=== PATIENT | male | born 1945 | race Caucasian/White ===

== ENCOUNTER 2020-05-20 10:15 | Outpatient (REF) | payer MEDICARE, SELFPAY | END 2020-05-20 10:16 | disposition home or self-care (01) | LOC: HO.LAB 10:15 | PROVIDERS: Visit Provider Internal Medicine | DX: Z20.828 Contact with and (suspected) exposure to other viral communicable diseases (principal) | CPT/HCPCS: C9803; U0003 ==

== ENCOUNTER 2021-09-15 07:40 | Emergency (ER) | payer MEDICARE, OTHER, SELFPAY ==
--- NOTE | ~2021-09-15 | US_ITS ---
EXAMINATION: US VENOUS ULTRASOUND WITH DOPPLER LOWER EXTREMITY, LEFT CLINICAL INFORMATION: Left lower extremity pain and edema. COMPARISON: None TECHNIQUE: Ultrasound of the deep veins is performed from the hip to the calf with compression sonography and color and pulse Doppler assessment. Spectral analysis with color-flow imaging is performed. FINDINGS: There is normal venous compression and respiratory variation and augmented flow. The visualized common femoral vein, superficial femoral vein, profunda femoral vein, popliteal vein, and the trifurcation region shows no evidence of deep venous thrombosis. There is no significant popliteal fossa cyst. If the patient's symptoms persist, followup ultrasound in 5 days 7 days might be of value to exclude proximal propagation from a non-visualized calf vein. US/US venous duplex LE LT IMPRESSION: No DVT demonstrated in the left lower extremity.
--- NOTE | ~2021-09-15 | US_ITS ---
EXAMINATION: ULTRASOUND ARTERIAL DUPLEX LOWER EXTREMITY LEFT CLINICAL INFORMATION: Left lower extremity pain. COMPARISON: None TECHNIQUE: Multiple 2-D grayscale and duplex Doppler ultrasound images of the arteries of the left lower extremity were obtained. FINDINGS: Scattered mild to moderate echogenic atherosclerotic plaque is seen. Peak systolic arterial velocities are as follows in centimeters per second: Common femoral: Proximal, no detectable blood or waveforms. Distal, 29 Profunda femoral: 18 Superficial femoral: No detectable arterial waveforms. Popliteal: 15 Posterior tibial: Proximal, 6. Mid to distal, no detectable arterial waveforms. Peroneal: No detectable arterial waveforms US/US arterial duplex LE LT IMPRESSION: No detectable arterial waveforms and several arterial segments in the left lower extremity as detailed above consistent with high-grade stenosis at these arterial segments. Diminished arterial waveforms are seen in the remainder of the arterial segments consistent with significant stenosis as well. This could be confirmed with CT angiography.
[2021-09-15 07:55] VITALS: BP 140/89; PULSE 100; RESP 20; TEMP 36.6; O2SAT 98; BMI 20.9
--- NOTE | 2021-09-15 07:55 | ED.GENADULT ---
HPI - General Adult General Chief complaint: Extremity Injury, Lower Stated complaint: pain in l leg calf Time Seen by Provider: 09/15/21 07:54 Source: patient Mode of arrival: ambulatory Limitations: no limitations History of Present Illness HPI narrative: This is a 76-year-old male complains of pain in his left leg from his lower thigh to his posterior knee and upper calf for a few weeks. The patient denies any injury. He denies any feeling that he had pulled a muscle. He denies any swelling to the leg or foot. Denies any chest pain or shortness of breath. He is not on any anticoagulants. Pain is worse with walking. Is moderately severe. He denies any recent surgery. He has not had any prolonged immobilization of the leg such as from travel. Related Data Allergies Allergy/AdvReac Type Severity Reaction Status Date / Time No Known Allergies Allergy Unverified 02/13/20 15:04 [No Known Allergies*] Review of Systems Review of Systems: Yes all other systems are reviewed and are negative Constitutional: Constitutional: Reports as per HPI and Denies fever(s) Eyes: Eyes: Reports as per HPI and Reports no additional eye complaints ENT: Reports system reviewed and no additional complaints, except as documented, Reports as per HPI, Denies nasal congestion, Denies nasal discharge and Denies sore throat Cardiovascular: Cardiovascular: Reports as per HPI, Denies chest pain and Denies dyspnea Respiratory: Respiratory: Reports as per HPI, Denies cough and Denies dyspnea Gastrointestinal: Gastrointestinal: Reports as per HPI, Denies abdominal pain, Denies diarrhea and Denies vomiting Musculoskeletal: Musculoskeletal: Reports no additional musculoskeletal complaints and Denies numbness Integumentary/Breasts: Skin/Breast: Reports as per HPI and Denies rash Neurologic: Reports as per HPI, Denies focal weakness and Denies numbness Psychiatric: Psychiatric: Reports no additional psychiatric complaints and Reports as per HPI Endocrine: Endocrine: Reports no additional endocrine complaints and Reports as per HPI Hematologic/Lymphatic: Hematologic/Lymphatic: Reports no additional hematologic/lymphatic complaints, Reports as per HPI and Reports other (No peripheral edema) [facility] Social History Social History Alcohol intake: never Patient Tobacco Use Status: Never used Tobacco Physical Exam ED Vital Signs: Vital Signs - 24 hr 09/15/21 07:55 09/15/21 10:22 Temperature 97.9 F 98.0 F Pulse Rate 100 69 Respiratory Rate 20 14 Blood Pressure 140/89 H 161/77 H Pulse Oximetry 98 99 BMI result Body Mass Index 20.9 Const General: no acute distress Orientation/consciousness: patient oriented x3 HENMT Head: Yes normal to inspection General nose exam: Normal external nose present Mouth: moist mucous membranes Throat: Yes posterior oropharynx normal, Yes tonsils normal and Yes uvula midline Eyes Eyelids: Yes eyelids normal Conjunctivae: conjunctivae normal Pupils: Equal, round and reactive pupils present Neck Neck: Yes supple Resp Effort & Inspection: normal respiratory effort Auscultation: clear to auscultation bilaterally Cardio Rate: regular rate Rhythm: regular rhythm Heart sounds: S1 normal heart sound present, S2 normal heart sound present, no gallops, no murmurs and no rubs GI Inspection: No distended Palpation (GI): Soft to palpation and nontender Auscultation: normal bowel sounds Skin General skin exam: other (Warm and dry) Neuro General: patient oriented x3 and CN's II-XI intact bilaterally Cranial nerves: Yes Equal, round and reactive pupils present Extrem Other: Several small scabs to the left anterior leg consistent with excoriation. No localized erythema. Fullness to the left inferior posterior thigh on exam consistent with muscle spasm versus vascular cord, although it feels more muscular given its contours. No popliteal cord or fullness. Left posterior calf soft, nontender. No pedal edema, normal dorsalis pedis pulse. General: Yes no pedal edema Psych Affect: normal affect Attitude: cooperative Medical Decision Making [facility] Narrative Medical decision making narrative: Patient with pain in his left leg, which he reports comes on after walks a few blocks. No leg swelling. Left foot was warm but had only a very faint palpable dorsalis pedis pulse. Decreased capillary refill to the toes but they were not cyanotic or cold. Venous duplex was negative for DVT. Duplex arterial did show significant arterial blockage. I spoke with the patient's primary care physician's office to let them know that he needs vascular follow-up. I also called Dr. Kenyon of vascular surgery, who was in the OR and was unable to call back for a few hours, and I had discharged the patient, but he was apprised of the patient's need for close follow-up and likely intervention to open up his left leg arterial system. The patient was also advised to return for any leg pain occurring at rest, any change in color or cold feeling to the left leg. Patient is being started on an aspirin daily, pending vascular surgery evaluation Imaging Data Left leg arterial duplex: Radiologist's impression: FINDINGS: Scattered mild to moderate echogenic atherosclerotic plaque is seen. Peak systolic arterial velocities are as follows in centimeters per second: Common femoral: Proximal, no detectable blood or waveforms. Distal, 29 Profunda femoral: 18 Superficial femoral: No detectable arterial waveforms. Popliteal: 15 Posterior tibial: Proximal, 6. Mid to distal, no detectable arterial waveforms. Peroneal: No detectable arterial waveforms US/US arterial duplex LE LT IMPRESSION: No detectable arterial waveforms and several arterial segments in the left lower extremity as detailed above consistent with high-grade stenosis at these arterial segments. Diminished arterial waveforms are seen in the remainder of the arterial segments consistent with significant stenosis as well. This could be confirmed with CT angiography. ? ? ? Left leg venous duplex: Radiologist's impression: IMPRESSION: No DVT demonstrated in the left lower extremity. Discharge Plan Discharge Clinical Impression: Claudication in peripheral vascular disease Patient Disposition: Home, Self-Care Instructions: Peripheral Artery Disease (ED) Additional Instructions: Take a baby aspirin daily. Follow up with Dr. Kenyon as soon as possible-you may need surgery to improve the blood flow to your left leg return for any worsening symptoms such as persistent pain to her left leg, your left leg or foot becoming cold or blue Referrals: Fran Kenyon MD [Physician] - 1 day (Severe peripheral artery disease left leg with claudication) Interventions: ED Discharge Assessment Last Done: 09/15/21 11:02 Discharge Date/Time: 09/15/21 11:02
--- NOTE | 2021-09-15 08:43 | PC.NURSE ---
portable ultrasound done at bedside.
--- NOTE | 2021-09-15 09:58 | PC.NURSE ---
bunny connect to md rich and call placed to office. he is in surgery and will contact md harrington when available.
[2021-09-15 10:22] VITALS: BP 161/77; PULSE 69; RESP 14; TEMP 36.7; O2SAT 99
[2021-09-15] MEDS: Aspirin Enteric Coated 81 MG TABLET.DR PO (10:56)
== END 2021-09-15 11:02 | disposition home or self-care (01) ==
PROVIDERS: Emergency Provider Emergency Medicine; PCP Internal Medicine
DX: I73.9 Peripheral vascular disease, unspecified (principal); M79.605 Pain in left leg
CPT/HCPCS: 93926; 93971; 99284

== ENCOUNTER → 2021-09-21 08:59 | Outpatient (BNVA) | payer MEDICARE, OTHER, SELFPAY | PROVIDERS: PCP Internal Medicine; Visit Provider Surgery Vascular Surgery | DX: I73.9 Peripheral vascular disease, unspecified (principal) | CPT/HCPCS: 99202 ==

== ENCOUNTER 2021-09-27 10:44 | Day surgery (SDC) | payer MEDICARE, OTHER, SELFPAY ==
[2021-09-27] VITALS (11 sets, daily range): BP systolic 119–150; BP diastolic 72–85; PULSE 60–90; RESP 15–17; TEMP 36.2–36.5; O2SAT 96–98; BMI 17.7
[2021-09-27 11:15] LABS: MANUAL DIFF FLAG NO
[2021-09-27 11:18] LABS: Basophils Absolute Auto 0.1 X10*3/uL (0.0-0.2); Basophils Percent Auto 0.6 % (0-2); Eosinophils Absolute Auto 0.3 X10*3/uL (0.0-0.4); Eosinophils Percent Auto 2.9 % (0-4); Hematocrit 46.9 % (42.0-52.0); Hemoglobin 15.4 g/dl (14.0-18.0); Imm Gran Abs Auto 0.05 X10*3/uL (0.00-0.03); Imm Gran Pct Auto 0.5 % (0.0-0.4); Lymphocytes Absolute Auto 2.3 X10*3/uL (1.2-4.9); Lymphocytes Percent Auto 23.8 % (20-40); Mean Corpuscular HGB Conc 32.8 g/dl (31.0-36.0); Mean Corpuscular Hemoglobin 29.8 pg (27.0-33.0); Mean Corpuscular Volume 90.7 fL (80.0-98.0); Mean Platelet Volume 9.1 fL (9.4-12.4); Monocytes Absolute Auto 1.1 X10*3/uL (0.1-1.2); Monocytes Percent Auto 11.5 % (2-11); Neutrophils Absolute Auto 5.9 x10*3/uL (2.0-8.3); Neutrophils Percent Auto 60.7 % (45-73); Platelet Count 432 X10*3/uL (160-400); Red Blood Count 5.17 X10*6/uL (4.60-5.80); Red Cell Distribution Width 13.8 % (11.0-16.0); White Blood Count 9.8 X10*3/uL (4.8-10.8)
[2021-09-27 11:30] LABS: Blood Urea Nitrogen 13 mg/dL (9-16); Creatinine Clr Calc Pharmacy 52.5; Estimated Glomerular Filt Rate > 60
[2021-09-27] MEDS: iohexoL 300 MG/ML 100 ML INFUS..BTL IV (14:07)
--- NOTE | 2021-09-27 14:11 | W.PM.OPN ---
Operative Note Operative Note Date of Service: 09/27/21 Narrative: Angiogram report from [facility] Preoperative diagnosis: Atherosclerosis of left lower extremity with activity limiting claudication Postoperative diagnosis: Same Procedure: 1. Ultrasound-guided right common femoral access 2. Aortogram with left lower extremity runoff Surgeon:Fran Kenyon M.D., FACS, RPVI Threading Machine Operator:None Anesthesia: Local with moderate conscious sedation. Total intraservice moderate sedation time was 32 minutes. I monitored the patient's level of consciousness and physiologic status continuously throughout the procedure. Specimens:none Drains:none Estimated blood loss: Less than 10 ml Implant: none Indications: 76-year-old gentleman with severe activity limiting claudication presents for endovascular intervention. Of note he had presented to the emergency room and there was concern of inflow and SFA disease On ultrasound performed in the emergency room. The patient has signed the informed consent after reviewing risks, complications, benefits, and alternatives previously discussed with the patient. The patient was given the opportunity to ask any additional questions or voice any concerns. All questions were answered to the patient's satisfaction. Procedure in detail: Patient was brought to the angiography suite prior to which a time-out was called for patient identification and site verification. Bilateral groins were prepped and draped in the standard surgical fashion. Under ultrasound guidance Right common femoral was punctured with micro puncture needle and wire. Subsequently a precision 5 Welsh sheath was then placed. Bentson wire was advanced to the level of the aorta. 5 Welsh Flush catheter was brought up and parked at the level of the renal arteries. Aortogram was then undertaken. Catheter was brought down to the level of the iliac bifurcation. Iliacs were subsequently imaged. due to the iliac disease noted the catheter was left at the aortic bifurcation. Left lower extremity study will was then undertaken from this point. No intervention was indicated. Catheter wire sheath was removed. 10 minutes of direct pressure was held. Interpretation of films: 1. Ultrasound demonstrates appropriate femoral puncture. Image of which was saved. 2. Aortogram demonstrates appropriate caliber aorta. Minimal disease. Appropriate take-off of the renals. 3. Iliac images demonstrate Significant tortuosity, mild disease on the right side. left side mild disease at the common iliac. prominent hypogastric on the left side, And external iliac demonstrated total occlusion 4. left Leg Common femoral artery: occluded Profundus Femoris: No significant disease, after reconstitution from origin from hypogastric Superficial femoral artery: total occlusion with reconstitution at the above knee popliteal Popliteal artery (p1,p2,p3): present Anterior tibial artery: present Peroneal artery: present Posterior tibial artery: occluded Dorsalis pedis/plantar arch: unable to visualize Conclusion: 1. successful diagnostic angiogram. multilevel disease with occlusion of external iliac and SFA. Will require femoral to femoral bypass 2. Anticoagulation status: no change This note is constructed using voice recognition software. While every effort has been made to ensure accuracy, supervisory historian errors may have been included. Thank you for allowing me to participate in the care of your patient. Yours sincerely, Fran Kenyon MD, FACS, R.P.V.I.
== END 2021-09-27 18:21 | disposition home or self-care (01) ==
PROVIDERS: PCP Internal Medicine; Visit Provider Surgery Vascular Surgery
DX: I70.212 Atherosclerosis of native arteries of extremities with intermittent claudication, left leg (principal); M79.662 Pain in left lower leg; R25.2 Cramp and spasm; R26.2 Difficulty in walking, not elsewhere classified; Z79.82 Long term (current) use of aspirin; Z76.1 Encounter for health supervision and care of foundling; F17.210 Nicotine dependence, cigarettes, uncomplicated; Z85.46 Personal history of malignant neoplasm of prostate
CPT/HCPCS: 36245; 36415; 75630; 76937; 82565; 84520; 85025; 99152; 99153; C1769; C1887; J2250; J3010; Q9967

== ENCOUNTER → 2021-09-30 14:44 | Outpatient (BNVA) | payer MEDICARE, OTHER, SELFPAY | PROVIDERS: PCP Internal Medicine; Visit Provider Surgery Vascular Surgery | DX: I73.9 Peripheral vascular disease, unspecified (principal) | CPT/HCPCS: 99212 ==

== ENCOUNTER → 2021-10-05 12:54 | Outpatient (BNVA) | payer MEDICARE, OTHER, SELFPAY | PROVIDERS: PCP Internal Medicine; Visit Provider Internal Medicine | DX: Z13.89 Encounter for screening for other disorder (principal) | CPT/HCPCS: 93005; 99202 ==

== ENCOUNTER → 2021-10-05 16:46 | Outpatient (REF) | payer MEDICARE, OTHER, SELFPAY ==
--- NOTE | 2021-10-05 17:00 | CA_ITS ---
Transthoracic Echocardiogram Patient (Last, First, Middle): Jake Vargas M Gender: Male Date of : 1945 Age: 76 Procedure Date: 10/05/2021 Procedure Type: Transthoracic Echocardiogram Location: OP Height: 170.18 cm Weight: 61.24 kg BSA: 1.71 m2 Heart Rate: bpm BP: 120 / 72 mmHg Financial Management Consultant: KODY Referring MD: Alonso Rucker MD Circular Saw Edge Fuser: Rashad Stoddard MD Symptoms: I25.10 - Atherosclerotic heart disease of [place] coronary... Study Quality: Technically Difficult ECG Rhythm: Undetermined Conclusions: - 1. Mildly reduced LV systolic function with LVEF of 45-50% 2. Normal cardiac valvular Doppler 3. Normal RV systolic pressure 4. No gross pericardial effusion Findings Left Ventricle Normal left ventricular cavity size. There is normal left ventricular wall thickness. The left ventricular systolic function is mildly decreased. The visually estimated ejection fraction is between 45-50%. Regional wall motion abnormalities can not be excluded due to suboptimal endocardial definition. Diastolic function is indeterminate on the basis of available data. Right Ventricle Normal right ventricular cavity size. Atria The left atrium is normal in size. Interatrial shunt cannot be excluded. The right atrium is normal in size. Aortic Valve The aortic valve was not well visualized. There is no aortic valve stenosis. There is no aortic valve regurgitation. Mitral Valve Likely normal mitral valve structure and function. There is trace mitral valve regurgitation. There is no mitral valve stenosis. Pulmonic Valve The pulmonic valve was not well visualized. Tricuspid Valve Likely normal tricuspid valve structure and function. There is trace tricuspid valve regurgitation. The right ventricular systolic pressure is normal. The right ventricular systolic pressure is 12 mmHg. Normal right atrial pressure. There is no evidence of pulmonary hypertension. Great Vessels The aorta was not well visualized. The pulmonary artery was not well visualized. Venous The inferior vena cava is normal in size and collapses greater than 50% with inspiration. Pericardium/Pleural There is no evidence of pericardial effusion. Prior Study Comparison No prior study available for comparison. Measurements 2D Linear Measurements IVSd: 1.02 0.6-0.9/0.6-1.0 cm LVIDd: 3.54 3.9-5.3/4.2-5.9 cm LVIDd Index: 2.07 2.4-3.2/2.2-3.1 cm/m2 LVIDs: 2.80 2.0-3.6 cm LVPWd: 1.05 0.7-1.1 cm LA Diam: 3.00 2.7-3.8/3.0-4.0 cm LAIDs Index: 1.75 1.5-2.3 cm/m2 LV Mass: 157.83 67-162/88-224 g LV Mass Index: 92.30 43-95/49-115 g/m2 LVOT Diam: 2.20 3.0+(-)1.3 cm 2D Systolic Function EF 4C: 45.50 >55% EF 2C: 47.70 >55% EF BiP: 46.70 >55% Mitral Valve MV Pk E: 0.90 MV Decel Time: 232.00 E'Lateral: 14.10 E'Medial: 8.16 E/E' Med: 11.00 E/E' Lat: 6.40 PHT: 68.00 MVA PHT: 3.24 Decel [place]: 3.88 Aortic Valve AoV Pk [place]: 1.19 AoV Mn Winston: 0.79 AoV VTI: 0.18 AoV Pk Grad: 6.00 Aov Mn Grad: 3.00 KEITH Cont.VTI: 2.82 LVOT LVOT Pk [place]: 0.76 LVOT Mn [place]: 0.51 LVOT VTI: 0.13 LVOT Pk Grad: 2.00 LVOT Mn Grad: 1.00 LVOT Diam: 2.20 LVOT Area: 3.80 Diastolic Function MV Pk E: 0.90 E'Medial: 8.16 E/E' Med: 11.00 E' Laterial: 14.10 E/E' Lat: 6.40 Right Ventricle TAPSE (mm): 1.55 TVS' Winston: 11.20 Tricuspid Valve TR Pk Winston: 1.52 TR Pk Grad: 9.00 RA Press: 3.00 RVSP: 12.00 Great Vessels Aorta Sinus of Valsalva: 3.52 2.0-3.[address] [place]: 2.60 1.7-3.4 cm Ao Asc: 3.00 2.1-3.4 cm Updated in Other Vendor System with Status of Final Rashad Stoddard MD electronically signed on 10/06/2021 1:05:32 PM with status of Final
== END ==
LOC: HO.CARD 16:46
PROVIDERS: PCP Internal Medicine; Visit Provider Internal Medicine Cardiovascular Disease
DX: Z01.818 Encounter for other preprocedural examination (principal); I25.10 Atherosclerotic heart disease of native coronary artery without angina pectoris
CPT/HCPCS: 93005; 93306; 99202

== ENCOUNTER → 2021-10-07 09:22 | Outpatient (REF) | payer MEDICARE, OTHER, SELFPAY ==
--- NOTE | ~2021-10-07 | NM_ITS ---
Myocardial perfusion study Indication: Preoperative cardiovascular risk stratification Technique: The patient was brought in for a Lexiscan perfusion study on 10/08/2021. Patient performed low-level exercise and was injected 0.4 mg of Lexiscan intravenously. Within a minute of injection, 25 mCi of sestamibi was given intravenously. Images were obtained using the SPECT gamma camera interlaced with the gating device. Images were obtained in supine position. Resting perfusion study was performed on 10/07/2021. Patient was administered 25 mCi of sestamibi intravenously at rest. Images were then obtained in supine position. Images obtained with and without CT attenuation. Total DLP 75 mGy-cm. Images were processed with the software and compared side to side in short axis, horizontal long axis and vertical long axis views. Findings: The stress perfusion study showed non attenuated images show mildly reduced uptake in the basal septum of the LV myocardium. Remainder of the LV myocardium is normally perfused. Attenuation corrected images show normal uptake of radiotracer in all segments of LV myocardium. The gated study shows normal LV systolic function with visually estimated LVEF of greater than 60 %. LV cavity is normal in size. The gated study shows normal systolic wall thickening and contraction of segments. Resting study shows no significant change in perfusion pattern compared to stress perfusion study. Gating at rest reveals normal systolic wall motion with ejection fraction at 65%. The findings are consistent with normal myocardial perfusion. NM/NM cardiolite stress test Impression: 1. Myocardial perfusion imaging study shows normal myocardial perfusion 2. Gated LVEF is 65% 3. Transient ischemic dilatation not present EKG is nondiagnostic for ischemia
--- NOTE | 2021-10-07 09:27 | CA_ITS ---
Acquisition Time: 2021-10-08 09:14:22 Total Exercise Time: 00:02:00 Test Indications: preop Medications: see chart Protocol: LEXISCAN Max HR: 110 BPM 76% of Pred: 144 BPM Max BP: 144/090 mmHG Max Work Load: 1.6 METS Pharmacological stress test with Lexiscan injection, while walking slow on treadmill, with mild sob, no chest discomfort, with accelerated junctional rhythm at baseline with brief episode of normal sinus rhythm prior to start of test, with normotensive response to injection, with nondiagnostic EKG for ischemia. Nuclear images pending. Test reviewed with Dr Stoddard. Referred By: Alonso Rucker Overread By: FRANKI QUIJANO
== END ==
LOC: HO.CARD 09:22
PROVIDERS: PCP Internal Medicine; Visit Provider Internal Medicine Cardiovascular Disease
DX: Z01.810 Encounter for preprocedural cardiovascular examination (principal)
CPT/HCPCS: 78452; 93017; A9500; J0280; J2785

== ENCOUNTER 2021-10-18 05:59 | Inpatient (IN) | payer MEDICARE, OTHER, SELFPAY ==
[2021-10-14 10:59] VITALS: BMI 20.5
--- NOTE | 2021-10-15 11:37 | P.CONAN_ITS ---
Documented by User: Aleha Haley NP 10/15/21 11:40 HPI - Anesthesia Eval Consult details Narrative: 76yo M for Femoral Femoral Bypass Graft Cardiac cleared Intellectual disability - Brother is ASIM PMFSH Active Problems Active Problems: All Active Problems (Updated 10/14/21 @ 10:36 by Rosina Luna RN) PAD (peripheral artery disease) (Acute) Preoperative cardiovascular examination (Acute) Past Medical History Medical History (Updated 10/14/21 @ 10:36 by Rosina Luna RN) History of radiation therapy Illiterate Mentally challenged Prostate cancer PVD (peripheral vascular disease) Family History Family History (Updated 10/05/21 @ 13:17 by AGUSTO Garrett) Father No problems noted. Mother No problems noted. Surgical History Surgical History (Updated 10/14/21 @ 10:41 by Rosina Luna RN) Hx of surgical procedure No pertinent past surgical history Social History Social History Household Members Other:: Lives with his sister Are you a primary palliative care nurse practitioner to a significant other at home: No Do you presently have visiting nurse or other home services: No Alcohol intake: never Patient Tobacco Use Status: Current everyday Tobacco user Tobacco use type: Cigarette Cigarettes Per Day: 5 Smoked in Last 30 Days: Yes Patient Given Instructions on How to Stop Smoking: Yes (Mailed) Date Education Initiated: 10/14/21 Use of substances other than those prescribed or required for medical reasons: No Have you been hit, kicked, punched, or otherwise hurt by someone within the past year? If so, by whom?: No Are you DNR?: No Advance Directives: No Advance Directives Information Provided: Yes (Given w/ pre-op instructions; Brother Iron DAILEY) Advance Directives on File: No Recently lost weight without trying: No Eating poorly because of decreased appetite: No Nutrition Risks: No Nutritional Risk Meds Allergies Allergy/AdvReac Type Severity Reaction Status Date / Time No Known Allergies Allergy Verified 10/14/21 10:36 [No Known Allergies*] Home Medications Medication Instructions Recorded Confirmed Last Taken Type aspirin 81 mg tablet,delayed 81 mg PO DAILY 09/21/21 10/18/21 Unknown History release (Adult Aspirin Regimen) ibuprofen 200 mg tablet (Advil) 200 mg PO Q6H PRN 09/21/21 10/18/21 Unknown History multivitamin 1 tab PO DAILY 09/21/21 10/18/21 Unknown History Exam Exam Date and Time: October 15, 2021 1137 Height,Weight and Vital Signs: Height 5 ft 7 in Weight 59.421 kg Pertinent Lab Results Pertinent Lab Results: Laboratory Tests 09/27/21 09/27/21 11:12 11:12 WBC 9.8 Hgb 15.4 Hct 46.9 Plt Count 432 H BUN 13 Creatinine 0.92 Narrative Narrative: EKG 09/2021 probable accelerated junctional rhythm at 94/Min; cannot exclude old septal infarct versus from body habitus.? Leftward axis. Less likely that this is sinus with long [place].? A low atrial rhythm also possible. ECHO 09/2021 Conclusions: - 1. Mildly reduced LV systolic function with LVEF of 45-50% ? ? 2.? Normal cardiac valvular Doppler? 3.? Normal RV systolic pressure? 4. No gross pericardial effusion ? ? NM cardiolite stress test 09/2021 Impression: ? 1.? Myocardial perfusion imaging study shows normal myocardial perfusion 2.? Gated LVEF is 65% 3. Transient ischemic dilatation not present ? EKG is nondiagnostic for ischemia Assessment and Plan Assessment Anesthesia Assessment: Chart Reviewed Documented by User: Gama Nguyen MD 10/18/21 14:11 HPI - Anesthesia Eval Consult details Narrative: 76yo M for Femoral Femoral Bypass Graft Cardiac cleared ex Smoker Intellectual disability - Brother is ASIM [facility] Past Medical History Medical History (Updated 10/14/21 @ 10:36 by Rosina Luna RN) History of radiation therapy Illiterate Mentally challenged Prostate cancer PVD (peripheral vascular disease) Functional capacity: wheelchair bound Family History Family History (Updated 10/05/21 @ 13:17 by GAUSTO Garrett) Father No problems noted. Mother No problems noted. Family history of problems with anesthesia: No Surgical History Surgical History (Updated 10/14/21 @ 10:41 by Rosina Luna RN) Hx of surgical procedure No pertinent past surgical history History of Problems with Anesthesia: No Social History Social History Household Members Other:: Lives with his sister Are you a primary palliative care nurse practitioner to a significant other at home: No Do you presently have visiting nurse or other home services: No Alcohol intake: never Patient Tobacco Use Status: Current everyday Tobacco user Tobacco use type: Cigarette Cigarettes Per Day: 5 Smoked in Last 30 Days: Yes Patient Given Instructions on How to Stop Smoking: Yes (Mailed) Date Education Initiated: 10/14/21 Use of substances other than those prescribed or required for medical reasons: No Have you been hit, kicked, punched, or otherwise hurt by someone within the past year? If so, by whom?: No Are you DNR?: No Advance Directives: No Advance Directives Information Provided: Yes (Given w/ pre-op instructions; Brother Iron DAILEY) Advance Directives on File: No Recently lost weight without trying: No Eating poorly because of decreased appetite: No Nutrition Risks: No Nutritional Risk Meds Allergies Allergy/AdvReac Type Severity Reaction Status Date / Time No Known Allergies Allergy Verified 10/14/21 10:36 [No Known Allergies*] Home Medications Medication Instructions Recorded Confirmed Last Taken Type aspirin 81 mg tablet,delayed 81 mg PO DAILY 09/21/21 10/18/21 Unknown History release (Adult Aspirin Regimen) ibuprofen 200 mg tablet (Advil) 200 mg PO Q6H PRN 09/21/21 10/18/21 Unknown History multivitamin 1 tab PO DAILY 09/21/21 10/18/21 Unknown History Exam Airway Mallampati Class: II TM Dist: >3cm Neck ROM: Full Denture: Upper and Lower Loose/Missing/Broken Teeth: Yes Heart: S1, S2 Lungs: b/l breath sounds Assessment and Plan Assessment Anesthesia Assessment: Anesthesia Plan Discussed Final Anesthetic Review Family History of Problems with Anesthesia: No History of Problems with Anesthesia: No ASA Class: III Final Preanesthetic Review: Meds/Allgs Chart Reviewed, Consent Obtained/Reviewed and Anes Risks/Benef Reviewed Patient Risk: High Procedure Risk: Intermediate Anesthetic Plan Anesthetic Plan: GA Disposition: Inp. Admit - ICU
[2021-10-18] VITALS (21 sets, daily range): BP systolic 97–168; BP diastolic 60–94; PULSE 45–90; RESP 11–18; TEMP 36.1–36.3; O2SAT 96–100
--- NOTE | ~2021-10-18 | XR_ITS ---
EXAMINATION: XR CHEST CLINICAL INFORMATION: Arrhythmia. Elevated WBC. COMPARISON: None TECHNIQUE: Frontal view of the chest was obtained. FINDINGS: Lungs are hyperexpanded and clear. No acute pulmonary abnormality. No evidence of consolidation, edema or pleural effusion. Cardiac silhouette is normal in size. The hilar contours are normal. There is atherosclerotic calcification of the aorta. No acute skeletal findings. XR/XR chest 1V IMPRESSION: No evidence of pneumonia, cardiomegaly or congestive heart failure. No acute cardiopulmonary findings.
[2021-10-18 06:47] LABS: COVID-19 Test Negative (Negative)
[2021-10-18] MEDS: Lactated Ringers 1,000 ML 100 ML IVCONT ×2 (06:49→16:57)
[2021-10-18 06:56] LABS: Hematocrit 43.7 % (42.0-52.0); Hemoglobin 14.5 g/dl (14.0-18.0); Mean Corpuscular HGB Conc 33.2 g/dl (31.0-36.0); Mean Corpuscular Hemoglobin 29.8 pg (27.0-33.0); Mean Corpuscular Volume 89.9 fL (80.0-98.0); Platelet Count 320 X10*3/uL (160-400); Red Blood Count 4.86 X10*6/uL (4.60-5.80); Red Cell Distribution Width 14.1 % (11.0-16.0); White Blood Count 7.5 X10*3/uL (4.8-10.8)
[2021-10-18 07:12] LABS: INTERNATIONAL NORM RATIO 1.1 (0.9-1.1)
[2021-10-18 07:14] LABS: Anion Gap 11 (12-20); Blood Urea Nitrogen 13 mg/dL (9-16); Calcium 9.3 mg/dL (8.4-10.2); Carbon Dioxide 31 mmol/L (22-29); Chloride 102 mmol/L (96-108); Creatinine Clr Calc Pharmacy 58.6; Estimated Glomerular Filt Rate > 60; Glucose Random 89 mg/dL (60-115); Potassium 4.1 mmol/L (3.3-5.1); Sodium 140 mmol/L (135-145)
[2021-10-18 07:15] LABS: Partial Thromboplastin Time 38.4 SEC (24.1-38.0)
--- NOTE | 2021-10-18 07:21 | ECG_ITS ---
Test Reason : slow heart rate Blood Pressure : / mmHG Vent. Rate : 050 BPM Atrial Rate : 050 BPM P-R Int : 148 ms QRS Dur : 082 ms QT Int : 452 ms P-R-T Axes : 070 -48 061 degrees QTc Int : 412 ms Sinus bradycardia Left axis deviation Abnormal ECG No previous ECGs available Referred By: Gama Nguyen Electronically Signed By:Sumit Dugan
--- NOTE | 2021-10-18 07:21 | MHC.SHP ---
Pre-Procedural Eval Section A Date of Service: 10/18/21 The patient is an INPATIENT: No Changes since office visit: Yes Patient answered all questions The History & Physical has been completed within 30 days and I have reviewed it.: Yes Section B Chief Complaint: Postop Allergies: Allergies Allergy/AdvReac Type Severity Reaction Status Date / Time No Known Allergies Allergy Verified 10/14/21 10:36 [No Known Allergies*] Plan I have reviewed the history and physical and performed a pertinent physical examination on my patient. No changes have occurred unless specified.
--- NOTE | 2021-10-18 07:22 | PC.NURSE ---
WHILE PATIENT SITTING IN BED HEART RATE DECREASED TO 48. ASYMPTOMATIC. EKG ORDERED PER MD OVERTON.
--- NOTE | 2021-10-18 07:28 | PC.NURSE ---
SPOKE TO BROTHER PATRICE AND HE STATES HE IS ABLE TO SIGN CONSENTS HIMSELF [phone]. MD CASAREZ AWARE OF TAKING HIS ASA YESTERDAY AND ABSENT PULSE TO LEFT TIBIA
--- NOTE | 2021-10-18 07:41 | PHA.MEDREC ---
Pharmacy Consult ? Medication Reconciliation Pharmacy has completed the medication reconciliation.
[2021-10-18] MEDS: ceFAZolin Sodium/Dextrose,Iso 2 GM/50 ML PIGGYBACK IV ×2 (07:52→16:57)
--- NOTE | 2021-10-18 11:10 | P.OP_ITS ---
Operative Note Operative Note Date of Service: 10/18/21 Narrative: Operative note by [facility] Preoperative diagnosis: Atherosclerosis with Severe activity limiting claudication Postoperative diagnosis: Same Procedure:1. Femoral to femoral bypass (right to left) 2. Left femoral endarterectomy 3. Thrombectomy of left SFA and profundus Surgeon:Fran Kenyon M.D. Routing Equipment Tender: Dr. Bryant and Dr. Meza Anesthesia: General Specimens: 1 Drains: None Estimated blood loss: 450 mL Indications: 76-year-old gentleman with a known occlusion of left iliac and SFA a now presents for femoral to femoral bypass. Risks benefits complications were discussed with the patient and his brother. The patient has signed the informed consent after reviewing risks, complications, benefits, and alternati ves previously discussed with the patient. The patient was given the opportunity to ask any additional questions or voice any concerns. All questions were answered to the patient's satisfaction. Procedure in detail: Patient was brought to the operating room prior to which a time-out was called for patient identification site verification. Bilateral groins were prepped and draped in standard surgical fashion. Incision was carried out in a a longitudinal manner over the right common femoral 1st. We were able to identify the common femoral quite easily. This was isolated with silastic loops. In a similar fashion we identified the left common femoral. We did encounter some venous bleeding when performing the open dissection. Once we exposed the left common femoral and we controlled the bleeding with a 2 0 silk tie and stitch. We then isolated the left common femoral profundus and SFA with silastic loops. Once this was accomplished a tunnel was created using an aortic clamp from the left to right groin. In a subcutaneous manner. Once this was accomplished we passed umbilical tape across. At this time 5000 units of systemic heparin was administered. After 5 minutes of circulation time we clamped the right common femoral artery. Arteriotomy was created. We then anastomosed a 6 x 50 Propaten graft. This was trimmed to appropriate size. We then circumferentially anastomosed this with a CV6 [place] suture. Once this was accomplished we flushed through the graft. We passed the graft through the subcu tunnel that had been previously created. Once we brought back to the left side. In a similar fashion we created an arteriotomy on the left side. There was significant thrombus and plaque noted. Endarterectomy was then undertaken. We had to pass a 3. Allie into the SFA and profundus to remove echo extra clot and ensure patency. The profundus was the main dominant vessel. SFA did appear to be occludes just beyond the proximal location. Once this was accomplished we flushed the area clear. We then circumferentially anastomosed with a CV6 suture. We flushed prior to closure. Once closed several interrupted is 6 0 Prolene sutures had to be placed for hemostasis. Once this was accomplished SNOW was then placed for hemostatic agent. Then Tisseel sealant was then placed. Once this was all accomplished in adequate hemostasis was achieved bilateral deep layers were reapproximated using 2-0 Polysorb superficial layers with 3-0 poly Sorb and finally skin with perla. Sterile dressing was applied. At the end the case sponge instrument counts were correct. Patient tolerated the procedure well. Returned to recovery with stable vitals. This note is constructed using voice recognition software. While every effort has been made to ensure accuracy, csr retail errors may have been included. Thank you for allowing me to participate in the care of your patient. Yours sincerely, Fran Kenyon MD, FACS, R.P.V.I.
[2021-10-18] MEDS: 0.9 % Sodium Chloride 1,000 ML 80 ML IVCONT (12:11)
--- NOTE | 2021-10-18 15:58 | PM.CCHP ---
History of Present Illness Date of Service: 10/18/21 Chief Complaint: status post fem-fem bypass 76-year-old gentleman with underlying history of prostate cancer, active smoker, peripheral artery disease status post elective fem-fem bypass today being monitored in the intensive care unit during the postop period. Review of Systems Constitutional: Constitutional: Denies daytime sleepiness, Denies excessive sweating, Denies fatigue, Denies fever(s), Denies lethargy, Denies malaise, Denies night sweats, Denies snoring and Denies weight loss Eyes: Eyes: Denies blurry vision and Denies itchy eyes ENT: Denies nasal congestion, Denies post nasal drip, Denies sinus pain, Denies sinus pressure and Denies other ( Thrush) Cardiovascular: Cardiovascular: Denies chest pain, Denies pedal edema, Denies dyspnea, Denies orthopnea and Denies paroxysmal nocturnal dyspnea Respiratory: Respiratory: Denies cough, Denies hemoptysis, Denies excessive phlegm production, Denies dyspnea, Denies snoring and Denies wheezing Gastrointestinal: Gastrointestinal: Denies abdominal pain and Denies heartburn Musculoskeletal: Musculoskeletal: Denies myalgias, Denies arthralgias and Denies joint swelling Integumentary/Breasts: Skin/Breast: Denies rash Neurologic: Denies memory loss and Denies seizure-like activity Psychiatric: Psychiatric: Denies abnormal sleep pattern, Denies anxiety and Denies memory loss Endocrine: Endocrine: Denies excessive sweating, Denies fatigue and Denies heat intolerance Hematologic/Lymphatic: Hematologic/Lymphatic: Denies easy bruising Allergic/Immunologic: Allergic/Immunologic: Denies itchy eyes, Denies seasonal rhinorrhea and Denies wheezing PMFSH Past Medical History Medical History (Updated 10/14/21 @ 10:36 by Rosina Luna RN) History of radiation therapy Illiterate Mentally challenged Prostate cancer PVD (peripheral vascular disease) Functional capacity: wheelchair bound Family History Family History (Updated 10/05/21 @ 13:17 by AGUSTO Garrett) Father No problems noted. Mother No problems noted. Surgical History Surgical History (Updated 10/18/21 @ 16:00 by Faizan Funes MD) Hx of surgical procedure No pertinent past surgical history Social History Social History Household Members Other:: Lives with his sister Are you a primary healthcare project manager to a significant other at home: No Do you presently have visiting nurse or other home services: No Alcohol intake: never Patient Tobacco Use Status: Current everyday Tobacco user Tobacco use type: Cigarette Cigarettes Per Day: 5 Smoked in Last 30 Days: Yes Patient Given Instructions on How to Stop Smoking: Yes (Mailed) Date Education Initiated: 10/14/21 Use of substances other than those prescribed or required for medical reasons: No Have you been hit, kicked, punched, or otherwise hurt by someone within the past year? If so, by whom?: No Are you DNR?: No Advance Directives: No Advance Directives Information Provided: Yes (Given w/ pre-op instructions; Brother Iron DAILEY) Advance Directives on File: No Recently lost weight without trying: No Eating poorly because of decreased appetite: No Nutrition Risks: No Nutritional Risk Meds Allergies Allergy/AdvReac Type Severity Reaction Status Date / Time No Known Allergies Allergy Verified 10/14/21 10:36 [No Known Allergies*] Active Medications: Current Medications Acetaminophen (Acetaminophen 325 Mg Tablet) 650 mg PO Q6H PRN PRN Reason: Pain, Mild (Pain Scale 1-3) Aspirin (Aspirin Enteric Coated 81 Mg Tablet.Dr) 81 mg PO DAILY COUNT INCLUDES THE [facility] Fentanyl (Fentanyl Citrate/Pf 100 Mcg/2 Ml Vial) 25 mcg IVPUSH Q5M PRN; Protocol PRN Reason: Pain, Moderate (Pain Scale 4-6 Hydromorphone HCl (Hydromorphone Hcl 0.5 Mg/0.5 Ml Syringe) 0.25 mg IVPUSH Q5M PRN; Protocol PRN Reason: Pain, Severe (Pain Scale 7-10) Lactated Ringer's (Lr) 1,000 mls @ 100 mls/hr IVCONT .Q10H KENYA Last Admin: 10/18/21 06:49 Dose: 100 mls/hr Documented by: Sodium Chloride (Ns) 1,000 mls @ 80 mls/hr IVCONT .[id number] COUNT INCLUDES THE [facility] Last Admin: 10/18/21 12:11 Dose: 80 mls/hr Documented by: Morphine Sulfate (Morphine Sulfate 2 Mg/Ml Cartridge) 2 mg IVPUSH Q4H PRN; Protocol PRN Reason: Pain, Severe (Pain Scale 7-10) Multivitamins/Vitamin C (Multivitamin Tablet) 1 tab PO DAILY COUNT INCLUDES THE [facility] Ondansetron HCl (Ondansetron Hcl 4 Mg/2 Ml Vial) 4 mg IVPUSH ONCE PRN PRN Reason: Nausea and Vomiting Oxycodone HCl (Oxycodone Hcl Immed Release 5 Mg Tablet) 5 mg PO Q4H PRN PRN Reason: Pain, Moderate (Pain Scale 4-6 Sodium Chloride (0.9 % Sodium Chloride Flush 3 Ml Syringe) 3 ml IVFLUSH QSHIFT COUNT INCLUDES THE [facility] Home Medications Medication Instructions Recorded Confirmed Last Taken Type aspirin 81 mg tablet,delayed 81 mg PO DAILY 09/21/21 10/18/21 Unknown History release (Adult Aspirin Regimen) ibuprofen 200 mg tablet (Advil) 200 mg PO Q6H PRN 09/21/21 10/18/21 Unknown History multivitamin 1 tab PO DAILY 09/21/21 10/18/21 Unknown History Physical Exam Vital Signs: Vital Signs: Last Vital Signs Temp 97.0 F 10/18/21 12:22 Pulse 55 10/18/21 14:54 Resp 16 10/18/21 14:54 BP 166/78 H 10/18/21 14:54 Pulse Ox 100 10/18/21 14:54 BMI result Body Mass Index 20.5 Const: General: no acute distress and alert Nutritional Appearance: not obese Orientation/consciousness: Other orientation findings ( oriented) HEENT: Head: Yes atraumatic Throat: No postnasal drainage Eyes: General: appearance normal, both eyes and all related structures Sclerae: sclerae normal EOM: EOMs intact bilaterally Neck: Neck: Yes supple Lymphatic: no lymphadenopathy noted Resp: Effort & Inspection: normal respiratory effort and no use of accessory muscles Auscultation: clear to auscultation bilaterally Cardio: Rate: regular rate Rhythm: regular rhythm Heart sounds: no gallops, no murmurs and no rubs GI: Palpation (GI): Soft to palpation and Other GI palpation findings present ( nontender) Skin: General skin exam: other ( warm) Rashes: no rashes Extrem: General: No clubbing, No cyanosis, No edema and Yes other ( bilateral femoral access sites without hematoma) Results Labs CBC and Chem 7: 10/18/21 06:45 10/18/21 06:45 Labs: Laboratory Results - last 24 hr 10/18/21 10/18/21 10/18/21 06:12 06:45 06:45 MCV 89.9 MCH 29.8 MCHC 33.2 RDW 14.1 Plt Count 320 D MPV 9.0 L Absolute Nucleated RBC 0.000 Nucleated RBC % (auto) 0.0 PT 12.0 INR 1.1 APTT 38.4 H Anion Gap Estim Creat Clear Calc Estimated GFR Random Glucose Calcium COVID-19 ([facility]AN) Negative COVID-19 Clin Com See Note Blood Type Antibody Screen 10/18/21 10/18/21 06:45 07:15 MCV MCH MCHC RDW Plt Count MPV Absolute Nucleated RBC Nucleated RBC % (auto) PT INR APTT Anion Gap 11 L Estim Creat Clear Calc 58.6 Estimated GFR > 60 Random Glucose 89 Calcium 9.3 COVID-19 ([facility]AN) COVID-19 Clin Com Blood Type O Positive Antibody Screen NEGATIVE Assessment and Plan (1) PAD (peripheral artery disease): Status: Acute (2) Status post femorofemoral bypass surgery: Status: Acute Plan Assessment: 76-year-old gentleman with underlying peripheral arterial disease postop day 1 after elective fem-fem bypass being monitored in the intensive care Plan: Neuro: No acute issues. Cardiac: underlying peripheral arterial disease status post fem-fem bypass today. Vascular surgery service care appreciated. Maintain systolic blood pressure under 160. Pulmonary: No acute issues. Renal: No acute issues. Endo: No acute issues. GI: No acute issues. ID: No acute issues Heme/Onc: No acute issues. Psych: No acute issues. Miscellaneous: No acute issues. Prophylaxis: Per vascular surgery Diet: per vascular surgery
[2021-10-18] MEDS: Labetalol HCL 100 MG/20 ML VIAL 20 MG IVPUSH (16:58)
--- NOTE | 2021-10-18 18:35 | PC.ADMIT ---
Report taken from porcelain enamel repairer. Pt arrived to unit, pulses were assessed w/ advisory intern. Pedal pulses marked, doppler at bedside. Md assessed pt at bedside. Md informed of pt's BP and difference in pupil size. Per md continue to monitor, no new orders at this time. visitors at bedside. Pt refused food for tonight stating he didnt want to eat. Dressing assessed, perla intact. Dentures and eye glasses along with other pt belongings at bedside. Safety and fall precautions initiated and maintained. IV's assessed and flushed. L radial A line assessed and intact.
[2021-10-19] VITALS (15 sets, daily range): BP systolic 97–140; BP diastolic 63–98; PULSE 52–101; RESP 10–20; TEMP 36.1–36.8; O2SAT 94–99; BMI 21.7
[2021-10-19] MEDS: Lactated Ringers 1,000 ML 100 ML IVCONT (02:47)
[2021-10-19 06:03] LABS: Basophils Percent Auto 0.2 % (0-2); Eosinophils Percent Auto 0.1 % (0-4); Hematocrit 34.6 % (42.0-52.0); Hemoglobin 11.6 g/dl (14.0-18.0); Imm Gran Abs Auto 0.08 X10*3/uL (0.00-0.03); Imm Gran Pct Auto 0.4 % (0.0-0.4); Lymphocytes Absolute Auto 1.5 X10*3/uL (1.2-4.9); Lymphocytes Percent Auto 8.1 % (20-40); MANUAL DIFF FLAG SCAN; Mean Corpuscular HGB Conc 33.5 g/dl (31.0-36.0); Mean Corpuscular Hemoglobin 29.7 pg (27.0-33.0); Mean Corpuscular Volume 88.5 fL (80.0-98.0); Mean Platelet Volume 10.1 fL (9.4-12.4); Monocytes Absolute Auto 1.7 X10*3/uL (0.1-1.2); Monocytes Percent Auto 8.9 % (2-11); Neutrophils Absolute Auto 15.3 x10*3/uL (2.0-8.3); Neutrophils Percent Auto 82.3 % (45-73); Platelet Count 326 X10*3/uL (160-400); Red Blood Count 3.91 X10*6/uL (4.60-5.80); SCAN SMEAR FLAG 1; White Blood Count 18.5 X10*3/uL (4.8-10.8)
--- NOTE | 2021-10-19 06:09 | PC.NURSE ---
ASSUMED CARE OF PT AT 1900. PT A&O X3. DENIES PAIN. BILAT INGUINAL DRESSINGS D&I, PT DENIES NUMBNESS OR TINGLING IN THE LEGS OR FEET. FEET ARE COOL BILAT. PT ABLE TO WIGGLE TOES AND MOVE LEGS WITH EQUAL AND MILD WEAKNESS. BILAT DORSALIS PULSES AUDIBLE WITH A DOPPLER BUT VERY FAINT, LEFT DORSALIS PEDAL PULSE GREATER THAN RIGHT. COBY INTACT RIGHT RADIAL ARTERY, ZERO TRIMMED AND CALIBRATED TO ATMOSPHERIC PRESSURE. BP STABLE. MANUAL BP IS HIGHER THAN COBY TO ABOUT 30 MM HG. IV FLUIDS INFUSING ORDERED. PT TAKING PO FLUIDS WELL.
[2021-10-19 06:26] LABS: Anion Gap 15 (12-20); Blood Urea Nitrogen 13 mg/dL (9-16); Calcium 8.9 mg/dL (8.4-10.2); Carbon Dioxide 23 mmol/L (22-29); Chloride 104 mmol/L (96-108); Estimated Glomerular Filt Rate > 60; Glucose Random 102 mg/dL (60-115); Potassium 4.2 mmol/L (3.3-5.1); Sodium 138 mmol/L (135-145)
[2021-10-19 06:32] LABS: SLIDE REVIEW VERIFIED
--- NOTE | 2021-10-19 07:21 | HO.POSTANES ---
Post Anesthesia Evaluation Post Anesthesia Evaluation Vital Signs: Vital Signs Temp Pulse Resp BP Pulse Ox 10/19/21 07:00 62 16 116/65 96 10/19/21 06:00 63 13 109/71 98 10/19/21 04:59 58 14 107/64 97 10/19/21 03:58 97.3 F 60 16 113/72 98 10/19/21 03:00 59 14 105/64 97 10/19/21 01:57 56 10 L 97/65 98 10/19/21 01:00 56 12 130/72 97 10/19/21 00:00 52 13 134/71 99 10/18/21 23:00 55 13 108/75 99 10/18/21 22:00 55 11 L 97/69 99 10/18/21 21:00 51 13 111/78 100 10/18/21 20:00 51 11 L 149/64 H 100 Anesthesia: General Endotracheal-GETA Mental Status: Awake Pain Control: Satisfactory Nausea/Vomiting: None Hydration: Adequate Anesthesia-Related Issues: No Anes. Related Issues
--- NOTE | 2021-10-19 08:47 | HO.VASCPN ---
Subjective Subjective Date of Service: 10/19/21 Patient reports: no new complaints and feels better Interval history: Pleasant 76-year-old gentleman postop day 1 status post femoral to femoral bypass. He reports he is doing relatively well. Tolerating pain. He has also tolerated some p.o. drinking grady leonarda with no issues. He reports that his left leg is doing significantly better. He now presents for follow-up. Physical Exam Vital Signs: Vital Signs: Last Vital Signs Temp 97.3 F 10/19/21 03:58 Pulse 59 10/19/21 08:00 Resp 14 10/19/21 08:00 BP 135/70 10/19/21 08:00 Pulse Ox 96 10/19/21 08:00 BMI result Body Mass Index 21.7 Const: General: cooperative, healthy appearing and comfortable Orientation/consciousness: oriented to person, oriented to place and oriented to time HEENT: Head: Yes normal to inspection Neck: Neck: Yes normal visual inspection Carotids: no bruits Chest: Chest palpation & inspection: normal inspection of the chest Resp: Effort & Inspection: normal respiratory effort and able to speak in complete sentences Auscultation: clear to auscultation bilaterally, no crackles, no rales, no rhonchi and no wheezes Cardio: Rate: regular rate Rhythm: regular rhythm Heart sounds: S1 normal heart sound present and S2 normal heart sound present Bruits: no carotid bruits Peripheral pulses: Peripheral pulses 2+ throughout GI: Inspection: Yes normal to inspection Skin: Wounds: no wounds Hair: normal Neuro: General: oriented to person, oriented to place and oriented to time Cranial nerves: Yes CN's II-XII intact bilaterally and Yes Normal hearing present Cognition (Neuro): normal cognition Motor exam (neuro): 5/5 motor strength present throughout Extrem: Other: venous exam: No significant superficial varicosities or spider telangiectasias, minimal edema General: No clubbing, No cyanosis and No edema Psych: Appearance: grossly normal Mental Status: mental status grossly normal Speech and movement: Normal speech and movement present Progress Note: A&P Assessment and plan (1) PAD (peripheral artery disease): Status: Acute Assessment and Plan: Patient is postop day 1 status post fem due to fem bypass. Slight drop in H&H. Of concern is his elevated wbc's. We will remove A-line and Guy. Regular diet. Out of bed to chair. Groins look stable as well. Should he do well would anticipate work with physical therapy starting tomorrow. Thank you to the intensive is for their assistance in this patient's care. Time Spent With Patient Time: Total time spent is greater than 50% in coordination of care (as documented) at patient's floor/unit and/or counseling patient: Procedures Date of Service Date of Service: 10/19/21 Quality Stroke Does the patient have a stroke diagnosis?: No VTE Prior VTE?: No VTE Risk Level:: Surgical - moderate VTE Device Contraindication: N/A - Device Ordered VTE Drug Contraindication: N/A - Med Ordered
[2021-10-19] MEDS: Aspirin Enteric Coated 81 MG TABLET.DR PO (09:01)
[2021-10-19] MEDS: Multivitamin TABLET 1 TAB PO (09:01)
--- NOTE | 2021-10-19 11:16 | PC.NURSE ---
Per md verbal order, A line was d/c'ed, mckeon d/c'ed and fluids d/c'ed. Pt to be xfer'ed once a bed is available. Pressure was applied and pressure dressing was placed after A line removal. Pt bathed w/ CHG wipes this am. pt c/o feeling dizzy while changing positions and exp diaphoresis and lightheadedness. pt sat back in bed. vitals were obtained, WNL for pt's parameters. Pt SR/SB on tele HR going as low as 44 w/ hx of bradycardia. family members at bedside. safety and fall precautions maintained. pt repositioned Q2 per protocol. Doppler used to assess b/l LE's. pt accidently self d/c'ed RUE IV. dressing was placed.
--- NOTE | 2021-10-20 | ECG_ITS ---
Test Reason : arrythma Blood Pressure : / mmHG Vent. Rate : 078 BPM Atrial Rate : 078 BPM P-R Int : 140 ms QRS Dur : 072 ms QT Int : 358 ms P-R-T Axes : 034 -57 069 degrees QTc Int : 408 ms Sinus rhythm with Premature atrial complexes Left axis deviation Abnormal ECG When compared with ECG of 18-OCT-2021 07:28, Premature atrial complexes are now Present Vent. rate has increased BY 28 BPM Referred By: Fran Kenyon Electronically Signed By:Sumit Dugan
[2021-10-20] MEDS: 0.9 % Sodium Chloride Flush 3 ML SYRINGE IVFLUSH ×3 (00:57→15:40)
[2021-10-20] MEDS: ondansetron HCL 4 MG/2 ML VIAL IVPUSH (01:03)
[2021-10-20 03:39] VITALS: BP 137/77; PULSE 81; RESP 16; O2SAT 96
--- NOTE | 2021-10-20 05:51 | PC.NURSE ---
CARE ASSUMED 23:15...AWAKE..ALERT..NIXON...REPOSITIONS SELF IN BED..PATIENT HAD PREVIOUSLY VOMITED..STATED REMAINED QUEASY ..MEDICATED WITH PRN ZOFRAN WITH EFFECT...INGUINAL DRESSINGS DRY/INTACT...FEET REMAIN COOL WITH FAINT DOPPLER DORSALIS PEDAL PULSES...NIXON...DENIES DISCOMFORT TO FEET OR LEGS...NSR..RARE PAC'S
[2021-10-20 07:39] VITALS: BP 143/79; PULSE 77; RESP 19; TEMP 36.7; O2SAT 95
[2021-10-20] MEDS: Aspirin Enteric Coated 81 MG TABLET.DR PO (07:57)
[2021-10-20] MEDS: Multivitamin TABLET 1 TAB PO (07:58)
--- NOTE | 2021-10-20 08:51 | MHC.CM.PN ---
Patient has a diagnosis of Mentally Challenged; CM spoke with Brother/HCP/Jaden @ [phone] and addressed IMM with him (original will be mailed certified letter to Jaden and a copy has been placed on the chart). 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 Home/resume MOWs is the goal and CM has initiated and will follow for dc planning. Patient has received Moderna/Covid vax X4 and PCP is DR. Samuels.
--- NOTE | 2021-10-20 09:53 | HO.VASCPN ---
Subjective Subjective Date of Service: 10/20/21 Patient reports: no new complaints and feels better Interval history: 76-year-old gentleman postop day 2 status post fem-fem bypass. Reports no events overnight. Pain reasonably well controlled. He reports that the left leg does feel better in warmer. He was transferred to a floor bed yesterday. Physical Exam Vital Signs: Vital Signs: Last Vital Signs Temp 98.1 F 10/20/21 07:39 Pulse 77 10/20/21 07:39 Resp 19 10/20/21 07:39 BP 143/79 H 10/20/21 07:39 Pulse Ox 95 10/20/21 07:39 BMI result Body Mass Index 21.7 Const: General: cooperative, healthy appearing and no acute distress Orientation/consciousness: oriented to person, oriented to place and oriented to time HEENT: Head: Yes normal to inspection Neck: Carotids: no bruits Chest: Chest palpation & inspection: normal inspection of the chest Resp: Effort & Inspection: normal respiratory effort and able to speak in complete sentences Auscultation: clear to auscultation bilaterally Cardio: Rate: regular rate Heart sounds: S1 normal heart sound present and S2 normal heart sound present Peripheral pulses: other (Signal noted on graft) GI: Inspection: Yes normal to inspection Skin: Other: Bilateral groin incisions healing well dressings were removed General skin exam: no rashes or lesions noted Wounds: no wounds Neuro: General: oriented to person, oriented to place, oriented to time and CN's II-XI intact bilaterally Extrem: General: Yes normal to inspection, Yes full ROM and Yes no clubbing, cyanosis or edema Psych: Appearance: grossly normal and well kempt Speech and movement: Normal speech and movement present Affect: normal affect Progress Note: A&P Assessment and plan (1) PAD (peripheral artery disease): Status: Acute Assessment and Plan: In short patient is doing well status post fem-fem bypass. He has poor p.o. intake. We will continue to monitor his H&H and will start physical therapy. Of concern is his white count. We will also re-evaluate that as well. There is no evidence of infection or erythema in bilateral groins. We will see how he progresses over the next day or 2 as he becomes more ambulatory. Time Spent With Patient Time: Total time spent is greater than 50% in coordination of care (as documented) at patient's floor/unit and/or counseling patient: Procedures Date of Service Date of Service: 10/20/21 Quality Stroke Does the patient have a stroke diagnosis?: No VTE Prior VTE?: No VTE Risk Level:: Surgical - moderate VTE Device Contraindication: N/A - Device Ordered VTE Drug Contraindication: N/A - Med Ordered
[2021-10-20 11:57] LABS: Basophils Percent Auto 0.2 % (0-2); Hematocrit 38.4 % (42.0-52.0); Hemoglobin 12.9 g/dl (14.0-18.0); Imm Gran Pct Auto 0.5 % (0.0-0.4); Lymphocytes Absolute Auto 1.6 X10*3/uL (1.2-4.9); MANUAL DIFF FLAG SCAN; Mean Corpuscular HGB Conc 33.6 g/dl (31.0-36.0); Mean Corpuscular Hemoglobin 29.9 pg (27.0-33.0); Mean Corpuscular Volume 88.9 fL (80.0-98.0); Mean Platelet Volume 9.7 fL (9.4-12.4); Monocytes Absolute Auto 2.3 X10*3/uL (0.1-1.2); Monocytes Percent Auto 11.7 % (2-11); Neutrophils Absolute Auto 15.8 x10*3/uL (2.0-8.3); Neutrophils Percent Auto 79.6 % (45-73); Platelet Count 314 X10*3/uL (160-400); Red Blood Count 4.32 X10*6/uL (4.60-5.80); Red Cell Distribution Width 14.5 % (11.0-16.0); SCAN SMEAR FLAG 1; White Blood Count 19.8 X10*3/uL (4.8-10.8)
[2021-10-20 12:00] VITALS: BP 153/81; PULSE 73; RESP 19; TEMP 36.8; O2SAT 95
--- NOTE | 2021-10-20 12:08 | PC.NURSE ---
100 Dr Kenyon inwith pt. notified of diff getting pedal pulses with doppler. MD was able to locate one. Feet remain cool.
[2021-10-20 12:42] LABS: SLIDE REVIEW VERIFIED
[2021-10-20 14:01] LABS: Alanine Aminotransferase 10 U/L (0-40); Albumin Level 3.5 g/dL (3.5-5.0); Alkaline Phosphatase 93 U/L (39-117); Anion Gap 11 (12-20); Aspartate Amino Transferase 21 U/L (5-37); Bilirubin Total 1.6 mg/dL (0.0-1.0); Blood Urea Nitrogen 29 mg/dL (9-16); Calcium 9.2 mg/dL (8.4-10.2); Carbon Dioxide 31 mmol/L (22-29); Chloride 102 mmol/L (96-108); Estimated Glomerular Filt Rate > 60; Glucose Random 111 mg/dL (60-115); Potassium 4.4 mmol/L (3.3-5.1); Sodium 140 mmol/L (135-145); Total Protein 5.9 g/dL (6.5-8.0)
--- NOTE | 2021-10-20 14:24 | PM.CNCAR ---
History of Present Illness History of Present Illness Date of Service: 10/20/21 Requesting physician: Fran Kenyon Chief complaint: Bradycardia Narrative: 76-year-old gentleman who is status post aortobifem surgery. We have been asked to assess him for bradycardia. It appears this morning around 06:00 he had 2 episodes of bradycardia while he was sleeping. On telemetry he had 2-1 block and also some clear Wenckebach. He does not remember any of this as he was sleeping. Around 12:56 he again had another episode but apparently was sleeping again. Does not recall having dizziness, lightheadedness or having syncope previously. No chest pains otherwise. He had some nausea last night but did not have any symptoms this morning. While I was interviewing him he had another episode and was having a lot of hiccups at that time. Again he had no symptoms other than hiccups at that time. [facility] Past Medical History Medical History (Updated 10/20/21 @ 14:30 by Sumit Dugan MD) History of radiation therapy Illiterate Mentally challenged Prostate cancer PVD (peripheral vascular disease) Functional capacity: wheelchair bound Family History Family History (Updated 10/05/21 @ 13:17 by AGUSTO Garrett) Father No problems noted. Mother No problems noted. Surgical History Surgical History (Updated 10/18/21 @ 16:00 by Faizan Funes MD) Hx of surgical procedure No pertinent past surgical history Social History Social History Household Members Other:: Lives with his sister Are you a primary respiratory care assistant to a significant other at home: No Do you presently have visiting nurse or other home services: No Alcohol intake: never Patient Tobacco Use Status: Current everyday Tobacco user Tobacco use type: Cigarette Cigarettes Per Day: 5 Smoked in Last 30 Days: Yes Patient Given Instructions on How to Stop Smoking: Yes (Mailed) Date Education Initiated: 10/14/21 Use of substances other than those prescribed or required for medical reasons: No Currently Displaying Signs/Symptoms of Drug Intoxication Withdrawal: No Have you been hit, kicked, punched, or otherwise hurt by someone within the past year? If so, by whom?: No Are you DNR?: No Advance Directives: No Advance Directives Information Provided: Yes (Given w/ pre-op instructions; Brother Iron DAILEY) Advance Directives on File: No Recently lost weight without trying: No Eating poorly because of decreased appetite: No Nutrition Risks: No Nutritional Risk service: No Current occupational status: disabled Meds Allergies Allergy/AdvReac Type Severity Reaction Status Date / Time No Known Allergies Allergy Verified 10/14/21 10:36 [No Known Allergies*] Active Medications: Current Medications Acetaminophen (Acetaminophen 325 Mg Tablet) 650 mg PO Q6H PRN PRN Reason: Pain, Mild (Pain Scale 1-3) Aspirin (Aspirin Enteric Coated 81 Mg Tablet.) 81 mg PO DAILY [facility] Last Admin: 10/20/21 07:57 Dose: 81 mg Documented by: Cefazolin Sodium/Dextrose (Ancef) 2 gm in 50 mls @ 100 mls/hr IV Q12H [facility] Morphine Sulfate (Morphine Sulfate 2 Mg/Ml Cartridge) 2 mg IVPUSH Q4H PRN; Protocol PRN Reason: Pain, Severe (Pain Scale 7-10) Multivitamins/Vitamin C (Multivitamin Tablet) 1 tab PO DAILY [facility] Last Admin: 10/20/21 07:58 Dose: 1 tab Documented by: Ondansetron HCl (Ondansetron Hcl 4 Mg/2 Ml Vial) 4 mg IVPUSH Q6H PRN PRN Reason: Nausea Last Admin: 10/20/21 01:03 Dose: 4 mg Documented by: Oxycodone HCl (Oxycodone Hcl Immed Release 5 Mg Tablet) 5 mg PO Q4H PRN PRN Reason: Pain, Moderate (Pain Scale 4-6 Sodium Chloride (0.9 % Sodium Chloride Flush 3 Ml Syringe) 3 ml IVFLUSH QSHIFT [facility] Last Admin: 10/20/21 07:58 Dose: 3 ml Documented by: Home Medications Medication Instructions Recorded Confirmed Last Taken Type aspirin 81 mg tablet,delayed 81 mg PO DAILY 09/21/21 10/18/21 Unknown History release (Adult Aspirin Regimen) ibuprofen 200 mg tablet (Advil) 200 mg PO Q6H PRN 09/21/21 10/18/21 Unknown History multivitamin 1 tab PO DAILY 09/21/21 10/18/21 Unknown History Physical Exam Vital Signs: Vital Signs: Last Vital Signs Temp 98.2 F 10/20/21 12:00 Pulse 73 10/20/21 12:00 Resp 19 10/20/21 12:00 BP 153/81 H 10/20/21 12:00 Pulse Ox 95 10/20/21 12:00 BMI result Body Mass Index 21.7 GENERAL APPEARANCE: in no acute distress, pleasant. NECK: no carotid bruit, no jugular venous distention. SKIN: no suspicious lesions, warm and dry. HEART: no murmurs, regular rate and rhythm. LUNGS: clear to auscultation bilaterally. ABDOMEN: soft, nontender. EXTREMITIES: no edema. PERIPHERAL PULSES: Bilateral groin stapled wounds. No discharge and healthy appearing. NEUROLOGIC: No gross deficits, AAO X 3 Objective Labs and Meds Result diagrams: 10/20/21 11:47 10/20/21 13:27 Lab results: Laboratory Results - last 24 hr 10/20/21 10/20/21 11:47 13:27 WBC 19.8 H RBC 4.32 L Hgb 12.9 L Hct 38.4 L MCV 88.9 MCH 29.9 MCHC 33.6 RDW 14.5 Plt Count 314 MPV 9.7 Immature Gran % (Auto) 0.5 H Neut % (Auto) 79.6 H Lymph % (Auto) 8.0 L [place] % (Auto) 11.7 H Eos % (Auto) 0.0 Baso % (Auto) 0.2 Lymph # (Auto) 1.6 [place] # (Auto) 2.3 H Eos # (Auto) 0.0 Baso # (Auto) 0.0 Abs Immat Gran (auto) 0.10 H Absolute Neuts (auto) 15.8 H Absolute Nucleated RBC 0.000 Nucleated RBC % (auto) 0.0 Smear Tech's Comments VERIFIED Sodium 140 Potassium 4.4 Chloride 102 Carbon Dioxide 31 H Anion Gap 11 L BUN 29 H D Creatinine 1.00 Estim Creat Clear Calc 56.0 Estimated GFR > 60 Random Glucose 111 Calcium 9.2 Total Bilirubin 1.6 H AST 21 ALT 10 Alkaline Phosphatase 93 Total Protein 5.9 L Albumin 3.5 Imaging Radiologist's impression: Impressions Chest X-Ray 10/20/21 13:24 IMPRESSION: No evidence of pneumonia, cardiomegaly or congestive heart failure. No acute cardiopulmonary findings. Assessment and Plan (1) Status post femorofemoral bypass surgery: Status: Acute (2) Bradycardia: Status: Acute Plan 76-year-old gentleman who is status post aortobifem surgery. Telemetry has shown 2-1 heart block as well as Wenckebach. He has been getting frequent asymptomatic episodes but difficult to say all these related to high vagal tone due to postop status and pain. One episodes was clearly with pickups which is clearly a vagal mediated reflects. He is completely asymptomatic. I think we closely monitor him for now. Avoid any medications which can slow AV conduction. I have explained to him that there is a possibility that he may need a pacemaker but currently it is unclear to me. We will follow along closely. If he has recurrent episodes or he becomes symptomatic with these episodes then be he may need to be monitored in ICU and we may have to discuss about permanent pacemaker. We will follow along with you. Thank you for allowing me to participate in the care of your patient. Please feel free to contact me if you have any questions. Procedures Date of Service Date of Service: 10/20/21
[2021-10-20 15:17] VITALS: BP 140/66; PULSE 76; RESP 18; TEMP 36.4; O2SAT 97
--- NOTE | 2021-10-20 15:19 | PC.NURSE ---
1300 had mobitz [address] Kenyon notified. Security Door Installer consult placed. in Cont monitor pt. OOB to chair and paulo well. groin incisions perla intact. TAMMIE. voiding in urinal. Feet remain cool. able to move toes, denies pain.
[2021-10-20] MEDS: ceFAZolin Sodium/Dextrose,Iso 2 GM/50 ML PIGGYBACK IV (15:40)
--- NOTE | 2021-10-20 16:15 | P.CONHOSP_ITS ---
History of Present Illness Data of Consult Service Date: 10/20/21 Requesting physician: Fran Kenyon Primary Care Provider: Clay Samuels MD HPI Reason for consult: Post op leukocytosis 76-year-old gentleman with past medical history significant for prostate cancer, peripheral artery disease status post elective fem-fem bypass on 10/18 postoperatively admitted to ICU for close cardiopulmonary monitoring on subsequently downgraded to intermediate care unit, postprocedure patient had sta ble vitals on has been maintained on IV cefazolin 2 g q.12 hours noted to have elevated WBC count of around 20,000 today hence medical consult obtained patient was feeling fine he denies fever chills he denies URI symptoms, no sinus pressure, no sore throat denies cough, denies shortness of breath has mild nausea but denies abdominal pain no diarrhea denies urinary symptoms of urgency frequency or burning, denies joint pains no redness his vitals remained stable with no fevers, oxygenation is stable in 97% on room air, chest x-ray obtained today shows no acute infiltrate, patient denies pain at incision site in both groins. Review of Systems Review of Systems: General no headache, no dizziness, no fever chills. CVS no chest pain, no palpitation. Respiratory no cough, no sob. Gastrointestinal mild nausea, no vomiting, no abdominal pain no urgency, no frequency Musculoskeletal no pain Skin no rash/no redness Yes all other systems are reviewed and are negative [facility] Medical History History of radiation therapy Illiterate Mentally challenged Prostate cancer PVD (peripheral vascular disease) Functional capacity: wheelchair bound Family History Father No problems noted. Mother No problems noted. Surgical History Hx of surgical procedure No pertinent past surgical history Social History Household Members Other:: Lives with his sister Are you a primary respiratory care instructor to a significant other at home: No Do you presently have visiting nurse or other home services: No Alcohol intake: never Patient Tobacco Use Status: Current everyday Tobacco user Tobacco use type: Cigarette Cigarettes Per Day: 5 Smoked in Last 30 Days: Yes Patient Given Instructions on How to Stop Smoking: Yes (Mailed) Date Education Initiated: 10/14/21 Use of substances other than those prescribed or required for medical reasons: No Currently Displaying Signs/Symptoms of Drug Intoxication Withdrawal: No Have you been hit, kicked, punched, or otherwise hurt by someone within the past year? If so, by whom?: No Are you DNR?: No Advance Directives: No Advance Directives Information Provided: Yes (Given w/ pre-op instructions; Brother Iron DAILEY) Advance Directives on File: No Recently lost weight without trying: No Eating poorly because of decreased appetite: No Nutrition Risks: No Nutritional Risk service: No Current occupational status: disabled Meds Allergies Allergy/AdvReac Type Severity Reaction Status Date / Time No Known Allergies Allergy Verified 10/14/21 10:36 [No Known Allergies*] Active Medications: Current Medications Acetaminophen (Acetaminophen 325 Mg Tablet) 650 mg PO Q6H PRN PRN Reason: Pain, Mild (Pain Scale 1-3) Aspirin (Aspirin Enteric Coated 81 Mg Tablet.) 81 mg PO DAILY [facility] Last Admin: 10/20/21 07:57 Dose: 81 mg Documented by: Cefazolin Sodium/Dextrose (Ancef) 2 gm in 50 mls @ 100 mls/hr IV Q12H [facility] Last Admin: 10/20/21 15:40 Dose: 100 mls/hr Documented by: Morphine Sulfate (Morphine Sulfate 2 Mg/Ml Cartridge) 2 mg IVPUSH Q4H PRN; Protocol PRN Reason: Pain, Severe (Pain Scale 7-10) Multivitamins/Vitamin C (Multivitamin Tablet) 1 tab PO DAILY [facility] Last Admin: 10/20/21 07:58 Dose: 1 tab Documented by: Ondansetron HCl (Ondansetron Hcl 4 Mg/2 Ml Vial) 4 mg IVPUSH Q6H PRN PRN Reason: Nausea Last Admin: 10/20/21 01:03 Dose: 4 mg Documented by: Oxycodone HCl (Oxycodone Hcl Immed Release 5 Mg Tablet) 5 mg PO Q4H PRN PRN Reason: Pain, Moderate (Pain Scale 4-6 Sodium Chloride (0.9 % Sodium Chloride Flush 3 Ml Syringe) 3 ml IVFLUSH QSHIFT [facility] Last Admin: 10/20/21 15:40 Dose: 3 ml Documented by: Home Medications Medication Instructions Recorded Confirmed Last Taken Type aspirin 81 mg tablet,delayed 81 mg PO DAILY 09/21/21 10/18/21 Unknown History release (Adult Aspirin Regimen) ibuprofen 200 mg tablet (Advil) 200 mg PO Q6H PRN 09/21/21 10/18/21 Unknown History multivitamin 1 tab PO DAILY 09/21/21 10/18/21 Unknown History Physical Exam Vital Signs and Narrative: Vital Signs: Last Vital Signs Temp 97.6 F 10/20/21 15:17 Pulse 76 10/20/21 15:17 Resp 18 10/20/21 15:17 BP 140/66 H 10/20/21 15:17 Pulse Ox 97 10/20/21 15:17 BMI result Body Mass Index 21.7 Const: Other: General awake alert x3,in no acute distress. HEENT pupils equal round reactive to light and accommodation Neck supple ,no JVD. CVS regular rate rhythm, Respiratory lungs clear to auscultation, no respiratory distress, no wheeze, no rhonchi. Gastrointestinal abdomen soft, nontender, bowel sounds audible Extremities no edema. Both groin incisions healing well Neuro nonfocal Skin no rash Results Labs CBC and Chem 7: 10/20/21 11:47 10/20/21 13:27 Labs: Laboratory Results - last 24 hr 10/20/21 10/20/21 11:47 13:27 MCV 88.9 MCH 29.9 MCHC 33.6 RDW 14.5 Plt Count 314 MPV 9.7 Immature Gran % (Auto) 0.5 H Neut % (Auto) 79.6 H Lymph % (Auto) 8.0 L [place] % (Auto) 11.7 H Eos % (Auto) 0.0 Baso % (Auto) 0.2 Lymph # (Auto) 1.6 [place] # (Auto) 2.3 H Eos # (Auto) 0.0 Baso # (Auto) 0.0 Abs Immat Gran (auto) 0.10 H Absolute Neuts (auto) 15.8 H Absolute Nucleated RBC 0.000 Nucleated RBC % (auto) 0.0 Smear Tech's Comments VERIFIED Anion Gap 11 L Estim Creat Clear Calc 56.0 Estimated GFR > 60 Random Glucose 111 Calcium 9.2 Total Bilirubin 1.6 H AST 21 ALT 10 Alkaline Phosphatase 93 Total Protein 5.9 L Albumin 3.5 Imaging Radiologist's Impressions: Impressions Chest X-Ray 10/20/21 13:24 IMPRESSION: No evidence of pneumonia, cardiomegaly or congestive heart failure. No acute cardiopulmonary findings. Assessment and Plan (1) Status post femorofemoral bypass surgery: Status: Acute (2) PAD (peripheral artery disease): Status: Acute (3) Leukocytosis: Status: Acute Plan 76-year-old gentleman with past medical history significant for peripheral arterial disease status post fem-fem bypass procedure postoperatively noted to have leukocytosis hands medical team consulted Leukocytosis Likely reactive, patient asymptomatic with no fevers, no chills ,review of system is negative, examination is benign Chest x-ray is unremarkable, will obtain urinalysis to rule out occult infection, hold off on abdominal imaging since patient asymptomatic, LFTs unremarkable, total bili 1.6 Incision healing well Follow CBC and clinical course. Fem fem bypass further workup as per vascular surgeon Good pain control continue oxycodone morphine and Tylenol for pain DVT prophylaxis as per vascular surgery Code status full code
[2021-10-20 19:10] VITALS: BP 144/90; PULSE 80; RESP 18; TEMP 36.6; O2SAT 97
[2021-10-20 23:27] VITALS: BP 138/89; PULSE 64; RESP 19; TEMP 37.1; O2SAT 98
[2021-10-21] MEDS: 0.9 % Sodium Chloride Flush 3 ML SYRINGE IVFLUSH ×2 (00:57→07:57)
[2021-10-21] MEDS: ceFAZolin Sodium/Dextrose,Iso 2 GM/50 ML PIGGYBACK IV (01:13)
[2021-10-21 03:33] VITALS: BP 165/69; PULSE 67; RESP 18; TEMP 36.6; O2SAT 95
[2021-10-21 07:15] LABS: Basophils Percent Auto 0.2 % (0-2); Eosinophils Percent Auto 0.1 % (0-4); Hematocrit 36.7 % (42.0-52.0); Hemoglobin 12.2 g/dl (14.0-18.0); Imm Gran Abs Auto 0.06 X10*3/uL (0.00-0.03); Imm Gran Pct Auto 0.4 % (0.0-0.4); Lymphocytes Absolute Auto 1.6 X10*3/uL (1.2-4.9); Lymphocytes Percent Auto 10.2 % (20-40); MANUAL DIFF FLAG SCAN; Mean Corpuscular HGB Conc 33.2 g/dl (31.0-36.0); Mean Corpuscular Hemoglobin 29.8 pg (27.0-33.0); Mean Corpuscular Volume 89.7 fL (80.0-98.0); Mean Platelet Volume 9.8 fL (9.4-12.4); Monocytes Absolute Auto 1.8 X10*3/uL (0.1-1.2); Monocytes Percent Auto 11.6 % (2-11); Neutrophils Absolute Auto 12.1 x10*3/uL (2.0-8.3); Neutrophils Percent Auto 77.5 % (45-73); Platelet Count 312 X10*3/uL (160-400); Red Blood Count 4.09 X10*6/uL (4.60-5.80); Red Cell Distribution Width 14.5 % (11.0-16.0); SCAN SMEAR FLAG 1; White Blood Count 15.5 X10*3/uL (4.8-10.8)
[2021-10-21] MEDS: Aspirin Enteric Coated 81 MG TABLET.DR PO (07:57)
[2021-10-21] MEDS: Multivitamin TABLET 1 TAB PO (07:57)
[2021-10-21 08:00] VITALS: BP 165/83; PULSE 70; RESP 18; TEMP 36.8; O2SAT 96
[2021-10-21 08:11] LABS: SLIDE REVIEW VERIFIED
[2021-10-21 10:15] LABS: Appearance Urine CLEAR; Color Urine YELLOW; Glucose Urine UA NEG (NEG); Leukocyte Esterase Urine NEG (NEG); Nitrite Urine NEG (NEG); PH 5.5 (5.0-8.0); Specific Gravity - Urine >= 1.030 (1.005-1.025); UACC Culture Trigger NO; Urine Blood 3+ (NEG); Urine Ketones 40 MG/DL (NEG); Urine Protein TRACE MG/DL (NEG-TRACE)
[2021-10-21 10:25] LABS: Mucus Urine TRACE /LPF; WBC Urine 0-2 /HPF (0-4)
[2021-10-21 11:31] VITALS: BP 139/74; PULSE 73; RESP 19; TEMP 36.8; O2SAT 97
--- NOTE | 2021-10-21 13:03 | P.PNIM_ITS ---
Subjective Subjective Date of Service: 10/21/21 Interval History: Patient seen examined being followed for leukocytosis post fem-fem bypass, patient awake alert offers no acute complaints of headache dizziness, no chest pain, no cough no URI symptoms no nausea vomiting abdominal pain, no urinary symptoms. Review of Systems Review of Systems: Yes all other systems are reviewed and are negative Physical Exam Vital Signs: Vital Signs: Last Vital Signs Temp 98.2 F 10/21/21 11:31 Pulse 73 10/21/21 11:31 Resp 19 10/21/21 11:31 BP 139/74 10/21/21 11:31 Pulse Ox 97 10/21/21 11:31 BMI result Body Mass Index 21.7 Const: Other: General awake alert x3,in no acute distress.? HEENT pupils equal round reactive to light and accommodation Neck supple ,no JVD. CVS? regular rate rhythm, Respiratory lungs clear to auscultation, no respiratory distress, no wheeze, no rhonchi. Gastrointestinal abdomen soft, nontender, bowel sounds audible Extremities no edema. Neuro nonfocal Skin no rash Objective Data Active Medications Acetaminophen (Acetaminophen 325 Mg Tablet) 650 mg PO Q6H PRN PRN Reason: Pain, Mild (Pain Scale 1-3) Aspirin (Aspirin Enteric Coated 81 Mg Tablet.Dr) 81 mg PO DAILY [facility] Last Admin: 10/21/21 07:57 Dose: 81 mg Documented by: JANUSZ Cefazolin Sodium/Dextrose (Ancef) 2 gm in 50 mls @ 100 mls/hr IV Q12H [facility] Last Infusion: 10/21/21 01:58 Dose: 100 mls/hr Documented by: VALARIE Morphine Sulfate (Morphine Sulfate 2 Mg/Ml Cartridge) 2 mg IVPUSH Q4H PRN; Protocol PRN Reason: Pain, Severe (Pain Scale 7-10) Multivitamins/Vitamin C (Multivitamin Tablet) 1 tab PO DAILY [facility] Last Admin: 10/21/21 07:57 Dose: 1 tab Documented by: JANUSZ Ondansetron HCl (Ondansetron Hcl 4 Mg/2 Ml Vial) 4 mg IVPUSH Q6H PRN PRN Reason: Nausea Last Admin: 10/20/21 01:03 Dose: 4 mg Documented by: LASHAWN Oxycodone HCl (Oxycodone Hcl Immed Release 5 Mg Tablet) 5 mg PO Q4H PRN PRN Reason: Pain, Moderate (Pain Scale 4-6 Sodium Chloride (0.9 % Sodium Chloride Flush 3 Ml Syringe) 3 ml IVFLUSH QSHIFT [facility] Last Admin: 10/21/21 07:57 Dose: 3 ml Documented by: JANUSZ Labs CBC & Chem 7: 10/21/21 06:57 10/20/21 13:27 Labs: Laboratory Results - last 24 hr 10/20/21 10/21/21 10/21/21 13:27 06:57 10:03 MCV 89.7 MCH 29.8 MCHC 33.2 RDW 14.5 Plt Count 312 MPV 9.8 Immature Gran % (Auto) 0.4 Neut % (Auto) 77.5 H Lymph % (Auto) 10.2 L [place] % (Auto) 11.6 H Eos % (Auto) 0.1 Baso % (Auto) 0.2 Lymph # (Auto) 1.6 [place] # (Auto) 1.8 H Eos # (Auto) 0.0 Baso # (Auto) 0.0 Abs Immat Gran (auto) 0.06 H Absolute Neuts (auto) 12.1 H Absolute Nucleated RBC 0.000 Nucleated RBC % (auto) 0.0 Smear Tech's Comments VERIFIED Anion Gap 11 L Estim Creat Clear Calc 56.0 Estimated GFR > 60 Random Glucose 111 Calcium 9.2 Total Bilirubin 1.6 H AST 21 ALT 10 Alkaline Phosphatase 93 Total Protein 5.9 L Albumin 3.5 Urine Color YELLOW Urine Appearance CLEAR Urine pH 5.5 Ur Specific [place] >= 1.030 H Urine Protein TRACE Urine Glucose (UA) NEG Urine Ketones 40 Urine Blood 3+ H Urine Nitrite NEG Ur Leukocyte Esterase NEG Urine RBC 10-14 H Urine WBC 0-2 Ur Squamous Epith Cells NONE Urine Bacteria NONE Hyaline Casts 1-4 Urine Mucus TRACE Assessment and Plan (1) Leukocytosis: Status: Acute (2) Status post femorofemoral bypass surgery: Status: Acute (3) PAD (peripheral artery disease): Status: Acute Plan 76-year-old gentleman with past medical history significant for peripheral arterial disease status post fem-fem bypass procedure postoperatively noted to have leukocytosis hands medical team consulted Leukocytosis Patient remains asymptomatic, no fevers, no chills ,review of system is negative, examination is benign WBC trending down Chest x-ray is unremarkable, UA negative, no GI symptoms, LFTs unremarkable, total bili 1.6 Incision healing well Likely reactive leukocytosis, no further intervention recommended repeat CBC as outpatient in next 3-5 days Fem fem bypass further workup as per vascular surgeon Good pain control continue oxycodone, and Tylenol for pain, dispo plan as per vascular surgery DVT prophylaxis as per vascular surgery Code status full code Disposition plan as per vascular surgery Quality Stroke Does the patient have a stroke diagnosis?: No VTE Prior VTE?: No VTE Risk Level:: Surgical - moderate VTE Device Contraindication: N/A - Device Ordered VTE Drug Contraindication: N/A - Med Ordered
[2021-10-21 14:56] VITALS: BP 174/92; PULSE 69; RESP 20; TEMP 36.6; O2SAT 94
--- NOTE | 2021-10-21 15:12 | P.DS_ITS ---
DS: Providers Provider Date of Service: 10/21/21 Date of admission: 10/18/21 05:59 Primary care physician: Clay Samuels MD Consults: 10/20/21 13:07 Consult to Cardiology Routine Consulting Provider: Alonso Rucker Reason for consultation: arrythmia Has provider been notified: No Consult to Hospitalist Routine Consulting Provider: Hospitalist Reason For Exam: med management DS: Diagnosis Discharge Diagnosis (1) Leukocytosis: Status: Acute (2) Status post femorofemoral bypass surgery: Status: Acute (3) PAD (peripheral artery disease): Status: Acute DS: Summary Hospital Course Hospital Course: Patient underwent femoral to femoral bypass. Postop day 1 appear to be doing relatively well. He was then transferred out of the ICU. 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 He was relatively asymptomatic from this. He was observed for an additional day. It was also noted that he had an leukocytosis as well. He was subsequently worked up with a chest x-ray urine and physical exam which proved all prove to be negative in particular the groins. He appeared to be doing well postop day 2. He was up ambulating without any difficulty and was anxious to go home. He was subsequently discharged. Upon discharge he will have a follow-up with me in approximately 2 weeks for removal of perla and sutures. In addition he will require a follow-up with Cardiology for a cardiac event monitor as well. Thank you for allowing us to assist in his care. Time Spent with Patient Time attestation: Total time spent providing and/or coordinating discharge services: Discharge coordination time: Greater than 30 minutes Quality: Safe Use of Opioids Does Pt have an Active Cancer Diagnosis on the Problem List?: No Quality: Stroke Does the patient have a stroke diagnosis?: No Physical Exam Vital Signs: Vital Signs: Last Vital Signs Temp 97.8 F 10/21/21 14:56 Pulse 69 10/21/21 14:56 Resp 20 10/21/21 14:56 BP 174/92 H 10/21/21 14:56 Pulse Ox 94 10/21/21 14:56 BMI result Body Mass Index 21.7 DS: Data Data Completed and Pending Completed studies during hospitalization [Text1]: Pending at discharge 10/18/21 10:35 Surgical [PTH] Routine Labs on day of discharge: Laboratory Results - last 24 hr 10/21/21 10/21/21 06:57 10:03 WBC 15.5 H RBC 4.09 L Hgb 12.2 L Hct 36.7 L MCV 89.7 MCH 29.8 MCHC 33.2 RDW 14.5 Plt Count 312 MPV 9.8 Immature Gran % (Auto) 0.4 Neut % (Auto) 77.5 H Lymph % (Auto) 10.2 L [place] % (Auto) 11.6 H Eos % (Auto) 0.1 Baso % (Auto) 0.2 Lymph # (Auto) 1.6 [place] # (Auto) 1.8 H Eos # (Auto) 0.0 Baso # (Auto) 0.0 Abs Immat Gran (auto) 0.06 H Absolute Neuts (auto) 12.1 H Absolute Nucleated RBC 0.000 Nucleated RBC % (auto) 0.0 Smear Tech's Comments VERIFIED Urine Color YELLOW Urine Appearance CLEAR Urine pH 5.5 Ur Specific [place] >= 1.030 H Urine Protein TRACE Urine Glucose (UA) NEG Urine Ketones 40 Urine Blood 3+ H Urine Nitrite NEG Ur Leukocyte Esterase NEG Urine RBC 10-14 H Urine WBC 0-2 Ur Squamous Epith Cells NONE Urine Bacteria NONE Hyaline Casts 1-4 Urine Mucus TRACE Discharge Plan Discharge Patient Disposition: Home, Self-Care Discharge Diagnosis: Status post femoral to femoral bypass Referrals: Sumit Dugan MD [Physician] - 3-5 Days Clay Samuels MD [Primary Care Provider] - 1 Week Discharge Medications: New cephalexin 500 mg capsule 500 mg PO BID Qty: 14 0RF Continued aspirin [Adult Aspirin Regimen] 81 mg tablet,delayed release (DR/EC) 81 mg PO DAILY 0RF ibuprofen [Advil] 200 mg tablet 200 mg PO Q6H PRN (Reason: Pain) 0RF Label Comments: Advised to hold pre-op multivitamin Tablet 1 tab PO DAILY 0RF Discharge Orders: Discharge Order (Routine); Ordered 10/21/21 Ordered By: Fran Kenyon Diet: advance to usual diet Activity on Discharge: As tolerated Stand Alone Forms: Patient Portal Discharge page Activity Restrictions/Additional Instructions: Perla was used and you may shower as early as tomorrow. Take it easy today and you may ambulate around the house. Within 24 hours you can resume normal activity You may climb a flight of stairs as tolerated Do not lift anything heavier than a gallon of milk for [address] Kenyon in follow-up in approximately 2 weeks time. You should already have an appointment if not please call my office at [phone] Please start antibiotics for 7 days. Please use Tylenol for pain If you notice excessive bleeding from the groin please immediately call my office or return to the emergency room. Care Plan Goals: Returned to normal ambulation Health Concerns: Postop bypass Plan of Treatment: Surveillance follow-up Assessment: Status post bypass
--- NOTE | 2021-10-21 15:13 | MHC.CM.PN ---
Patient has been medically cleared for dc to home today, self care.
--- NOTE | 2021-10-21 16:05 | P.PNCA_ITS ---
Subjective Subjective Date of Service: 10/21/21 <JAMES Cuellar - Last Filed: 10/21/21 16:14> 10/21/21 <Sumit Dugan MD - Last Filed: 10/21/21 16:37> Principal diagnosis: bradycardia <JAMES Cuellar - Last Filed: 10/21/21 16:14> Interval history: Seen at 1120. Today he is observed sitting in the chair in no acute distress. He tells me he feels good with no concerning symptoms. He denies surgical discomfort. No dizziness, presyncope, syncope, falls. He denies having any symptoms at home as well. He has no chest pains, palpitations or shortness of breath. Family members at his side. Patient is hoping to go home today. <JAMES Cuellar - Last Filed: 10/21/21 16:14> Review of Systems Review of Systems As above <JAMES Cuellar - Last Filed: 10/21/21 16:14> Yes all other systems are reviewed and are negative <JAMES Cuellar - Last Filed: 10/21/21 16:14> Physical Exam Vital Signs: Last Vital Signs Temp 97.8 F 10/21/21 14:56 Pulse 69 10/21/21 14:56 Resp 20 10/21/21 14:56 BP 174/92 H 10/21/21 14:56 Pulse Ox 94 10/21/21 14:56 BMI result Body Mass Index 21.7 <JAMES Cuellar - Last Filed: 10/21/21 16:14> Const General: cooperative, no acute distress, alert and awake <JAMES Cuellar - Last Filed: 10/21/21 16:14> Orientation/consciousness: patient oriented x3 <JAMES Cuellar Last Filed: 10/21/21 16:14> Neck Neck: Yes normal visual inspection and Yes no JVD <JAMES Cuellar Last Filed: 10/21/21 16:14> Resp Effort & Inspection: normal respiratory effort, able to speak in complete sentences and not labored <JAMES Cuellar - Last Filed: 10/21/21 16:14> Auscultation: clear to auscultation bilaterally, no rales, no rhonchi and no wheezes <Milena Martínez NP - Last Filed: 10/21/21 16:14> Cardio Rate: regular rate <Milena Martínez NP - Last Filed: 10/21/21 16:14> Rhythm: regular rhythm <[facility] Tanya [facility] - Last Filed: 10/21/21 16:14> Heart sounds: S1 normal heart sound present and S2 normal heart sound present <Milena Tanya [facility] - Last Filed: 10/21/21 16:14> GI Inspection: Yes normal to inspection <Milena PIA Martínez - Last Filed: 10/21/21 16:14> Neuro General: patient oriented x3 <Milena Tanya [facility] - Last Filed: 10/21/21 16:14> Extrem General: Yes normal to inspection and No edema <Milena Tanya [facility] - Last Filed: 10/21/21 16:14> Objective Labs and Meds Result diagrams: : 10/21/21 06:57 10/20/21 13:27 <Milena Martínez [facility] - Last Filed: 10/21/21 16:14> Lab results: Laboratory Results - last 24 hr 10/21/21 10/21/21 06:57 10:03 WBC 15.5 H RBC 4.09 L Hgb 12.2 L Hct 36.7 L MCV 89.7 MCH 29.8 MCHC 33.2 RDW 14.5 Plt Count 312 MPV 9.8 Immature Gran % (Auto) 0.4 Neut % (Auto) 77.5 H Lymph % (Auto) 10.2 L [place] % (Auto) 11.6 H Eos % (Auto) 0.1 Baso % (Auto) 0.2 Lymph # (Auto) 1.6 [place] # (Auto) 1.8 H Eos # (Auto) 0.0 Baso # (Auto) 0.0 Abs Immat Gran (auto) 0.06 H Absolute Neuts (auto) 12.1 H Absolute Nucleated RBC 0.000 Nucleated RBC % (auto) 0.0 Smear Tech's Comments VERIFIED Urine Color YELLOW Urine Appearance CLEAR Urine pH 5.5 Ur Specific [place] >= 1.030 H Urine Protein TRACE Urine Glucose (UA) NEG Urine Ketones 40 Urine Blood 3+ H Urine Nitrite NEG Ur Leukocyte Esterase NEG Urine RBC 10-14 H Urine WBC 0-2 Ur Squamous Epith Cells NONE Urine Bacteria NONE Hyaline Casts 1-4 Urine Mucus TRACE <Milena Ban LILIANE MartínezC - Last Filed: 10/21/21 16:14> Progress Note: A&P Assessment and plan (1) Bradycardia: Status: Acute <Milena Cevallos JAMES Martínez - Last Filed: 10/21/21 16:14> Assessment and Plan: Postop fem-fem bypass. On monitoring manager yesterday patient noted to have brief episodes of bradycardia consistent with Wenckebach and second-degree type 2 heart block occurring during sleep, with nausea and during hiccups. No symptoms reported. No symptoms at home including dizziness, presyncope, s yncope, falls. Echocardiogram on 10/05/2021 showed EF 45-50%, can not exclude regional wall motion abnormalities. Nuclear stress test done on 10/08/2021 showed normal myocardial perfusion imaging. He denies much discomfort from his surgical procedure. panel monitor today showing sinus rhythm with heart rate range 60 -80s. He is not on rate slowing medications. His Royce episodes are felt to be vagally mediated. Asymptomatic events and no clear indication for pacemaker at present time. He likely has high vagal tone related to postop status and discomfort. Continue to keep all meds that slow AV conduction. Reviewed with Dr. Dugan and patient can be discharged from a cardiology p erspective. We will arrange for an outpatient 30 day cardiac event monitor and cardiology follow-up. <JAMES Cuellar - Last Filed: 10/21/21 16:14> (2) Status post femorofemoral bypass surgery: Status: Acute <MilenaJAMES Leigh - Last Filed: 10/21/21 16:14> Assessment and Plan: With Dr. Kenyon who was following <JAMES Cuellar - Last Filed: 10/21/21 16:14> Plan Patient seen examined at bedside. Continues to be asymptomatic. He sleeps a lot during the day. Telemetry has shown Wenckebach with occasional 2-1 block. Please episodes happened at nighttime which could point to high vagal tone is sleep and also during his hiccups which is a vagal mediated reflects. His baseline EKG does not have any significant conduction block. He has been completely asymptomatic. I think he does not eat pacemaker right now. We will arrange a cardiac event monitor for him to see if he gets recurrent episodes. If he has any symptomatic episodes then we will consider discussion for pacemaker. Currently I feel he does not require permanent pacemaker. Okay to go home and follow up with us. Thank you for allowing me to participate in the care of your patient. Please feel free to contact me if you have any questions. <Sumit Dugan MD - Last Filed: 10/21/21 16:37> Time Spent With Patient Time: Total time spent is greater than 50% in coordination of care (as documented) at patient's floor/unit and/or counseling patient: 20 <JAMES Cuellar - Last Filed: 10/21/21 16:14> Progress Note: Quality Stroke Does the patient have a stroke diagnosis?: No <JAMES Cuellar - Last Filed: 10/21/21 16:14> Procedures Date of Service Date of Service: 10/21/21 <JAMES Cuellar - Last Filed: 10/21/21 16:14>
== END 2021-10-21 15:48 | disposition short-term general hospital (02) | DRG 254 ==
LOC: HO.SSSA 06:04 → HO.ICU 15:41 → HO.IMC 10-19 12:06
PROVIDERS: Hospitalist; Admitting Provider Surgery Vascular Surgery; PCP Internal Medicine; Visit Provider Surgery Vascular Surgery
PROC: 041K0JJ Bypass Right Femoral Artery to Left Femoral Artery with Synthetic Substitute, Open Approach (ICD-10-PCS; principal; 2021-10-18 07:30)
DX: I70.212 Atherosclerosis of native arteries of extremities with intermittent claudication, left leg (principal); D72.829 Elevated white blood cell count, unspecified; R00.1 Bradycardia, unspecified; Z20.822 Contact with and (suspected) exposure to COVID-19; Z92.3 Personal history of irradiation; Z85.46 Personal history of malignant neoplasm of prostate; F17.210 Nicotine dependence, cigarettes, uncomplicated; Z71.6 Tobacco abuse counseling; Z79.82 Long term (current) use of aspirin; Z79.899 Other long term (current) drug therapy
CPT/HCPCS: 36415; 36600; 71045; 71250; 71275; 74018; 74174; 74176; 78580; 80048; 80053; 80076; 80202; 81001; 82040; 82378; 82803; 82947; 83605; 83735; 83880; 84100; 84145; 84478; 84484; 85007; 85025; 85027; 85379; 85610; 85730; 86850; 86900; 86901; 87040; 87077; 87186; 87205; 87502; 87635; 87640; 87641; 88304; 88307; 92610; 93005; 93308; 94002; 94003; 94640; 94799; 97110; 97162; 99024; 99232; 99284; A9540; C1757; C1768; J0282; J0690; J0696; J1100; J1170; J1650; J1956; J2185; J2250; J2270; J2370; J2405; J2543; J2795; J3010; J3370; J3475; Q9967

== ENCOUNTER 2021-10-23 17:35 | Inpatient (IN) | payer MEDICARE, OTHER, SELFPAY ==
--- NOTE | ~2021-10-23 | XR_ITS ---
EXAMINATION: XR CHEST CLINICAL INFORMATION: Line placement. COMPARISON: Chest x-ray 10/31/2021 TECHNIQUE: Frontal view of the chest was obtained. FINDINGS: The lungs are well-expanded with right midlung linear opacity question atelectasis versus fluid in the right minor fissure. The heart size and the great vessels are normal caliber. There is a left central venous catheter its tip in the mid SVC. Endotracheal tube tip is 5.6 cm above the melissa. Enteric tube tip is in the fundus in good position. No gross bony abnormality seen. XR/XR chest 1V IMPRESSION: Bandlike atelectasis or fluid in the right minor fissure. New endotracheal tube and left central venous catheter are in good position. No change in enteric tube from previous exam.
--- NOTE | ~2021-10-23 | XR_ITS ---
EXAMINATION: XR CHEST XR ABDOMEN CLINICAL INFORMATION: Hypoxia. Cough. Abdominal pain. COMPARISON: 10/28/2021. CT performed 10/26/2021. TECHNIQUE: AP upright view of the chest. Portable AP supine view of the abdomen. FINDINGS: Cardiac leads overlie the chest. The lungs are well expanded. Patchy opacities are again noted bilaterally, similar to prior. Small left pleural effusion. No pneumothorax. The cardiomediastinal silhouette is unchanged, with a tortuous and calcified aorta. No free air in the abdomen seen. There is diffuse gas-filled dilated bowel throughout the abdomen. This is increased from the prior CT, with small bowel measuring up to 5 cm in diameter, compared to 3.5 cm on prior. The appearance is concerning for an obstruction. [place] are seen over the inguinal regions. XR/XR KUB IMPRESSION: 1. Diffuse gas-filled small bowel, increased from prior and concerning for obstruction. 2. Persistent opacities are seen at the lungs bilaterally, could be infectious or inflammatory.
--- NOTE | ~2021-10-23 | XR_ITS ---
EXAMINATION: XR CHEST XR ABDOMEN CLINICAL INFORMATION: Hypoxia. Cough. Abdominal pain. COMPARISON: 10/28/2021. CT performed 10/26/2021. TECHNIQUE: AP upright view of the chest. Portable AP supine view of the abdomen. FINDINGS: Cardiac leads overlie the chest. The lungs are well expanded. Patchy opacities are again noted bilaterally, similar to prior. Small left pleural effusion. No pneumothorax. The cardiomediastinal silhouette is unchanged, with a tortuous and calcified aorta. No free air in the abdomen seen. There is diffuse gas-filled dilated bowel throughout the abdomen. This is increased from the prior CT, with small bowel measuring up to 5 cm in diameter, compared to 3.5 cm on prior. The appearance is concerning for an obstruction. [place] are seen over the inguinal regions. XR/XR chest 1V IMPRESSION: 1. Diffuse gas-filled small bowel, increased from prior and concerning for obstruction. 2. Persistent opacities are seen at the lungs bilaterally, could be infectious or inflammatory.
--- NOTE | ~2021-10-23 | XR_ITS ---
EXAMINATION: XR CHEST CLINICAL INFORMATION: Placement confirmation COMPARISON: 10/28/2021 TECHNIQUE: Frontal view of the chest was obtained. FINDINGS: Enteric tube appears looped in the proximal stomach with side-port in the region of the gastric fundus. Lung volumes are symmetric. There is persistent opacity in the mid right lung and suggestion of adjacent fissural fluid. Additional right lower lobe opacity noted medially. Mild streaky opacity towards the left base suggests atelectasis. No evidence of pneumothorax. Cardiac size is within normal limits. Calcification is present at the aortic arch. No acute osseous findings are seen. Redemonstrated dilated bowel loops in the upper abdomen. XR/XR chest 1V IMPRESSION: Enteric tube tip in the region of the gastric fundus. Persistent right mid and lower lung opacities with suggestion of adjacent fissural pleural fluid.
--- NOTE | ~2021-10-23 | XR_ITS ---
EXAMINATION: XR CHEST CLINICAL INFORMATION: Tube placement COMPARISON: CT from earlier today TECHNIQUE: Frontal view of the chest was obtained. FINDINGS: Enteric tube lies along the course of the right lower lobe bronchus, with tip overlying the right base. Lung volumes are symmetric. Patchy regions of bibasilar opacity are redemonstrated. No appreciable pneumothorax or significant pleural effusion. Cardiac size is within normal limits. Calcification is present at the aortic arch. No acute osseous findings are seen. XR/XR chest 1V IMPRESSION: 1. Enteric tube coursing into the right lower lobe airway; removal and repositioning required. 2. Redemonstrated patchy bibasilar airspace opacities. This critical result was discussed with Dr. Smith Fonseca on 10/24/2021 5:04 AM, and it was ascertained that the content and urgency of the report was understood at the time of direct communication.
--- NOTE | ~2021-10-23 | XR_ITS ---
: EXAMINATION: XR CHEST CLINICAL INFORMATION: Hypoxia COMPARISON: Chest x-ray 11/01/2021 TECHNIQUE: Frontal view of the chest was obtained. FINDINGS: The lungs are well-expanded with right midlung linear opacity question atelectasis versus fluid in the right minor fissure. Patchy opacity in the lower left lung and right lower lung The heart size and the great vessels are normal caliber. There is a left central venous catheter its tip in the mid SVC. Endotracheal tube tip is 5. cm above the melissa. Enteric tube tip is in the stomach region in good position. No gross bony abnormality seen. XR/XR chest 1V IMPRESSION: Bandlike atelectasis or fluid in the right minor fissure. Bilateral lower lung patchy opacities unchanged
--- NOTE | ~2021-10-23 | CT_ITS ---
EXAM: NONCONTRAST CT OF THE CHEST; NONCONTRAST CT OF THE ABDOMEN AND PELVIS INDICATION: Shortness of breath, nausea COMPARISON: None TECHNIQUE: No IV contrast was utilized. Multidetector helical imaging was performed through the chest, abdomen, and pelvis. Coronal and sagittal reformatted images were created at the technologist workstation. DOSE LOWERING TECHNIQUES: This CT examination was performed using dose optimization techniques as appropriate, variously including the following: - Automated exposure control - Adjustment of mA and/or kV according to patient size (this includes techniques or standardized protocols for targeted exams were dose is matched to indication/reason for exam; i.e. extremities or head) - Use of iterative reconstruction technique DLP: 551 mGy-cm FINDINGS: Chest: Mild to moderate emphysema. Scattered patchy regions of groundglass opacity and consolidation are noted, including a couple somewhat nodular foci in the lower lobes. Additional dependent opacity is present in the basilar lower lobes. No pneumothorax or significant pleural effusion. Visualized thyroid gland is grossly unremarkable. No mediastinal lymphadenopathy is seen. Cardiac size is within normal limits; no pericardial effusion. There is atherosclerotic calcification along the aorta. The esophagus is distended with fluid and gas. No axillary lymphadenopathy is present. Abdomen/Pelvis: The liver is homogeneous in attenuation without intrahepatic biliary ductal dilatation. The gallbladder is unremarkable. The unenhanced spleen, pancreas, and adrenal glands are within normal limits. The unenhanced kidneys show no hydronephrosis. No renal or ureteral calculi are present. Small left renal cyst noted; no follow-up recommended. The urinary bladder is unremarkable. Metallic prostatic seeds are noted. The stomach is prominently distended with fluid and gas. There is prominent fluid and gaseous dilation of much of the small bowel, while distalmost small bowel is collapsed. Overall configuration is consistent with small bowel obstruction. Transition point is suspected to lie in the anterior left lower quadrant such as seen on axial image 64/85, relatively close to the left aspect of the femoral-femoral bypass graft. Large bowel is collapsed. Appendix appears nondilated. No free fluid or free air is identified. There is atherosclerotic calcification along the aorta and iliac arteries. Femoral-femoral bypass graft is present, with patency not evaluated on this noncontrast exam. Surrounding stranding is noted as well as skin perla in the inguinal regions along with a small amount of fluid and few foci of gas. No retroperitoneal or pelvic lymphadenopathy is seen. Degenerative changes are noted in the spine. CT/CT abdomen pelvis wo con IMPRESSION: 1. Small bowel obstruction with transition point suspected to lie in the anterior left lower quadrant, relatively close to the left aspect of the femoral-femoral bypass graft. 2. Scattered regions of pulmonary groundglass opacity and consolidation in the mid to lower lungs. Given the dilation of the stomach and esophagus, at least some of this could reflect sequelae of aspiration. 3. Since a few of the focal consolidations have a relatively nodular appearance, follow-up chest CT in 3 months is advised to assess for resolution.
--- NOTE | ~2021-10-23 | NM_ITS ---
EXAMINATION: PULMONARY PERFUSION STUDY CLINICAL INFORMATION: Elevated d-dimer, postsurgical patient. COMPARISON: Chest radiograph done earlier today at 5:55 PM. TECHNIQUE: The patient received 4 mCi Tc-99m MAA intravenously and a 6-view perfusion study was performed. FINDINGS: There is heterogeneous distribution of activity bilaterally with decreased perfusion of multiple sites, more apparent in the left lower lobe that appear to correlate with the multifocal opacities noted on the most recent chest radiograph. There are no large mismatch segmental perfusion defects. NM/NM pul perfusion IMPRESSION: Intermediate probability of pulmonary emboli in the setting of multifocal airspace opacities noted on a recent radiograph. If clinical concern for pulmonary emboli remains elevated, this patient would benefit from correlation with a CTA of the chest.
--- NOTE | ~2021-10-23 | XR_ITS ---
EXAMINATION: XR CHEST CLINICAL INFORMATION: Placement confirmation COMPARISON: 10/31/2021 TECHNIQUE: Frontal view of the chest was obtained. FINDINGS: Enteric tube tip lies in the region of the gastric fundus, with a portion of the tube looping upon itself below the inferior margin of the image in the stomach. Continuing in the stomach appears increased compared to prior. Lung volumes are symmetric. Redemonstrated mid to basilar right lung opacity. There is slightly increasing haziness at the left lung base. There is suggestion of small pleural effusions. No appreciable pneumothorax. Cardiac size is within normal limits. Calcification is present at the aortic arch. No acute osseous findings are seen. XR/XR chest 1V IMPRESSION: Enteric tube tip in the region of the gastric fundus; tube appears to have been advanced since the prior exam. Redemonstrated mid to basilar right lung opacity and slightly increasing haziness at the left base.
--- NOTE | ~2021-10-23 | CT_ITS ---
EXAMINATION: CTA OF THE CHEST, ABDOMEN, AND PELVIS WITH AND WITHOUT CONTRAST CLINICAL INFORMATION: Status post bypass. Evaluate for pulmonary embolism. COMPARISON: CT of chest, abdomen and pelvis 10/24/2021 TECHNIQUE: Initial noncontrast localizing quality assurance analyst images were obtained. Timing boluses at the level of the aortic arch and iliac arteries were calculated. Subsequently, arterial phase multidetector volumetric imaging was performed through the chest, abdomen, and pelvis following the administration of 100 mL Omnipaque 350 intravenous contrast. No contrast reaction reported Sagittal and coronal reformatted images were obtained on the technologist workstation. After extensive post-processing on a dedicated 3-D workstation, 3-D reformatted images were uploaded to PACS and reviewed as well. This CT examination was performed using dose optimization techniques as appropriate, variously including the following: *Automated exposure control *Adjustment of mA and/or kV according to patient size (this includes techniques or standardized protocols for targeted exams where dose is matched to indication/reason for exam; i.e. extremities or head) *Use of iterative reconstruction technique Total exam dose-length product 203 mGy-cm FINDINGS: VASCULAR: 1. Ascending thoracic aorta: Ectasia of the ascending thoracic aorta without evidence of dissection or other acute aortic syndrome. 2. Thoracic aortic arch: There is a three-vessel aortic arch. Minimal calcification at the origins of the vessels without significant stenosis. Visualized segments of the arch vessels are unremarkable. 3. Descending thoracic aorta: Slightly ectatic proximal descending thoracic aorta, otherwise the aorta is not aneurysmal. There is no evidence of dissection or other acute aortic syndrome. 4. Abdominal aorta: The abdominal aorta is normal in caliber. There is calcified and noncalcified atheroma within the aorta, particularly below the level the renal arteries. No evidence of dissection or other acute aortic syndrome. 5. Mesenteric arteries. Chronic, superior mesenteric artery and inferior mesenteric arteries are patent. 6. Renal arteries: Single renal artery to each kidney. While there is plaque at the origins of each renal artery, there is no significant stenosis. 7. 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 On the left there is irregular noncalcified plaque of the common iliac resulting in [id number] narrowing and there is aneurysmal dilation just proximal to its bifurcation up to 1.5 cm. 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 Note is again made of a femorofemoral bypass graft 8. Bypass/femoral vessels: Right to left femorofemoral bypass graft is in place (image [id number], series 508), the graft is deep to the rectus muscle, and the previously described possible air and fluid around the left lateral aspect of the graft corresponds with small bowel encircling/ draped around the posterior aspect of the graft.. Uncertain if artifactual, though there is low-attenuation along the deep margin of the graft (image 559, series 508) which could represent a tiny amount of thrombus within the lumen. Postoperative changes in the region of the graft anastomoses which are patent. There is irregular noncalcified plaque within the left common femoral which is opacified. The superficial femoral artery is occluded and the deep femoral artery is patent. The right graft anastomosis is widely patent. There is no significant stenosis of the common femoral. The right superficial femoral is occluded and the right profunda femoris is patent. 9. Pulmonary arteries: Pulmonary arteries are nondilated. No filling defects to suggest pulmonary emboli are seen. No definite evidence of right heart strain. 10. Unremarkable appearance of the venous structures for an arterial phase of contrast. NONVASCULAR: Lung: There is complete volume loss and opacity of the left lower lobe with less extensive volume loss and opacity within the right lower lobe. These regions of volume loss are associated with airways obstruction, possibly secondary to mucous plugging. There are patchy foci of airspace opacity within the posterior aspect of the right upper lobe which may be postinflammatory. There are secretions within the right mainstem bronchus. There are extensive emphysematous changes of the lungs. There are other scattered foci of mucous plugging. Pleura: There is a small left pleural effusion and question trace right pleural fluid. Mediastinum: Normal heart size. No pericardial effusion. No hilar or mediastinal lymphadenopathy. Chest Wall/Axilla: No axillary or internal mammary lymphadenopathy. Liver, Gallbladder and Biliary Tree: The liver is normal in size, shape, and attenuation. No focal hepatic lesion or biliary ductal dilatation is present. The gallbladder is unremarkable with no evidence of radiopaque gallstones, gallbladder wall thickening, or obvious pericholecystic inflammatory changes. Pancreas: Normal; no mass or surrounding fluid. Spleen: Normal size. No focal lesion. Adrenal Glands: Normal; no mass. Kidneys and Ureters: The kidneys are normal in size, shape, and attenuation. There is a 1.4 cm simple renal cyst at the midpole of the left kidney, not requiring additional radiographic follow-up. No hydronephrosis, hydroureter, or calculi. Gastrointestinal Tract: An enteric tube is in place terminating within the proximal gastric body. The stomach is mostly decompressed. There are multiple dilated loops of small bowel with distal decompression compatible with a small bowel obstruction. The site of transition appears to be in the left lower quadrant immediately adjacent to the femorofemoral bypass graft where appears to be small bowel is draped around the graft. Abdominal Wall: Postsurgical changes of the abdominal wall. No significant hernia. There are post surgical changes in the groins bilaterally. Trace ascites Lymphovascular Structures: No lymphadenopathy. Bladder: No focal mass or wall thickening seen. No bladder calculi. Pelvic Viscera: Unremarkable. Osseous Structures: No acute or suspicious osseous abnormality. There are bilateral L5 pars defects. CT/CT angio chest aorta IMPRESSION: No pulmonary embolism or evidence of right heart strain. Surgical changes relating to femoral-femoral bypass graft are again noted with bypass graft subjacent to the rectus muscles. The previously questioned air and fluid around the left lateral aspect of the graft appears to correspond with small bowel encircling/draped along the posterior aspect of the graft. There is continued evidence of a small bowel obstruction with transition point corresponding to this segment of bowel. Complete left lower lobe atelectasis, less extensive right lower lobe atelectasis, airways mucus plugging and patchy airspace opacities which are likely postinflammatory and are associated with areas of mucous plugging. Small left pleural effusion.
--- NOTE | ~2021-10-23 | XR_ITS ---
EXAMINATION: XR CHEST CLINICAL INFORMATION: Shortness of breath COMPARISON: 10/20/2021 TECHNIQUE: Frontal view of the chest was obtained. FINDINGS: New patchy airspace opacities seen in the right upper lobe and left lower lobe suggest infection/inflammation. No pleural effusion or pneumothorax. Normal heart size. Normal pulmonary vascularity. XR/XR chest 1V IMPRESSION: New patchy airspace opacities in the right upper lobe and left lower lobe concerning for infection/inflammation.
--- NOTE | ~2021-10-23 | XR_ITS ---
EXAMINATION: XR CHEST CLINICAL INFORMATION: Tube placement COMPARISON: Chest x-ray from earlier today TECHNIQUE: Frontal view of the chest was obtained. FINDINGS: Enteric tube courses into the proximal stomach, with side-port in the region of the distal esophagus. Lung volumes are symmetric. Redemonstrated patchy bibasilar opacities, right greater than left. No appreciable pneumothorax or pleural effusion. Cardiac size is within normal limits. Calcification is present at the aortic arch. No acute osseous findings are seen. XR/XR chest 1V IMPRESSION: 1. Enteric tube courses into the proximal stomach with side-port in the region of the distal esophagus; advancement recommended. 2. Redemonstrated patchy bibasilar opacities.
--- NOTE | ~2021-10-23 | XR_ITS ---
EXAMINATION: XR CHEST CLINICAL INFORMATION: NG tube COMPARISON: Chest x-ray from earlier today TECHNIQUE: Frontal view of the chest was obtained. FINDINGS: Enteric tube extends into the proximal right lower lobe bronchus. Redemonstrated multifocal patchy lower lung opacities, right greater than left. No appreciable pneumothorax or pleural effusion. The cardiomediastinal contour is unremarkable. Calcification is present at the aortic arch. No acute osseous findings are seen. XR/XR chest 1V IMPRESSION: Enteric tube coursing into the right lower lobe bronchus; repeat examination has already performed at the time of this dictation. Redemonstrated patchy bibasilar opacities.
--- NOTE | ~2021-10-23 | XR_ITS ---
EXAMINATION: XR ABDOMEN KUB CLINICAL INDICATION: Vomiting COMPARISON: 10/28/2021 TECHNIQUE: AP view of the abdomen. FINDINGS: There is redemonstration of numerous dilated small bowel loops throughout the abdomen, though caliber in some regions is slightly decreased compared to prior, while other areas demonstrate less gaseous distention. For example, just inferior to the region of the gastric antrum there is dilated small bowel which currently measures 4.5 cm in diameter, versus 5.3 cm previously. No gross evidence for free air, though evaluation for this is limited on supine positioning. Redemonstrated gaseous distention of the stomach. Degenerative changes are noted in the spine. XR/XR KUB IMPRESSION: Redemonstrated numerous dilated small bowel loops throughout the abdomen, with some loops demonstrating slightly less gaseous distention compared to 10/28/2021.
--- NOTE | ~2021-10-23 | XR_ITS ---
EXAMINATION: XR CHEST CLINICAL INFORMATION: Shortness of breath COMPARISON: 10/26/2021 CT TECHNIQUE: Frontal view of the chest was obtained. FINDINGS: Lung volumes are symmetric. There are regions of airspace opacity in the mid right lung and bilateral lung bases, similar to possibly slightly worsened from 10/26/2021. Small left pleural effusion cannot be excluded. No appreciable pneumothorax. The cardiomediastinal contour is unremarkable. No acute osseous findings are seen. Redemonstrated dilated small bowel loops in the upper abdomen, similar to recent CT. XR/XR chest 1V IMPRESSION: Regions of airspace opacity in the mid right lung and bilateral lower lobes, similar to possibly slightly worsened from 10/26/2021.
--- NOTE | 2021-10-23 07:28 | ECG_ITS ---
Test Reason : DYSPNEA REPEAT Blood Pressure : / mmHG Vent. Rate : 082 BPM Atrial Rate : 082 BPM P-R Int : 130 ms QRS Dur : 080 ms QT Int : 366 ms P-R-T Axes : 000 -61 266 degrees QTc Int : 427 ms Normal sinus rhythm Left axis deviation ST & T wave abnormality, consider inferolateral ischemia Abnormal ECG When compared with ECG of 23-OCT-2021 19:23, QT has shortened Referred By: Kiersten Gonzalez Electronically Signed By:DENISE PAYNE MD
[2021-10-23 17:43] VITALS: BP 124/74; BP 137/78; PULSE 104; PULSE 94; RESP 20; TEMP 36.9; O2SAT 85; O2SAT 95; BMI 15.7
[2021-10-23 17:50] VITALS: O2SAT 94
--- NOTE | 2021-10-23 17:53 | ECG_ITS ---
Test Reason : DYSPNEA Blood Pressure : / mmHG Vent. Rate : 100 BPM Atrial Rate : 100 BPM P-R Int : 126 ms QRS Dur : 074 ms QT Int : 362 ms P-R-T Axes : 035 -62 226 degrees QTc Int : 466 ms Sinus rhythm with Premature supraventricular complexes and with occasional Premature ventricular complexes Left axis deviation ST depression, consider subendocardial injury Nonspecific T wave abnormality Prolonged QT Abnormal ECG When compared with ECG of 20-OCT-2021 14:01, Significant changes have occurred Referred By: Kiersten Gonzalez Electronically Signed By:Sumit Dugan
--- NOTE | 2021-10-23 18:03 | ED_ITS ---
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 Patient denies choking episode, cough, chest pain, fever, chills, abdominal pain, nausea/vomiting, pedal edema. Patient is poor historian MD elicited complaint: shortness of breath Onset (ago): minute(s) Related Data Home Medications Medication Instructions Recorded Confirmed aspirin 81 mg tablet,delayed 81 mg PO DAILY 09/21/21 10/23/21 release (Adult Aspirin Regimen) ibuprofen 200 mg tablet (Advil) 200 mg PO Q6H PRN 09/21/21 10/23/21 multivitamin 1 tab PO DAILY 09/21/21 10/23/21 Previous Rx's Medication Instructions Recorded cephalexin 500 mg capsule 500 mg PO BID #14 cap 10/21/21 Allergies Allergy/AdvReac Type Severity Reaction Status Date / Time No Known Allergies Allergy Verified 10/14/21 10:36 [No Known Allergies*] Review of Systems Review of Systems: Constitutional: No Fever, No Chills, No Fatigue, No Malaise ENT/Mouth:No Ear Pain, No Nasal Congestion, No sore throat, No Rhinorrhea, No Swallowing Difficulty Eyes: No Eye Pain, No Swelling, No Redness, No Vision Changes Cardiovascular: No Chest Pain, + SOB, No Dyspnea on Exertion, No Orthopnea, No Edema, No Palpitations Respiratory: No Cough, No Sputum, + Dyspnea Gastrointestinal: No Nausea, No Vomiting, No Diarrhea, No Constipation, No Abdominal pain Genitourinary: No irregular bleeding, No Dysuria, No Flank Pain, No Urinary Flow Changes, No Hesitancy Musculoskeletal: No joint pain, No Myalgias, No Joint Swelling Skin: No Skin Lesions, No rash Neuro: No Weakness, No Dizziness, No Headache Yes all other systems are reviewed and are negative PMFSH Past Medical History Attestation statement: The following information was validated with the patient. Medical History History of radiation therapy Illiterate Mentally challenged Prostate cancer PVD (peripheral vascular disease) Surgical History Hx of surgical procedure No pertinent past surgical history Family History Family History Father No problems noted. Mother No problems noted. Social History Social History Household Members Other:: Lives with his sister Are you a primary career services director to a significant other at home: No Do you presently have visiting nurse or other home services: No Alcohol intake: never Patient Tobacco Use Status: Current everyday Tobacco user Tobacco use type: Cigarette Cigarettes Per Day: 5 Advance Directives: Yes Advance Directives Information Provided: No Advance Directives on File: Yes Advance Directives Date on File: 10/18/21 service: No Current occupational status: disabled Physical Exam Vital Signs: Vital Signs: Last Vital Signs Temp 98.5 F 10/23/21 20:23 Pulse 74 10/23/21 20:23 Resp 19 10/23/21 20:23 BP 135/77 10/23/21 20:23 Pulse Ox 95 10/23/21 20:23 BMI result Body Mass Index 15.7 Const: Orientation/consciousness: patient oriented x3 Limitations: no limitations HEENT: Head: Yes normal to inspection and Yes atraumatic Ears: hearing grossly normal bilaterally General nose exam: Normal external nose present Face and sinus: Yes normal facial exam Eyes: General: appearance normal, both eyes and all related structures EOM: EOMs intact bilaterally Neck: Neck: Yes normal visual inspection and Yes no meningeal signs Resp: Effort & Inspection: normal respiratory effort Auscultation: crackles diffuse and diminished lung sounds diffuse Cardio: Rate: regular rate Heart sounds: S1 normal heart sound present and S2 normal heart sound present GI: Inspection: Yes normal to inspection Palpation (GI): Soft to palpation, nontender, no guarding and not rigid : Other: Bilateral inguinal incision sites clean & with appropriate wound healing with perla intact. Healing ecchymosis. No cellulitis/erythema. No tenderness. Ecchymosis noted to scrotum without scrotal tenderness Skin: Rashes: no rashes Wounds: no wounds Neuro: General: patient oriented x3, tone normal, moves all extremities, no meningeal signs and no focal motor deficits Motor exam (neuro): 5/5 motor strength present throughout Extrem: General: Yes normal to inspection Course Course Course Narrative: XR chest 1V IMPRESSION: New patchy airspace opacities in the right upper lobe and left lower lobe concerning for infection/inflammation. >> patient covered empirically with Zosyn and Vancomycin for aspiration pneumonia. Avoiding sepsis 30mg/kg IVF to avoid fluid overload -leukocytosis of 14.1 which appears improved from priors. -D-dimer 2498 >will obtain V/Q scan to rule out PE -1845--elevated BUN and creatinine likely from dehydration. Lactic acid elevated to 2.4. Troponin 56.6 (likely from renal dysfunction) > will obtain 3 hour repeat. BNP 115 -T bili also elevated to 4.6, D bili 2.1 > half unconjugated bilirubin, no evidence of liver failure. COVID-19 and influenza negative -NM coming in tonight to perform V/Q scan. Case discussed with hospitalist. -spoke to Cardiology, Dr. Dugan, patient does have nonspecific changes in lateral leads, which could be from hypoxia. >> patient to be admitted for further management -2114--NM/NM pul perfusion IMPRESSION: Intermediate probability of pulmonary emboli in the setting of multifocal airspace opacities noted on a recent radiograph. ? If clinical concern for pulmonary emboli remains elevated, this patient would benefit from correlation with a CTA of the chest. > Will initiate Heparin per Hospitalist request, as patient is high risk >> Dr. Kenyon consulted who confirmed heparin is safe with known recent surgery. ? 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 On exam satting 85% on RA increased to 92% on 4-5L NC, diminished lung sounds throughout I will with diffuse crackles. No pedal edema. Incision sites look appropriately healing without active infection. Concern for aspiration pneumonia vs PE vs viral syndrome Lower concern for ACS Plan: Labs, CXR, COVID-19/influenza testing, empiric IV antibiotics, anticipated admission Differential Diagnosis Differential diagnosis: Likely congestive heart failure, pneumonia, pulmonary embolism and pleural effusion Medical Records Attestation: I reviewed the patient's medical records. Lab Data Attestation: I reviewed the patient's lab results. Result diagrams: 10/23/21 18:16 10/23/21 18:15 Labs: Lab Results 10/23/21 10/23/21 10/23/21 Range/Units 18:15 18:15 18:15 WBC (4.8-10.8) X10*3/uL RBC (4.60-5.80) X10*6/uL Hgb (14.0-18.0) g/dl Hct (42.0-52.0) % MCV (80.0-98.0) fL MCH (27.0-33.0) pg MCHC (31.0-36.0) g/dl RDW (11.0-16.0) % Plt Count (160-400) X10*3/uL MPV (9.4-12.4) fL Immature Gran % (Auto) Neut % (Auto) Lymph % (Auto) [place] % (Auto) Eos % (Auto) Baso % (Auto) Lymph # (Auto) [place] # (Auto) Eos # (Auto) Baso # (Auto) Abs Immat Gran (auto) Absolute Neuts (auto) Absolute Nucleated RBC (0.0-0.012) X10*3/uL Nucleated RBC % (auto) (0.0-0.2) /100WBC Neutrophils % (Manual) (45-73) % Band Neutrophils % (3-5) % Lymphocytes % (Manual) (20-40) % Monocytes % (Manual) (2-11) % Metamyelocytes % % Myelocytes % % Abs Neuts (Manual) (2.0-8.3) X10*3/uL Lymphocytes # (Manual) (1.2-4.9) X10*3/uL Monocytes # (Manual) (0.1-1.2) X10*3/uL Metamyelocytes # X10*3/uL Myelocytes # X10*/uL Platelet Estimate (NORMAL) Plt Morphology Comment RBC Morphology PT (9.9-13.0) SEC INR (0.9-1.1) D-Dimer High Sensitivty NG/ML Sodium 141 (135-145) mmol/L Potassium 3.9 (3.3-5.1) mmol/L Chloride 95 L (96-108) mmol/L Carbon Dioxide 30 H (22-29) mmol/L Anion Gap 20 (12-20) BUN 64 H D (9-16) mg/dL Creatinine 1.52 H (0.5-1.4) mg/dL Estim Creat Clear Calc 32.6 Estimated GFR 45 Random Glucose 151 H D (60-115) mg/dL Lactic Acid (0.5-2.0) mmol/L Lactic Acid F/U @ 2Hr (0.5-2.0) mmol/L Calcium 9.5 (8.4-10.2) mg/dL Magnesium 2.2 (1.6-2.6) mg/dL Total Bilirubin 4.6 H (0.0-1.0) mg/dL Direct Bilirubin 2.1 H (0.0-0.5) mg/dL AST 25 (5-37) U/L ALT 21 (0-40) U/L Alkaline Phosphatase 111 (39-117) U/L Troponin I High Sens (<3.5-35.0) ng/L B-Natriuretic Peptide (<100) pg/mL Total Protein 6.5 (6.5-8.0) g/dL Albumin 3.8 (3.5-5.0) g/dL Urine Color Urine Appearance Urine pH (5.0-8.0) Ur Specific [place] (1.005-1.025) Urine Protein (NEG-TRACE) MG/DL Urine Glucose (UA) (NEG) MG/DL Urine Ketones (NEG) MG/DL Urine Blood (NEG) Urine Nitrite (NEG) Ur Leukocyte Esterase (NEG) Urine RBC (0) /HPF Urine WBC (0-4) /HPF Ur Squamous Epith Cells /LPF Urine Bacteria /LPF Hyaline Casts /LPF Urine Mucus /LPF COVID-19 (YORDAN) Negative (Negative) COVID-19 Clin Com See Note Influenza Type A (TONIO) Negative (Negative) Influenza Type B (TONIO) Negative (Negative) Influenza A & B Note See Note 10/23/21 10/23/21 10/23/21 Range/Units 18:16 18:16 18:16 WBC 14.1 H (4.8-10.8) X10*3/uL RBC 4.28 L (4.60-5.80) X10*6/uL Hgb 12.8 L (14.0-18.0) g/dl Hct 38.1 L (42.0-52.0) % MCV 89.0 (80.0-98.0) fL MCH 29.9 (27.0-33.0) pg MCHC 33.6 (31.0-36.0) g/dl RDW 14.7 (11.0-16.0) % Plt Count 387 (160-400) X10*3/uL MPV 10.1 (9.4-12.4) fL Immature Gran % (Auto) Cancelled Neut % (Auto) Cancelled Lymph % (Auto) Cancelled [place] % (Auto) Cancelled Eos % (Auto) Cancelled Baso % (Auto) Cancelled Lymph # (Auto) Cancelled [place] # (Auto) Cancelled Eos # (Auto) Cancelled Baso # (Auto) Cancelled Abs Immat Gran (auto) Cancelled Absolute Neuts (auto) Cancelled Absolute Nucleated RBC 0.000 (0.0-0.012) X10*3/uL Nucleated RBC % (auto) 0.0 (0.0-0.2) /100WBC Neutrophils % (Manual) 13 L (45-73) % Band Neutrophils % 60 H (3-5) % Lymphocytes % (Manual) 3 L (20-40) % Monocytes % (Manual) 10 (2-11) % Metamyelocytes % 10 % Myelocytes % 4 % Abs Neuts (Manual) 10.3 H (2.0-8.3) X10*3/uL Lymphocytes # (Manual) 0.4 L (1.2-4.9) X10*3/uL Monocytes # (Manual) 1.4 H (0.1-1.2) X10*3/uL Metamyelocytes # 1.4 X10*3/uL Myelocytes # 0.6 X10*/uL Platelet Estimate NORMAL (NORMAL) Plt Morphology Comment NORMAL RBC Morphology NORMAL PT 14.2 H (9.9-13.0) SEC INR 1.2 H (0.9-1.1) D-Dimer High Sensitivty 2498 NG/ML Sodium (135-145) mmol/L Potassium (3.3-5.1) mmol/L Chloride (96-108) mmol/L Carbon Dioxide (22-29) mmol/L Anion Gap (12-20) BUN (9-16) mg/dL Creatinine (0.5-1.4) mg/dL Estim Creat Clear Calc Estimated GFR Random Glucose (60-115) mg/dL Lactic Acid 2.4 H* (0.5-2.0) mmol/L Lactic Acid F/U @ 2Hr (0.5-2.0) mmol/L Calcium (8.4-10.2) mg/dL Magnesium (1.6-2.6) mg/dL Total Bilirubin (0.0-1.0) mg/dL Direct Bilirubin (0.0-0.5) mg/dL AST (5-37) U/L ALT (0-40) U/L Alkaline Phosphatase (39-117) U/L Troponin I High Sens (<3.5-35.0) ng/L B-Natriuretic Peptide (<100) pg/mL Total Protein (6.5-8.0) g/dL Albumin (3.5-5.0) g/dL Urine Color Urine Appearance Urine pH (5.0-8.0) Ur Specific [place] (1.005-1.025) Urine Protein (NEG-TRACE) MG/DL Urine Glucose (UA) (NEG) MG/DL Urine Ketones (NEG) MG/DL Urine Blood (NEG) Urine Nitrite (NEG) Ur Leukocyte Esterase (NEG) Urine RBC (0) /HPF Urine WBC (0-4) /HPF Ur Squamous Epith Cells /LPF Urine Bacteria /LPF Hyaline Casts /LPF Urine Mucus /LPF COVID-19 (YORDAN) (Negative) COVID-19 Clin Com Influenza Type A (TONIO) (Negative) Influenza Type B (TONIO) (Negative) Influenza A & B Note 10/23/21 10/23/21 10/23/21 Range/Units 18:16 19:56 21:02 WBC (4.8-10.8) X10*3/uL RBC (4.60-5.80) X10*6/uL Hgb (14.0-18.0) g/dl Hct (42.0-52.0) % MCV (80.0-98.0) fL MCH (27.0-33.0) pg MCHC (31.0-36.0) g/dl RDW (11.0-16.0) % Plt Count (160-400) X10*3/uL MPV (9.4-12.4) fL Immature Gran % (Auto) Neut % (Auto) Lymph % (Auto) [place] % (Auto) Eos % (Auto) Baso % (Auto) Lymph # (Auto) [place] # (Auto) Eos # (Auto) Baso # (Auto) Abs Immat Gran (auto) Absolute Neuts (auto) Absolute Nucleated RBC (0.0-0.012) X10*3/uL Nucleated RBC % (auto) (0.0-0.2) /100WBC Neutrophils % (Manual) (45-73) % Band Neutrophils % (3-5) % Lymphocytes % (Manual) (20-40) % Monocytes % (Manual) (2-11) % Metamyelocytes % % Myelocytes % % Abs Neuts (Manual) (2.0-8.3) X10*3/uL Lymphocytes # (Manual) (1.2-4.9) X10*3/uL Monocytes # (Manual) (0.1-1.2) X10*3/uL Metamyelocytes # X10*3/uL Myelocytes # X10*/uL Platelet Estimate (NORMAL) Plt Morphology Comment RBC Morphology PT (9.9-13.0) SEC INR (0.9-1.1) D-Dimer High Sensitivty NG/ML Sodium (135-145) mmol/L Potassium (3.3-5.1) mmol/L Chloride (96-108) mmol/L Carbon Dioxide (22-29) mmol/L Anion Gap (12-20) BUN (9-16) mg/dL Creatinine (0.5-1.4) mg/dL Estim Creat Clear Calc Estimated GFR Random Glucose (60-115) mg/dL Lactic Acid (0.5-2.0) mmol/L Lactic Acid F/U @ 2Hr 1.6 (0.5-2.0) mmol/L Calcium (8.4-10.2) mg/dL Magnesium (1.6-2.6) mg/dL Total Bilirubin (0.0-1.0) mg/dL Direct Bilirubin (0.0-0.5) mg/dL AST (5-37) U/L ALT (0-40) U/L Alkaline Phosphatase (39-117) U/L Troponin I High Sens 56.6 H (<3.5-35.0) ng/L B-Natriuretic Peptide 115 H (<100) pg/mL Total Protein (6.5-8.0) g/dL Albumin (3.5-5.0) g/dL Urine Color ORANGE A Urine Appearance CLEAR Urine pH 5.0 (5.0-8.0) Ur Specific [place] >= 1.030 H (1.005-1.025) Urine Protein 1+ H (NEG-TRACE) MG/DL Urine Glucose (UA) NEG (NEG) MG/DL Urine Ketones 5 (NEG) MG/DL Urine Blood 2+ H (NEG) Urine Nitrite NEG (NEG) Ur Leukocyte Esterase NEG (NEG) Urine RBC 1-4 (0) /HPF Urine WBC 0-2 (0-4) /HPF Ur Squamous Epith Cells TRACE /LPF Urine Bacteria TRACE /LPF Hyaline Casts 0-2 /LPF Urine Mucus TRACE /LPF COVID-19 (YORDAN) (Negative) COVID-19 Clin Com Influenza Type A (TONIO) (Negative) Influenza Type B (TONIO) (Negative) Influenza A & B Note 10/23/21 Range/Units 21:21 WBC (4.8-10.8) X10*3/uL RBC (4.60-5.80) X10*6/uL Hgb (14.0-18.0) g/dl Hct (42.0-52.0) % MCV (80.0-98.0) fL MCH (27.0-33.0) pg MCHC (31.0-36.0) g/dl RDW (11.0-16.0) % Plt Count (160-400) X10*3/uL MPV (9.4-12.4) fL Immature Gran % (Auto) Neut % (Auto) Lymph % (Auto) [place] % (Auto) Eos % (Auto) Baso % (Auto) Lymph # (Auto) [place] # (Auto) Eos # (Auto) Baso # (Auto) Abs Immat Gran (auto) Absolute Neuts (auto) Absolute Nucleated RBC (0.0-0.012) X10*3/uL Nucleated RBC % (auto) (0.0-0.2) /100WBC Neutrophils % (Manual) (45-73) % Band Neutrophils % (3-5) % Lymphocytes % (Manual) (20-40) % Monocytes % (Manual) (2-11) % Metamyelocytes % % Myelocytes % % Abs Neuts (Manual) (2.0-8.3) X10*3/uL Lymphocytes # (Manual) (1.2-4.9) X10*3/uL Monocytes # (Manual) (0.1-1.2) X10*3/uL Metamyelocytes # X10*3/uL Myelocytes # X10*/uL Platelet Estimate (NORMAL) Plt Morphology Comment RBC Morphology PT (9.9-13.0) SEC INR (0.9-1.1) D-Dimer High Sensitivty NG/ML Sodium (135-145) mmol/L Potassium (3.3-5.1) mmol/L Chloride (96-108) mmol/L Carbon Dioxide (22-29) mmol/L Anion Gap (12-20) BUN (9-16) mg/dL Creatinine (0.5-1.4) mg/dL Estim Creat Clear Calc Estimated GFR Random Glucose (60-115) mg/dL Lactic Acid (0.5-2.0) mmol/L Lactic Acid F/U @ 2Hr (0.5-2.0) mmol/L Calcium (8.4-10.2) mg/dL Magnesium (1.6-2.6) mg/dL Total Bilirubin (0.0-1.0) mg/dL Direct Bilirubin (0.0-0.5) mg/dL AST (5-37) U/L ALT (0-40) U/L Alkaline Phosphatase (39-117) U/L Troponin I High Sens 57.9 H (<3.5-35.0) ng/L B-Natriuretic Peptide (<100) pg/mL Total Protein (6.5-8.0) g/dL Albumin (3.5-5.0) g/dL Urine Color Urine Appearance Urine pH (5.0-8.0) Ur Specific [place] (1.005-1.025) Urine Protein (NEG-TRACE) MG/DL Urine Glucose (UA) (NEG) MG/DL Urine Ketones (NEG) MG/DL Urine Blood (NEG) Urine Nitrite (NEG) Ur Leukocyte Esterase (NEG) Urine RBC (0) /HPF Urine WBC (0-4) /HPF Ur Squamous Epith Cells /LPF Urine Bacteria /LPF Hyaline Casts /LPF Urine Mucus /LPF COVID-19 (YORDAN) (Negative) COVID-19 Clin Com Influenza Type A (TONIO) (Negative) Influenza Type B (TONIO) (Negative) Influenza A & B Note ECG Data Attestation: I personally reviewed and interpreted this ECG as follows: ECG interpretation date: 10/23/21 ECG interpretation time: 17:59 Prior ECG tracings: available for review Interpretation: EKG sinus rhythm with PVCs. Poor R-wave. Rate of 100. QTC 466. Significant changes when compared to prior EKG from September of 2021 Critical Care Time Critical Care Time Critical Care Time: Yes Total Critical Care Time: 50 Attestation: I have personally provided critical care time exclusive of time spent on separately billable procedures. Time includes review of lab data, radiology results, discussion with consultants, and monitoring for potential decompensation. Intervention performed as documented. Discharge Plan Discharge Clinical Impression: Aspiration pneumonia Patient Disposition: Admitted As Inpatient
[2021-10-23 18:25] LABS: Hematocrit 38.1 % (42.0-52.0); Hemoglobin 12.8 g/dl (14.0-18.0); Mean Corpuscular HGB Conc 33.6 g/dl (31.0-36.0); Mean Corpuscular Hemoglobin 29.9 pg (27.0-33.0); Mean Platelet Volume 10.1 fL (9.4-12.4); Platelet Count 387 X10*3/uL (160-400); Red Blood Count 4.28 X10*6/uL (4.60-5.80); Red Cell Distribution Width 14.7 % (11.0-16.0); White Blood Count 14.1 X10*3/uL (4.8-10.8)
[2021-10-23] MEDS: Albuterol/Iprat 2.5/0.5MG 3 ML AMPUL.NEB INHALE (18:26)
[2021-10-23 18:29] VITALS: PULSE 85; RESP 18; O2SAT 93
--- NOTE | 2021-10-23 18:30 | PHA.MEDREC ---
Pharmacy Consult ? Medication Reconciliation Pharmacy has completed the medication reconciliation.
[2021-10-23 18:38] LABS: INTERNATIONAL NORM RATIO 1.2 (0.9-1.1); Lactic Acid 2.4 mmol/L (0.5-2.0); Prothrombin Time 14.2 SEC (9.9-13.0)
[2021-10-23 18:39] LABS: D Dimer High Sensitivity 2498 NG/ML
[2021-10-23 18:39] LABS: Alanine Aminotransferase 21 U/L (0-40); Albumin Level 3.8 g/dL (3.5-5.0); Alkaline Phosphatase 111 U/L (39-117); Anion Gap 20 (12-20); Aspartate Amino Transferase 25 U/L (5-37); Bilirubin Direct 2.1 mg/dL (0.0-0.5); Bilirubin Total 4.6 mg/dL (0.0-1.0); Blood Urea Nitrogen 64 mg/dL (9-16); Calcium 9.5 mg/dL (8.4-10.2); Carbon Dioxide 30 mmol/L (22-29); Chloride 95 mmol/L (96-108); Creatinine Clr Calc Pharmacy 32.6; Estimated Glomerular Filt Rate 45; Glucose Random 151 mg/dL (60-115); Magnesium 2.2 mg/dL (1.6-2.6); Potassium 3.9 mmol/L (3.3-5.1); Sodium 141 mmol/L (135-145); Total Protein 6.5 g/dL (6.5-8.0)
[2021-10-23 18:41] LABS: COVID-19 Test Negative (Negative); IDNOW Serial# 16C4AD1C; Influenza A Negative (Negative); Influenza B2 Negative (Negative)
[2021-10-23 18:42] LABS: B Type Natriuretic Peptide 115 pg/mL (<100); Troponin-I High Sensitivity 56.6 ng/L (<3.5-35.0)
[2021-10-23] MEDS: Piperacillin Sodium/Tazobactam 3.375 GM in 0.9 % Sodium Chloride 50 ML IV ×2 (18:52→23:59)
--- NOTE | 2021-10-23 19:18 | ECG_ITS ---
Test Reason : REPEAT Blood Pressure : / mmHG Vent. Rate : 082 BPM Atrial Rate : 082 BPM P-R Int : 150 ms QRS Dur : 072 ms QT Int : 408 ms P-R-T Axes : 000 -67 250 degrees QTc Int : 476 ms Normal sinus rhythm Left axis deviation Marked ST abnormality, possible inferior subendocardial injury Abnormal ECG When compared with ECG of 23-OCT-2021 17:59, Premature ventricular complexes are no longer Present Premature supraventricular complexes are no longer Present T wave inversion less evident in Inferior leads Referred By: Kiersten Gonzalez Electronically Signed By:Sumit Dugan
[2021-10-23 19:28] LABS: Band Neutrophils Percent 60 % (3-5); Lymphocytes Absolute Manual 0.4 X10*3/uL (1.2-4.9); Lymphocytes Percent Manual 3 % (20-40); Metamyelocytes Absolute 1.4 X10*3/uL; Metamyelocytes Percent 10 %; Monocytes Absolute Manual 1.4 X10*3/uL (0.1-1.2); Monocytes Percent Manual 10 % (2-11); Myelocytes Absolute 0.6 X10*/uL; Myelocytes Percent 4 %; Neutrophils Absolute Manual 10.3 X10*3/uL (2.0-8.3); Neutrophils Percent Manual 13 % (45-73)
[2021-10-23] MEDS: vancomycin HCL 750 MG in 0.9 % Sodium Chloride 250 ML 265 MG IV (19:28)
[2021-10-23 19:31] LABS: Platelet Estimate NORMAL (NORMAL); RBC Morphology NORMAL
[2021-10-23 19:32] LABS: Platelet Morphology Comment NORMAL
--- NOTE | 2021-10-23 19:57 | PC.NURSE ---
Took report from Brennan to assume care of Pt, Pt resting, NAD, call light in reach, this RN continues to monitor.
[2021-10-23 20:04] LABS: Appearance Urine CLEAR; Color Urine ORANGE; Glucose Urine UA NEG (NEG); Leukocyte Esterase Urine NEG (NEG); Nitrite Urine NEG (NEG); Specific Gravity - Urine >= 1.030 (1.005-1.025); UACC Culture Trigger NO; Urine Blood 2+ (NEG); Urine Ketones 5 MG/DL (NEG); Urine Protein 1+ MG/DL (NEG-TRACE)
[2021-10-23 20:21] LABS: Reflex Lactate? Lactic Acid Added
[2021-10-23 20:23] VITALS: BP 135/77; PULSE 74; RESP 19; TEMP 36.9; O2SAT 95
[2021-10-23 20:38] LABS: Bacteria Urine TRACE /LPF; Mucus Urine TRACE /LPF; Squamous Epithelial Cell Urine TRACE /LPF; WBC Urine 0-2 /HPF (0-4)
[2021-10-23 20:39] LABS: Hyaline Casts Urine 0-2 /LPF
[2021-10-23 21:13] LABS: ~Lactic Acid-LAB USE ONLY 1.6 mmol/L (0.5-2.0)
[2021-10-23 21:47] LABS: Troponin-I High Sensitivity 57.9 ng/L (<3.5-35.0)
[2021-10-23 21:48] LABS: Partial Thromboplastin Time 27.2 SEC (24.1-38.0)
--- NOTE | 2021-10-23 21:59 | P.HPHOSP_ITS ---
History of Present Illness Date of Service: 10/23/21 Chief Complaint: SOB 76-year-old male with a past medical history of prostate cancer, peripheral vascular disease status post active fem-fem bypass on ; recently noted second-degree AV block-no pacemaker recommended; presented to the hospital today with a chief complaint of shortness of breath/Nausea/vomiting. Patient reports that since he was discharged from the hospital he has not been eating well; noted to have shortness of breath which is worse today after he had the great; subsequently the family called the EMS and brought him to the [facility] for further evaluation. Patient denies any chest pain or palpitations. Reports dry cough since discharge from the hospital. Denies any fevers. Patient denies any chest pain. Reports he has been having multiple episodes of nausea and vomiting; denies any blood in the vomitus. Reports he has poor oral intake. Patient reports that he has not had a bowel movement in a week. Mentioned that he was passing gas at home but not now. Reports mild abdominal discomfort Review of all other systems is negative except mentioned above ER course: Per ER team patient noted to be hypoxic to 85%; placed on supplemental oxygen; not in respiratory distress; chest x-ray showed findings concerning for aspiration pneumonia; empirically started on vancomycin Zosyn. On labs noted to have elevated creatinine to 1.5; EKG showed nonspecific ST-T changes-troponin elevated to 56.6; discussed with Cardiology; D-dimer was elevated-V/Q scan showed intermediate probability for PE; patient was started on heparin drip. Dr. Kenyon from vascular surgery was also notified- agreed for heparin drip. [facility] Medical History History of radiation therapy Illiterate Mentally challenged Prostate cancer PVD (peripheral vascular disease) Family History Father No problems noted. Mother No problems noted. Surgical History Hx of surgical procedure No pertinent past surgical history Social History Household Members Other:: Lives with his sister Are you a primary director of career services to a significant other at home: No Do you presently have visiting nurse or other home services: No Alcohol intake: never Patient Tobacco Use Status: Current everyday Tobacco user Tobacco use type: Cigarette Cigarettes Per Day: 5 Advance Directives: Yes Advance Directives Information Provided: No Advance Directives on File: Yes Advance Directives Date on File: 10/18/21 service: No Current occupational status: disabled Meds Allergies Allergy/AdvReac Type Severity Reaction Status Date / Time No Known Allergies Allergy Verified 10/14/21 10:36 [No Known Allergies*] Active Medications: Current Medications Heparin Sodium (Porcine) (Heparin Sodium,Porcine 5,000 Unit/Ml Vial) 2,200 unit 40 unit/kg (2200 unit) IVPUSH PROTOCOL BOLUS PRN; Protocol PRN Reason: 40 unit/kg - Heparin Protocol Heparin Sodium (Porcine) (Heparin Sodium,Porcine 5,000 Unit/Ml Vial) 4,500 unit 80 unit/kg (4500 unit) IVPUSH PROTOCOL BOLUS PRN; Protocol PRN Reason: 80 unit/kg - Heparin Protocol Heparin Sodium/Sodium Chloride () 25,000 unit in 250 mls @ 0 mls/hr IVCONT .Q0M KENYA; Protocol Pharmacy Consult (Consult Rx Perform Med Rec) 1 each MISCELLANE ONCE PRN PRN Reason: Consult order Home Medications Medication Instructions Recorded Confirmed Last Taken Type aspirin 81 mg tablet,delayed 81 mg PO DAILY 09/21/21 10/23/21 10/22/21 History release (Adult Aspirin Regimen) ibuprofen 200 mg tablet (Advil) 200 mg PO Q6H PRN 09/21/21 10/23/21 Unknown History multivitamin 1 tab PO DAILY 09/21/21 10/23/21 10/22/21 History Physical Exam Vital Signs and Narrative: Vital Signs: Last Vital Signs Temp 98.5 F 10/23/21 20:23 Pulse 74 10/23/21 20:23 Resp 19 10/23/21 20:23 BP 135/77 10/23/21 20:23 Pulse Ox 95 10/23/21 20:23 BMI result Body Mass Index 15.7 Gen: Appears be in no acute distress. On supplemental oxygen. Speaks in full sentences. HEENT: NCAT, Moist mucosa. Pulmonary: Coarse breath sounds CVS: Normal S1-S2 Abdomen: BS+, Soft, Nontender Extremities: Warm well perfused; no calf tenderness noted Neuro: Alert and awake. grossly nonfocal Results Labs CBC and Chem 7: 10/24/21 04:09 10/23/21 18:15 Labs: Laboratory Results - last 24 hr 10/23/21 10/23/21 10/23/21 18:15 18:15 18:15 MCV MCH MCHC RDW Plt Count MPV Immature Gran % (Auto) Neut % (Auto) Lymph % (Auto) [place] % (Auto) Eos % (Auto) Baso % (Auto) Lymph # (Auto) [place] # (Auto) Eos # (Auto) Baso # (Auto) Abs Immat Gran (auto) Absolute Neuts (auto) Absolute Nucleated RBC Nucleated RBC % (auto) Neutrophils % (Manual) Band Neutrophils % Lymphocytes % (Manual) Monocytes % (Manual) Metamyelocytes % Myelocytes % Abs Neuts (Manual) Lymphocytes # (Manual) Monocytes # (Manual) Metamyelocytes # Myelocytes # Platelet Estimate Plt Morphology Comment RBC Morphology PT INR APTT D-Dimer High Sensitivty Anion Gap 20 Estim Creat Clear Calc 32.6 Estimated GFR 45 Random Glucose 151 H D Lactic Acid Lactic Acid F/U @ 2Hr Calcium 9.5 Magnesium 2.2 Total Bilirubin 4.6 H Direct Bilirubin 2.1 H AST 25 ALT 21 Alkaline Phosphatase 111 Troponin I High Sens B-Natriuretic Peptide Total Protein 6.5 Albumin 3.8 Urine Color Urine Appearance Urine pH Ur Specific [place] Urine Protein Urine Glucose (UA) Urine Ketones Urine Blood Urine Nitrite Ur Leukocyte Esterase Urine RBC Urine WBC Ur Squamous Epith Cells Urine Bacteria Hyaline Casts Urine Mucus COVID-19 (YORDAN) Negative COVID-19 Clin Com See Note Influenza Type A (TONIO) Negative Influenza Type B (TONIO) Negative Influenza A & B Note See Note 10/23/21 10/23/21 10/23/21 18:16 18:16 18:16 MCV 89.0 MCH 29.9 MCHC 33.6 RDW 14.7 Plt Count 387 MPV 10.1 Immature Gran % (Auto) Cancelled Neut % (Auto) Cancelled Lymph % (Auto) Cancelled [place] % (Auto) Cancelled Eos % (Auto) Cancelled Baso % (Auto) Cancelled Lymph # (Auto) Cancelled [place] # (Auto) Cancelled Eos # (Auto) Cancelled Baso # (Auto) Cancelled Abs Immat Gran (auto) Cancelled Absolute Neuts (auto) Cancelled Absolute Nucleated RBC 0.000 Nucleated RBC % (auto) 0.0 Neutrophils % (Manual) 13 L Band Neutrophils % 60 H Lymphocytes % (Manual) 3 L Monocytes % (Manual) 10 Metamyelocytes % 10 Myelocytes % 4 Abs Neuts (Manual) 10.3 H Lymphocytes # (Manual) 0.4 L Monocytes # (Manual) 1.4 H Metamyelocytes # 1.4 Myelocytes # 0.6 Platelet Estimate NORMAL Plt Morphology Comment NORMAL RBC Morphology NORMAL PT 14.2 H INR 1.2 H APTT 27.2 D D-Dimer High Sensitivty 2498 Anion Gap Estim Creat Clear Calc Estimated GFR Random Glucose Lactic Acid 2.4 H* Lactic Acid F/U @ 2Hr Calcium Magnesium Total Bilirubin Direct Bilirubin AST ALT Alkaline Phosphatase Troponin I High Sens B-Natriuretic Peptide Total Protein Albumin Urine Color Urine Appearance Urine pH Ur Specific [place] Urine Protein Urine Glucose (UA) Urine Ketones Urine Blood Urine Nitrite Ur Leukocyte Esterase Urine RBC Urine WBC Ur Squamous Epith Cells Urine Bacteria Hyaline Casts Urine Mucus COVID-19 (YORDAN) COVID-19 Clin Com Influenza Type A (TONIO) Influenza Type B (TONIO) Influenza A & B Note 10/23/21 10/23/21 10/23/21 18:16 19:56 21:02 MCV MCH MCHC RDW Plt Count MPV Immature Gran % (Auto) Neut % (Auto) Lymph % (Auto) [place] % (Auto) Eos % (Auto) Baso % (Auto) Lymph # (Auto) [place] # (Auto) Eos # (Auto) Baso # (Auto) Abs Immat Gran (auto) Absolute Neuts (auto) Absolute Nucleated RBC Nucleated RBC % (auto) Neutrophils % (Manual) Band Neutrophils % Lymphocytes % (Manual) Monocytes % (Manual) Metamyelocytes % Myelocytes % Abs Neuts (Manual) Lymphocytes # (Manual) Monocytes # (Manual) Metamyelocytes # Myelocytes # Platelet Estimate Plt Morphology Comment RBC Morphology PT INR APTT D-Dimer High Sensitivty Anion Gap Estim Creat Clear Calc Estimated GFR Random Glucose Lactic Acid Lactic Acid F/U @ 2Hr 1.6 Calcium Magnesium Total Bilirubin Direct Bilirubin AST ALT Alkaline Phosphatase Troponin I High Sens 56.6 H B-Natriuretic Peptide 115 H Total Protein Albumin Urine Color ORANGE A Urine Appearance CLEAR Urine pH 5.0 Ur Specific [place] >= 1.030 H Urine Protein 1+ H Urine Glucose (UA) NEG Urine Ketones 5 Urine Blood 2+ H Urine Nitrite NEG Ur Leukocyte Esterase NEG Urine RBC 1-4 Urine WBC 0-2 Ur Squamous Epith Cells TRACE Urine Bacteria TRACE Hyaline Casts 0-2 Urine Mucus TRACE COVID-19 (YORDAN) COVID-19 Clin Com Influenza Type A (TONIO) Influenza Type B (TONIO) Influenza A & B Note 10/23/21 21:21 MCV MCH MCHC RDW Plt Count MPV Immature Gran % (Auto) Neut % (Auto) Lymph % (Auto) [place] % (Auto) Eos % (Auto) Baso % (Auto) Lymph # (Auto) [place] # (Auto) Eos # (Auto) Baso # (Auto) Abs Immat Gran (auto) Absolute Neuts (auto) Absolute Nucleated RBC Nucleated RBC % (auto) Neutrophils % (Manual) Band Neutrophils % Lymphocytes % (Manual) Monocytes % (Manual) Metamyelocytes % Myelocytes % Abs Neuts (Manual) Lymphocytes # (Manual) Monocytes # (Manual) Metamyelocytes # Myelocytes # Platelet Estimate Plt Morphology Comment RBC Morphology PT INR APTT D-Dimer High Sensitivty Anion Gap Estim Creat Clear Calc Estimated GFR Random Glucose Lactic Acid Lactic Acid F/U @ 2Hr Calcium Magnesium Total Bilirubin Direct Bilirubin AST ALT Alkaline Phosphatase Troponin I High Sens 57.9 H B-Natriuretic Peptide Total Protein Albumin Urine Color Urine Appearance Urine pH Ur Specific [place] Urine Protein Urine Glucose (UA) Urine Ketones Urine Blood Urine Nitrite Ur Leukocyte Esterase Urine RBC Urine WBC Ur Squamous Epith Cells Urine Bacteria Hyaline Casts Urine Mucus COVID-19 (YORDAN) COVID-19 Clin Com Influenza Type A (TONIO) Influenza Type B (TONIO) Influenza A & B Note Imaging Radiologist's Impressions: Impressions Chest X-Ray 10/23/21 18:01 IMPRESSION: New patchy airspace opacities in the right upper lobe and left lower lobe concerning for infection/inflammation. Pulmonary Perfusion Imaging 10/23/21 20:20 IMPRESSION: Intermediate probability of pulmonary emboli in the setting of multifocal airspace opacities noted on a recent radiograph. If clinical concern for pulmonary emboli remains elevated, this patient would benefit from correlation with a CTA of the chest. Assessment and Plan Plan 76-year-old male with a past medical history of prostate cancer, peripheral vascular disease status post active fem-fem bypass on ; recently noted second-degree AV block-no pacemaker recommended; presented to the hospital today with a chief complaint of shortness of breath. Noted to have following Acute hypoxic respiratory failure: The setting of pneumonia/pulmonary embolism. Patient on supplemental oxygen->[email or web address]. Not in respiratory distress. Supportive care. Aspiration Pneumonia: Continue vancomycin and Zosyn IV empirically Aspiration precautions Speech and swallow vahid De La Cruz p.r.n. Pulmonary embolism: V/Q scan showed intermediate probability. Patient started on heparin drip Echocardiogram Oncology consult Elevated troponins: Troponins plateaued. Patient denies any chest pain. EKG showed nonspecific ST T wave changes. Cardiology was notified -opined, likely secondary to demand. Will monitor on telemetry SVT: Patient heart rate went to 175. given metoprolol IV x1; heart rate improved to low 100s. SHERI: Likely prerenal In the setting of poor oral intake. Gentle IV fluids. Avoid nephrotoxins Small-bowel obstruction with transition point: NPO NG suction--> patient put out like 1000 cc plus of green bile soon after NG tube was placed. General surgery dr Meza was notified. PPI History of peripheral vascular disease: Status post fem-fem bypass on 10/18/2021. Vascular surgery was notified about the patient's admission. Continue home aspirin. DVT prophylaxis: Patient on heparin drip Code status: Full code Spoke to the patient's family at bedside and updated with the current above plan of care. Quality Stroke Does the patient have a stroke diagnosis?: No VTE Prior VTE?: No VTE Risk Level:: Medical - moderate - high VTE Device Contraindication: Treatment Not Indicated VTE Drug Contraindication: N/A - Med Ordered
[2021-10-23] MEDS: Heparin Sodium,Porcine 5,000 UNIT/ML VIAL 4500 UNIT IVPUSH (22:08)
[2021-10-23] MEDS: Heparin Sodium,Porcine/1/2NS 25,000 UNIT/250 ML IV.SOLN 7.87 UNIT IVCONT (22:08)
--- NOTE | 2021-10-23 22:27 | PHA.PROG ---
Admission Date/Time: October 23, 2021 21:56 Indication: Respiratory Weight in k.8 kg Adjusted body weight in Kg: Elmer body weight in Kg: Obesity Dosing Indication % IBW: Serum Creatinine - Last 168 Hours 10/23/21 18:15 Creatinine 1.52 H Estimated CrCl and GFR - Last 168 Hours 10/23/21 18:15 Estim Creat Clear Calc 32.6 Estimated GFR 45 Vancomycin Loading Dose: 1250mg Current Vancomycin Dosing Regimen: 750mg Q24H Vancomycin Monitoring using AUC goal of 400 - 600 range with trough as surrogate marker: 443mg/L Date and Time for next Vancomycin Level to be drawn: 10/25/21 @1700 Pharmacist Comments on Vancomycin Plan: Will continue to monitor kidney function Vancomycin dosing will take advantage of [employer] as a clinical decision support tool that uses Bayesian modeling to calculate individual patient's pharmacokinetic parameters and forecast the patient's drug concentration time course with the target goal AUC 24 range of 400 - 600 mg/L/hr.
[2021-10-23 22:28] VITALS: BP 126/80; PULSE 74; RESP 22; TEMP 36.6; O2SAT 94
[2021-10-23] MEDS: vancomycin HCL 500 MG in 0.9 % Sodium Chloride 100 ML 110 MG IV (22:48)
[2021-10-23] MEDS: 0.9 % Sodium Chloride 1,000 ML 75 ML IVCONT (22:50)
[2021-10-23] MEDS: 0.9 % Sodium Chloride Flush 3 ML SYRINGE IVFLUSH (23:39)
[2021-10-24] VITALS (12 sets, daily range): BP systolic 105–176; BP diastolic 63–96; PULSE 77–103; RESP 15–24; TEMP 36.6–37; O2SAT 94–100
--- NOTE | 2021-10-24 | ECG_ITS ---
Test Reason : DYSPNEA Blood Pressure : / mmHG Vent. Rate : 080 BPM Atrial Rate : 080 BPM P-R Int : 142 ms QRS Dur : 080 ms QT Int : 402 ms P-R-T Axes : 054 -54 037 degrees QTc Int : 463 ms Normal sinus rhythm Left axis deviation T wave abnormality, consider anterolateral ischemia Prolonged QT Abnormal ECG When compared with ECG of 23-OCT-2021 19:33, ST no longer depressed in Inferior leads ST no longer depressed in Lateral leads Nonspecific T wave abnormality has replaced inverted T waves in Inferior leads Referred By: Leola Arcos Electronically Signed By:Sumit Dugan
[2021-10-24] MEDS: ondansetron HCL 4 MG/2 ML VIAL IVPUSH (02:30)
[2021-10-24] MEDS: Morphine Sulfate 4 MG/ML CARTRIDGE 1 MG IVPUSH (02:30)
--- NOTE | 2021-10-24 02:33 | PC.NURSE ---
Pt vomitted bright green vomitus, observed by this RN and and transcription specialist Samina, Pt sp02 on 4L NC was 86%, O2 increased to 5L with little improvement. Dr Marie at bedside, RT called to bedside and Dr Carroll called, Duo Neb, Morphine, Zofran and ABGs ordered. Pt placed on 14L O2 via Oxy mask, now SPO2 95%. This RN continues to monitor.
[2021-10-24] MEDS: Pantoprazole Sodium 40 MG/10 ML VIAL IVPUSH (04:10)
[2021-10-24 04:33] LABS: Hematocrit 37.1 % (42.0-52.0); Hemoglobin 12.4 g/dl (14.0-18.0); Mean Corpuscular HGB Conc 33.4 g/dl (31.0-36.0); Mean Corpuscular Hemoglobin 29.9 pg (27.0-33.0); Mean Corpuscular Volume 89.4 fL (80.0-98.0); Mean Platelet Volume 10.8 fL (9.4-12.4); Platelet Count 365 X10*3/uL (160-400); Red Blood Count 4.15 X10*6/uL (4.60-5.80); WBC ABN SCTR FOR CBC 1
[2021-10-24 04:43] LABS: INTERNATIONAL NORM RATIO 1.2 (0.9-1.1); Prothrombin Time 14.1 SEC (9.9-13.0)
[2021-10-24 04:46] LABS: PTT Heparin Drip 27.9 SEC (53-77.9); White Blood Count 9.9 X10*3/uL (4.8-10.8)
[2021-10-24] MEDS: Heparin Sodium,Porcine 5,000 UNIT/ML VIAL 4500 UNIT IVPUSH (04:53)
[2021-10-24 04:55] LABS: Band Neutrophils Percent 41 % (3-5); Lymphocytes Absolute Manual 1.2 X10*3/uL (1.2-4.9); Lymphocytes Percent Manual 12 % (20-40); Metamyelocytes Absolute 0.2 X10*3/uL; Metamyelocytes Percent 2 %; Monocytes Absolute Manual 0.9 X10*3/uL (0.1-1.2); Monocytes Percent Manual 9 % (2-11); Neutrophils Absolute Manual 7.6 X10*3/uL (2.0-8.3); Neutrophils Percent Manual 36 % (45-73); Platelet Estimate NORMAL (NORMAL); Platelet Morphology Comment NORMAL; RBC Morphology NORMAL; Toxic Vacuolation PRESENT
--- NOTE | 2021-10-24 05:04 | PC.NURSE ---
Addendum entered by Odette Elliott RN 10/24/21 05:33: 0533 New NGT placed and confirmed with XR. RT at bedside and patient placed back on Oxymask at 12L, O2 98%. 925cc of green fluid removed from NGT. Will monitor closely. Original Note: Patient's O2 saturation dropped to 80s while on Oxy mask, RT called to bedside. Patient placed on NRBR at 15L, now O2 98%. NGT also readjusted, will obtain repeat XR for placement. Will monitor closely.
--- NOTE | 2021-10-24 05:53 | PC.NURSE ---
NG tube replaced, placement confirmed.
[2021-10-24] MEDS: Metoprolol Tartrate 5 MG/5 ML VIAL IVPUSH (06:04)
--- NOTE | 2021-10-24 06:04 | PC.NURSE ---
pt in rapid svt- medicated with Lopressor and morphine. pt is a&o, able to follow command. Able to answer questions appropriately. Report to AAKASH Wolf.
[2021-10-24] MEDS: Piperacillin Sodium/Tazobactam 3.375 GM in 0.9 % Sodium Chloride 50 ML IV ×3 (07:27→19:13)
[2021-10-24 08:48] LABS: Anion Gap 23 (12-20); Blood Urea Nitrogen 74 mg/dL (9-16); Calcium 8.8 mg/dL (8.4-10.2); Carbon Dioxide 26 mmol/L (22-29); Chloride 99 mmol/L (96-108); Creatinine Clr Calc Pharmacy 28.5; Estimated Glomerular Filt Rate 38; Glucose Random 108 mg/dL (60-115); Potassium 4.2 mmol/L (3.3-5.1); Sodium 144 mmol/L (135-145)
--- NOTE | 2021-10-24 09:47 | HE.PHANOTE ---
destiny lucero continue current dose, next trough 10/25 @1700
--- NOTE | 2021-10-24 09:52 | PM.CNGS ---
History of Present Illness Consult details Consult date: 10/24/21 Narrative: 76-year-old male with multiple medical problems including peripheral arterial disease, brought to the ER last night by the family because of shortness of breath. He actually had undergone fem-fem bypass last October 18, 2021 and was just discharged from the hospital last October 21. He apparently had some vomiting at home yesterday. He denies any abdominal pain. He denies diarrhea. Imaging study suggests he has aspiration pneumonia. He came in with low O2 sats. His CAT scan of the abdomen also shows dilated small bowel loops with tapering distally suggestive of partial small-bowel obstruction. This seems to be on the left lower quadrant. He currently denies abdominal pain. He had an NG tube placed earlier this morning. He does not appear to be a good historian. He has some cognitive issues since according to his cousin. His cousin with him at bedside who answered some of the questions. Patient however lives alone at home on the 2nd floor above his sister's home. Review of Systems Constitutional: Constitutional: Reports fatigue and Reports lethargy Cardiovascular: Cardiovascular: Denies chest pain at rest, Denies chest pain with activity, Reports dyspnea and Reports dyspnea on exertion Respiratory: Respiratory: Reports cough, Reports dyspnea and Reports dyspnea on exertion Gastrointestinal: Gastrointestinal: Denies abdominal pain Genitourinary: Genitourinary: Denies oliguria Integumentary/Breasts: Skin/Breast: Reports system reviewed and no additional complaints, except as docu Neurologic: Reports system reviewed and no additional complaints, except as documented Endocrine: Endocrine: Reports fatigue PMFSH Past Medical History Medical History History of radiation therapy Illiterate Mentally challenged Partial small bowel obstruction Prostate cancer PVD (peripheral vascular disease) Family History Family History Father No problems noted. Mother No problems noted. Surgical History Surgical History Hx of surgical procedure No pertinent past surgical history Social History Social History Household Members: Family Household Members Other:: Lives with his sister Housing: Unknown / Unable to assess Are you a primary care transitions manager to a significant other at home: No Do you presently have visiting nurse or other home services: No Alcohol intake: never Patient Tobacco Use Status: Current someday Tobacco user Tobacco use type: Cigarette Cigarettes Per Day: 1 Advance Directives Date on File: 10/18/21 service: No Current occupational status: disabled Meds Allergies Allergy/AdvReac Type Severity Reaction Status Date / Time No Known Allergies Allergy Verified 10/14/21 10:36 [No Known Allergies*] Active Medications: Current Medications Acetaminophen (Acetaminophen 325 Mg Tablet) 650 mg PO Q6H PRN PRN Reason: Pain, Mild (Pain Scale 1-3) Albuterol/Ipratropium (Albuterol/Iprat 2.5/0.5mg 3 Ml Ampul.Neb) 3 ml INHALE RQ4H WHILE AWAKE PRN PRN Reason: Shortness of Breath/Wheezing Heparin Sodium (Porcine) (Heparin Sodium,Porcine 5,000 Unit/Ml Vial) 2,200 unit 40 unit/kg (2200 unit) IVPUSH PROTOCOL BOLUS PRN; Protocol PRN Reason: 40 unit/kg - Heparin Protocol Heparin Sodium (Porcine) (Heparin Sodium,Porcine 5,000 Unit/Ml Vial) 4,500 unit 80 unit/kg (4500 unit) IVPUSH PROTOCOL BOLUS PRN; Protocol PRN Reason: 80 unit/kg - Heparin Protocol Last Admin: 10/24/21 04:53 Dose: 4,500 unit Documented by: Heparin Sodium/Sodium Chloride () 25,000 unit in 250 mls @ 0 mls/hr IVCONT .Q0M [facility]; Protocol Last Titration: 10/24/21 04:58 Dose: 18 units/kg/hr, 10.12 mls/hr Documented by: Piperacillin Sod/Tazobactam (Sod 3.375 gm/ Sodium Chloride) 50 mls @ 100 mls/hr IV Q6H [facility] Last Infusion: 10/24/21 09:29 Dose: Infused Documented by: Sodium Chloride (Ns) 1,000 mls @ 75 mls/hr IVCONT .[id number] [facility] Last Admin: 10/23/21 22:50 Dose: 75 mls/hr Documented by: Vancomycin HCl 750 mg/ Sodium (Chloride) 265 mls @ 265 mls/hr IV Q24H [facility]YA Melatonin (Melatonin 3 Mg Tablet) 6 mg PO BEDTIME PRN PRN Reason: Insomnia Morphine Sulfate (Morphine Sulfate 4 Mg/Ml Cartridge) 1 mg IVPUSH Q4H PRN; Protocol PRN Reason: Pain, SOB Last Admin: 10/24/21 02:30 Dose: 1 mg Documented by: Pantoprazole Sodium (Pantoprazole Sodium 40 Mg/10 Ml Vial) 40 mg IVPUSH DAILY@0630 [facility] Last Admin: 10/24/21 04:10 Dose: 40 mg Documented by: Pharmacy Consult (Consult Rx Perform Med Rec) 1 each MISCELLANE ONCE PRN PRN Reason: Consult order Pharmacy Consult (Consult Rx Vancomycin Dosing) 1 each MISCELLANE DAILY PRN PRN Reason: Consult order Senna (Sennosides 8.6 Mg Tablet) 17.2 mg PO BEDTIME PRN PRN Reason: Constipation Sodium Chloride (0.9 % Sodium Chloride Flush 3 Ml Syringe) 3 ml IVFLUSH QSHIFT [facility] Last Admin: 10/24/21 07:08 Dose: Not Given Documented by: Home Medications Medication Instructions Recorded Confirmed Last Taken Type aspirin 81 mg tablet,delayed 81 mg PO DAILY 09/21/21 10/23/21 10/22/21 History release (Adult Aspirin Regimen) ibuprofen 200 mg tablet (Advil) 200 mg PO Q6H PRN 09/21/21 10/23/21 Unknown History multivitamin 1 tab PO DAILY 09/21/21 10/23/21 10/22/21 History Physical Exam Vital Signs: Vital Signs: Last Vital Signs Temp 97.8 F 10/23/21 22:28 Pulse 78 10/24/21 06:41 Resp 20 10/24/21 06:41 BP 121/72 10/24/21 06:41 Pulse Ox 99 10/24/21 06:41 BMI result Body Mass Index 15.7 Const: Other: appears short of breath a little bit General: comfortable Resp: Other: appears though short of breath, coarse breath sounds Cardio: Rate: regular rate GI: Other: soft, nondistended, nontender, no guarding rebound, inguinal incisions from his fem-fem bypass clean Palpation (GI): not firm and no guarding Extrem: Other: both extremities warm to touch Results Labs Result diagrams: 10/26/21 04:12 10/26/21 04:12 Labs: Abnormal lab results 10/23/21 10/23/21 10/23/21 Range/Units 18:15 18:16 18:16 WBC 14.1 H (4.8-10.8) X10*3/uL RBC 4.28 L (4.60-5.80) X10*6/uL Hgb 12.8 L (14.0-18.0) g/dl Hct 38.1 L (42.0-52.0) % Neutrophils % (Manual) 13 L (45-73) % Band Neutrophils % 60 H (3-5) % Lymphocytes % (Manual) 3 L (20-40) % Abs Neuts (Manual) 10.3 H (2.0-8.3) X10*3/uL Lymphocytes # (Manual) 0.4 L (1.2-4.9) X10*3/uL Monocytes # (Manual) 1.4 H (0.1-1.2) X10*3/uL PT 14.2 H (9.9-13.0) SEC INR 1.2 H (0.9-1.1) aPTT Heparin Protocol (53-77.9) SEC Chloride 95 L (96-108) mmol/L Carbon Dioxide 30 H (22-29) mmol/L Anion Gap (12-20) BUN 64 H D (9-16) mg/dL Creatinine 1.52 H (0.5-1.4) mg/dL Random Glucose 151 H D (60-115) mg/dL Lactic Acid (0.5-2.0) mmol/L Total Bilirubin 4.6 H (0.0-1.0) mg/dL Direct Bilirubin 2.1 H (0.0-0.5) mg/dL Troponin I High Sens (<3.5-35.0) ng/L B-Natriuretic Peptide (<100) pg/mL Urine Color Ur Specific [place] (1.005-1.025) Urine Protein (NEG-TRACE) MG/DL Urine Blood (NEG) 10/23/21 10/23/21 10/23/21 Range/Units 18:16 18:16 19:56 WBC (4.8-10.8) X10*3/uL RBC (4.60-5.80) X10*6/uL Hgb (14.0-18.0) g/dl Hct (42.0-52.0) % Neutrophils % (Manual) (45-73) % Band Neutrophils % (3-5) % Lymphocytes % (Manual) (20-40) % Abs Neuts (Manual) (2.0-8.3) X10*3/uL Lymphocytes # (Manual) (1.2-4.9) X10*3/uL Monocytes # (Manual) (0.1-1.2) X10*3/uL PT (9.9-13.0) SEC INR (0.9-1.1) aPTT Heparin Protocol (53-77.9) SEC Chloride (96-108) mmol/L Carbon Dioxide (22-29) mmol/L Anion Gap (12-20) BUN (9-16) mg/dL Creatinine (0.5-1.4) mg/dL Random Glucose (60-115) mg/dL Lactic Acid 2.4 H* (0.5-2.0) mmol/L Total Bilirubin (0.0-1.0) mg/dL Direct Bilirubin (0.0-0.5) mg/dL Troponin I High Sens 56.6 H (<3.5-35.0) ng/L B-Natriuretic Peptide 115 H (<100) pg/mL Urine Color ORANGE A Ur Specific [place] >= 1.030 H (1.005-1.025) Urine Protein 1+ H (NEG-TRACE) MG/DL Urine Blood 2+ H (NEG) 10/23/21 10/24/21 10/24/21 Range/Units 21:21 04:09 04:09 WBC (4.8-10.8) X10*3/uL RBC 4.15 L (4.60-5.80) X10*6/uL Hgb 12.4 L (14.0-18.0) g/dl Hct 37.1 L (42.0-52.0) % Neutrophils % (Manual) 36 L (45-73) % Band Neutrophils % 41 H (3-5) % Lymphocytes % (Manual) 12 L (20-40) % Abs Neuts (Manual) (2.0-8.3) X10*3/uL Lymphocytes # (Manual) (1.2-4.9) X10*3/uL Monocytes # (Manual) (0.1-1.2) X10*3/uL PT 14.1 H (9.9-13.0) SEC INR 1.2 H (0.9-1.1) aPTT Heparin Protocol 27.9 L (53-77.9) SEC Chloride (96-108) mmol/L Carbon Dioxide (22-29) mmol/L Anion Gap (12-20) BUN (9-16) mg/dL Creatinine (0.5-1.4) mg/dL Random Glucose (60-115) mg/dL Lactic Acid (0.5-2.0) mmol/L Total Bilirubin (0.0-1.0) mg/dL Direct Bilirubin (0.0-0.5) mg/dL Troponin I High Sens 57.9 H (<3.5-35.0) ng/L B-Natriuretic Peptide (<100) pg/mL Urine Color Ur Specific [place] (1.005-1.025) Urine Protein (NEG-TRACE) MG/DL Urine Blood (NEG) 10/24/21 Range/Units 07:22 WBC (4.8-10.8) X10*3/uL RBC (4.60-5.80) X10*6/uL Hgb (14.0-18.0) g/dl Hct (42.0-52.0) % Neutrophils % (Manual) (45-73) % Band Neutrophils % (3-5) % Lymphocytes % (Manual) (20-40) % Abs Neuts (Manual) (2.0-8.3) X10*3/uL Lymphocytes # (Manual) (1.2-4.9) X10*3/uL Monocytes # (Manual) (0.1-1.2) X10*3/uL PT (9.9-13.0) SEC INR (0.9-1.1) aPTT Heparin Protocol (53-77.9) SEC Chloride (96-108) mmol/L Carbon Dioxide (22-29) mmol/L Anion Gap 23 H (12-20) BUN 74 H (9-16) mg/dL Creatinine 1.74 H (0.5-1.4) mg/dL Random Glucose (60-115) mg/dL Lactic Acid (0.5-2.0) mmol/L Total Bilirubin (0.0-1.0) mg/dL Direct Bilirubin (0.0-0.5) mg/dL Troponin I High Sens (<3.5-35.0) ng/L B-Natriuretic Peptide (<100) pg/mL Urine Color Ur Specific [place] (1.005-1.025) Urine Protein (NEG-TRACE) MG/DL Urine Blood (NEG) Short CBC 10/23/21 10/24/21 Range/Units 18:16 04:09 WBC 14.1 H 9.9 (4.8-10.8) X10*3/uL Hgb 12.8 L 12.4 L (14.0-18.0) g/dl Hct 38.1 L 37.1 L (42.0-52.0) % Plt Count 387 365 (160-400) X10*3/uL BMP 10/23/21 10/24/21 18:15 07:22 Sodium 141 144 Potassium 3.9 4.2 Chloride 95 L 99 Carbon Dioxide 30 H 26 BUN 64 H D 74 H Creatinine 1.52 H 1.74 H Calcium 9.5 8.8 D Liver Function 10/23/21 Range/Units 18:15 Total Bilirubin 4.6 H (0.0-1.0) mg/dL Direct Bilirubin 2.1 H (0.0-0.5) mg/dL AST 25 (5-37) U/L ALT 21 (0-40) U/L Alkaline Phosphatase 111 (39-117) U/L Albumin 3.8 (3.5-5.0) g/dL Urine 10/23/21 Range/Units 19:56 Urine Color ORANGE A Urine Appearance CLEAR Urine pH 5.0 (5.0-8.0) Ur Specific [place] >= 1.030 H (1.005-1.025) Urine Protein 1+ H (NEG-TRACE) MG/DL Urine Glucose (UA) NEG (NEG) MG/DL All other labs normal. Imaging Additional studies: Laboratory Results WBC 9.9 X10*3/uL (4.8-10.8) 10/24/21 04:09 RBC 4.15 X10*6/uL (4.60-5.80) L 10/24/21 04:09 Hgb 12.4 g/dl (14.0-18.0) L 10/24/21 04:09 Hct 37.1 % (42.0-52.0) L 10/24/21 04:09 MCV 89.4 fL (80.0-98.0) 10/24/21 04:09 MCH 29.9 pg (27.0-33.0) 10/24/21 04:09 MCHC 33.4 g/dl (31.0-36.0) 10/24/21 04:09 RDW 15.0 % (11.0-16.0) 10/24/21 04:09 Plt Count 365 X10*3/uL (160-400) 10/24/21 04:09 MPV 10.8 fL (9.4-12.4) 10/24/21 04:09 Immature Gran % (Auto) Cancelled 10/24/21 04:09 Neut % (Auto) Cancelled 10/24/21 04:09 Lymph % (Auto) Cancelled 10/24/21 04:09 [place] % (Auto) Cancelled 10/24/21 04:09 Eos % (Auto) Cancelled 10/24/21 04:09 Baso % (Auto) Cancelled 10/24/21 04:09 Lymph # (Auto) Cancelled 10/24/21 04:09 [place] # (Auto) Cancelled 10/24/21 04:09 Eos # (Auto) Cancelled 10/24/21 04:09 Baso # (Auto) Cancelled 10/24/21 04:09 Abs Immat Gran (auto) Cancelled 10/24/21 04:09 Absolute Neuts (auto) Cancelled 10/24/21 04:09 Absolute Nucleated RBC 0.000 X10*3/uL (0.0-0.012) 10/24/21 04:09 Nucleated RBC % (auto) 0.0 /100WBC (0.0-0.2) 10/24/21 04:09 Neutrophils % (Manual) 36 % (45-73) L 10/24/21 04:09 Band Neutrophils % 41 % (3-5) H 10/24/21 04:09 Lymphocytes % (Manual) 12 % (20-40) L 10/24/21 04:09 Monocytes % (Manual) 9 % (2-11) 10/24/21 04:09 Metamyelocytes % 2 % 10/24/21 04:09 Myelocytes % 4 % 10/23/21 18:16 Abs Neuts (Manual) 7.6 X10*3/uL (2.0-8.3) 10/24/21 04:09 Lymphocytes # (Manual) 1.2 X10*3/uL (1.2-4.9) 10/24/21 04:09 Monocytes # (Manual) 0.9 X10*3/uL (0.1-1.2) 10/24/21 04:09 Metamyelocytes # 0.2 X10*3/uL 10/24/21 04:09 Myelocytes # 0.6 X10*/uL 10/23/21 18:16 Toxic Vacuolation PRESENT 10/24/21 04:09 Platelet Estimate NORMAL (NORMAL) 10/24/21 04:09 Plt Morphology Comment NORMAL 10/24/21 04:09 RBC Morphology NORMAL 10/24/21 04:09 PT 14.1 SEC (9.9-13.0) H 10/24/21 04:09 PT Cancelled 10/24/21 04:09 INR 1.2 (0.9-1.1) H 10/24/21 04:09 INR Cancelled 10/24/21 04:09 APTT 27.2 SEC (24.1-38.0) D 10/23/21 18:16 aPTT Heparin Protocol 27.9 SEC (53-77.9) L 10/24/21 04:09 D-Dimer High Sensitivty 2498 NG/ML 10/23/21 18:16 Sodium 144 mmol/L (135-145) 10/24/21 07:22 Potassium 4.2 mmol/L (3.3-5.1) 10/24/21 07:22 Chloride 99 mmol/L (96-108) 10/24/21 07:22 Carbon Dioxide 26 mmol/L (22-29) 10/24/21 07:22 Anion Gap 23 (12-20) H 10/24/21 07:22 BUN 74 mg/dL (9-16) H 10/24/21 07:22 Creatinine 1.74 mg/dL (0.5-1.4) H 10/24/21 07:22 Estim Creat Clear Calc 28.5 10/24/21 07:22 Estimated GFR 38 10/24/21 07:22 Random Glucose 108 mg/dL (60-115) 10/24/21 07:22 Lactic Acid 2.4 mmol/L (0.5-2.0) H* 10/23/21 18:16 Lactic Acid F/U @ 2Hr 1.6 mmol/L (0.5-2.0) 10/23/21 21:02 Calcium 8.8 mg/dL (8.4-10.2) D 10/24/21 07:22 Magnesium 2.2 mg/dL (1.6-2.6) 10/23/21 18:15 Total Bilirubin 4.6 mg/dL (0.0-1.0) H 10/23/21 18:15 Direct Bilirubin 2.1 mg/dL (0.0-0.5) H 10/23/21 18:15 AST 25 U/L (5-37) 10/23/21 18:15 ALT 21 U/L (0-40) 10/23/21 18:15 Alkaline Phosphatase 111 U/L (39-117) 10/23/21 18:15 Troponin I High Sens 57.9 ng/L (<3.5-35.0) H 10/23/21 21:21 B-Natriuretic Peptide 115 pg/mL (<100) H 10/23/21 18:16 Total Protein 6.5 g/dL (6.5-8.0) 10/23/21 18:15 Albumin 3.8 g/dL (3.5-5.0) 10/23/21 18:15 Urine Color ORANGE A 10/23/21 19:56 Urine Appearance CLEAR 10/23/21 19:56 Urine pH 5.0 (5.0-8.0) 10/23/21 19:56 Ur Specific [place] >= 1.030 (1.005-1.025) H 10/23/21 19:56 Urine Protein 1+ MG/DL (NEG-TRACE) H 10/23/21 19:56 Urine Glucose (UA) NEG MG/DL (NEG) 10/23/21 19:56 Urine Ketones 5 MG/DL (NEG) 10/23/21 19:56 Urine Blood 2+ (NEG) H 10/23/21 19:56 Urine Nitrite NEG (NEG) 10/23/21 19:56 Ur Leukocyte Esterase NEG (NEG) 10/23/21 19:56 Urine RBC 1-4 /HPF (0) 10/23/21 19:56 Urine WBC 0-2 /HPF (0-4) 10/23/21 19:56 Ur Squamous Epith Cells TRACE /LPF 10/23/21 19:56 Urine Bacteria TRACE /LPF 10/23/21 19:56 Hyaline Casts 0-2 /LPF 10/23/21 19:56 Urine Mucus TRACE /LPF 10/23/21 19:56 COVID-19 (YRODAN) Negative (Negative) 10/23/21 18:15 COVID-19 Clin Com See Note 10/23/21 18:15 Influenza Type A (TONIO) Negative (Negative) 10/23/21 18:15 Influenza Type B (TONIO) Negative (Negative) 10/23/21 18:15 Influenza A & B Note See Note 10/23/21 18:15 Impressions Pulmonary Perfusion Imaging 10/23/21 20:20 IMPRESSION: Intermediate probability of pulmonary emboli in the setting of multifocal airspace opacities noted on a recent radiograph. If clinical concern for pulmonary emboli remains elevated, this patient would benefit from correlation with a CTA of the chest. Abdomen/Pelvis CT 10/24/21 03:18 IMPRESSION: 1. Small bowel obstruction with transition point suspected to lie in the anterior left lower quadrant, relatively close to the left aspect of the femoral-femoral bypass graft. 2. Scattered regions of pulmonary groundglass opacity and consolidation in the mid to lower lungs. Given the dilation of the stomach and esophagus, at least some of this could reflect sequelae of aspiration. 3. Since a few of the focal consolidations have a relatively nodular appearance, follow-up chest CT in 3 months is advised to assess for resolution. Chest CT 10/24/21 03:18 IMPRESSION: 1. Small bowel obstruction with transition point suspected to lie in the anterior left lower quadrant, relatively close to the left aspect of the femoral-femoral bypass graft. 2. Scattered regions of pulmonary groundglass opacity and consolidation in the mid to lower lungs. Given the dilation of the stomach and esophagus, at least some of this could reflect sequelae of aspiration. 3. Since a few of the focal consolidations have a relatively nodular appearance, follow-up chest CT in 3 months is advised to assess for resolution. Chest X-Ray 10/24/21 05:30 IMPRESSION: 1. Enteric tube courses into the proximal stomach with side-port in the region of the distal esophagus; advancement recommended. 2. Redemonstrated patchy bibasilar opacities. Assessment and Plan (1) Partial small bowel obstruction: Status: Acute His CAT scan of the abdomen shows dilated small bowel loops with tapering distally suggestive of partial small-bowel obstruction. His fem-fem bypass graft appears to go intraperitoneally and is adjacent to a dilated small bowel loop in one area but there is no evidence of any bowel injury. Another differential would be ileus. I had recommended putting in the NG tube and this did put out a lot of enteric contents. His current exam otherwise is benign. He is not distended and does not have any tenderness We will follow along closely while he is in the hospital. He should be aggressively hydrated as well, as his creatinine is elevated. He needs to be followed by Dr. Kenyon as well because of his recent fem-fem bypass. He has been started on empiric antibiotics for likely aspiration pneumonia. His abdominal exam is otherwise benign. Procedures Date of Service Date of Service: 10/24/21
--- NOTE | 2021-10-24 10:08 | PM.CNCAR ---
History of Present Illness History of Present Illness Date of Service: 10/24/21 Requesting physician: Smith Fonseca Chief complaint: Hypoxia, elevated troponin Narrative: 76-year-old gentleman who was seen few days ago after aortobifem surgery when he developed bradycardia in his sleep and when he was having hiccups. This was thought to be due to high vagal tone in his sleep as well as related to hiccups. Plan was to do cardiac event monitor on him as outpatient. He is now presenting because he was not eating at home and developed shortness of breath and was brought back to the hospital. He was noted to be hypoxic. His imaging has shown concern for aspiration and he has been started on antibiotics for aspiration pneumonia. He had EKG performed which showed some nonspecific lateral ST changes with some depressions in some EKGs. He has not had any chest discomfort. His troponins did not have any meaningful change. He had V/Q scan because he has kidney injury on this admission as a V/Q scan was intermediate risk for pulmonary embolism. He has been started on heparin drip. His denying any issues right now. He is on supplemental oxygen right now. [facility] Past Medical History Medical History (Updated 10/24/21 @ 12:32 by Sumit Dugan MD) History of radiation therapy Illiterate Mentally challenged Partial small bowel obstruction Prostate cancer PVD (peripheral vascular disease) Family History Family History Father No problems noted. Mother No problems noted. Surgical History Surgical History Hx of surgical procedure No pertinent past surgical history Social History Social History Household Members Other:: Lives with his sister Are you a primary client care specialist to a significant other at home: No Do you presently have visiting nurse or other home services: No Alcohol intake: never Patient Tobacco Use Status: Current everyday Tobacco user Tobacco use type: Cigarette Cigarettes Per Day: 5 Advance Directives: Yes Advance Directives Information Provided: No Advance Directives on File: Yes Advance Directives Date on File: 10/18/21 service: No Current occupational status: disabled Meds Allergies Allergy/AdvReac Type Severity Reaction Status Date / Time No Known Allergies Allergy Verified 10/14/21 10:36 [No Known Allergies*] Active Medications: Current Medications Acetaminophen (Acetaminophen 325 Mg Tablet) 650 mg PO Q6H PRN PRN Reason: Pain, Mild (Pain Scale 1-3) Albuterol/Ipratropium (Albuterol/Iprat 2.5/0.5mg 3 Ml Ampul.Neb) 3 ml INHALE RQ4H WHILE AWAKE PRN PRN Reason: Shortness of Breath/Wheezing Heparin Sodium (Porcine) (Heparin Sodium,Porcine 5,000 Unit/Ml Vial) 2,200 unit 40 unit/kg (2200 unit) IVPUSH PROTOCOL BOLUS PRN; Protocol PRN Reason: 40 unit/kg - Heparin Protocol Heparin Sodium (Porcine) (Heparin Sodium,Porcine 5,000 Unit/Ml Vial) 4,500 unit 80 unit/kg (4500 unit) IVPUSH PROTOCOL BOLUS PRN; Protocol PRN Reason: 80 unit/kg - Heparin Protocol Last Admin: 10/24/21 04:53 Dose: 4,500 unit Documented by: Heparin Sodium/Sodium Chloride () 25,000 unit in 250 mls @ 0 mls/hr IVCONT .Q0M [facility]; Protocol Last Titration: 10/24/21 04:58 Dose: 18 units/kg/hr, 10.12 mls/hr Documented by: Piperacillin Sod/Tazobactam (Sod 3.375 gm/ Sodium Chloride) 50 mls @ 100 mls/hr IV Q6H [facility] Last Infusion: 10/24/21 09:29 Dose: Infused Documented by: Sodium Chloride (Ns) 1,000 mls @ 75 mls/hr IVCONT .[id number] [facility] Last Admin: 10/23/21 22:50 Dose: 75 mls/hr Documented by: Vancomycin HCl 750 mg/ Sodium (Chloride) 265 mls @ 265 mls/hr IV Q24H [facility] Melatonin (Melatonin 3 Mg Tablet) 6 mg PO BEDTIME PRN PRN Reason: Insomnia Morphine Sulfate (Morphine Sulfate 4 Mg/Ml Cartridge) 1 mg IVPUSH Q4H PRN; Protocol PRN Reason: Pain, SOB Last Admin: 10/24/21 02:30 Dose: 1 mg Documented by: Pantoprazole Sodium (Pantoprazole Sodium 40 Mg/10 Ml Vial) 40 mg IVPUSH DAILY@0630 [facility] Last Admin: 10/24/21 04:10 Dose: 40 mg Documented by: Pharmacy Consult (Consult Rx Perform Med Rec) 1 each MISCELLANE ONCE PRN PRN Reason: Consult order Pharmacy Consult (Consult Rx Vancomycin Dosing) 1 each MISCELLANE DAILY PRN PRN Reason: Consult order Senna (Sennosides 8.6 Mg Tablet) 17.2 mg PO BEDTIME PRN PRN Reason: Constipation Sodium Chloride (0.9 % Sodium Chloride Flush 3 Ml Syringe) 3 ml IVFLUSH QSHIFT KENYA Last Admin: 10/24/21 07:08 Dose: Not Given Documented by: Home Medications Medication Instructions Recorded Confirmed Last Taken Type aspirin 81 mg tablet,delayed 81 mg PO DAILY 09/21/21 10/23/21 10/22/21 History release (Adult Aspirin Regimen) ibuprofen 200 mg tablet (Advil) 200 mg PO Q6H PRN 09/21/21 10/23/21 Unknown History multivitamin 1 tab PO DAILY 09/21/21 10/23/21 10/22/21 History Physical Exam Vital Signs: Vital Signs: Last Vital Signs Temp 97.8 F 10/23/21 22:28 Pulse 78 10/24/21 06:41 Resp 20 10/24/21 06:41 BP 121/72 10/24/21 06:41 Pulse Ox 99 10/24/21 06:41 BMI result Body Mass Index 15.7 GENERAL APPEARANCE: in no acute distress, on nasal cannula. NECK: no carotid bruit, no jugular venous distention. SKIN: no suspicious lesions, warm and dry. HEART: no murmurs, regular rate and rhythm. LUNGS: clear to auscultation bilaterally. ABDOMEN: soft, nontender. EXTREMITIES: no edema. PERIPHERAL PULSES: equal. NEUROLOGIC: No gross deficits, AAO X 3 Objective Labs and Meds Result diagrams: 10/24/21 04:09 10/24/21 07:22 Lab results: Laboratory Results - last 24 hr 10/23/21 10/23/21 10/23/21 18:15 18:15 18:15 WBC RBC Hgb Hct MCV MCH MCHC RDW Plt Count MPV Immature Gran % (Auto) Neut % (Auto) Lymph % (Auto) [place] % (Auto) Eos % (Auto) Baso % (Auto) Lymph # (Auto) [place] # (Auto) Eos # (Auto) Baso # (Auto) Abs Immat Gran (auto) Absolute Neuts (auto) Absolute Nucleated RBC Nucleated RBC % (auto) Neutrophils % (Manual) Band Neutrophils % Lymphocytes % (Manual) Monocytes % (Manual) Metamyelocytes % Myelocytes % Abs Neuts (Manual) Lymphocytes # (Manual) Monocytes # (Manual) Metamyelocytes # Myelocytes # Toxic Vacuolation Platelet Estimate Plt Morphology Comment RBC Morphology PT INR APTT aPTT Heparin Protocol D-Dimer High Sensitivty Sodium 141 Potassium 3.9 Chloride 95 L Carbon Dioxide 30 H Anion Gap 20 BUN 64 H D Creatinine 1.52 H Estim Creat Clear Calc 32.6 Estimated GFR 45 Random Glucose 151 H D Lactic Acid Lactic Acid F/U @ 2Hr Calcium 9.5 Magnesium 2.2 Total Bilirubin 4.6 H Direct Bilirubin 2.1 H AST 25 ALT 21 Alkaline Phosphatase 111 Troponin I High Sens B-Natriuretic Peptide Total Protein 6.5 Albumin 3.8 Urine Color Urine Appearance Urine pH Ur Specific [place] Urine Protein Urine Glucose (UA) Urine Ketones Urine Blood Urine Nitrite Ur Leukocyte Esterase Urine RBC Urine WBC Ur Squamous Epith Cells Urine Bacteria Hyaline Casts Urine Mucus COVID-19 (YORDAN) Negative COVID-19 Clin Com See Note Influenza Type A (TONIO) Negative Influenza Type B (TONIO) Negative Influenza A & B Note See Note 10/23/21 10/23/21 10/23/21 18:16 18:16 18:16 WBC 14.1 H RBC 4.28 L Hgb 12.8 L Hct 38.1 L MCV 89.0 MCH 29.9 MCHC 33.6 RDW 14.7 Plt Count 387 MPV 10.1 Immature Gran % (Auto) Cancelled Neut % (Auto) Cancelled Lymph % (Auto) Cancelled [place] % (Auto) Cancelled Eos % (Auto) Cancelled Baso % (Auto) Cancelled Lymph # (Auto) Cancelled [place] # (Auto) Cancelled Eos # (Auto) Cancelled Baso # (Auto) Cancelled Abs Immat Gran (auto) Cancelled Absolute Neuts (auto) Cancelled Absolute Nucleated RBC 0.000 Nucleated RBC % (auto) 0.0 Neutrophils % (Manual) 13 L Band Neutrophils % 60 H Lymphocytes % (Manual) 3 L Monocytes % (Manual) 10 Metamyelocytes % 10 Myelocytes % 4 Abs Neuts (Manual) 10.3 H Lymphocytes # (Manual) 0.4 L Monocytes # (Manual) 1.4 H Metamyelocytes # 1.4 Myelocytes # 0.6 Toxic Vacuolation Platelet Estimate NORMAL Plt Morphology Comment NORMAL RBC Morphology NORMAL PT 14.2 H INR 1.2 H APTT 27.2 D aPTT Heparin Protocol D-Dimer High Sensitivty 2498 Sodium Potassium Chloride Carbon Dioxide Anion Gap BUN Creatinine Estim Creat Clear Calc Estimated GFR Random Glucose Lactic Acid 2.4 H* Lactic Acid F/U @ 2Hr Calcium Magnesium Total Bilirubin Direct Bilirubin AST ALT Alkaline Phosphatase Troponin I High Sens B-Natriuretic Peptide Total Protein Albumin Urine Color Urine Appearance Urine pH Ur Specific [place] Urine Protein Urine Glucose (UA) Urine Ketones Urine Blood Urine Nitrite Ur Leukocyte Esterase Urine RBC Urine WBC Ur Squamous Epith Cells Urine Bacteria Hyaline Casts Urine Mucus COVID-19 (YORDAN) COVID-19 Clin Com Influenza Type A (TONIO) Influenza Type B (TONIO) Influenza A & B Note 10/23/21 10/23/21 10/23/21 18:16 19:56 21:02 WBC RBC Hgb Hct MCV MCH MCHC RDW Plt Count MPV Immature Gran % (Auto) Neut % (Auto) Lymph % (Auto) [place] % (Auto) Eos % (Auto) Baso % (Auto) Lymph # (Auto) [place] # (Auto) Eos # (Auto) Baso # (Auto) Abs Immat Gran (auto) Absolute Neuts (auto) Absolute Nucleated RBC Nucleated RBC % (auto) Neutrophils % (Manual) Band Neutrophils % Lymphocytes % (Manual) Monocytes % (Manual) Metamyelocytes % Myelocytes % Abs Neuts (Manual) Lymphocytes # (Manual) Monocytes # (Manual) Metamyelocytes # Myelocytes # Toxic Vacuolation Platelet Estimate Plt Morphology Comment RBC Morphology PT INR APTT aPTT Heparin Protocol D-Dimer High Sensitivty Sodium Potassium Chloride Carbon Dioxide Anion Gap BUN Creatinine Estim Creat Clear Calc Estimated GFR Random Glucose Lactic Acid Lactic Acid F/U @ 2Hr 1.6 Calcium Magnesium Total Bilirubin Direct Bilirubin AST ALT Alkaline Phosphatase Troponin I High Sens 56.6 H B-Natriuretic Peptide 115 H Total Protein Albumin Urine Color ORANGE A Urine Appearance CLEAR Urine pH 5.0 Ur Specific [place] >= 1.030 H Urine Protein 1+ H Urine Glucose (UA) NEG Urine Ketones 5 Urine Blood 2+ H Urine Nitrite NEG Ur Leukocyte Esterase NEG Urine RBC 1-4 Urine WBC 0-2 Ur Squamous Epith Cells TRACE Urine Bacteria TRACE Hyaline Casts 0-2 Urine Mucus TRACE COVID-19 (YORDAN) COVID-19 Clin Com Influenza Type A (TONIO) Influenza Type B (TONIO) Influenza A & B Note 10/23/21 10/24/21 10/24/21 21:21 04:09 04:09 WBC RBC Hgb Hct MCV MCH MCHC RDW Plt Count MPV Immature Gran % (Auto) Neut % (Auto) Lymph % (Auto) [place] % (Auto) Eos % (Auto) Baso % (Auto) Lymph # (Auto) [place] # (Auto) Eos # (Auto) Baso # (Auto) Abs Immat Gran (auto) Absolute Neuts (auto) Absolute Nucleated RBC Nucleated RBC % (auto) Neutrophils % (Manual) Band Neutrophils % Lymphocytes % (Manual) Monocytes % (Manual) Metamyelocytes % Myelocytes % Abs Neuts (Manual) Lymphocytes # (Manual) Monocytes # (Manual) Metamyelocytes # Myelocytes # Toxic Vacuolation Platelet Estimate Plt Morphology Comment RBC Morphology PT 14.1 H Cancelled INR 1.2 H Cancelled APTT aPTT Heparin Protocol 27.9 L D-Dimer High Sensitivty Sodium Potassium Chloride Carbon Dioxide Anion Gap BUN Creatinine Estim Creat Clear Calc Estimated GFR Random Glucose Lactic Acid Lactic Acid F/U @ 2Hr Calcium Magnesium Total Bilirubin Direct Bilirubin AST ALT Alkaline Phosphatase Troponin I High Sens 57.9 H B-Natriuretic Peptide Total Protein Albumin Urine Color Urine Appearance Urine pH Ur Specific [place] Urine Protein Urine Glucose (UA) Urine Ketones Urine Blood Urine Nitrite Ur Leukocyte Esterase Urine RBC Urine WBC Ur Squamous Epith Cells Urine Bacteria Hyaline Casts Urine Mucus COVID-19 (YORDAN) COVID-19 Clin Com Influenza Type A (TONIO) Influenza Type B (TONIO) Influenza A & B Note 10/24/21 10/24/21 04:09 07:22 WBC 9.9 RBC 4.15 L Hgb 12.4 L Hct 37.1 L MCV 89.4 MCH 29.9 MCHC 33.4 RDW 15.0 Plt Count 365 MPV 10.8 Immature Gran % (Auto) Cancelled Neut % (Auto) Cancelled Lymph % (Auto) Cancelled [place] % (Auto) Cancelled Eos % (Auto) Cancelled Baso % (Auto) Cancelled Lymph # (Auto) Cancelled [place] # (Auto) Cancelled Eos # (Auto) Cancelled Baso # (Auto) Cancelled Abs Immat Gran (auto) Cancelled Absolute Neuts (auto) Cancelled Absolute Nucleated RBC 0.000 Nucleated RBC % (auto) 0.0 Neutrophils % (Manual) 36 L Band Neutrophils % 41 H Lymphocytes % (Manual) 12 L Monocytes % (Manual) 9 Metamyelocytes % 2 Myelocytes % Abs Neuts (Manual) 7.6 Lymphocytes # (Manual) 1.2 Monocytes # (Manual) 0.9 Metamyelocytes # 0.2 Myelocytes # Toxic Vacuolation PRESENT Platelet Estimate NORMAL Plt Morphology Comment NORMAL RBC Morphology NORMAL PT INR APTT aPTT Heparin Protocol D-Dimer High Sensitivty Sodium 144 Potassium 4.2 Chloride 99 Carbon Dioxide 26 Anion Gap 23 H BUN 74 H Creatinine 1.74 H Estim Creat Clear Calc 28.5 Estimated GFR 38 Random Glucose 108 Lactic Acid Lactic Acid F/U @ 2Hr Calcium 8.8 D Magnesium Total Bilirubin Direct Bilirubin AST ALT Alkaline Phosphatase Troponin I High Sens B-Natriuretic Peptide Total Protein Albumin Urine Color Urine Appearance Urine pH Ur Specific [place] Urine Protein Urine Glucose (UA) Urine Ketones Urine Blood Urine Nitrite Ur Leukocyte Esterase Urine RBC Urine WBC Ur Squamous Epith Cells Urine Bacteria Hyaline Casts Urine Mucus COVID-19 (YORDAN) COVID-19 Clin Com Influenza Type A (TONIO) Influenza Type B (TONIO) Influenza A & B Note Imaging Radiologist's impression: Impressions Chest X-Ray 10/23/21 18:01 IMPRESSION: New patchy airspace opacities in the right upper lobe and left lower lobe concerning for infection/inflammation. Pulmonary Perfusion Imaging 10/23/21 20:20 IMPRESSION: Intermediate probability of pulmonary emboli in the setting of multifocal airspace opacities noted on a recent radiograph. If clinical concern for pulmonary emboli remains elevated, this patient would benefit from correlation with a CTA of the chest. Abdomen/Pelvis CT 10/24/21 03:18 IMPRESSION: 1. Small bowel obstruction with transition point suspected to lie in the anterior left lower quadrant, relatively close to the left aspect of the femoral-femoral bypass graft. 2. Scattered regions of pulmonary groundglass opacity and consolidation in the mid to lower lungs. Given the dilation of the stomach and esophagus, at least some of this could reflect sequelae of aspiration. 3. Since a few of the focal consolidations have a relatively nodular appearance, follow-up chest CT in 3 months is advised to assess for resolution. Chest CT 10/24/21 03:18 IMPRESSION: 1. Small bowel obstruction with transition point suspected to lie in the anterior left lower quadrant, relatively close to the left aspect of the femoral-femoral bypass graft. 2. Scattered regions of pulmonary groundglass opacity and consolidation in the mid to lower lungs. Given the dilation of the stomach and esophagus, at least some of this could reflect sequelae of aspiration. 3. Since a few of the focal consolidations have a relatively nodular appearance, follow-up chest CT in 3 months is advised to assess for resolution. Chest X-Ray 10/24/21 04:57 IMPRESSION: 1. Enteric tube coursing into the right lower lobe airway; removal and repositioning required. 2. Redemonstrated patchy bibasilar airspace opacities. This critical result was discussed with Dr. Smith Fonseca on 10/24/2021 5:04 AM, and it was ascertained that the content and urgency of the report was understood at the time of direct communication. Chest X-Ray 10/24/21 05:15 IMPRESSION: Enteric tube coursing into the right lower lobe bronchus; repeat examination has already performed at the time of this dictation. Redemonstrated patchy bibasilar opacities. Chest X-Ray 10/24/21 05:30 IMPRESSION: 1. Enteric tube courses into the proximal stomach with side-port in the region of the distal esophagus; advancement recommended. 2. Redemonstrated patchy bibasilar opacities. Assessment and Plan (1) Aspiration pneumonia: Status: Acute (2) Elevated troponin: Status: Acute Plan 76-year-old gentleman with aortobifem surgery who is presenting with hypoxia and aspiration pneumonia. He has been started on antibiotics. In the setting of hypoxia he had some ECG changes which were fairly nonspecific involving the lateral leads. He has no chest discomfort or significant shortness of breath right now. He did not have any chest discomfort on presentation to. His EKG now is showing T-wave inversions in the precordial leads. He is intermediate risk for pulmonary embolism based on V/Q scan which could be 1 potential cause for the T-wave changes. He should be on baby aspirin because of peripheral vascular disease and I think that should be resumed. He is on heparin for now for pulmonary embolism and is potentially going to be changed to long-term anticoagulation. Would favor doing an echocardiogram on him on Monday to assess the right ventricular function. He had a normal Lexiscan in September 2021 before he underwent aortobifem surgery. Currently because of lack of symptoms I feel we do not need to pursue any further ischemic evaluation but this is a dynamic discussion in his situation. Right now he will be anticoagulated because of concern for PE. For his kidneys he should be hydrated and should have repeat blood workup. Continue heparin till kidneys are improving so he can start him on a steady dose of anticoagulation rather than change the dose based on changing creatinine clearance. Thank you for allowing me to participate in the care of your patient. Please feel free to contact me if you have any questions. Procedures Date of Service Date of Service: 10/24/21
--- NOTE | 2021-10-24 10:53 | P.PNIM_ITS ---
Subjective Subjective Date of Service: 10/24/21 Interval History: Patient seen and examined at bedside, he reports that he feels the same, he continues to have sob and pain, he has no abdominal pain and reports that he had multiple episodes of diarrhea this morning. denies any chest pain. Review of Systems Review of Systems: Yes all other systems are reviewed and are negative Physical Exam Vital Signs: Vital Signs: Last Vital Signs Temp 97.8 F 10/23/21 22:28 Pulse 78 10/24/21 06:41 Resp 20 10/24/21 06:41 BP 121/72 10/24/21 06:41 Pulse Ox 99 10/24/21 06:41 BMI result Body Mass Index 15.7 Const: General: cooperative and no acute distress Resp: Other: on nasal cannula , crackles GI: Other: no abd tenderness Objective Data Active Medications Acetaminophen (Acetaminophen 325 Mg Tablet) 650 mg PO Q6H PRN PRN Reason: Pain, Mild (Pain Scale 1-3) Albuterol/Ipratropium (Albuterol/Iprat 2.5/0.5mg 3 Ml Ampul.Neb) 3 ml INHALE RQ4H WHILE AWAKE PRN PRN Reason: Shortness of Breath/Wheezing Heparin Sodium (Porcine) (Heparin Sodium,Porcine 5,000 Unit/Ml Vial) 2,200 unit 40 unit/kg (2200 unit) IVPUSH PROTOCOL BOLUS PRN; Protocol PRN Reason: 40 unit/kg - Heparin Protocol Heparin Sodium (Porcine) (Heparin Sodium,Porcine 5,000 Unit/Ml Vial) 4,500 unit 80 unit/kg (4500 unit) IVPUSH PROTOCOL BOLUS PRN; Protocol PRN Reason: 80 unit/kg - Heparin Protocol Last Admin: 10/24/21 04:53 Dose: 4,500 unit Documented by: LETY Heparin Sodium/Sodium Chloride () 25,000 unit in 250 mls @ 0 mls/hr IVCONT .Q0M KENYA; Protocol Last Titration: 10/24/21 04:58 Dose: 18 units/kg/hr, 10.12 mls/hr Documented by: LETY Cosigned by: OPHELIA Piperacillin Sod/Tazobactam (Sod 3.375 gm/ Sodium Chloride) 50 mls @ 100 mls/hr IV Q6H [facility] Last Infusion: 10/24/21 09:29 Dose: 0 mls/hr Documented by: RYAN Sodium Chloride (Ns) 1,000 mls @ 75 mls/hr IVCONT .[id number] [facility] Last Admin: 10/23/21 22:50 Dose: 75 mls/hr Documented by: CINDY Vancomycin HCl 750 mg/ Sodium (Chloride) 265 mls @ 265 mls/hr IV Q24H [facility] Melatonin (Melatonin 3 Mg Tablet) 6 mg PO BEDTIME PRN PRN Reason: Insomnia Morphine Sulfate (Morphine Sulfate 4 Mg/Ml Cartridge) 1 mg IVPUSH Q4H PRN; Protocol PRN Reason: Pain, SOB Last Admin: 10/24/21 02:30 Dose: 1 mg Documented by: CINDY Pantoprazole Sodium (Pantoprazole Sodium 40 Mg/10 Ml Vial) 40 mg IVPUSH DAILY@0630 [facility] Last Admin: 10/24/21 04:10 Dose: 40 mg Documented by: LETY Pharmacy Consult (Consult Rx Perform Med Rec) 1 each MISCELLANE ONCE PRN PRN Reason: Consult order Pharmacy Consult (Consult Rx Vancomycin Dosing) 1 each MISCELLANE DAILY PRN PRN Reason: Consult order Senna (Sennosides 8.6 Mg Tablet) 17.2 mg PO BEDTIME PRN PRN Reason: Constipation Sodium Chloride (0.9 % Sodium Chloride Flush 3 Ml Syringe) 3 ml IVFLUSH QSHIFT [facility] Last Admin: 10/24/21 07:08 Dose: Not Given Documented by: RYAN Non-Admin Reason: Med Not Available Labs CBC & Chem 7: 10/24/21 04:09 10/24/21 07:22 Labs: Laboratory Results - last 24 hr 10/23/21 10/23/21 10/23/21 18:15 18:15 18:15 MCV MCH MCHC RDW Plt Count MPV Immature Gran % (Auto) Neut % (Auto) Lymph % (Auto) [place] % (Auto) Eos % (Auto) Baso % (Auto) Lymph # (Auto) [place] # (Auto) Eos # (Auto) Baso # (Auto) Abs Immat Gran (auto) Absolute Neuts (auto) Absolute Nucleated RBC Nucleated RBC % (auto) Neutrophils % (Manual) Band Neutrophils % Lymphocytes % (Manual) Monocytes % (Manual) Metamyelocytes % Myelocytes % Abs Neuts (Manual) Lymphocytes # (Manual) Monocytes # (Manual) Metamyelocytes # Myelocytes # Toxic Vacuolation Platelet Estimate Plt Morphology Comment RBC Morphology PT INR APTT aPTT Heparin Protocol D-Dimer High Sensitivty Anion Gap 20 Estim Creat Clear Calc 32.6 Estimated GFR 45 Random Glucose 151 H D Lactic Acid Lactic Acid F/U @ 2Hr Calcium 9.5 Magnesium 2.2 Total Bilirubin 4.6 H Direct Bilirubin 2.1 H AST 25 ALT 21 Alkaline Phosphatase 111 Troponin I High Sens B-Natriuretic Peptide Total Protein 6.5 Albumin 3.8 Urine Color Urine Appearance Urine pH Ur Specific [place] Urine Protein Urine Glucose (UA) Urine Ketones Urine Blood Urine Nitrite Ur Leukocyte Esterase Urine RBC Urine WBC Ur Squamous Epith Cells Urine Bacteria Hyaline Casts Urine Mucus COVID-19 (YORDAN) Negative COVID-19 Clin Com See Note Influenza Type A (TONIO) Negative Influenza Type B (TONIO) Negative Influenza A & B Note See Note 10/23/21 10/23/21 10/23/21 18:16 18:16 18:16 MCV 89.0 MCH 29.9 MCHC 33.6 RDW 14.7 Plt Count 387 MPV 10.1 Immature Gran % (Auto) Cancelled Neut % (Auto) Cancelled Lymph % (Auto) Cancelled [place] % (Auto) Cancelled Eos % (Auto) Cancelled Baso % (Auto) Cancelled Lymph # (Auto) Cancelled [place] # (Auto) Cancelled Eos # (Auto) Cancelled Baso # (Auto) Cancelled Abs Immat Gran (auto) Cancelled Absolute Neuts (auto) Cancelled Absolute Nucleated RBC 0.000 Nucleated RBC % (auto) 0.0 Neutrophils % (Manual) 13 L Band Neutrophils % 60 H Lymphocytes % (Manual) 3 L Monocytes % (Manual) 10 Metamyelocytes % 10 Myelocytes % 4 Abs Neuts (Manual) 10.3 H Lymphocytes # (Manual) 0.4 L Monocytes # (Manual) 1.4 H Metamyelocytes # 1.4 Myelocytes # 0.6 Toxic Vacuolation Platelet Estimate NORMAL Plt Morphology Comment NORMAL RBC Morphology NORMAL PT 14.2 H INR 1.2 H APTT 27.2 D aPTT Heparin Protocol D-Dimer High Sensitivty 2498 Anion Gap Estim Creat Clear Calc Estimated GFR Random Glucose Lactic Acid 2.4 H* Lactic Acid F/U @ 2Hr Calcium Magnesium Total Bilirubin Direct Bilirubin AST ALT Alkaline Phosphatase Troponin I High Sens B-Natriuretic Peptide Total Protein Albumin Urine Color Urine Appearance Urine pH Ur Specific [place] Urine Protein Urine Glucose (UA) Urine Ketones Urine Blood Urine Nitrite Ur Leukocyte Esterase Urine RBC Urine WBC Ur Squamous Epith Cells Urine Bacteria Hyaline Casts Urine Mucus COVID-19 (YORDAN) COVID-19 Clin Com Influenza Type A (TONIO) Influenza Type B (TONIO) Influenza A & B Note 10/23/21 10/23/21 10/23/21 18:16 19:56 21:02 MCV MCH MCHC RDW Plt Count MPV Immature Gran % (Auto) Neut % (Auto) Lymph % (Auto) [place] % (Auto) Eos % (Auto) Baso % (Auto) Lymph # (Auto) [place] # (Auto) Eos # (Auto) Baso # (Auto) Abs Immat Gran (auto) Absolute Neuts (auto) Absolute Nucleated RBC Nucleated RBC % (auto) Neutrophils % (Manual) Band Neutrophils % Lymphocytes % (Manual) Monocytes % (Manual) Metamyelocytes % Myelocytes % Abs Neuts (Manual) Lymphocytes # (Manual) Monocytes # (Manual) Metamyelocytes # Myelocytes # Toxic Vacuolation Platelet Estimate Plt Morphology Comment RBC Morphology PT INR APTT aPTT Heparin Protocol D-Dimer High Sensitivty Anion Gap Estim Creat Clear Calc Estimated GFR Random Glucose Lactic Acid Lactic Acid F/U @ 2Hr 1.6 Calcium Magnesium Total Bilirubin Direct Bilirubin AST ALT Alkaline Phosphatase Troponin I High Sens 56.6 H B-Natriuretic Peptide 115 H Total Protein Albumin Urine Color ORANGE A Urine Appearance CLEAR Urine pH 5.0 Ur Specific [place] >= 1.030 H Urine Protein 1+ H Urine Glucose (UA) NEG Urine Ketones 5 Urine Blood 2+ H Urine Nitrite NEG Ur Leukocyte Esterase NEG Urine RBC 1-4 Urine WBC 0-2 Ur Squamous Epith Cells TRACE Urine Bacteria TRACE Hyaline Casts 0-2 Urine Mucus TRACE COVID-19 (YORDAN) COVID-19 Clin Com Influenza Type A (TONIO) Influenza Type B (TONIO) Influenza A & B Note 10/23/21 10/24/21 10/24/21 21:21 04:09 04:09 MCV MCH MCHC RDW Plt Count MPV Immature Gran % (Auto) Neut % (Auto) Lymph % (Auto) [place] % (Auto) Eos % (Auto) Baso % (Auto) Lymph # (Auto) [place] # (Auto) Eos # (Auto) Baso # (Auto) Abs Immat Gran (auto) Absolute Neuts (auto) Absolute Nucleated RBC Nucleated RBC % (auto) Neutrophils % (Manual) Band Neutrophils % Lymphocytes % (Manual) Monocytes % (Manual) Metamyelocytes % Myelocytes % Abs Neuts (Manual) Lymphocytes # (Manual) Monocytes # (Manual) Metamyelocytes # Myelocytes # Toxic Vacuolation Platelet Estimate Plt Morphology Comment RBC Morphology PT 14.1 H Cancelled INR 1.2 H Cancelled APTT aPTT Heparin Protocol 27.9 L D-Dimer High Sensitivty Anion Gap Estim Creat Clear Calc Estimated GFR Random Glucose Lactic Acid Lactic Acid F/U @ 2Hr Calcium Magnesium Total Bilirubin Direct Bilirubin AST ALT Alkaline Phosphatase Troponin I High Sens 57.9 H B-Natriuretic Peptide Total Protein Albumin Urine Color Urine Appearance Urine pH Ur Specific [place] Urine Protein Urine Glucose (UA) Urine Ketones Urine Blood Urine Nitrite Ur Leukocyte Esterase Urine RBC Urine WBC Ur Squamous Epith Cells Urine Bacteria Hyaline Casts Urine Mucus COVID-19 (YORDAN) COVID-19 Clin Com Influenza Type A (TONIO) Influenza Type B (TONIO) Influenza A & B Note 10/24/21 10/24/21 04:09 07:22 MCV 89.4 MCH 29.9 MCHC 33.4 RDW 15.0 Plt Count 365 MPV 10.8 Immature Gran % (Auto) Cancelled Neut % (Auto) Cancelled Lymph % (Auto) Cancelled [place] % (Auto) Cancelled Eos % (Auto) Cancelled Baso % (Auto) Cancelled Lymph # (Auto) Cancelled [place] # (Auto) Cancelled Eos # (Auto) Cancelled Baso # (Auto) Cancelled Abs Immat Gran (auto) Cancelled Absolute Neuts (auto) Cancelled Absolute Nucleated RBC 0.000 Nucleated RBC % (auto) 0.0 Neutrophils % (Manual) 36 L Band Neutrophils % 41 H Lymphocytes % (Manual) 12 L Monocytes % (Manual) 9 Metamyelocytes % 2 Myelocytes % Abs Neuts (Manual) 7.6 Lymphocytes # (Manual) 1.2 Monocytes # (Manual) 0.9 Metamyelocytes # 0.2 Myelocytes # Toxic Vacuolation PRESENT Platelet Estimate NORMAL Plt Morphology Comment NORMAL RBC Morphology NORMAL PT INR APTT aPTT Heparin Protocol D-Dimer High Sensitivty Anion Gap 23 H Estim Creat Clear Calc 28.5 Estimated GFR 38 Random Glucose 108 Lactic Acid Lactic Acid F/U @ 2Hr Calcium 8.8 D Magnesium Total Bilirubin Direct Bilirubin AST ALT Alkaline Phosphatase Troponin I High Sens B-Natriuretic Peptide Total Protein Albumin Urine Color Urine Appearance Urine pH Ur Specific [place] Urine Protein Urine Glucose (UA) Urine Ketones Urine Blood Urine Nitrite Ur Leukocyte Esterase Urine RBC Urine WBC Ur Squamous Epith Cells Urine Bacteria Hyaline Casts Urine Mucus COVID-19 (YORDAN) COVID-19 Clin Com Influenza Type A (TONIO) Influenza Type B (TONIO) Influenza A & B Note Assessment and Plan (1) Acute respiratory failure with hypoxia: Status: Acute (2) Aspiration pneumonia: Status: Acute (3) Pulmonary emboli: Status: Acute (4) Bradycardia: Status: Acute (5) Partial small bowel obstruction: Status: Acute (6) Status post femorofemoral bypass surgery: Status: Acute Plan 76-year-old male with a past medical history of prostate cancer, peripheral vascular disease status post active fem-fem bypass on ; recently noted second-degree AV block-no pacemaker recommended; presented to the hospital today with a chief complaint of shortness of breath.? # acute hypoxic respiratory failure - likely secondary to aspiration pneumonia as well as pulmonary emboli - will continue IV antibiotics - supplemental oxygen - heparin GGT - monitor respiratory status and titrate oxygen as tolerated # aspiration pneumonia - continue broad-spectrum antibiotics - speech and swallow eval pending - NPO # partial small-bowel obstruction - NG tube in place - abdomen is soft, no tenderness or guarding - continue NG to - General surgery following # pulmonary emboli - V/Q shows intermediate probability for PE - echocardiogram pending - continue heparin GGT - oncology consulted # elevated troponin - possibly secondary to PE - as well as T-wave inversions which can also be attributed to PE - denies any chest pain - cardiology following - will resume aspirin - follow echocardiogram planned for Monday # AI - likely prerenal due to poor oral intake - IV fluids - follow BMP # status post fem-fem bypass - continue aspirin DVT prophylaxis: Heparin GGT Quality Stroke Does the patient have a stroke diagnosis?: No VTE Prior VTE?: No VTE Risk Level:: Medical - moderate - high VTE Device Contraindication: Treatment Not Indicated VTE Drug Contraindication: N/A - Med Ordered
[2021-10-24] MEDS: 0.9 % Sodium Chloride 1,000 ML 75 ML IVCONT (11:59)
[2021-10-24] MEDS: Heparin Sodium,Porcine 5,000 UNIT/ML VIAL 2200 UNIT IVPUSH (12:03)
--- NOTE | 2021-10-24 13:35 | PC.NURSE ---
Pharmacy notified this RN that the heparin drip titration was incorrect at 22. This RN and another RN corrected dose which is reflected in the MAR
--- NOTE | 2021-10-24 15:15 | PM.EVENT ---
Event Note Date of Service: 10/24/21 Event Note: pt seen on PM rounds seems to have been comfortable all days as per staff denies abdl pain abd remains soft, no guarding or rebound , no obvious tenderness he denies abdl pain continue NGT to low suction IV hydration - urine looks concentrated
[2021-10-24] MEDS: vancomycin HCL 750 MG in 0.9 % Sodium Chloride 250 ML 265 MG IV (20:17)
--- NOTE | 2021-10-24 21:34 | PC.NURSE ---
Hospitalist Marian made aware of change iin patients pulse rate.
[2021-10-25] VITALS (7 sets, daily range): BP systolic 92–116; BP diastolic 53–67; PULSE 82–116; RESP 16–28; TEMP 36.3–36.7; O2SAT 91–100
[2021-10-25] MEDS: Heparin Sodium,Porcine/1/2NS 25,000 UNIT/250 ML IV.SOLN 11.24 UNIT IVCONT
[2021-10-25] MEDS: 0.9 % Sodium Chloride 1,000 ML 75 ML IVCONT ×2 (00:04→13:06)
--- NOTE | 2021-10-25 00:36 | PC.NURSE ---
PTT-HD have been within therapeutic range x2. Ordered now for PTT-HD daily draw per Heparin gtt protocol
[2021-10-25] MEDS: Piperacillin Sodium/Tazobactam 3.375 GM in 0.9 % Sodium Chloride 50 ML IV (01:14)
[2021-10-25] MEDS: 0.9 % Sodium Chloride Flush 3 ML SYRINGE IVFLUSH (01:18)
[2021-10-25] MEDS: Pantoprazole Sodium 40 MG/10 ML VIAL IVPUSH (06:13)
--- NOTE | 2021-10-25 07:28 | PM.CNGS ---
History of Present Illness Consult details Consult date: 10/25/21 Narrative: Pleasant 76-year-old gentleman well known to me status post femoral to femoral bypass. He was doing relatively well in subsequently discharged. He had bouts of emesis and shortness of breath and was subsequently readmitted. Upon readmission there was question pulmonary embolism. In addition there is concern of aspiration pneumonia secondary to his emesis and bowel obstruction. He had undergone noncontrast CTs due to the [employer] contrast shortage. Review of Systems Review of Systems: Yes all other systems are reviewed and are negative Constitutional: Constitutional: Reports no additional constitutional complaints ENT: Reports Normal hearing present Cardiovascular: Cardiovascular: Denies chest pain, Denies chest pain at rest, Denies chest pain with activity and Denies pedal edema Respiratory: Respiratory: Denies cough Gastrointestinal: Gastrointestinal: Denies abdominal pain Musculoskeletal: Musculoskeletal: Denies abnormal gait, Denies muscle cramps and Denies radiating pain into limb Integumentary/Breasts: Skin/Breast: Denies skin ulcer and Denies wounds Neurologic: Reports Normal hearing present and Denies abnormal gait Psychiatric: Psychiatric: Reports no additional psychiatric complaints [facility] Past Medical History Medical History (Updated 10/24/21 @ 18:23 by Leola Arcos MD) History of radiation therapy Illiterate Mentally challenged Partial small bowel obstruction Prostate cancer PVD (peripheral vascular disease) Family History Family History Father No problems noted. Mother No problems noted. Surgical History Surgical History Hx of surgical procedure No pertinent past surgical history Social History Social History Household Members Other:: Lives with his sister Are you a primary direct care specialist to a significant other at home: No Do you presently have visiting nurse or other home services: No Alcohol intake: never Patient Tobacco Use Status: Current everyday Tobacco user Tobacco use type: Cigarette Cigarettes Per Day: 5 Advance Directives: Yes Advance Directives Information Provided: No Advance Directives on File: Yes Advance Directives Date on File: 10/18/21 service: No Current occupational status: disabled Meds Allergies Allergy/AdvReac Type Severity Reaction Status Date / Time No Known Allergies Allergy Verified 10/14/21 10:36 [No Known Allergies*] Active Medications: Current Medications Acetaminophen (Acetaminophen 325 Mg Tablet) 650 mg PO Q6H PRN PRN Reason: Pain, Mild (Pain Scale 1-3) Albuterol/Ipratropium (Albuterol/Iprat 2.5/0.5mg 3 Ml Ampul.Neb) 3 ml INHALE RQ4H WHILE AWAKE PRN PRN Reason: Shortness of Breath/Wheezing Heparin Sodium (Porcine) (Heparin Sodium,Porcine 5,000 Unit/Ml Vial) 2,200 unit 40 unit/kg (2200 unit) IVPUSH PROTOCOL BOLUS PRN; Protocol PRN Reason: 40 unit/kg - Heparin Protocol Last Admin: 10/24/21 12:03 Dose: 2,200 unit Documented by: Heparin Sodium (Porcine) (Heparin Sodium,Porcine 5,000 Unit/Ml Vial) 4,500 unit 80 unit/kg (4500 unit) IVPUSH PROTOCOL BOLUS PRN; Protocol PRN Reason: 80 unit/kg - Heparin Protocol Last Admin: 10/24/21 04:53 Dose: 4,500 unit Documented by: Heparin Sodium/Sodium Chloride () 25,000 unit in 250 mls @ 0 mls/hr IVCONT .Q0M [facility]; Protocol Last Admin: 10/25/21 00:00 Dose: 20 units/kg/hr, 11.24 mls/hr Documented by: Piperacillin Sod/Tazobactam (Sod 3.375 gm/ Sodium Chloride) 50 mls @ 100 mls/hr IV Q6H [facility] Last Admin: 10/25/21 01:14 Dose: 100 mls/hr Documented by: Sodium Chloride (Ns) 1,000 mls @ 75 mls/hr IVCONT .[id number] [facility] Last Admin: 10/25/21 00:04 Dose: 75 mls/hr Documented by: Vancomycin HCl 750 mg/ Sodium (Chloride) 265 mls @ 265 mls/hr IV Q24H [facility] Last Infusion: 10/25/21 00:03 Dose: Infused Documented by: Melatonin (Melatonin 3 Mg Tablet) 6 mg PO BEDTIME PRN PRN Reason: Insomnia Morphine Sulfate (Morphine Sulfate 4 Mg/Ml Cartridge) 4 mg IVPUSH Q4H PRN; Protocol PRN Reason: Pain, SOB Pantoprazole Sodium (Pantoprazole Sodium 40 Mg/10 Ml Vial) 40 mg IVPUSH DAILY@06 [facility] Last Admin: 10/25/21 06:13 Dose: 40 mg Documented by: Pharmacy Consult (Consult Rx Perform Med Rec) 1 each MISCELLANE ONCE PRN PRN Reason: Consult order Pharmacy Consult (Consult Rx Vancomycin Dosing) 1 each MISCELLANE DAILY PRN PRN Reason: Consult order Senna (Sennosides 8.6 Mg Tablet) 17.2 mg PO BEDTIME PRN PRN Reason: Constipation Sodium Chloride (0.9 % Sodium Chloride Flush 3 Ml Syringe) 3 ml IVFLUSH QSHIFT [facility] Last Admin: 10/25/21 01:18 Dose: 3 ml Documented by: Home Medications Medication Instructions Recorded Confirmed Last Taken Type aspirin 81 mg tablet,delayed 81 mg PO DAILY 09/21/21 10/23/21 10/22/21 History release (Adult Aspirin Regimen) ibuprofen 200 mg tablet (Advil) 200 mg PO Q6H PRN 09/21/21 10/23/21 Unknown History multivitamin 1 tab PO DAILY 09/21/21 10/23/21 10/22/21 History Physical Exam Vital Signs: Vital Signs: Last Vital Signs Temp 97.8 F 10/25/21 00:00 Pulse 90 10/25/21 03:36 Resp 20 10/25/21 03:36 BP 95/67 10/25/21 03:36 Pulse Ox 100 10/25/21 03:36 BMI result Body Mass Index 15.7 Const: General: cooperative, healthy appearing and comfortable Orientation/consciousness: oriented to person, oriented to place and oriented to time HEENT: Head: Yes normal to inspection Neck: Neck: Yes normal visual inspection Carotids: no bruits Chest: Chest palpation & inspection: normal inspection of the chest Resp: Effort & Inspection: normal respiratory effort and able to speak in complete sentences Auscultation: clear to auscultation bilaterally, no crackles, no rales, no rhonchi and no wheezes Cardio: Rate: regular rate Rhythm: regular rhythm Heart sounds: S1 normal heart sound present and S2 normal heart sound present Bruits: no carotid bruits Peripheral pulses: Peripheral pulses 2+ throughout GI: Other: Abdomen soft no rebound no guarding Inspection: Yes normal to inspection Skin: Other: Bilateral groin incisions well healed no erythema Wounds: no wounds Hair: normal Neuro: General: oriented to person, oriented to place and oriented to time Cranial nerves: Yes CN's II-XII intact bilaterally and Yes Normal hearing present Cognition (Neuro): normal cognition Motor exam (neuro): 5/5 motor strength present throughout Extrem: Other: venous exam: No significant superficial varicosities or spider telangiectasias, minimal edema General: No clubbing, No cyanosis and No edema Psych: Appearance: grossly normal Mental Status: mental status grossly normal Speech and movement: Normal speech and movement present Results Labs Result diagrams: 10/24/21 04:09 10/24/21 07:22 Labs: Abnormal lab results 10/24/21 10/24/21 10/24/21 Range/Units 04:09 07:22 10:54 PT 14.1 H (9.9-13.0) SEC INR 1.2 H (0.9-1.1) aPTT Heparin Protocol 45.0 L D (53-77.9) SEC Anion Gap 23 H (12-20) BUN 74 H (9-16) mg/dL Creatinine 1.74 H (0.5-1.4) mg/dL BMP 10/24/21 07:22 Sodium 144 Potassium 4.2 Chloride 99 Carbon Dioxide 26 BUN 74 H Creatinine 1.74 H Calcium 8.8 D Urine 10/23/21 Range/Units 19:56 Urine Color ORANGE A Urine Appearance CLEAR Urine pH 5.0 (5.0-8.0) Ur Specific [place] >= 1.030 H (1.005-1.025) Urine Protein 1+ H (NEG-TRACE) MG/DL Urine Glucose (UA) NEG (NEG) MG/DL All other labs normal. Assessment and Plan (1) PAD (peripheral artery disease): Status: Acute Plan Patient is status post femoral to femoral bypass. He has developed the small bowel obstruction. At the current time his abdomen is benign. Case was discussed with the General surgery team who was conservatively managing this right now. He currently has an NG tube. I took his oxygen mask often he is satting 95% on room air doing relatively well. Hopefully will get a floor bed soon. Would like him to be ambulatory relatively soon. We will closely monitor with you. Thank you for allowing us to assist in his care. Procedures Date of Service Date of Service: 10/25/21
[2021-10-25 08:31] LABS: Hematocrit 35.2 % (42.0-52.0); Hemoglobin 11.7 g/dl (14.0-18.0); Mean Corpuscular HGB Conc 33.2 g/dl (31.0-36.0); Mean Corpuscular Hemoglobin 30.3 pg (27.0-33.0); Mean Corpuscular Volume 91.2 fL (80.0-98.0); Mean Platelet Volume 10.7 fL (9.4-12.4); Platelet Count 320 X10*3/uL (160-400); Red Blood Count 3.86 X10*6/uL (4.60-5.80); Red Cell Distribution Width 15.4 % (11.0-16.0)
[2021-10-25 08:32] LABS: WBC ABN SCTR FOR CBC 1
[2021-10-25 08:34] LABS: PTT Heparin Drip 46.1 SEC (53-77.9)
[2021-10-25 08:43] LABS: White Blood Count 32.5 X10*3/uL (4.8-10.8)
[2021-10-25 08:47] LABS: Band Neutrophils Percent 13 % (3-5); Blood Urea Nitrogen 75 mg/dL (9-16); Estimated Glomerular Filt Rate 38; Glucose Random 84 mg/dL (60-115); Lymphocytes Absolute Manual 0.7 X10*3/uL (1.2-4.9); Lymphocytes Percent Manual 2 % (20-40); Metamyelocytes Absolute 0.7 X10*3/uL; Metamyelocytes Percent 2 %; Monocytes Percent Manual 6 % (2-11); Neutrophils Absolute Manual 29.3 X10*3/uL (2.0-8.3); Neutrophils Percent Manual 77 % (45-73); Toxic Vacuolation PRESENT
[2021-10-25 08:48] LABS: Burr Cells 3+ (>5) /OIF; Ovalocytes 1+ (5-14) /OIF; Platelet Estimate NORMAL (NORMAL); Platelet Morphology Comment NORMAL; Polychromasia 1+ (0-2) /OIF; RBC Morphology NOTED
[2021-10-25] MEDS: Heparin Sodium,Porcine 5,000 UNIT/ML VIAL 2200 UNIT IVPUSH (08:57)
[2021-10-25] MEDS: cefTRIAXone sodium 1 GM in 0.9 % Sodium Chloride 50 ML IV (09:00)
--- NOTE | 2021-10-25 09:00 | PM.PNGS ---
Subjective Subjective Date of Service: 10/25/21 Interval history: denies abdominal pain no events reported HR better controlled Physical Exam Vital Signs: Vital Signs: Last Vital Signs Temp 97.9 F 10/25/21 08:20 Pulse 108 H 10/25/21 08:20 Resp 16 10/25/21 08:20 BP 100/59 L 10/25/21 08:20 Pulse Ox 91 L 10/25/21 08:20 BMI result Body Mass Index 15.7 Const: Other: looks comfortable Resp: Effort & Inspection: normal respiratory effort Cardio: Rhythm: abnormal rhythm GI: Other: soft, nontender, nondistended, NGT in place Objective Data Active Medications Acetaminophen (Acetaminophen 325 Mg Tablet) 650 mg PO Q6H PRN PRN Reason: Pain, Mild (Pain Scale 1-3) Albuterol/Ipratropium (Albuterol/Iprat 2.5/0.5mg 3 Ml Ampul.Neb) 3 ml INHALE RQ4H WHILE AWAKE PRN PRN Reason: Shortness of Breath/Wheezing Heparin Sodium (Porcine) (Heparin Sodium,Porcine 5,000 Unit/Ml Vial) 2,200 unit 40 unit/kg (2200 unit) IVPUSH PROTOCOL BOLUS PRN; Protocol PRN Reason: 40 unit/kg - Heparin Protocol Last Admin: 10/24/21 12:03 Dose: 2,200 unit Documented by: MADAI Heparin Sodium (Porcine) (Heparin Sodium,Porcine 5,000 Unit/Ml Vial) 4,500 unit 80 unit/kg (4500 unit) IVPUSH PROTOCOL BOLUS PRN; Protocol PRN Reason: 80 unit/kg - Heparin Protocol Last Admin: 10/24/21 04:53 Dose: 4,500 unit Documented by: LETY Heparin Sodium/Sodium Chloride () 25,000 unit in 250 mls @ 0 mls/hr IVCONT .Q0M [facility]; Protocol Last Admin: 10/25/21 00:00 Dose: 20 units/kg/hr, 11.24 mls/hr Documented by: ЕКАТЕРИНА Cosigned by: NIKITA Sodium Chloride (Ns) 1,000 mls @ 75 mls/hr IVCONT .[id number] [facility] Last Admin: 10/25/21 00:04 Dose: 75 mls/hr Documented by: ЕКАТЕРИНА Ceftriaxone Sodium 1 gm/ (Sodium Chloride) 50 mls @ 100 mls/hr IV Q24H [facility] Morphine Sulfate (Morphine Sulfate 4 Mg/Ml Cartridge) 4 mg IVPUSH Q4H PRN; Protocol PRN Reason: Pain, SOB Pantoprazole Sodium (Pantoprazole Sodium 40 Mg/10 Ml Vial) 40 mg IVPUSH DAILY@0630 [facility] Last Admin: 10/25/21 06:13 Dose: 40 mg Documented by: ЕКАТЕРИНА Pharmacy Consult (Consult Rx Perform Med Rec) 1 each MISCELLANE ONCE PRN PRN Reason: Consult order Pharmacy Consult (Consult Rx Vancomycin Dosing) 1 each MISCELLANE DAILY PRN PRN Reason: Consult order Senna (Sennosides 8.6 Mg Tablet) 17.2 mg PO BEDTIME PRN PRN Reason: Constipation Sodium Chloride (0.9 % Sodium Chloride Flush 3 Ml Syringe) 3 ml IVFLUSH QSHIFT [facility] Last Admin: 10/25/21 08:14 Dose: Not Given Documented by: GRACE Non-Admin Reason: IV Running Labs CBC & Chem 7: 10/25/21 08:05 10/25/21 08:05 Labs: Laboratory Results - last 24 hr 10/24/21 10/24/21 10/24/21 04:09 10:54 16:54 MCV MCH MCHC RDW Plt Count MPV Immature Gran % (Auto) Neut % (Auto) Lymph % (Auto) [place] % (Auto) Eos % (Auto) Baso % (Auto) Lymph # (Auto) [place] # (Auto) Eos # (Auto) Baso # (Auto) Abs Immat Gran (auto) Absolute Neuts (auto) Absolute Nucleated RBC Nucleated RBC % (auto) Neutrophils % (Manual) Band Neutrophils % Lymphocytes % (Manual) Monocytes % (Manual) Metamyelocytes % Abs Neuts (Manual) Lymphocytes # (Manual) Monocytes # (Manual) Metamyelocytes # Toxic Vacuolation Platelet Estimate Plt Morphology Comment RBC Morphology Polychromasia Ovalocytes Isaias Cells PT 14.1 H INR 1.2 H aPTT Heparin Protocol 45.0 L D 76.0 D Estim Creat Clear Calc Estimated GFR Random Glucose 10/25/21 10/25/21 10/25/21 00:03 08:05 08:05 MCV 91.2 MCH 30.3 MCHC 33.2 RDW 15.4 Plt Count 320 MPV 10.7 Immature Gran % (Auto) Cancelled Neut % (Auto) Cancelled Lymph % (Auto) Cancelled [place] % (Auto) Cancelled Eos % (Auto) Cancelled Baso % (Auto) Cancelled Lymph # (Auto) Cancelled [place] # (Auto) Cancelled Eos # (Auto) Cancelled Baso # (Auto) Cancelled Abs Immat Gran (auto) Cancelled Absolute Neuts (auto) Cancelled Absolute Nucleated RBC 0.000 Nucleated RBC % (auto) 0.0 Neutrophils % (Manual) 77 H Band Neutrophils % 13 H Lymphocytes % (Manual) 2 L Monocytes % (Manual) 6 Metamyelocytes % 2 Abs Neuts (Manual) 29.3 H Lymphocytes # (Manual) 0.7 L Monocytes # (Manual) 2.0 H Metamyelocytes # 0.7 Toxic Vacuolation PRESENT Platelet Estimate NORMAL Plt Morphology Comment NORMAL RBC Morphology NOTED Polychromasia 1+ (0-2) Ovalocytes 1+ (5-14) [place] Cells 3+ (>5) PT INR aPTT Heparin Protocol 56.0 D 46.1 L Estim Creat Clear Calc Estimated GFR Random Glucose 10/25/21 08:05 MCV MCH MCHC RDW Plt Count MPV Immature Gran % (Auto) Neut % (Auto) Lymph % (Auto) [place] % (Auto) Eos % (Auto) Baso % (Auto) Lymph # (Auto) [place] # (Auto) Eos # (Auto) Baso # (Auto) Abs Immat Gran (auto) Absolute Neuts (auto) Absolute Nucleated RBC Nucleated RBC % (auto) Neutrophils % (Manual) Band Neutrophils % Lymphocytes % (Manual) Monocytes % (Manual) Metamyelocytes % Abs Neuts (Manual) Lymphocytes # (Manual) Monocytes # (Manual) Metamyelocytes # Toxic Vacuolation Platelet Estimate Plt Morphology Comment RBC Morphology Polychromasia Ovalocytes [place] Cells PT INR aPTT Heparin Protocol Estim Creat Clear Calc 28.0 Estimated GFR 38 Random Glucose 84 Microbiology Microbiology Results: Microbiology 10/23/21 18:47 Blood Culture - Preliminary Blood - Venous No growth after 24 hours. 10/23/21 18:16 Blood Culture - Preliminary Blood - Venous Prelim: GNR Gram Stain only Procedures Date of Service Date of Service: 10/25/21 Progress Note: A&P Assessment and plan (1) Partial small bowel obstruction: Status: Acute Assessment and Plan: symptoms seem resolved denies flatus NGT output overnight not well documented pt unreliable - will keep NGT in for now, monitor output and dc if low has multiple other acute issues - aspiration, PE, elevated trop recent fem-fem bypass last week- graft appears partly intraperitoneal Dr. Kenyon following abdominal exam very benign Time Spent With Patient Time: Total time spent is greater than 50% in coordination of care (as documented) at patient's floor/unit and/or counseling patient: Quality Stroke Does the patient have a stroke diagnosis?: No VTE Prior VTE?: No VTE Risk Level:: Medical - moderate - high VTE Device Contraindication: Treatment Not Indicated VTE Drug Contraindication: N/A - Med Ordered
[2021-10-25 09:08] LABS: Anion Gap 20 (12-20); Calcium 8.2 mg/dL (8.4-10.2); Carbon Dioxide 22 mmol/L (22-29); Chloride 108 mmol/L (96-108); Sodium 147 mmol/L (135-145)
[2021-10-25 11:42] LABS: Vancomycin Trough 13.5 mcg/mL (10.0-20.0)
--- NOTE | 2021-10-25 13:29 | PM.PNCARD ---
Subjective Subjective Date of Service: 10/25/21 Interval history: No chest pain. NG tube in place with minimal drainage. No abdominal pain anymore. Physical Exam Vital Signs: Last Vital Signs Temp 97.9 F 10/25/21 08:20 Pulse 102 H 10/25/21 12:07 Resp 23 H 10/25/21 12:07 BP 107/53 L 10/25/21 12:07 Pulse Ox 97 10/25/21 12:07 BMI result Body Mass Index 15.7 GENERAL APPEARANCE: in no acute distress, on nasal cannula. NECK: no carotid bruit, no jugular venous distention. SKIN: no suspicious lesions, warm and dry. HEART: no murmurs, regular rate and rhythm. LUNGS: clear to auscultation bilaterally. ABDOMEN: soft, nontender. EXTREMITIES: no edema. PERIPHERAL PULSES: equal. NEUROLOGIC: No gross deficits, AAO X 3 Objective Labs and Meds Result diagrams: 10/25/21 08:05 10/25/21 08:05 Lab results: Laboratory Results - last 24 hr 10/24/21 10/25/21 10/25/21 16:54 00:03 08:05 WBC RBC Hgb Hct MCV MCH MCHC RDW Plt Count MPV Immature Gran % (Auto) Neut % (Auto) Lymph % (Auto) [place] % (Auto) Eos % (Auto) Baso % (Auto) Lymph # (Auto) [place] # (Auto) Eos # (Auto) Baso # (Auto) Abs Immat Gran (auto) Absolute Neuts (auto) Absolute Nucleated RBC Nucleated RBC % (auto) Neutrophils % (Manual) Band Neutrophils % Lymphocytes % (Manual) Monocytes % (Manual) Metamyelocytes % Abs Neuts (Manual) Lymphocytes # (Manual) Monocytes # (Manual) Metamyelocytes # Toxic Vacuolation Platelet Estimate Plt Morphology Comment RBC Morphology Polychromasia Ovalocytes [place] Cells aPTT Heparin Protocol 76.0 D 56.0 D 46.1 L Sodium Potassium Chloride Carbon Dioxide Anion Gap BUN Creatinine Estim Creat Clear Calc Estimated GFR Random Glucose Calcium Vancomycin Trough 10/25/21 10/25/21 10/25/21 08:05 08:05 11:14 WBC 32.5 H* RBC 3.86 L Hgb 11.7 L Hct 35.2 L MCV 91.2 MCH 30.3 MCHC 33.2 RDW 15.4 Plt Count 320 MPV 10.7 Immature Gran % (Auto) Cancelled Neut % (Auto) Cancelled Lymph % (Auto) Cancelled [place] % (Auto) Cancelled Eos % (Auto) Cancelled Baso % (Auto) Cancelled Lymph # (Auto) Cancelled [place] # (Auto) Cancelled Eos # (Auto) Cancelled Baso # (Auto) Cancelled Abs Immat Gran (auto) Cancelled Absolute Neuts (auto) Cancelled Absolute Nucleated RBC 0.000 Nucleated RBC % (auto) 0.0 Neutrophils % (Manual) 77 H Band Neutrophils % 13 H Lymphocytes % (Manual) 2 L Monocytes % (Manual) 6 Metamyelocytes % 2 Abs Neuts (Manual) 29.3 H Lymphocytes # (Manual) 0.7 L Monocytes # (Manual) 2.0 H Metamyelocytes # 0.7 Toxic Vacuolation PRESENT Platelet Estimate NORMAL Plt Morphology Comment NORMAL RBC Morphology NOTED Polychromasia 1+ (0-2) Ovalocytes 1+ (5-14) [place] Cells 3+ (>5) aPTT Heparin Protocol Sodium 147 H Potassium 3.0 L D Chloride 108 Carbon Dioxide 22 Anion Gap 20 BUN 75 H Creatinine 1.77 H Estim Creat Clear Calc 28.0 Estimated GFR 38 Random Glucose 84 Calcium 8.2 L D Vancomycin Trough 13.5 Progress Note: A&P Assessment and plan (1) Elevated troponin: Status: Acute (2) Pulmonary emboli: Status: Acute (3) Aspiration pneumonia: Status: Acute Plan 76-year-old gentleman with fem-fem bypass who was discharged and came back with aspiration and small bowel obstruction. He had mildly abnormal troponin levels is some EKG changes. He also has been diagnosed with pulmonary embolism. I think the EKG changes can be explained by pulmonary embolism. He is on anticoagulation currently. He will need repeat echocardiography tomorrow. Mildly abnormal troponin levels in the setting of infection and hypoxia. If he has any wall motion abnormalities on echocardiography then he may require further workup. Small-bowel obstruction is improving. He still has NG in place. Clinically he looks dry and I think IV fluid should be continued for now. Thank you for allowing me to participate in the care of your patient. Please feel free to contact me if you have any questions. Time Spent With Patient Time: Total time spent is greater than 50% in coordination of care (as documented) at patient's floor/unit and/or counseling patient: Progress Note: Quality Stroke Does the patient have a stroke diagnosis?: No Procedures Date of Service Date of Service: 10/25/21
--- NOTE | 2021-10-25 14:00 | HO.PM.IMPN ---
Subjective Subjective Date of Service: 10/25/21 Interval History: cc: vomitting, abd pain, sob interval history:weak, sob improved, no bm Cardiovascular Cardiovascular: Reports no additional cardiovascular complaints Respiratory Respiratory: Reports no additional respiratory complaints Physical Exam Vital Signs: Vital Signs: Last Vital Signs Temp 97.9 F 10/25/21 08:20 Pulse 102 H 10/25/21 12:07 Resp 23 H 10/25/21 12:07 BP 107/53 L 10/25/21 12:07 Pulse Ox 97 10/25/21 12:07 BMI result Body Mass Index 15.7 General: lethargic oriented times 3, frail appearing, ngt in place Resp: Crackles bilateral, no accessory muscles used CVS: S1,S2,Rapid regular GI: soft, non tender, non distended Neuro: motor grossly intact, alert Psych: appropriate affect, appropriate insight Objective Data Active Medications Acetaminophen (Acetaminophen 325 Mg Tablet) 650 mg PO Q6H PRN PRN Reason: Pain, Mild (Pain Scale 1-3) Albuterol/Ipratropium (Albuterol/Iprat 2.5/0.5mg 3 Ml Ampul.Neb) 3 ml INHALE RQ4H WHILE AWAKE PRN PRN Reason: Shortness of Breath/Wheezing Heparin Sodium (Porcine) (Heparin Sodium,Porcine 5,000 Unit/Ml Vial) 2,200 unit 40 unit/kg (2200 unit) IVPUSH PROTOCOL BOLUS PRN; Protocol PRN Reason: 40 unit/kg - Heparin Protocol Last Admin: 10/25/21 08:57 Dose: 2,200 unit Documented by: GRACE Heparin Sodium (Porcine) (Heparin Sodium,Porcine 5,000 Unit/Ml Vial) 4,500 unit 80 unit/kg (4500 unit) IVPUSH PROTOCOL BOLUS PRN; Protocol PRN Reason: 80 unit/kg - Heparin Protocol Last Admin: 10/24/21 04:53 Dose: 4,500 unit Documented by: LETY Heparin Sodium/Sodium Chloride () 25,000 unit in 250 mls @ 0 mls/hr IVCONT .Q0M [facility]; Protocol Last Titration: 10/25/21 08:58 Dose: 22 units/kg/hr, 12.36 mls/hr Documented by: GRACE Cosigned by: CANDIDO Sodium Chloride (Ns) 1,000 mls @ 75 mls/hr IVCONT .[id number] [facility] Last Admin: 10/25/21 13:06 Dose: 75 mls/hr Documented by: GRACE Ceftriaxone Sodium 1 gm/ (Sodium Chloride) 50 mls @ 100 mls/hr IV Q24H [facility] Last Infusion: 10/25/21 10:22 Dose: 0 mls/hr Documented by: GRACE Morphine Sulfate (Morphine Sulfate 4 Mg/Ml Cartridge) 4 mg IVPUSH Q4H PRN; Protocol PRN Reason: Pain, SOB Pantoprazole Sodium (Pantoprazole Sodium 40 Mg/10 Ml Vial) 40 mg IVPUSH DAILY@0630 [facility] Last Admin: 10/25/21 06:13 Dose: 40 mg Documented by: ЕКАТЕРИНА Pharmacy Consult (Consult Rx Perform Med Rec) 1 each MISCELLANE ONCE PRN PRN Reason: Consult order Pharmacy Consult (Consult Rx Vancomycin Dosing) 1 each MISCELLANE DAILY PRN PRN Reason: Consult order Senna (Sennosides 8.6 Mg Tablet) 17.2 mg PO BEDTIME PRN PRN Reason: Constipation Sodium Chloride (0.9 % Sodium Chloride Flush 3 Ml Syringe) 3 ml IVFLUSH QSHIFT [facility] Last Admin: 10/25/21 08:14 Dose: Not Given Documented by: GRACE Non-Admin Reason: IV Running Labs CBC & Chem 7: 10/25/21 08:05 10/25/21 08:05 Labs: Laboratory Results - last 24 hr 10/24/21 10/25/21 10/25/21 16:54 00:03 08:05 MCV MCH MCHC RDW Plt Count MPV Immature Gran % (Auto) Neut % (Auto) Lymph % (Auto) [place] % (Auto) Eos % (Auto) Baso % (Auto) Lymph # (Auto) [place] # (Auto) Eos # (Auto) Baso # (Auto) Abs Immat Gran (auto) Absolute Neuts (auto) Absolute Nucleated RBC Nucleated RBC % (auto) Neutrophils % (Manual) Band Neutrophils % Lymphocytes % (Manual) Monocytes % (Manual) Metamyelocytes % Abs Neuts (Manual) Lymphocytes # (Manual) Monocytes # (Manual) Metamyelocytes # Toxic Vacuolation Platelet Estimate Plt Morphology Comment RBC Morphology Polychromasia Ovalocytes [place]ai[place] Cells aPTT Heparin Protocol 76.0 D 56.0 D 46.1 L Anion Gap Estim Creat Clear Calc Estimated GFR Random Glucose Calcium Vancomycin Trough 10/25/21 10/25/21 10/25/21 08:05 08:05 11:14 MCV 91.2 MCH 30.3 MCHC 33.2 RDW 15.4 Plt Count 320 MPV 10.7 Immature Gran % (Auto) Cancelled Neut % (Auto) Cancelled Lymph % (Auto) Cancelled [place] % (Auto) Cancelled Eos % (Auto) Cancelled Baso % (Auto) Cancelled Lymph # (Auto) Cancelled [place] # (Auto) Cancelled Eos # (Auto) Cancelled Baso # (Auto) Cancelled Abs Immat Gran (auto) Cancelled Absolute Neuts (auto) Cancelled Absolute Nucleated RBC 0.000 Nucleated RBC % (auto) 0.0 Neutrophils % (Manual) 77 H Band Neutrophils % 13 H Lymphocytes % (Manual) 2 L Monocytes % (Manual) 6 Metamyelocytes % 2 Abs Neuts (Manual) 29.3 H Lymphocytes # (Manual) 0.7 L Monocytes # (Manual) 2.0 H Metamyelocytes # 0.7 Toxic Vacuolation PRESENT Platelet Estimate NORMAL Plt Morphology Comment NORMAL RBC Morphology NOTED Polychromasia 1+ (0-2) Ovalocytes 1+ (5-14) [place] Cells 3+ (>5) aPTT Heparin Protocol Anion Gap 20 Estim Creat Clear Calc 28.0 Estimated GFR 38 Random Glucose 84 Calcium 8.2 L D Vancomycin Trough 13.5 Microbiology Microbiology Results: Microbiology 10/23/21 18:16 Blood Culture - Preliminary Blood - Venous Gram negative estrada 10/23/21 18:47 Blood Culture - Preliminary Blood - Venous No growth after 24 hours. Assessment and Plan (1) Acute respiratory failure with hypoxia: Status: Acute (2) Aspiration pneumonia: Status: Acute (3) Pulmonary emboli: Status: Acute (4) Bradycardia: Status: Acute (5) Partial small bowel obstruction: Status: Acute (6) Status post femorofemoral bypass surgery: Status: Acute Plan 76-year-old male with a past medical history of prostate cancer, peripheral vascular disease status post active fem-fem bypass on ; recently noted second-degree AV block-no pacemaker recommended; presented to the hospital today with a chief complaint of shortness of breath.? Acute hypoxic respiratory failure secondary aspiration monitor and intermediate probability of acute pulmonary embolism Wean oxygen as tolerated Empiric IV heparin Blood culture growing Gram-negative rods, change antibiotics to ceftriaxone Follow-up echocardiogram Partial small bowel obstruction Noted improvement with NG tube Surgery following Acute kidney injury Continue IV fluids Monitor hypokalemia replace and monitor PVD status post fem-fem bypass continue heparin full code reason for continued hospitalization: hypoxic, awaiting return of bowel function Quality Stroke Does the patient have a stroke diagnosis?: No VTE Prior VTE?: No VTE Risk Level:: Medical - moderate - high VTE Device Contraindication: Treatment Not Indicated VTE Drug Contraindication: N/A - Med Ordered
--- NOTE | 2021-10-25 14:11 | MHC.SL.SWA ---
Speech Pathologist Impression: Oropharyngeal dysphagia Risk of Aspiration Due to: Respiratory status Dysphasia Diet Status: Keep NPO Liquid Consistency and Strategies for Safe Swallow: Liquid Intake Recommendation: NPO Solid Food Consistency: Dietary Recommendations: NPO Additional Modifications to Solid Foods: Patient did not tolerate removal of mask for presentation of PO. 02 sat dropping each time mask removed. D/t respiratory status, recommend continue NPO at this time. Patient has NG tube. Oral Medication Intake: NPO Please contact the pharmacy regarding appropriate crushable or liquid drug formulations that are available whenever modified delivery is recommended. Compensatory Strategies and Precautions to be Taken for Safe Swallow: Supervision While Eating and Drinking for Safe Swallow: PO with ANIMAL ASSISTANT Swallowing Recommended Treatments: Compens. Strategy Educat. Recommendation for Speech: Inpatient Speech Therapy Comment: ANIMAL ASSISTANT to re-evaluate tomorrow. Patient Clerical Assistant Clinican/Clinical Fellow: No Supervisory Statement: I have reviewed and agree with the student/clinical fellow's documentation: N/A Speech Language Pathologist: Mayte Banks M.A., CCC-ANIMAL ASSISTANT
[2021-10-25] MEDS: KCl 20 mEq in 0.45% Sod 20 MEQ/1,000 ML IV.SOLN 100 MEQ IVCONT (15:02)
[2021-10-25 15:15] LABS: PTT Heparin Drip 53.2 SEC (53-77.9)
--- NOTE | 2021-10-25 16:09 | MHC.CM.PN ---
CM CALLED PTS BROTHER/POA, EVITA [phone] WHO REPORTS THE PT LIVES WITH THEIR SISTER AND IS INDEPENDENT WITH PERSONAL CARE. HE REPORTS THE PT USES NO DME AND HAS ONLY [facility] FOR HOME SERVICES. PCP: LAKESHIA DAILEY ON FILE, EVITA BELIEVES IT INCLUDES HEALTH CARE DECISIONS COVID VACCINE: MODERNA X 2 AND ONE BOOSTER IMM DELIVERED, COPY SENT TO [facility] CURRENT DC PLAN IS HOME WITH RESUMPTION OF [facility] FAMILY TO TRANSPORT
--- NOTE | 2021-10-25 17:55 | PC.NURSE ---
Patient converted from A-Fib to normal sinus rhythm around 1 pm. Hospitalist aware.
[2021-10-25 21:16] LABS: PTT Heparin Drip 36.6 SEC (53-77.9)
--- NOTE | 2021-10-25 22:04 | PC.NURSE ---
2nd rn witness to heparin dose adjustment increase by 4.
[2021-10-25 23:26] LABS: Anion Gap 17 (12-20); Blood Urea Nitrogen 70 mg/dL (9-16); Calcium 8.1 mg/dL (8.4-10.2); Carbon Dioxide 22 mmol/L (22-29); Chloride 111 mmol/L (96-108); Creatinine Clr Calc Pharmacy 34.9; Estimated Glomerular Filt Rate 48; Glucose Random 87 mg/dL (60-115); Magnesium 2.8 mg/dL (1.6-2.6); Potassium 3.4 mmol/L (3.3-5.1); Sodium 147 mmol/L (135-145)
[2021-10-25] MEDS: Heparin Sodium,Porcine/1/2NS 25,000 UNIT/250 ML IV.SOLN 14.61 UNIT IVCONT (23:33)
--- NOTE | 2021-10-25 23:57 | PC.NURSE ---
Patient had 4 beat V-tach, nurse at the bedside, patient is asymptomatic resting in bed. Patient denied any chest pain at that time. Ptthd low, patient given bolus and drip increased per protocol by 4 units.
[2021-10-26] MEDS: KCl 20 mEq in 0.45% Sod 20 MEQ/1,000 ML IV.SOLN 100 MEQ IVCONT ×2 (00:57→10:25)
[2021-10-26] MEDS: 0.9 % Sodium Chloride Flush 3 ML SYRINGE IVFLUSH ×2 (00:59→23:19)
[2021-10-26 04:18] LABS: Hematocrit 31.5 % (42.0-52.0); Hemoglobin 10.4 g/dl (14.0-18.0); Mean Corpuscular Hemoglobin 29.8 pg (27.0-33.0); Mean Corpuscular Volume 90.3 fL (80.0-98.0); Mean Platelet Volume 9.9 fL (9.4-12.4); Platelet Count 222 X10*3/uL (160-400); Red Blood Count 3.49 X10*6/uL (4.60-5.80); Red Cell Distribution Width 15.7 % (11.0-16.0)
[2021-10-26 04:21] LABS: White Blood Count 36.4 X10*3/uL (4.8-10.8)
[2021-10-26 04:29] LABS: PTT Heparin Drip 58.2 SEC (53-77.9)
[2021-10-26 04:35] VITALS: BP 122/59; PULSE 76; RESP 20; O2SAT 100
[2021-10-26 04:41] LABS: Anion Gap 17 (12-20); Blood Urea Nitrogen 68 mg/dL (9-16); Calcium 8.1 mg/dL (8.4-10.2); Carbon Dioxide 22 mmol/L (22-29); Chloride 113 mmol/L (96-108); Creatinine Clr Calc Pharmacy 38.7; Estimated Glomerular Filt Rate 55; Glucose Fasting 87 mg/dL (60-99); Potassium 3.5 mmol/L (3.3-5.1); Sodium 148 mmol/L (135-145)
--- NOTE | 2021-10-26 05:32 | PC.NURSE ---
CARE ASSUMED 23:15...NAPPING..EASILY AROUSED..ALERT..CONVERSES BUT VAGUE RESPONSES AND FORGETFUL...MENTATION UNCHANGED FROM WHEN THIS NUCLEAR PHYSICS PROFESSOR CARED FOR PATIENT 10/20...RESPIRATIONS EASY..DENIES SOB..O2 7 L/M VIA MASK...SAO2 EAR PROBE 97-99%..SAO2 90-91% VIA FINGER PROBE...IV FLUIDS 100 CC/HR...HEPARIN DRIP 26 UNITS/KG/HR...PTT-HD 04:12 THERAPEUTIC @ 58.2..FOR REPEAT PTT-HD 10:15...NG-TUBE DRAINED 400ml BILIOUS BROWN THICK DRAINAGE..[place] CATHETER COLLECTED 375ml...NSR..NO DISRHYTHMIAS OVER NIGHT..DENIES NAUSEA OR DISCOMFORT...FEMORAL INCISIONS/ACOSTA INTACT/NO DRAINAGE
[2021-10-26] MEDS: Pantoprazole Sodium 40 MG/10 ML VIAL IVPUSH (06:12)
--- NOTE | 2021-10-26 07:00 | CA_ITS ---
Transthoracic Echocardiogram Patient (Last, First, Middle): Jake Vargas M Gender: Male Date of : 1945 Age: 76 Procedure Date: 10/26/2021 Procedure Type: Transthoracic Echocardiogram Location: ICU Height: 187.96 cm Weight: 55.79 kg BSA: 1.77 m2 Heart Rate: bpm BP: 125 / 60 mmHg Car Seat Upholsterer: THALIA Referring MD: Smith Fonseca MD Medical Housekeeper: Rashad Stoddard MD Symptoms: Pulm Embolism Study Quality: Adequate ECG Rhythm: Sinus Conclusions: - 1. Normal LV systolic function with grade 1 diastolic dysfunction 2. Normal cardiac valvular Doppler 3. Normal right atrial pressures 4. No gross pericardial effusion Findings Left Ventricle Normal left ventricular size, thickness, and systolic function. The visually estimated ejection fraction is between 60-65%. Spectral Doppler is indicative of an impaired relaxation filling pattern. E/E prime ratio is <8, consistent with normal filling pressures. Evidence suggests grade I (mild) diastolic dysfunction. Right Ventricle Normal right ventricular cavity size and systolic function. Atria Both atria are normal in size. Interatrial shunt cannot be excluded. Aortic Valve Normal aortic valve structure and function. There is no aortic valve stenosis. There is no aortic valve regurgitation. Mitral Valve Normal mitral valve structure and function. There is trace mitral valve regurgitation. There is no mitral valve stenosis. Pulmonic Valve The pulmonic valve was not well visualized. Tricuspid Valve Normal tricuspid valve structure. Tricuspid regurgitation envelope is inadequate for calculation of right ventricular systolic pressure. Normal right atrial pressure. Great Vessels All visible segments of the aorta are normal in size. The pulmonary artery was not well visualized. Venous The inferior vena cava is normal in size and collapses greater than 50% with inspiration. Pericardium/Pleural There is no evidence of pericardial effusion. Prior Study Comparison Changes noted compared to prior study dated: 10/05/2021. LV systolic function is normal on this study Measurements 2D Linear Measurements IVSd: 0.79 0.6-0.9/0.6-1.0 cm LVIDd: 4.60 3.9-5.3/4.2-5.9 cm LVIDd Index: 2.60 2.4-3.2/2.2-3.1 cm/m2 LVIDs: 2.96 2.0-3.6 cm LVPWd: 0.61 0.7-1.1 cm LA Diam: 2.80 2.7-3.8/3.0-4.0 cm LAIDs Index: 1.58 1.5-2.3 cm/m2 LV Mass: 124.31 67-162/88-224 g LV Mass Index: 70.23 43-95/49-115 g/m2 LVOT Diam: 2.20 3.0+(-)1.3 cm 2D Systolic Function EF 4C: 62.80 >55% Mitral Valve MV Pk E: 0.85 MV PK A: 0.75 MV Decel Time: 194.00 E/A: 1.10 E'Lateral: 11.90 E'Medial: 7.62 E/E' Med: 11.20 E/E' Lat: 7.20 PHT: 57.00 MVA PHT: 3.86 Decel Bath: 4.39 Aortic Valve AoV Pk [place]: 1.24 AoV Pk Grad: 6.00 LVOT LVOT Pk [place]: 1.01 LVOT Mn [place]: 0.64 LVOT VTI: 0.17 LVOT Pk Grad: 4.00 LVOT Mn Grad: 2.00 LVOT Diam: 2.20 LVOT Area: 3.80 Diastolic Function MV Pk E: 0.85 MV Pk A: 0.75 E/A: 1.10 E'Medial: 7.62 E/E' Med: 11.20 E' Laterial: 11.90 E/E' Lat: 7.20 Right Ventricle TAPSE (mm): 17.40 TVS' Winston: 16.10 Tricuspid Valve RA Press: 3.00 Great Vessels Aorta Ao Asc: 3.20 2.1-3.4 cm Updated in Other Vendor System with Status of Final Rashad Stoddard MD electronically signed on 10/26/2021 11:31:09 AM with status of Final
[2021-10-26 08:37] VITALS: BP 123/63; PULSE 72; RESP 25; TEMP 36.6; O2SAT 100
--- NOTE | 2021-10-26 09:00 | PC.NURSE ---
pt taken to CT accompanied by Lakeshia, submarine worker Nurse. Heparin infusing at 26/u/kg/hr. NGT suctioning appropriately. [place] catheter in place. pt NPO. vss, denies pain, NS on monitor.
--- NOTE | 2021-10-26 09:01 | P.PNVS_ITS ---
Subjective Subjective Date of Service: 10/26/21 Patient reports: no new complaints and feels better Interval history: Complex 76-year-old gentleman status post femoral to femoral bypass. Today would be postop day 8. Postoperatively he seemed to be doing relatively well was subsequently discharged. He returned to the hospital short of breath. There has been concern of aspiration pneumonia and PE. In addition he has a small bowel obstruction. He reports no flatus no bowel movement but he is thirsty and hungry. He feels relatively comfortable. Physical Exam Vital Signs: Vital Signs: Last Vital Signs Temp 97.8 F 10/26/21 08:37 Pulse 72 10/26/21 08:37 Resp 25 H 10/26/21 08:37 BP 123/63 10/26/21 08:37 Pulse Ox 100 10/26/21 08:37 BMI result Body Mass Index 15.7 Const: General: cooperative, healthy appearing and comfortable Orientation/consciousness: oriented to person, oriented to place and oriented to time HEENT: Head: Yes normal to inspection Neck: Neck: Yes normal visual inspection Carotids: no bruits Chest: Chest palpation & inspection: normal inspection of the chest Resp: Other: He does have a mass gone but is satting well. When mask is off he is satting at 95% Effort & Inspection: able to speak in complete sentences and decreased respiratory effort Auscultation: clear to auscultation bilaterally, no crackles, no rales, no rhonchi and no wheezes Cardio: Rate: regular rate Rhythm: regular rhythm Heart sounds: S1 normal heart sound present and S2 normal heart sound present Bruits: no carotid bruits Peripheral pulses: Peripheral pulses 2+ throughout GI: Inspection: Yes normal to inspection Skin: Wounds: no wounds Hair: normal Neuro: General: oriented to person, oriented to place and oriented to time Cranial nerves: Yes CN's II-XII intact bilaterally and Yes Normal hearing present Cognition (Neuro): normal cognition Motor exam (neuro): 5/5 motor strength present throughout Extrem: Other: venous exam: No significant superficial varicosities or spider telangiectasias, minimal edema General: No clubbing, No cyanosis and No edema Psych: Appearance: grossly normal Mental Status: mental status grossly normal Speech and movement: Normal speech and movement present Progress Note: A&P Assessment and plan (1) PAD (peripheral artery disease): Status: Acute Assessment and Plan: Fem-fem bypass appears to be stable. At the current time do not suspect it damaged any intra-abdominal organs. It may be partially intra-abdominal but would not suspect any issues with that. Clinically his abdomen is completely benign. Both groins are well healed with no evidence of infection. There is no drainage from either groin site. (2) Acute respiratory failure with hypoxia: Status: Acute Assessment and Plan: The concern here is aspiration pneumonia. I do not believe that he has a pulmonary embolism. He is undergoing CTA today to rule that out. In addition the bigger concern is the white count of 36. He does have a positive blood culture of Enterobacter aerogenes. G negative and not a typical source from a graft infection. Will get Infectious Disease consultation. In addition broad- spectrum antibiotics of Zosyn in hopes of controlling this white count of 36. (3) Partial small bowel obstruction: Status: Acute Plan Unclear origin of this. He does have prior abdominal surgery with a midline scar. Even though the graft may be intra-abdominal most likely not the cause his postop ileus. He does have concerns pneumonia and sepsis. He is not as ambulatory as well. Hopefully once he is admitted and CT scan is performed we can remove the NG tube and get him more ambulatory after that. We will continue to follow him closely. Thank you for allowing us to assist in his care Time Spent With Patient Time: Total time spent is greater than 50% in coordination of care (as documented) at patient's floor/unit and/or counseling patient: Procedures Date of Service Date of Service: 10/26/21 Quality Stroke Does the patient have a stroke diagnosis?: No VTE Prior VTE?: No VTE Risk Level:: Medical - moderate - high VTE Device Contraindication: Treatment Not Indicated VTE Drug Contraindication: N/A - Med Ordered
[2021-10-26 09:17] LABS: Procalcitonin 5.65 ng/mL
[2021-10-26] MEDS: iohexoL 350 MG/ML 100 ML INFUS..BTL IV (09:44)
--- NOTE | 2021-10-26 10:21 | PC.NURSE ---
Course of [place] with heparin reviewed including dosing and next lab draws. Plan for next PTT-HD at 1030 today. Current rate of heparin is at 26u/kg/hr and las PTT-HD at 4am was 58.2 which did not require a change of program.
[2021-10-26 10:57] LABS: PTT Heparin Drip 48.2 SEC (53-77.9)
[2021-10-26] MEDS: Heparin Sodium,Porcine 5,000 UNIT/ML VIAL 2200 UNIT IVPUSH (11:37)
[2021-10-26 12:00] VITALS: BP 140/62; PULSE 67; RESP 22; TEMP 36.3; O2SAT 95
--- NOTE | 2021-10-26 12:30 | P.PNIM_ITS ---
Subjective Subjective Date of Service: 10/26/21 Interval History: Boarding in ICU Dyspnea improved No flatus or BM No abd pain Review of Systems Review of Systems: Yes all other systems are reviewed and are negative Physical Exam Vital Signs: Vital Signs: Last Vital Signs Temp 97.4 F 10/26/21 12:00 Pulse 67 10/26/21 12:00 Resp 22 H 10/26/21 12:00 BP 140/62 H 10/26/21 12:00 Pulse Ox 95 10/26/21 12:00 BMI result Body Mass Index 15.7 Gen: in mild resp distress, thin/malnourished HEENT: sclera anicteric, moist mucus membranes Neck: supple Lungs: tachypneic, bilateral insp crackles Heart: regular rate and rhythm, no murmurs Abd: soft, non-tender, non-distended; no bowel sounds elicited; NG tube with minimal output Ext: no edema Skin: warm/well-perfused Neuro: alert and oriented x3, no focal findings Psych: appropriate affect Objective Data Active Medications Acetaminophen (Acetaminophen 325 Mg Tablet) 650 mg PO Q6H PRN PRN Reason: Pain, Mild (Pain Scale 1-3) Albuterol/Ipratropium (Albuterol/Iprat 2.5/0.5mg 3 Ml Ampul.Neb) 3 ml INHALE RQ4H WHILE AWAKE PRN PRN Reason: Shortness of Breath/Wheezing Heparin Sodium (Porcine) (Heparin Sodium,Porcine 5,000 Unit/Ml Vial) 2,200 unit 40 unit/kg (2200 unit) IVPUSH PROTOCOL BOLUS PRN; Protocol PRN Reason: 40 unit/kg - Heparin Protocol Last Admin: 10/26/21 11:37 Dose: 2,200 unit Documented by: WALI Heparin Sodium (Porcine) (Heparin Sodium,Porcine 5,000 Unit/Ml Vial) 4,500 unit 80 unit/kg (4500 unit) IVPUSH PROTOCOL BOLUS PRN; Protocol PRN Reason: 80 unit/kg - Heparin Protocol Last Admin: 10/24/21 04:53 Dose: 4,500 unit Documented by: LETY Heparin Sodium/Sodium Chloride () 25,000 unit in 250 mls @ 0 mls/hr IVCONT .Q0M [facility]; Protocol Last Titration: 10/26/21 11:39 Dose: 28 units/kg/hr, 15.74 mls/hr Documented by: WALI Cosigned by: JESSICA Potassium Chloride/Sodium Chloride () 20 meq in 1,000 mls @ 100 mls/hr IVCONT . Q10H [facility] Last Admin: 10/26/21 10:25 Dose: 100 mls/hr Documented by: WALI Piperacillin Sod/Tazobactam (Sod 3.375 gm/ Sodium Chloride) 50 mls @ 100 mls/hr IV Q6H [facility] Last Admin: 10/26/21 09:29 Dose: Not Given Documented by: CITLALLI Non-Admin Reason: See Note Dextrose/Sodium Chloride (D51/2ns) 1,000 mls @ 95 mls/hr IVCONT .[id number] [facility] Morphine Sulfate (Morphine Sulfate 4 Mg/Ml Cartridge) 4 mg IVPUSH Q4H PRN; Protocol PRN Reason: Pain, SOB Pantoprazole Sodium (Pantoprazole Sodium 40 Mg/10 Ml Vial) 40 mg IVPUSH DAILY@0630 [facility] Last Admin: 10/26/21 06:12 Dose: 40 mg Documented by: LASHAWN Pharmacy Consult (Consult Rx Perform Med Rec) 1 each MISCELLANE ONCE PRN PRN Reason: Consult order Pharmacy Consult (Consult Rx Vancomycin Dosing) 1 each MISCELLANE DAILY PRN PRN Reason: Consult order Senna (Sennosides 8.6 Mg Tablet) 17.2 mg PO BEDTIME PRN PRN Reason: Constipation Sodium Chloride (0.9 % Sodium Chloride Flush 3 Ml Syringe) 3 ml IVFLUSH QSHIFT [facility] Last Admin: 10/26/21 07:50 Dose: Not Given Documented by: CITLALLI Non-Admin Reason: IV Running Labs CBC & Chem 7: 10/26/21 04:12 10/26/21 04:12 Labs: Laboratory Results - last 24 hr 10/25/21 10/25/21 10/25/21 14:58 20:52 23:05 MCV MCH MCHC RDW Plt Count MPV Absolute Nucleated RBC Nucleated RBC % (auto) aPTT Heparin Protocol 53.2 36.6 L D Anion Gap 17 Estim Creat Clear Calc 34.9 Estimated GFR 48 Random Glucose 87 Fasting Glucose Calcium 8.1 L Magnesium 2.8 H Procalcitonin 10/26/21 10/26/21 10/26/21 04:12 04:12 04:12 MCV 90.3 MCH 29.8 MCHC 33.0 RDW 15.7 Plt Count 222 D MPV 9.9 Absolute Nucleated RBC 0.000 Nucleated RBC % (auto) 0.0 aPTT Heparin Protocol 58.2 D Anion Gap 17 Estim Creat Clear Calc 38.7 Estimated GFR 55 Random Glucose Fasting Glucose 87 Calcium 8.1 L Magnesium Procalcitonin 10/26/21 10/26/21 04:12 10:05 MCV MCH MCHC RDW Plt Count MPV Absolute Nucleated RBC Nucleated RBC % (auto) aPTT Heparin Protocol 48.2 L Anion Gap Estim Creat Clear Calc Estimated GFR Random Glucose Fasting Glucose Calcium Magnesium Procalcitonin 5.65 TTE (10/26/21) 1. Normal LV systolic function with grade 1 diastolic? dysfunction? 2. Normal cardiac valvular Doppler ? 3. Normal right atrial pressures ? 4. No gross pericardial effusion ? Microbiology Microbiology Results: Microbiology 10/23/21 18:16 Blood Culture - Final Blood - Venous Enterobacter aerogenes 10/23/21 18:47 Blood Culture - Preliminary Blood - Venous No growth after 48 hours. Assessment and Plan (1) Acute respiratory failure with hypoxia: Status: Acute (2) Aspiration pneumonia: Status: Acute (3) Pulmonary emboli: Status: Acute (4) Bradycardia: Status: Acute (5) Partial small bowel obstruction: Status: Acute (6) Status post femorofemoral bypass surgery: Status: Acute Plan hospital d#3 76yo M with hx prostate CA, PVD s/p fem-fem bypass 10/18/21 with 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 noted [no PPM recommended] presented with dyspnea, admitted for hypoxia/aspiration, pSBO # acute hypoxic resp failure - wean O2 as tolerated - CT angio to r/o PE; currently on heparin gtt due to intermediate probability acute PE on V/Q scan # pneumonia, aspiration # GNR bacteremia # leukocytosis - on pip/terrence d#3. trend PCT. consult ID. # pSBO - NGT, Gen + Vasc Surg following, repeat CT A/P pending # SHERI - improved with IV fluids # hypernatremia - mild, hypovolemic- start maintenance hypotonic fluid # hypokalemia - repleted # PVD - POD #8 fem/fem bypass - on heparin gtt - Vasc Surg following In my clinical judgment, the patient requires continued hospitalization for the following reasons: hypoxia, IV ABX, IV heparin Quality Stroke Does the patient have a stroke diagnosis?: No VTE Prior VTE?: No VTE Risk Level:: Medical - moderate - high VTE Device Contraindication: Treatment Not Indicated VTE Drug Contraindication: N/A - Med Ordered
--- NOTE | 2021-10-26 12:50 | W.PM.IDCN ---
History of Present Illness Data of Consult Service Date: 10/26/21 Requesting physician: Ivan Colón Primary Care Provider: Unknown Physician HPI Reason for consult: enterobacter aerogenes bacteremia He presents with weakness and shortness of breath after eating grapes. He has no nausea or vomiting reported. He had fem fem bypass on 10/18 Review of Systems Review of Systems: Yes all other systems are reviewed and are negative PMFSH Past Medical History Medical History History of radiation therapy Illiterate Mentally challenged Partial small bowel obstruction Prostate cancer PVD (peripheral vascular disease) Family History Family History Father No problems noted. Mother No problems noted. Family history: reviewed and not pertinent Surgical History Surgical History Hx of surgical procedure No pertinent past surgical history Social History Social History Household Members: Family Household Members Other:: Lives with his sister Housing: Unknown / Unable to assess Are you a primary complex care nurse practitioner to a significant other at home: No Do you presently have visiting nurse or other home services: No Alcohol intake: never Patient Tobacco Use Status: Current someday Tobacco user Tobacco use type: Cigarette Cigarettes Per Day: 1 Advance Directives Date on File: 10/18/21 service: No Current occupational status: disabled Meds Allergies Allergy/AdvReac Type Severity Reaction Status Date / Time No Known Allergies Allergy Verified 10/14/21 10:36 [No Known Allergies*] Active Medications: Current Medications Acetaminophen (Acetaminophen 325 Mg Tablet) 650 mg PO Q6H PRN PRN Reason: Pain, Mild (Pain Scale 1-3) Albuterol/Ipratropium (Albuterol/Iprat 2.5/0.5mg 3 Ml Ampul.Neb) 3 ml INHALE RQ4H WHILE AWAKE PRN PRN Reason: Shortness of Breath/Wheezing Heparin Sodium (Porcine) (Heparin Sodium,Porcine 5,000 Unit/Ml Vial) 2,200 unit 40 unit/kg (2200 unit) IVPUSH PROTOCOL BOLUS PRN; Protocol PRN Reason: 40 unit/kg - Heparin Protocol Last Admin: 10/26/21 11:37 Dose: 2,200 unit Documented by: Heparin Sodium (Porcine) (Heparin Sodium,Porcine 5,000 Unit/Ml Vial) 4,500 unit 80 unit/kg (4500 unit) IVPUSH PROTOCOL BOLUS PRN; Protocol PRN Reason: 80 unit/kg - Heparin Protocol Last Admin: 10/24/21 04:53 Dose: 4,500 unit Documented by: Heparin Sodium/Sodium Chloride () 25,000 unit in 250 mls @ 0 mls/hr IVCONT .Q0M [facility]; Protocol Last Titration: 10/26/21 11:39 Dose: 28 units/kg/hr, 15.74 mls/hr Documented by: Piperacillin Sod/Tazobactam (Sod 3.375 gm/ Sodium Chloride) 50 mls @ 100 mls/hr IV Q6H [facility] Last Admin: 10/26/21 09:29 Dose: Not Given Documented by: Dextrose/Sodium Chloride (D51/2ns) 1,000 mls @ 95 mls/hr IVCONT .[id number] [facility] Morphine Sulfate (Morphine Sulfate 4 Mg/Ml Cartridge) 4 mg IVPUSH Q4H PRN; Protocol PRN Reason: Pain, SOB Pantoprazole Sodium (Pantoprazole Sodium 40 Mg/10 Ml Vial) 40 mg IVPUSH DAILY@0630 [facility] Last Admin: 10/26/21 06:12 Dose: 40 mg Documented by: Pharmacy Consult (Consult Rx Perform Med Rec) 1 each MISCELLANE ONCE PRN PRN Reason: Consult order Pharmacy Consult (Consult Rx Vancomycin Dosing) 1 each MISCELLANE DAILY PRN PRN Reason: Consult order Senna (Sennosides 8.6 Mg Tablet) 17.2 mg PO BEDTIME PRN PRN Reason: Constipation Sodium Chloride (0.9 % Sodium Chloride Flush 3 Ml Syringe) 3 ml IVFLUSH QSHIFT [facility] Last Admin: 10/26/21 07:50 Dose: Not Given Documented by: Home Medications Medication Instructions Recorded Confirmed Last Taken Type aspirin 81 mg tablet,delayed 81 mg PO DAILY 09/21/21 10/23/21 10/22/21 History release (Adult Aspirin Regimen) ibuprofen 200 mg tablet (Advil) 200 mg PO Q6H PRN 09/21/21 10/23/21 Unknown History multivitamin 1 tab PO DAILY 09/21/21 10/23/2110/22/22 History Physical Exam Vital Signs: Vital Signs: Last Vital Signs Temp 97.4 F 10/26/21 12:00 Pulse 67 10/26/21 12:00 Resp 22 H 10/26/21 12:00 BP 140/62 H 10/26/21 12:00 Pulse Ox 95 10/26/21 12:00 BMI result Body Mass Index 15.7 Const: General: cooperative Eyes: General: appearance normal, both eyes and all related structures Resp: Effort & Inspection: normal respiratory effort Cardio: Rate: regular rate Rhythm: regular rhythm GI: Palpation (GI): Soft to palpation and nontender Extrem: General: Yes normal to inspection Results Labs CBC & Chem 7: 10/26/21 04:12 10/26/21 04:12 Labs: Short CBC 10/26/21 Range/Units 04:12 WBC 36.4 H* (4.8-10.8) X10*3/uL Hgb 10.4 L (14.0-18.0) g/dl Hct 31.5 L (42.0-52.0) % Plt Count 222 D (160-400) X10*3/uL BMP 10/25/21 10/26/21 23:05 04:12 Sodium 147 H 148 H Potassium 3.4 3.5 Chloride 111 H 113 H Carbon Dioxide 22 22 BUN 70 H 68 H Creatinine 1.42 H 1.28 Calcium 8.1 L 8.1 L Microbiology Microbiology Results: Microbiology 10/23/21 18:16 Blood - Venous Blood Culture - Final Enterobacter aerogenes 10/23/21 18:47 Blood - Venous Blood Culture - Preliminary No growth after 48 hours. Assessment and Plan (1) Acute respiratory failure with hypoxia: Status: Acute He has enterobacter which has some inducable resistance to cephalosporins and penicillins. He has likely some aspiration pneumonia. (2) Pulmonary emboli: Status: Acute (3) Aspiration pneumonia: Status: Acute Plan Would switch to Levaquin and metronidazole for 14 days which would cover enterobacter as well.
--- NOTE | 2021-10-26 12:57 | P.PNGS_ITS ---
Subjective Subjective Date of Service: 10/26/21 <LUI Moore - Last Filed: 10/26/21 13:10> 10/26/21 <Thuan Meza MD - Last Filed: 10/26/21 16:22> Interval history: Pt seen this morning with family friend at bedside. Pt denies any abdominal pain. He has not vomited. No recorded bowel movements. Does not think he has passed any flatus. Wants something to drink. <LUI Moore - Last Filed: 10/26/21 13:10> Physical Exam Vital Signs: Vital Signs: Last Vital Signs Temp 97.4 F 10/26/21 12:00 Pulse 67 10/26/21 12:00 Resp 22 H 10/26/21 12:00 BP 140/62 H 10/26/21 12:00 Pulse Ox 95 10/26/21 12:00 BMI result Body Mass Index 15.7 <LUI Moore - Last Filed: 10/26/21 13:10> Const: General: no acute distress <LUI Moore - Last Filed: 10/26/21 13:10> GI: Palpation (GI): Soft to palpation, nontender and Other GI palpation fin dings present (nondistended) <LUI Moore - Last Filed: 10/26/21 13:10> Objective Data Active Medications Acetaminophen (Acetaminophen 325 Mg Tablet) 650 mg PO Q6H PRN PRN Reason: Pain, Mild (Pain Scale 1-3) Albuterol/Ipratropium (Albuterol/Iprat 2.5/0.5mg 3 Ml Ampul.Neb) 3 ml INHALE RQ4H WHILE AWAKE PRN PRN Reason: Shortness of Breath/Wheezing Heparin Sodium (Porcine) (Heparin Sodium,Porcine 5,000 Unit/Ml Vial) 2,200 unit 40 unit/kg (2200 unit) IVPUSH PROTOCOL BOLUS PRN; Protocol PRN Reason: 40 unit/kg - Heparin Protocol Last Admin: 10/26/21 11:37 Dose: 2,200 unit Documented by: WALI Heparin Sodium (Porcine) (Heparin Sodium,Porcine 5,000 Unit/Ml Vial) 4,500 unit 80 unit/kg (4500 unit) IVPUSH PROTOCOL BOLUS PRN; Protocol PRN Reason: 80 unit/kg - Heparin Protocol Last Admin: 10/24/21 04:53 Dose: 4,500 unit Documented by: ELTY Heparin Sodium/Sodium Chloride () 25,000 unit in 250 mls @ 0 mls/hr IVCONT .Q0M [facility]; Protocol Last Titration: 10/26/21 11:39 Dose: 28 units/kg/hr, 15.74 mls/hr Documented by: WALI Cosigned by: JESSICA Piperacillin Sod/Tazobactam (Sod 3.375 gm/ Sodium Chloride) 50 mls @ 100 mls/hr IV Q6H [facility] Last Admin: 10/26/21 09:29 Dose: Not Given Documented by: CITLALLI Non-Admin Reason: See Note Dextrose/Sodium Chloride (D51/2ns) 1,000 mls @ 95 mls/hr IVCONT .[id number] [facility] Morphine Sulfate (Morphine Sulfate 4 Mg/Ml Cartridge) 4 mg IVPUSH Q4H PRN; Protocol PRN Reason: Pain, SOB Pantoprazole Sodium (Pantoprazole Sodium 40 Mg/10 Ml Vial) 40 mg IVPUSH DAILY@0630 [facility] Last Admin: 10/26/21 06:12 Dose: 40 mg Documented by: LASHAWN Pharmacy Consult (Consult Rx Perform Med Rec) 1 each MISCELLANE ONCE PRN PRN Reason: Consult order Pharmacy Consult (Consult Rx Vancomycin Dosing) 1 each MISCELLANE DAILY PRN PRN Reason: Consult order Senna (Sennosides 8.6 Mg Tablet) 17.2 mg PO BEDTIME PRN PRN Reason: Constipation Sodium Chloride (0.9 % Sodium Chloride Flush 3 Ml Syringe) 3 ml IVFLUSH QSHIFT [facility] Last Admin: 10/26/21 07:50 Dose: Not Given Documented by: CITLALLI Non-Admin Reason: IV Running <LUI Moore - Last Filed: 10/26/21 13:10> Labs CBC & Chem 7: : 10/26/21 04:12 10/26/21 04:12 <LUI Moore - Last Filed: 10/26/21 13:10> Labs: Laboratory Results - last 24 hr 10/25/21 10/25/21 10/25/21 14:58 20:52 23:05 MCV MCH MCHC RDW Plt Count MPV Absolute Nucleated RBC Nucleated RBC % (auto) aPTT Heparin Protocol 53.2 36.6 L D Anion Gap 17 Estim Creat Clear Calc 34.9 Estimated GFR 48 Random Glucose 87 Fasting Glucose Calcium 8.1 L Magnesium 2.8 H Procalcitonin 10/26/21 10/26/21 10/26/21 04:12 04:12 04:12 MCV 90.3 MCH 29.8 MCHC 33.0 RDW 15.7 Plt Count 222 D MPV 9.9 Absolute Nucleated RBC 0.000 Nucleated RBC % (auto) 0.0 aPTT Heparin Protocol 58.2 D Anion Gap 17 Estim Creat Clear Calc 38.7 Estimated GFR 55 Random Glucose Fasting Glucose 87 Calcium 8.1 L Magnesium Procalcitonin 10/26/21 10/26/21 04:12 10:05 MCV MCH MCHC RDW Plt Count MPV Absolute Nucleated RBC Nucleated RBC % (auto) aPTT Heparin Protocol 48.2 L Anion Gap Estim Creat Clear Calc Estimated GFR Random Glucose Fasting Glucose Calcium Magnesium Procalcitonin 5.65 <LUI Moore - Last Filed: 10/26/21 13:10> Microbiology Microbiology Results: Microbiology 10/23/21 18:16 Blood Culture - Final Blood - Venous Enterobacter aerogenes 10/23/21 18:47 Blood Culture - Preliminary Blood - Venous No growth after 48 hours. <LUI Moore - Last Filed: 10/26/21 13:10> Procedures Date of Service Date of Service: 10/26/21 <LUI Moore - Last Filed: 10/26/21 13:10> Progress Note: A&P Assessment and plan (1) Partial small bowel obstruction: Status: Acute <LUI Moore - Last Filed: 10/26/21 13:10> Assessment and Plan: Abdominal exam remains benign. NG output ~400/last 24 hours. No evidence of bowel function although pt is an unreliable historian. Vascular surgery following re: fem-fem bypass. Primary team plans to repeat CT scan today as part of workup for increasing leukocytosis. Will follow up on CT results and then determine timing for removal of NG tube if output continues to decrease. <LUI Moore - Last Filed: 10/26/21 13:10> (2) Status post femorofemoral bypass surgery: Status: Acute <LUI Moore - Last Filed: 10/26/21 13:10> Assessment and Plan: CT reviewed - adjacent small bowel loops around the graft appears dilated may be acute adhesions no bowel injury is apparent he continues to have a very benign exam, not distended currently doubt leukocytosis is from this monitor NGT output will follow closely if SBO persists, may need laparotomy/laparoscopy to check the small bowel loops pt has other acute issues at this time patient seen and examined independently - agree with LUI Jc <Thuan Meza MD - Last Filed: 10/26/21 16:22> Time Spent With Patient Time: Total time spent is greater than 50% in coordination of care (as documented) at patient's floor/unit and/or counseling patient: <LUI Moore - Last Filed: 10/26/21 13:10> Quality Stroke Does the patient have a stroke diagnosis?: No <LUI Moore - Last Filed: 10/26/21 13:10> VTE Prior VTE?: No <LUI Moore - Last Filed: 10/26/21 13:10> VTE Risk Level:: Medical - moderate - high <LUI Moore - Last Filed: 10/26/21 13:10> VTE Device Contraindication: Treatment Not Indicated <LUI Moore - Last Filed: 10/26/21 13:10> VTE Drug Contraindication: N/A - Med Ordered <LUI Moore - Last Filed: 10/26/21 13:10>
[2021-10-26] MEDS: Dextrose 5 % and 0.45 % NaCl 1,000 ML 95 ML IVCONT ×2 (13:08→23:20)
[2021-10-26] MEDS: levoFLOXacin/D5W 750 MG/150 ML PIGGYBACK 100 MG IV (13:37)
[2021-10-26] MEDS: metroNIDAZOLE/NS 500 MG/100 ML PIGGYBACK 100 MG IV ×2 (14:59→20:10)
--- NOTE | 2021-10-26 15:42 | PC.NURSE ---
safety and fall precautions maintained. IVF maintained. surgical wounds intact. call kan within reach.
[2021-10-26 16:00] VITALS: BP 127/62; PULSE 74; RESP 27; TEMP 36.6
--- NOTE | 2021-10-26 16:13 | PM.EVENT ---
Event Note Date of Service: 10/26/21 Event Note: remains comfortable denies any abdominal pain denies any nausea or vomiting abdomen soft, nontender, nondistended CT reviewed - fem-fem graft intraperitoneal, with adjacent dilated small bowel loops will follow closely abdominal exam very benign NG tube in place if with signs of persistent obstruction, may need laparotomy to rule out bowel intraop by graft will follow closely leukocytosis unlikely to be from intra-abdominal source above explained to patient's brother at bedside
[2021-10-26 17:47] LABS: PTT Heparin Drip 24.7 SEC (53-77.9)
[2021-10-26 19:22] VITALS: BP 124/66; PULSE 82; RESP 26; TEMP 36.4; O2SAT 91
[2021-10-26] MEDS: Heparin Sodium,Porcine 5,000 UNIT/ML VIAL 5000 UNIT SUBCUT (20:10)
[2021-10-27] VITALS (8 sets, daily range): BP systolic 108–137; BP diastolic 60–89; PULSE 61–72; RESP 14–25; TEMP 36.4–36.9; O2SAT 93–100; BMI 18.1
[2021-10-27] MEDS: Heparin Sodium,Porcine 5,000 UNIT/ML VIAL 5000 UNIT SUBCUT ×3 (05:04→20:15)
[2021-10-27 05:52] LABS: Hematocrit 29.8 % (42.0-52.0); Hemoglobin 9.7 g/dl (14.0-18.0); Mean Corpuscular HGB Conc 32.6 g/dl (31.0-36.0); Mean Corpuscular Hemoglobin 29.5 pg (27.0-33.0); Mean Corpuscular Volume 90.6 fL (80.0-98.0); Platelet Count 153 X10*3/uL (160-400); Red Blood Count 3.29 X10*6/uL (4.60-5.80); Red Cell Distribution Width 15.8 % (11.0-16.0); White Blood Count 25.9 X10*3/uL (4.8-10.8)
[2021-10-27] MEDS: metroNIDAZOLE/NS 500 MG/100 ML PIGGYBACK 100 MG IV ×3 (05:52→20:15)
[2021-10-27 06:11] LABS: Anion Gap 10 (12-20); Blood Urea Nitrogen 41 mg/dL (9-16); Calcium 7.8 mg/dL (8.4-10.2); Carbon Dioxide 26 mmol/L (22-29); Chloride 114 mmol/L (96-108); Creatinine Clr Calc Pharmacy 55.7; Estimated Glomerular Filt Rate > 60; Glucose Random 136 mg/dL (60-115); Potassium 3.4 mmol/L (3.3-5.1); Sodium 147 mmol/L (135-145)
--- NOTE | 2021-10-27 08:07 | P.PNGS_ITS ---
Subjective Subjective Date of Service: 10/27/21 Interval history: no events reported overnight patient says he feels comfortable denies abdominal pain hungry and asking for food as per brother at bedside - he seems to be doing well Physical Exam Vital Signs: Vital Signs: Last Vital Signs Temp 98.4 F 10/27/21 08:00 Pulse 61 10/27/21 08:00 Resp 18 10/27/21 08:00 BP 117/61 10/27/21 08:00 Pulse Ox 99 10/27/21 08:00 BMI result Body Mass Index 15.7 Const: General: comfortable and no acute distress Resp: Effort & Inspection: normal respiratory effort Cardio: Rhythm: abnormal rhythm GI: Inspection: No distended Palpation (GI): Soft to palpation, not firm, nontender and no guarding Objective Data Active Medications Acetaminophen (Acetaminophen 325 Mg Tablet) 650 mg PO Q6H PRN PRN Reason: Pain, Mild (Pain Scale 1-3) Albuterol/Ipratropium (Albuterol/Iprat 2.5/0.5mg 3 Ml Ampul.Neb) 3 ml INHALE RQ4H WHILE AWAKE PRN PRN Reason: Shortness of Breath/Wheezing Heparin Sodium (Porcine) (Heparin Sodium,Porcine 5,000 Unit/Ml Vial) 5,000 unit SUBCUT Q8H [facility] Last Admin: 10/27/21 05:04 Dose: 5,000 unit Documented by: LASHAWN Dextrose/Sodium Chloride (D51/2ns) 1,000 mls @ 95 mls/hr IVCONT .[id number] [facility] Last Admin: 10/26/21 23:20 Dose: 95 mls/hr Documented by: LASHAWN Levofloxacin (Levaquin) 750 mg in 150 mls @ 100 mls/hr IV Q48H [facility] Last Infusion: 10/26/21 14:59 Dose: 0 mls/hr Documented by: JANET-SOFFA Metronidazole (Flagyl) 500 mg in 100 mls @ 100 mls/hr IV Q8H [facility] Last Infusion: 10/27/21 07:18 Dose: 0 mls/hr Documented by: TAMMY Morphine Sulfate (Morphine Sulfate 4 Mg/Ml Cartridge) 4 mg IVPUSH Q4H PRN; Protocol PRN Reason: Pain, SOB Pharmacy Consult (Consult Rx Perform Med Rec) 1 each MISCELLANE ONCE PRN PRN Reason: Consult order Pharmacy Consult (Consult Rx Vancomycin Dosing) 1 each MISCELLANE DAILY PRN PRN Reason: Consult order Senna (Sennosides 8.6 Mg Tablet) 17.2 mg PO BEDTIME PRN PRN Reason: Constipation Sodium Chloride (0.9 % Sodium Chloride Flush 3 Ml Syringe) 3 ml IVFLUSH QSHIFT [facility] Last Admin: 10/27/21 07:23 Dose: Not Given Documented by: TAMMY Non-Admin Reason: IV Running Labs CBC & Chem 7: 10/27/21 05:41 10/27/21 05:41 Labs: Laboratory Results - last 24 hr 10/26/21 10/26/21 10/26/21 04:12 10:05 17:24 MCV MCH MCHC RDW Plt Count MPV Absolute Nucleated RBC Nucleated RBC % (auto) aPTT Heparin Protocol 48.2 L 24.7 L D Anion Gap Estim Creat Clear Calc Estimated GFR Random Glucose Calcium Procalcitonin 5.65 10/27/21 10/27/21 05:41 05:41 MCV 90.6 MCH 29.5 MCHC 32.6 RDW 15.8 Plt Count 153 L D MPV 10.0 Absolute Nucleated RBC 0.000 Nucleated RBC % (auto) 0.0 aPTT Heparin Protocol Anion Gap 10 L Estim Creat Clear Calc 55.7 Estimated GFR > 60 Random Glucose 136 H D Calcium 7.8 L Procalcitonin Microbiology Microbiology Results: Microbiology 10/23/21 18:16 Blood Culture - Final Blood - Venous Enterobacter aerogenes Procedures Date of Service Date of Service: 10/27/21 Progress Note: A&P Assessment and plan (1) Partial small bowel obstruction: Status: Acute Assessment and Plan: he is comfortable denies abdominal pain abdominal exam - very benign, soft, no tenderness white count down to 25 from 36 will clamp NG tube and re-evaluate after 4 hours Time Spent With Patient Time: Total time spent is greater than 50% in coordination of care (as documented) at patient's floor/unit and/or counseling patient: Quality Stroke Does the patient have a stroke diagnosis?: No VTE Prior VTE?: No VTE Risk Level:: Medical - moderate - high VTE Device Contraindication: Treatment Not Indicated VTE Drug Contraindication: N/A - Med Ordered
--- NOTE | 2021-10-27 08:52 | P.CDIC_ITS ---
CDI Concurrent Query Documentation Clarification: PHYSICIAN'S DOCUMENTATION REQUEST Date of Query: 10/27/21 0852 Patient Name: Jake Vargas Admit Date: 10/23/21 Dear Doctor, A review of the medical record indicates additional documentation may be needed. Please review below and update the documentation accordingly. Clinical Indicators: Documentation includes the diagnosis of malnutrition. Risk Factors/Clinical Indicators/Treatments BMI: 15.8 PN: 10/26 - Frail, malnourished. ASPEN Criteria* Acute Illness Chronic Illness Clinical Characteristic Non-Severe (2 or more criteria present) Severe (2 or more criteria present) Non-Severe (2 or more criteria present) Severe (2 or more criteria present) Energy Intake <75% for >7 days <=50% for >=5 days <75% for >=1 month <=75% for >=1 month Weight Loss 1 week 1 ? 2% >2% N/A N/A 1 month 5% >5% 5% >5% 3 months 7.5 % >7.5% 7.5% >7.5% 6 months N/A N/A 10% >10% 1 year N/A N/A 20% >20% Body Fat Mild Moderate Mild Severe Muscle Mass Mild Moderate Mild Severe Fluid Accumulation Mild Moderate to Severe Mild Severe Reduced Ell Tutor Strength N/A Measurably Reduced N/A Measurably Reduced *[facility] Hospitalist, 2017 If possible, please provide in your progress notes, additional specificity regarding the severity of the malnutrition using the above information: * Mild * Moderate * Severe * Other (please specify) * Unable to determine Use of terms such as suspected, likely, concern for, or probable (associated with a specific diagnosis that is being evaluated, monitored, or treated as if it exists) are acceptable and can be coded in the inpatient setting, when documented at the time of discharge. Thank you, Jennyfer Dallas [facility], CDIS Extension: [phone] Please use your independent medical judgment in providing your response. THIS QUERY IS PART OF THE PERMANENT MEDICAL RECORD Provider Response: Moderate Protein-Calorie Malnutrition
--- NOTE | 2021-10-27 09:47 | MHC.CLN ---
RE: CONSULT PT IS MODERATELY MALNOURISHED HT USED FOR ASSESSMENT IS 5'9 (ADMISSION ASSESSMENT OF 6'2 IS INACCURATE) PT WITH MILDLY DEPLETED SUBCUTANEOUS FAT AND MUSCLE MASS, BMI 18.1 WITH POOR PO INTAKE AND A 13% SIGNIFICANT WT LOSS X 1 MONTH. PT WITH PMHX PROSTATE CA WITH RAD TX. DIET RX: NPO-NG TUBE CLAMPED TODAY AND MD TO RE-EVAL IN 4 HOURS PT IS DAY 4 NPO WITH INCREASED NUTRITION RISK WHEN DIET TO ADVANCE; RECOMMEND ADDING ENSURE TID TO INCREASE KCALS SUPPLEMENT TO PROVIDE 1050KCALS, 60G PROTEIN MONITOR PO INTAKE CLOSELY SEE ALSO FULL CLINICAL NUTRITION ASSESSMENT
[2021-10-27] MEDS: Dextrose 5 % and 0.45 % NaCl 1,000 ML 95 ML IVCONT ×2 (09:50→20:15)
--- NOTE | 2021-10-27 10:31 | HO.VASCPN ---
Subjective Subjective Date of Service: 10/27/21 Patient reports: no new complaints and feels better Interval history: Patient seen and examined. No significant events overnight. Appears to be doing better. Was transferred to ICU overflow. States that he is thirsty. Denies any flatus or bowel movement. Still requiring mask. Breathing well. No complaints. Physical Exam Vital Signs: Vital Signs: Last Vital Signs Temp 98.4 F 10/27/21 08:00 Pulse 61 10/27/21 08:54 Resp 18 10/27/21 08:00 BP 117/61 10/27/21 08:54 Pulse Ox 99 10/27/21 08:54 BMI result Body Mass Index 18.1 Const: General: cooperative, healthy appearing and no acute distress Orientation/consciousness: oriented to person, oriented to place and oriented to time HEENT: Head: Yes normal to inspection Neck: Carotids: no bruits Chest: Chest palpation & inspection: normal inspection of the chest Resp: Effort & Inspection: normal respiratory effort and able to speak in complete sentences Auscultation: clear to auscultation bilaterally Cardio: Rate: regular rate Heart sounds: S1 normal heart sound present and S2 normal heart sound present GI: Other: Hypoactive bowel sounds Inspection: Yes normal to inspection Palpation (GI): Soft to palpation Skin: Other: Bilateral groins well-healed General skin exam: no rashes or lesions noted Wounds: no wounds Neuro: General: oriented to person, oriented to place, oriented to time and CN's II-XI intact bilaterally Extrem: General: Yes normal to inspection, Yes full ROM and Yes no clubbing, cyanosis or edema Psych: Appearance: grossly normal and well kempt Speech and movement: Normal speech and movement present Affect: normal affect Progress Note: A&P Assessment and plan (1) Aspiration pneumonia: Status: Acute Assessment and Plan: Pneumonia seems to be stabilizing. White count is trending down. He appears to be in no respiratory distress. Continue with antibiotics and pulmonary toilet. (2) Status post femorofemoral bypass surgery: Status: Acute Assessment and Plan: CT angiogram written reports and images were reviewed. Graft is patent. There is concern of a transition point with bowel near the graft. Case discussed with the General surgery team. At the current time will observe conservatively. May require reintervention at some point if obstruction does not resolve. Thank you for allowing us to assist in his care. Time Spent With Patient Time: Total time spent is greater than 50% in coordination of care (as documented) at patient's floor/unit and/or counseling patient: Procedures Date of Service Date of Service: 10/27/21 Quality Stroke Does the patient have a stroke diagnosis?: No VTE Prior VTE?: No VTE Risk Level:: Medical - moderate - high VTE Device Contraindication: Treatment Not Indicated VTE Drug Contraindication: N/A - Med Ordered
--- NOTE | 2021-10-27 10:35 | MHC.SL.SWA ---
Speech Pathologist Impression:Oropharyngeal dysphagia Dysphasia Diet Status: Upgrade Liquid Consistency and Strategies for Safe Swallow: Liquid Intake Recommendation: Thin Liquid Intake Strategies: Small Sips No Straws Solid Food Consistency: Dietary Recommendations: Chopped/Advanced (NDD3) Additional Modifications to Solid Foods: Per chart review, patient stating he is hungry and has been asking for food and drink. Currently on NG tube, NPO. Patient switched to [place] by nursing and seen for PO trials w/ CONTRACT TECHNICAL WRITER this morning. Patient consumed applesauce, dry kerline crackers, cup of water. Noted mildly prolonged oral phase with harder solids but good oral clearance, mildly delayed swallow, incomplete laryngeal elevation. No clinical signs of aspiration. Recommend upgrade to CHOPPED/ADVANCED (NDD3) diet with THIN liquids, pills CRUSHED in PUREE. Patient was able to feed himself, but displayed some discoordination. Patient to have total supervision for all PO intake, provide assistance to patient as needed with tray set up and feeding. Close monitoring of patient's tolerance of PO, ensure strict aspiration precautions. Small bites of food, moisten with sauce/gravy. Encourage additional swallow between bites as needed to clear oral cavity. Individual sips of liquid by spoon or cup, avoid the use of straws. Upright 90 degree position during PO intake and for at least 30 minutes afterwards. CONTRACT TECHNICAL WRITER to re-evaluate tomorrow. Will continue to follow. Updated RN, , RD via [employer] Message. Oral Medication Intake: Crushed with Puree Please contact the pharmacy regarding appropriate crushable or liquid drug formulations that are available whenever modified delivery is recommended. Compensatory Strategies and Precautions to be Taken for Safe Swallow: Sitting Upright (90 deg) Double Swallow No Straw Liquids from Cup Liquids from Spoon Small Bites and Sips Rate of Ingestion Change Supervision While Eating and Drinking for Safe Swallow: Total Supervision (1:1) Swallowing Recommended Treatments: Compens. Strategy Educat. Recommendation for Speech: Inpatient Speech Therapy Comment: CONTRACT TECHNICAL WRITER to re-evaluate tomorrow. Survey Instrument Operator Clinican/Clinical Fellow: No Supervisory Statement: I have reviewed and agree with the student/clinical fellow's documentation: N/A Speech Language Pathologist: Mayte Banks M.A., CCC-CONTRACT TECHNICAL WRITER
--- NOTE | 2021-10-27 11:44 | HO.PM.IMPN ---
Subjective Subjective Date of Service: 10/27/21 Interval History: hungry no flatus NGT clamped this AM dyspnea improved O2 req down to 4.5Lpm Review of Systems Review of Systems: Yes all other systems are reviewed and are negative Physical Exam Vital Signs: Vital Signs: Last Vital Signs Temp 97.8 F 10/27/21 11:34 Pulse 63 10/27/21 11:34 Resp 19 10/27/21 11:34 BP 135/89 10/27/21 11:34 Pulse Ox 94 10/27/21 11:34 BMI result Body Mass Index 18.1 Gen: NAD, thin/malnourished HEENT: sclera anicteric, moist mucus membranes Neck: supple Lungs: bilateral inspiratory crackles Heart: regular rate and rhythm, no murmurs Abd: soft, non-tender, non-distended; no bowel sounds elicited; NG tube clamped Ext: no edema Skin: warm/well-perfused Neuro: alert and oriented x3, no focal findings Psych: appropriate affect Objective Data Active Medications Acetaminophen (Acetaminophen 325 Mg Tablet) 650 mg PO Q6H PRN PRN Reason: Pain, Mild (Pain Scale 1-3) Albuterol/Ipratropium (Albuterol/Iprat 2.5/0.5mg 3 Ml Ampul.Neb) 3 ml INHALE RQ4H WHILE AWAKE PRN PRN Reason: Shortness of Breath/Wheezing Heparin Sodium (Porcine) (Heparin Sodium,Porcine 5,000 Unit/Ml Vial) 5,000 unit SUBCUT Q8H [facility] Last Admin: 10/27/21 05:04 Dose: 5,000 unit Documented by: LASHAWN Dextrose/Sodium Chloride (D51/2ns) 1,000 mls @ 95 mls/hr IVCONT .[id number] [facility] Last Admin: 10/27/21 09:50 Dose: 95 mls/hr Documented by: TAMMY Levofloxacin (Levaquin) 750 mg in 150 mls @ 100 mls/hr IV Q48H [facility] Last Infusion: 10/26/21 14:59 Dose: 0 mls/hr Documented by: JANET-OMKARFA Metronidazole (Flagyl) 500 mg in 100 mls @ 100 mls/hr IV Q8H [facility] Last Infusion: 10/27/21 07:18 Dose: 0 mls/hr Documented by: TAMMY Morphine Sulfate (Morphine Sulfate 4 Mg/Ml Cartridge) 4 mg IVPUSH Q4H PRN; Protocol PRN Reason: Pain, SOB Pharmacy Consult (Consult Rx Perform Med Rec) 1 each MISCELLANE ONCE PRN PRN Reason: Consult order Pharmacy Consult (Consult Rx Vancomycin Dosing) 1 each MISCELLANE DAILY PRN PRN Reason: Consult order Senna (Sennosides 8.6 Mg Tablet) 17.2 mg PO BEDTIME PRN PRN Reason: Constipation Sodium Chloride (0.9 % Sodium Chloride Flush 3 Ml Syringe) 3 ml IVFLUSH QSHIFT [facility] Last Admin: 10/27/21 07:23 Dose: Not Given Documented by: TAMMY Non-Admin Reason: IV Running Labs CBC & Chem 7: 10/27/21 05:41 10/27/21 05:41 Labs: Laboratory Results - last 24 hr 10/26/21 10/26/21 10/27/21 04:12 17:24 05:41 MCV 90.6 MCH 29.5 MCHC 32.6 RDW 15.8 Plt Count 153 L D MPV 10.0 Absolute Nucleated RBC 0.000 Nucleated RBC % (auto) 0.0 Smear Path Review SEE NOTE aPTT Heparin Protocol 24.7 L D Anion Gap Estim Creat Clear Calc Estimated GFR Random Glucose Calcium 10/27/21 05:41 MCV MCH MCHC RDW Plt Count MPV Absolute Nucleated RBC Nucleated RBC % (auto) Smear Path Review aPTT Heparin Protocol Anion Gap 10 L Estim Creat Clear Calc 55.7 Estimated GFR > 60 Random Glucose 136 H D Calcium 7.8 L Impressions Abdomen/Pelvis CTA 10/26/21 10:08 IMPRESSION: No pulmonary embolism or evidence of right heart strain. Surgical changes relating to femoral-femoral bypass graft are again noted with bypass graft subjacent to the rectus muscles. The previously questioned air and fluid around the left lateral aspect of the graft appears to correspond with small bowel encircling/draped along the posterior aspect of the graft. There is continued evidence of a small bowel obstruction with transition point corresponding to this segment of bowel. Complete left lower lobe atelectasis, less extensive right lower lobe atelectasis, airways mucus plugging and patchy airspace opacities which are likely postinflammatory and are associated with areas of mucous plugging. Small left pleural effusion. Chest CTA 10/26/21 10:08 IMPRESSION: No pulmonary embolism or evidence of right heart strain. Surgical changes relating to femoral-femoral bypass graft are again noted with bypass graft subjacent to the rectus muscles. The previously questioned air and fluid around the left lateral aspect of the graft appears to correspond with small bowel encircling/draped along the posterior aspect of the graft. There is continued evidence of a small bowel obstruction with transition point corresponding to this segment of bowel. Complete left lower lobe atelectasis, less extensive right lower lobe atelectasis, airways mucus plugging and patchy airspace opacities which are likely postinflammatory and are associated with areas of mucous plugging. Small left pleural effusion. 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 noted [no PPM recommended] presented with dyspnea, admitted for hypoxia/aspiration, pSBO # acute hypoxic resp failure - continue to wean O2 as tolerated - no evidence of PE on CT angio [had intermediate-prob V/Q]; heparin gtt d/c'ed # pneumonia, aspiration # Enterobacter aerogenes bacteremia # leukocytosis - levofloxacin + metronidazole d#2/ per ID - WBCs improved - trend PCT # pSBO - NGT, Gen + Vasc Surg following, CT A/P reviewed: graft patent, concern of transition point with bowel near graft- given benign abd exam, observe conservatively at this point but may require re-intervention if obstruction does not resolve # SHERI - resolved p IV fluid hydration # hypernatremia - mild, continue hypotonic fluid replacement # hypokalemia - repleted # PVD - POD #9 fem/fem bypass - Vasc Surg following # moderate protein/calorie malnutrition - supplements when taking POs # VTE ppx - UFH In my clinical judgment, the patient requires continued hospitalization for the following reasons: hypoxia, IV ABX Quality Stroke Does the patient have a stroke diagnosis?: No VTE Prior VTE?: No VTE Risk Level:: Medical - moderate - high VTE Device Contraindication: Treatment Not Indicated VTE Drug Contraindication: N/A - Med Ordered
[2021-10-27 11:58] LABS: MRSA Nasal PCR NEGATIVE (Negative); SA Nasal PCR NEGATIVE (Negative)
--- NOTE | 2021-10-27 14:08 | PM.EVENT ---
Event Note Date of Service: 10/27/21 Event Note: Seen on afternoon rounds Denies any abdominal pain As per nursing staff, has been comfortable and has had no complaints NG tube had been clamped since early this morning I put this to suction and there was no significant output His abdomen remains very soft, nontender, nondistended I removed his NG tube He can have sips of clears and ice chips for now Overall, exam benign He does have some shortness of breath on exam
--- NOTE | 2021-10-27 16:56 | MHC.SLORD ---
Speech Language Pathology Order Status: Discussed with attending MD, Dr. Colón. Dr. Colón wants to keep patient NPO for now, w/ NG tube. Not yet cleared for PO diet. Per MD, hopefully NGT can come out later today.
[2021-10-28] VITALS (15 sets, daily range): BP systolic 107–137; BP diastolic 61–87; PULSE 59–130; RESP 17–20; TEMP 36.3–36.9; O2SAT 91–97
[2021-10-28] MEDS: Morphine Sulfate 4 MG/ML CARTRIDGE IVPUSH ×2 (00:23→05:47)
--- NOTE | 2021-10-28 00:54 | PC.NURSE ---
0010 02 sats 85% on 4 1/2 L, respirations 32-36.respiratory called to give pt updraft treatment and put pt on oxy mask at 14L sats 90-91. notified.pt medicated with morphine 4mg IV and portable CXR ordered
--- NOTE | 2021-10-28 01:30 | PC.NURSE ---
REPIRATIONS DOWN TO 24 AND SATS 93% ON 14l VIA OXYMASK.
[2021-10-28] MEDS: metroNIDAZOLE/NS 500 MG/100 ML PIGGYBACK 100 MG IV ×3 (04:42→20:01)
[2021-10-28] MEDS: Heparin Sodium,Porcine 5,000 UNIT/ML VIAL 5000 UNIT SUBCUT (04:42)
[2021-10-28 06:29] LABS: Hematocrit 32.7 % (42.0-52.0); Hemoglobin 10.8 g/dl (14.0-18.0); Mean Corpuscular Hemoglobin 30.2 pg (27.0-33.0); Mean Corpuscular Volume 91.3 fL (80.0-98.0); Mean Platelet Volume 10.6 fL (9.4-12.4); Platelet Count 157 X10*3/uL (160-400); Red Blood Count 3.58 X10*6/uL (4.60-5.80); Red Cell Distribution Width 15.9 % (11.0-16.0); White Blood Count 26.7 X10*3/uL (4.8-10.8)
[2021-10-28 06:51] LABS: Anion Gap 10 (12-20); Blood Urea Nitrogen 27 mg/dL (9-16); Calcium 7.8 mg/dL (8.4-10.2); Carbon Dioxide 25 mmol/L (22-29); Chloride 111 mmol/L (96-108); Creatinine Clr Calc Pharmacy 67.9; Estimated Glomerular Filt Rate > 60; Glucose Random 130 mg/dL (60-115); Potassium 3.2 mmol/L (3.3-5.1); Sodium 143 mmol/L (135-145)
--- NOTE | 2021-10-28 07:21 | P.PNGS_ITS ---
Subjective Subjective Date of Service: 10/28/21 Interval history: less alert this AM looks very drowsy no vomitting Physical Exam Vital Signs: Vital Signs: Last Vital Signs Temp 97.7 F 10/28/21 03:34 Pulse 72 10/28/21 03:34 Resp 17 10/28/21 03:34 BP 137/68 10/28/21 03:34 Pulse Ox 92 10/28/21 03:34 BMI result Body Mass Index 18.1 Const: Other: drowsy Resp: Other: has rhonchi bilaterally, a little short of breath Cardio: Rate: regular rate GI: Palpation (GI): Soft to palpation, not firm and no guarding Objective Data Active Medications Acetaminophen (Acetaminophen 325 Mg Tablet) 650 mg PO Q6H PRN PRN Reason: Pain, Mild (Pain Scale 1-3) Albuterol/Ipratropium (Albuterol/Iprat 2.5/0.5mg 3 Ml Ampul.Neb) 3 ml INHALE RQ4H WHILE AWAKE PRN PRN Reason: Shortness of Breath/Wheezing Heparin Sodium (Porcine) (Heparin Sodium,Porcine 5,000 Unit/Ml Vial) 5,000 unit SUBCUT Q8H [facility] Last Admin: 10/28/21 04:42 Dose: 5,000 unit Documented by: ERA Dextrose/Sodium Chloride (D51/2ns) 1,000 mls @ 95 mls/hr IVCONT .[id number] [facility] Last Admin: 10/27/21 20:15 Dose: 95 mls/hr Documented by: ERA Levofloxacin (Levaquin) 750 mg in 150 mls @ 100 mls/hr IV Q48H [facility] Last Infusion: 10/26/21 14:59 Dose: 0 mls/hr Documented by: N-SOFFA Metronidazole (Flagyl) 500 mg in 100 mls @ 100 mls/hr IV Q8H [facility] Last Infusion: 10/28/21 06:05 Dose: 0 mls/hr Documented by: ERA Morphine Sulfate (Morphine Sulfate 4 Mg/Ml Cartridge) 4 mg IVPUSH Q4H PRN; Protocol PRN Reason: Pain, SOB Last Admin: 10/28/21 05:47 Dose: 4 mg Documented by: ERA Pharmacy Consult (Consult Rx Perform Med Rec) 1 each MISCELLANE ONCE PRN PRN Reason: Consult order Pharmacy Consult (Consult Rx Vancomycin Dosing) 1 each MISCELLANE DAILY PRN PRN Reason: Consult order Senna (Sennosides 8.6 Mg Tablet) 17.2 mg PO BEDTIME PRN PRN Reason: Constipation Sodium Chloride (0.9 % Sodium Chloride Flush 3 Ml Syringe) 3 ml IVFLUSH QSHIFT [facility] Last Admin: 10/28/21 00:28 Dose: Not Given Documented by: ERA Non-Admin Reason: IV Running Labs CBC & Chem 7: 10/28/21 06:10 10/28/21 06:10 Labs: Laboratory Results - last 24 hr 10/26/21 10/27/21 10/28/21 04:12 10:27 06:10 MCV 91.3 MCH 30.2 MCHC 33.0 RDW 15.9 Plt Count 157 L MPV 10.6 Absolute Nucleated RBC 0.000 Nucleated RBC % (auto) 0.0 Smear Path Review SEE NOTE Anion Gap Estim Creat Clear Calc Estimated GFR Random Glucose Calcium Nasal Screen MRSA (PCR) NEGATIVE Nasal S. aureus Screen NEGATIVE Nasal MRSA/S.aureus Interp SEE NOTE 10/28/21 06:10 MCV MCH MCHC RDW Plt Count MPV Absolute Nucleated RBC Nucleated RBC % (auto) Smear Path Review Anion Gap 10 L Estim Creat Clear Calc 67.9 Estimated GFR > 60 Random Glucose 130 H Calcium 7.8 L Nasal Screen MRSA (PCR) Nasal S. aureus Screen Nasal MRSA/S.aureus Interp Procedures Date of Service Date of Service: 10/28/21 Progress Note: A&P Assessment and plan (1) Partial small bowel obstruction: Status: Acute Assessment and Plan: NGT removed yesterday no vomitting abd remains soft, no apparent tenderness benign exam WBC still elevated treat pneumonia, other acute issues ok to have ice chips, small sips still with aspiration risk in view of mental status Time Spent With Patient Time: Total time spent is greater than 50% in coordination of care (as documented) at patient's floor/unit and/or counseling patient: Quality Stroke Does the patient have a stroke diagnosis?: No VTE Prior VTE?: No VTE Risk Level:: Medical - moderate - high VTE Device Contraindication: Treatment Not Indicated VTE Drug Contraindication: N/A - Med Ordered
[2021-10-28 08:52] LABS: Procalcitonin 1.22 ng/mL
[2021-10-28 09:27] LABS: ABG Base Excess 0.9 mmol/L; ABG HCO3 24 mmol/L (22-26); ABG pCO2 34 mmHg (32-45); ABG pH 7.45 (7.35-7.45); ABG pO2 76 mmHg (83-108)
[2021-10-28 09:32] LABS: Hematocrit 33.6 % (42.0-52.0); Hemoglobin 11.2 g/dl (14.0-18.0); Mean Corpuscular HGB Conc 33.3 g/dl (31.0-36.0); Mean Corpuscular Hemoglobin 30.6 pg (27.0-33.0); Mean Corpuscular Volume 91.8 fL (80.0-98.0); Mean Platelet Volume 10.3 fL (9.4-12.4); Platelet Count 162 X10*3/uL (160-400); Red Blood Count 3.66 X10*6/uL (4.60-5.80); Red Cell Distribution Width 16.3 % (11.0-16.0); White Blood Count 28.3 X10*3/uL (4.8-10.8)
--- NOTE | 2021-10-28 09:40 | HO.VASCPN ---
Subjective Subjective Date of Service: 10/28/21 Patient reports: shortness of breath Interval history: 76-year-old gentleman status post fem-fem bypass. Events over the last 24 hours noted. He does have some shortness of breath. He is still requiring oxygen. Low more lethargic this morning. He has a productive cough this morning as well. He is now for follow-up. Physical Exam Vital Signs: Vital Signs: Last Vital Signs Temp 97.3 F 10/28/21 07:39 Pulse 73 10/28/21 07:39 Resp 19 10/28/21 07:39 BP 128/61 10/28/21 07:39 Pulse Ox 96 10/28/21 07:39 BMI result Body Mass Index 18.1 Const: General: cooperative, healthy appearing and no acute distress Orientation/consciousness: oriented to person, oriented to place and oriented to time HEENT: Head: Yes normal to inspection Neck: Carotids: no bruits Resp: Auscultation: crackles, rales, rhonchi and wheezes Cardio: Rate: regular rate Heart sounds: S1 normal heart sound present and S2 normal heart sound present GI: Inspection: Yes normal to inspection Skin: Other: Bilateral groin incisions well healed General skin exam: no rashes or lesions noted Wounds: no wounds Neuro: General: oriented to person, oriented to place, oriented to time and CN's II-XI intact bilaterally Extrem: General: Yes normal to inspection, Yes full ROM and Yes no clubbing, cyanosis or edema Psych: Appearance: grossly normal and well kempt Speech and movement: Normal speech and movement present Affect: normal affect Progress Note: A&P Assessment and plan (1) Acute respiratory failure with hypoxia: Status: Acute Assessment and Plan: His respiratory status is of concern. It appears to be deteriorating since yesterday. White count is still remaining around 26. He will need aggressive pulmonary toilet. In addition would recommend pulmonary evaluation. He may even require a bronch to clear some of his mucus plugging. Case was discussed with hospitalist team. (2) PAD (peripheral artery disease): Status: Acute Assessment and Plan: Current time graft is patent. Stable and leg as well perfusing. The concern is his postoperative ileus. I do think his pulmonary issues need to be cleared prior to addressing the ileus. Hope that the white count decreases as well. Infectious Disease is following. Time Spent With Patient Time: Total time spent is greater than 50% in coordination of care (as documented) at patient's floor/unit and/or counseling patient: Procedures Date of Service Date of Service: 10/28/21 Quality Stroke Does the patient have a stroke diagnosis?: No VTE Prior VTE?: No VTE Risk Level:: Medical - moderate - high VTE Device Contraindication: Treatment Not Indicated VTE Drug Contraindication: N/A - Med Ordered
[2021-10-28 09:41] LABS: INTERNATIONAL NORM RATIO 1.2 (0.9-1.1); Prothrombin Time 14.2 SEC (9.9-13.0)
--- NOTE | 2021-10-28 09:43 | ECG_ITS ---
Test Reason : rhythm change Blood Pressure : / mmHG Vent. Rate : 102 BPM Atrial Rate : 000 BPM P-R Int : 000 ms QRS Dur : 078 ms QT Int : 364 ms P-R-T Axes : 000 -51 105 degrees QTc Int : 474 ms Rhythm shows atrial flutter with variable block with e/o NSR at the end of the strip. Left axis deviation Nonspecific T wave abnormality Abnormal ECG When compared with ECG of 24-OCT-2021 11:07, Atrial fibrillation has replaced Sinus rhythm Nonspecific T wave abnormality, improved in Inferior leads Referred By: Rashad Stoddard Electronically Signed By:RASHAD STODDARD MD
[2021-10-28 09:44] LABS: Partial Thromboplastin Time 25.5 SEC (24.1-38.0)
--- NOTE | 2021-10-28 10:03 | P.PNCA_ITS ---
Subjective Subjective Date of Service: 10/28/21 Principal diagnosis: Tachycardia Interval history: We were asked to see Jake today because he converted from sinus rhythm in the 70s into rapid atrial arrhythmias, EKG consistent with atrial flutter with rapid ventricular rate. Patient has no symptoms related to it. No hemodynamic compromise. He was seen right away by the hospitalist team and was given a dose of Lovenox. Patient has no prior history of atrial fibrillation that is known. He has prior echocardiogram shows normal LV systolic function and the stress test at show no evidence of ischemia. He denies any lightheadedness, syncope. His main complaint currently is shortness of breath related to his pulmonary issues. Being seen by Pulmonary. Review of Systems Constitutional: Reports weakness Eyes: Reports no additional eye complaints Cardiovascular: Denies chest pain, Denies rapid heart rate, Denies leg edema, Denies lightheadedness, Denies Loss of Consciousness, Denies palpitations and Reports dyspnea Respiratory: Reports cough, Reports excessive phlegm production and Reports dyspnea Gastrointestinal: Reports no additional gastrointestinal complaints Genitourinary: Reports no additional male genitourinary complaints Musculoskeletal: Reports no additional musculoskeletal complaints Skin/Breast: Reports system reviewed and no additional complaints, except as docu Reports system reviewed and no additional complaints, except as documented and Reports weakness Psychiatric: Reports no additional psychiatric complaints Endocrine: Reports no additional endocrine complaints and Denies palpitations Physical Exam Vital Signs: Last Vital Signs Temp 97.3 F 10/28/21 07:39 Pulse 123 H 10/28/21 09:43 Resp 19 10/28/21 07:39 BP 110/87 10/28/21 09:43 Pulse Ox 96 10/28/21 07:39 BMI result Body Mass Index 18.1 Const General: cooperative, in distress mild and respiratory and ill appearing Nutritional Appearance: underweight Orientation/consciousness: patient oriented x3 Neck Neck: Yes trachea midline, Yes supple and Yes no JVD Resp Effort & Inspection: decreased respiratory effort Auscultation: no rales, no wheezes and diminished lung sounds Cardio Jugular venous distension: no JVD Rate: tachycardic Rhythm: abnormal rhythm irregularly irregular Heart sounds: S1 normal heart sound present, S2 normal heart sound present, no click, no gallops and no murmurs GI Auscultation: normal bowel sounds Neuro General: patient oriented x3 and no focal motor deficits Extrem General: Yes no clubbing, cyanosis or edema Objective Labs and Meds Result diagrams: 10/28/21 09:23 10/28/21 06:10 Lab results: Laboratory Results - last 24 hr 10/27/21 10/28/21 10/28/21 10:27 06:10 06:10 WBC 26.7 H RBC 3.58 L Hgb 10.8 L Hct 32.7 L MCV 91.3 MCH 30.2 MCHC 33.0 RDW 15.9 Plt Count 157 L MPV 10.6 Absolute Nucleated RBC 0.000 Nucleated RBC % (auto) 0.0 PT INR APTT O2 Saturation ABG pH at Pt Temp ABG pCO2 at Pt Temp ABG pO2 at Pt Temp ABG HCO3 ABG Base Excess (Actual) Sodium 143 Potassium 3.2 L Chloride 111 H Carbon Dioxide 25 Anion Gap 10 L BUN 27 H Creatinine 0.73 Estim Creat Clear Calc 67.9 Estimated GFR > 60 Random Glucose 130 H Calcium 7.8 L Magnesium 2.0 Procalcitonin Nasal Screen MRSA (PCR) NEGATIVE Nasal S. aureus Screen NEGATIVE Nasal MRSA/S.aureus Interp SEE NOTE 10/28/21 10/28/21 10/28/21 06:10 09:19 09:23 WBC 28.3 H RBC 3.66 L Hgb 11.2 L Hct 33.6 L MCV 91.8 MCH 30.6 MCHC 33.3 RDW 16.3 H Plt Count 162 MPV 10.3 Absolute Nucleated RBC 0.000 Nucleated RBC % (auto) 0.0 PT INR APTT O2 Saturation 95.0 ABG pH at Pt Temp 7.45 ABG pCO2 at Pt Temp 34 ABG pO2 at Pt Temp 76 L ABG HCO3 24 ABG Base Excess (Actual) 0.9 Sodium Potassium Chloride Carbon Dioxide Anion Gap BUN Creatinine Estim Creat Clear Calc Estimated GFR Random Glucose Calcium Magnesium Procalcitonin 1.22 Nasal Screen MRSA (PCR) Nasal S. aureus Screen Nasal MRSA/S.aureus Interp 10/28/21 09:23 WBC RBC Hgb Hct MCV MCH MCHC RDW Plt Count MPV Absolute Nucleated RBC Nucleated RBC % (auto) PT 14.2 H INR 1.2 H APTT 25.5 O2 Saturation ABG pH at Pt Temp ABG pCO2 at Pt Temp ABG pO2 at Pt Temp ABG HCO3 ABG Base Excess (Actual) Sodium Potassium Chloride Carbon Dioxide Anion Gap BUN Creatinine Estim Creat Clear Calc Estimated GFR Random Glucose Calcium Magnesium Procalcitonin Nasal Screen MRSA (PCR) Nasal S. aureus Screen Nasal MRSA/S.aureus Interp Imaging Radiologist's impression: Impressions Chest X-Ray 10/28/21 01:00 IMPRESSION: Regions of airspace opacity in the mid right lung and bilateral lower lobes, similar to possibly slightly worsened from 10/26/2021. Progress Note: A&P Assessment and plan (1) New onset atrial fibrillation: Status: Acute Assessment and Plan: New onset atrial flutter/fibrillation with rapid ventricular response is elderly gentleman who has significant pulmonary issues with aspiration pneumonia and mucus plugging as per the hospitalist team. Most likely cause for his development of atrial fibrillation. He is at risk for atrial fibrillation given his age and underlying vascular risk factors. Currently hemodynamically stable without any were symptoms and no symptoms palpitation or lightheadedness. However given that this is rapid and new onset atrial fibrillation would try to get him back into normal rhythm with IV amiodarone to reduce his cardiac morbidity associated with this medical admission. He is already getting Lovenox at this point in time. Start him on amiodarone loading 150 mg followed by our drip and hopefully will converted back to sinus rhythm. If he does then will sw itch him to oral amiodarone for short period time to prevent recurrent atrial fibrillation and prolongation of hospital stay. Meanwhile continue focus on his underlying medical and pulmonary condition treat this aggressively. If patient converts to normal rhythm, perform an EKG Will follow with you Time Spent With Patient Time: Total time spent is greater than 50% in coordination of care (as documented) at patient's floor/unit and/or counseling patient: Progress Note: Quality Stroke Does the patient have a stroke diagnosis?: No Procedures Date of Service Date of Service: 10/28/21
[2021-10-28] MEDS: Amiodarone/Dextrose 150 MG/100 ML PLAST..BAG 600 MG IV (10:17)
[2021-10-28] MEDS: Enoxaparin Sodium 60 MG/0.6 ML SYRINGE SUBCUT ×2 (10:18→20:01)
[2021-10-28] MEDS: KCl 20 mEq in 5% Dex/0.45% Sod 20 MEQ/1,000 ML IV.SOLN 95 MEQ IVCONT (10:21)
[2021-10-28] MEDS: Amiodarone HCL 900 MG in 0.9 % Sodium Chloride 500 ML 34.53 MG IVCONT (10:29)
[2021-10-28] MEDS: Albuterol/Iprat 2.5/0.5MG 3 ML AMPUL.NEB INHALE ×3 (11:07→19:31)
[2021-10-28 11:33] LABS: ABG Refer to POC result
--- NOTE | 2021-10-28 11:39 | MHC.CLN ---
F/U PT IS DAY NPO PT IS MODERATELY MALNOURISHED SEE ALSO FULL CLINICAL NUTRITION ASSESSMENT DATED 10/27/21 DIET RX: NPO-NG TUBE REMOVED YESTERDAY [employer] BRICK RECOMMENDS CHOPPED DIET 10/27 WHEN DIET TO ADVANCE; RECOMMEND ADDING ENSURE TID TO INCREASE KCALS SUPPLEMENT TO PROVIDE 1050KCALS, 60G PROTEIN MONITOR PO INTAKE CLOSELY IF DIET DOES NOT ADVANCE TODAY; RECOMMEND PPN D10AA4.25 AT 45ML/HR TP PROVIDE 551KCALS, 46G PROTEIN
--- NOTE | 2021-10-28 12:34 | MHC.SLORD ---
Speech Language Pathology Order Status: Contacted this a.m. re: PT readiness for PO(NG Tube removed 10/27). MD reported continued concern RE: worsing O2, holding feeding as a result (NPO). Will continue to follow.
--- NOTE | 2021-10-28 13:03 | PM.EVENT ---
Event Note Date of Service: 10/28/21 Event Note: pt seen and examined still with shortness of breath afib with RVR no vomitting reported pt appears more awake than earlier pt says he is comfortable denies abdl pain abd soft, no guarding or rebound no signficant tenderness at this time xray shows diffuse SB dilatation may eventually need to explore or do laparoscopy to check intraperitoneal part of graft however, pt has severe pulmonary and cardiac compromise at this time from pneumonia with hypoxemia - lung opacities may be worse again, abdominal exam is very benign may need bronch to clear secretions above discussed with Hospitalist and vascular- all in agreement long discussion with brother Jaden - he states he would prefer to avoid another surgery if possible - he also understands rationale for plan as above; he understands tenuous condition of pt, especially cardiac- pulmonary-hair if pt with vomitting, reinsert NGT
[2021-10-28] MEDS: levoFLOXacin/D5W 750 MG/150 ML PIGGYBACK 100 MG IV (14:17)
--- NOTE | 2021-10-28 16:46 | HO.PM.IMPN ---
Subjective Subjective Date of Service: 10/28/21 Interval History: NGT removed yesterday developed RLQ pain yesterday afternoon increasing O2 requirement, now on 15L via Oxymask, but denies worsening dyspnea no fever no flatus yet went into AF/RVR this AM, new-onset Review of Systems Review of Systems: Yes all other systems are reviewed and are negative Physical Exam Vital Signs: Vital Signs: Last Vital Signs Temp 97.3 F 10/28/21 15:27 Pulse 59 10/28/21 15:27 Resp 18 10/28/21 15:27 BP 107/65 10/28/21 15:27 Pulse Ox 92 10/28/21 15:27 BMI result Body Mass Index 18.1 Gen: NAD, thin/malnourished HEENT: sclera anicteric, moist mucus membranes Neck: supple Lungs: bilateral inspiratory crackles Heart: rapid, irregular, no murmurs Abd :mild tenderness RLQ without rebound; no bowel sounds elicited Ext: no edema Skin: warm/well-perfused Neuro: alert and oriented x3, no focal findings Psych: appropriate affect Objective Data Active Medications Acetaminophen (Acetaminophen 325 Mg Tablet) 650 mg PO Q6H PRN PRN Reason: Pain, Mild (Pain Scale 1-3) Albuterol/Ipratropium (Albuterol/Iprat 2.5/0.5mg 3 Ml Ampul.Neb) 3 ml INHALE RQ4H WHILE AWAKE REPLACED BY [facility] Last Admin: 10/28/21 15:13 Dose: 3 ml Documented by: LAKEISHA Enoxaparin Sodium (Enoxaparin Sodium 60 Mg/0.6 Ml Syringe) 60 mg 1 mg/kg (60 mg) SUBCUT Q12H REPLACED BY [facility] Last Admin: 10/28/21 10:18 Dose: 60 mg Documented by: TAMMY Levofloxacin (Levaquin) 750 mg in 150 mls @ 100 mls/hr IV Q48H REPLACED BY [facility] Last Infusion: 10/28/21 16:00 Dose: 0 mls/hr Documented by: ADIEL Metronidazole (Flagyl) 500 mg in 100 mls @ 100 mls/hr IV Q8H REPLACED BY [facility] Last Infusion: 10/28/21 16:00 Dose: 0 mls/hr Documented by: ADIEL Potassium Chloride/Dextrose/Sod Cl () 20 meq in 1,000 mls @ 95 mls/hr IVCONT .[id number] REPLACED BY [facility] Last Infusion: 10/28/21 15:59 Dose: 95 mls/hr Documented by: ADIEL Amiodarone HCl 900 mg/ Sodium (Chloride) 518 mls @ 34.533 mls/hr IVCONT .Q15H1M REPLACED BY [facility]; Protocol Last Infusion: 10/28/21 13:18 Dose: 1 mg/min, 34.53 mls/hr Documented by: MEGHANN Morphine Sulfate (Morphine Sulfate 4 Mg/Ml Cartridge) 4 mg IVPUSH Q4H PRN; Protocol PRN Reason: Pain, SOB Last Admin: 10/28/21 05:47 Dose: 4 mg Documented by: ERA Pharmacy Consult (Consult Rx Perform Med Rec) 1 each MISCELLANE ONCE PRN PRN Reason: Consult order Pharmacy Consult (Consult Rx Vancomycin Dosing) 1 each MISCELLANE DAILY PRN PRN Reason: Consult order Senna (Sennosides 8.6 Mg Tablet) 17.2 mg PO BEDTIME PRN PRN Reason: Constipation Sodium Chloride (0.9 % Sodium Chloride Flush 3 Ml Syringe) 3 ml IVFLUSH QSHIFT REPLACED BY [facility] Last Admin: 10/28/21 15:59 Dose: Not Given Documented by: ADIEL Non-Admin Reason: IV Running Labs CBC & Chem 7: 10/28/21 09:23 10/28/21 06:10 Labs: Laboratory Results - last 24 hr 10/28/21 10/28/21 10/28/21 06:10 06:10 06:10 MCV 91.3 MCH 30.2 MCHC 33.0 RDW 15.9 Plt Count 157 L MPV 10.6 Absolute Nucleated RBC 0.000 Nucleated RBC % (auto) 0.0 PT INR APTT O2 Saturation ABG pH at Pt Temp ABG pCO2 at Pt Temp ABG pO2 at Pt Temp ABG HCO3 ABG Base Excess (Actual) Anion Gap 10 L Estim Creat Clear Calc 67.9 Estimated GFR > 60 Random Glucose 130 H Calcium 7.8 L Magnesium 2.0 Procalcitonin 1.22 10/28/21 10/28/21 10/28/21 09:19 09:23 09:23 MCV 91.8 MCH 30.6 MCHC 33.3 RDW 16.3 H Plt Count 162 MPV 10.3 Absolute Nucleated RBC 0.000 Nucleated RBC % (auto) 0.0 PT 14.2 H INR 1.2 H APTT 25.5 O2 Saturation 95.0 ABG pH at Pt Temp 7.45 ABG pCO2 at Pt Temp 34 ABG pO2 at Pt Temp 76 L ABG HCO3 24 ABG Base Excess (Actual) 0.9 Anion Gap Estim Creat Clear Calc Estimated GFR Random Glucose Calcium Magnesium Procalcitonin Assessment and Plan (1) Acute respiratory failure with hypoxia: Status: Acute (2) Aspiration pneumonia: Status: Acute (3) Pulmonary emboli: Status: Acute (4) Bradycardia: Status: Acute (5) Partial small bowel obstruction: Status: Acute (6) Status post femorofemoral bypass surgery: Status: Acute Plan hospital d#5 76yo M with hx prostate CA, PVD s/p fem-fem bypass 10/18/21 with 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 noted [no PPM recommended] presented with dyspnea, admitted for hypoxia/aspiration, pSBO developed AF/RVR # acute hypoxic resp failure # pneumonia, suspected aspiration # Enterobacter aerogenes bacteremia # leukocytosis - Pulmonary consulted given extensive mucus plugging/atelectasis, recommend NAC 10% nebulized qid, Acapella device, may need bronchoscopy if worsens - levofloxacin + metronidazole d#3 per ID - WBCs peaked, PCT trending downwards - MRSA swab negative - no evidence of PE on CT angio [had intermediate-prob V/Q]; heparin gtt d/c'ed # AF/RVR, new-onset - likely driven by pulmonary process - Cardiology consulted and placed on amiodarone IV load/drip in attempt to chemically cardiovert - enoxaparin 1 mg/kg q12h for anticoagulation while NPO # pSBO - NGT out, continue NPO, Gen + Vasc Surg following daily, CT A/P reviewed: graft patent, concern of transition point with bowel near graft- given benign abd exam, observe conservatively at this point but may require re-intervention if obstruction does not resolve # SHERI - resolved p IV fluid hydration # hypernatremia - resolved # hypokalemia - add KCl to maintenance fluids # PVD - POD #10 fem/fem bypass - Vasc Surg following # moderate protein/calorie malnutrition - supplements once taking POs # VTE ppx - LMWH # dispo - eventual STR In my clinical judgment, the patient requires continued hospitalization for the following reasons: hypoxia, IV ABX, NPO I updated pt's brother at bedside Quality Stroke Does the patient have a stroke diagnosis?: No VTE Prior VTE?: No VTE Risk Level:: Medical - moderate - high VTE Device Contraindication: Treatment Not Indicated VTE Drug Contraindication: N/A - Med Ordered
--- NOTE | 2021-10-28 17:20 | P.CONPL_ITS ---
History of Present Illness History of Present Illness Consult date: 10/28/21 Reason for consult: dyspnea, hypoxemia and pneumonia Chief complaint: Hypoxia, elevated troponin Narrative: THIS 76 YEARS OLD GENTLEMAN, HAD FEM-FEM BYPASS. ON 10/18/21 POSTOPERATIVELY HE DID HAVE SOME HEART BLOCK BUT DID NOT REQUIRE PACEMAKER, HE WAS DISCHARGED HOME AFTER 2 DAYS, INITIALLY DID WELL. BUT STARTED HAVING PROBLEM OF INTERMITTENT NAUSEA AND VOMITING IN SMALL AMOUNTS. HE DEVELOPED GRADUALLY INCREASING SHORTNESS OF BREATH. AND DRY COUGH. HE WAS BROUGHT BACK TO THE HOSPITAL ON 10/23, AND FOUND TO HAVE SIGNIFICANT HYPOXEMIA. CHEST X-RAY SHOWED PATCHY DENSITIES IN THE LUNGS AND ALSO ATELECTASIS LEFT LOWER LOBE. THERE WAS A QUESTION OF PULMONARY ASPIRATION, PATIENT HAS BEEN ON [employer]. POSSIBILITY OF PULMONARY EMBOLISM CONSIDERED. BUT CTA OF THE CHEST REPORTED NEGATIVE FOR PULMONARY EMBOLISM, BUT HAS SHOWN PATCHY DENSITIES ON BOTH SIDES, ALONG WITH ATELECTASIS OF THE LEFT BASE. PATIENT DOES HAVE HISTORY OF PERIPHERAL VASCULAR DISEASE, ALSO HAS HISTORY OF SMOKING THROUGHOUT HIS ADULT LIFE NOW HE HAD CUT DOWN TO 1 OR 2 CIGARETTES A DAY. PREVIOUS LUNG DISEASE WAS REPORTED. Review of Systems Review of Systems: Yes Unobtainable due to mental condition [facility] Past Medical History Medical History (Updated 10/28/21 @ 17:32 by Luis Holbrook MD) Bacteremia History of radiation therapy Illiterate Mentally challenged Mucus plugging of bronchi Partial small bowel obstruction Prostate cancer PVD (peripheral vascular disease) Family History Family History Father No problems noted. Mother No problems noted. Family history: reviewed and not pertinent Surgical History Surgical History Hx of surgical procedure No pertinent past surgical history Social History Social History Household Members: Family Household Members Other:: Lives with his sister Housing: Unknown / Unable to assess Are you a primary specialist wound care to a significant other at home: No Do you presently have visiting nurse or other home services: No Alcohol intake: never Patient Tobacco Use Status: Current someday Tobacco user Tobacco use type: Cigarette Cigarettes Per Day: 1 Advance Directives Date on File: 10/18/21 service: No Current occupational status: disabled Meds Allergies Allergy/AdvReac Type Severity Reaction Status Date / Time No Known Allergies Allergy Verified 10/14/21 10:36 [No Known Allergies*] Active Medications: Current Medications Acetaminophen (Acetaminophen 325 Mg Tablet) 650 mg PO Q6H PRN PRN Reason: Pain, Mild (Pain Scale 1-3) Acetylcysteine (Acetylcysteine 10 % 400 Mg/4 Ml Vial) 400 mg INHALE RQID KENYA Albuterol/Ipratropium (Albuterol/Iprat 2.5/0.5mg 3 Ml Ampul.Neb) 3 ml INHALE RQ4H WHILE AWAKE [facility] Last Admin: 10/28/21 15:13 Dose: 3 ml Documented by: Enoxaparin Sodium (Enoxaparin Sodium 60 Mg/0.6 Ml Syringe) 60 mg 1 mg/kg (60 mg) SUBCUT Q12H [facility] Last Admin: 10/28/21 10:18 Dose: 60 mg Documented by: Levofloxacin (Levaquin) 750 mg in 150 mls @ 100 mls/hr IV Q48H [facility] Last Infusion: 10/28/21 16:00 Dose: Infused Documented by: Metronidazole (Flagyl) 500 mg in 100 mls @ 100 mls/hr IV Q8H [facility] Last Infusion: 10/28/21 16:00 Dose: Infused Documented by: Potassium Chloride/Dextrose/Sod Cl () 20 meq in 1,000 mls @ 95 mls/hr IVCONT .[id number] [facility] Last Infusion: 10/28/21 15:59 Dose: 95 mls/hr Documented by: Amiodarone HCl 900 mg/ Sodium (Chloride) 518 mls @ 34.533 mls/hr IVCONT .Q15H1M [facility]; Protocol Last Infusion: 10/28/21 16:52 Dose: 0.5 mg/min, 17.27 mls/hr Documented by: Morphine Sulfate (Morphine Sulfate 4 Mg/Ml Cartridge) 4 mg IVPUSH Q4H PRN; Protocol PRN Reason: Pain, SOB Last Admin: 10/28/21 05:47 Dose: 4 mg Documented by: Pharmacy Consult (Consult Rx Perform Med Rec) 1 each MISCELLANE ONCE PRN PRN Reason: Consult order Pharmacy Consult (Consult Rx Vancomycin Dosing) 1 each MISCELLANE DAILY PRN PRN Reason: Consult order Senna (Sennosides 8.6 Mg Tablet) 17.2 mg PO BEDTIME PRN PRN Reason: Constipation Sodium Chloride (0.9 % Sodium Chloride Flush 3 Ml Syringe) 3 ml IVFLUSH QSHIFT [facility] Last Admin: 10/28/21 15:59 Dose: Not Given Documented by: Home Medications Medication Instructions Recorded Confirmed Last Taken Type aspirin 81 mg tablet,delayed 81 mg PO DAILY 09/21/21 10/23/21 10/22/21 History release (Adult Aspirin Regimen) ibuprofen 200 mg tablet (Advil) 200 mg PO Q6H PRN 09/21/21 10/23/21 Unknown History multivitamin 1 tab PO DAILY 09/21/21 10/23/21 10/22/21 History Physical Exam Vital Signs: Vital Signs: Last Vital Signs Temp 97.3 F 10/28/21 15:27 Pulse 59 10/28/21 15:27 Resp 18 10/28/21 15:27 BP 107/65 10/28/21 15:27 Pulse Ox 92 10/28/21 15:27 BMI result Body Mass Index 18.1 Const: General: comfortable (With the use of oxygen), no acute distress, alert and awake Orientation/consciousness: patient oriented x3 HEENT: Head: Yes normal to inspection General nose exam: No nasal polyps present and No nasal discharge present Face and sinus: Yes sinuses nontender Mouth: oropharynx normal Throat: Yes posterior oropharynx normal Eyes: General: appearance normal, both eyes and all related structures Neck: Neck: Yes normal visual inspection, Yes no lymphadenopathy, Yes trachea midline and Yes no JVD Thyroid: Thyroid normal Chest: Chest palpation & inspection: normal inspection of the chest, normal palpation of entire chest wall and no tenderness Resp: Other: Percussion note is resonant, Breath sounds are distant on both sides. There are a few scattered crepitations over the lower lobes, No wheezes. Cardio: Palpation: normal PMI Rate: regular rate Rhythm: regular rhythm Heart sounds: no gallops and no murmurs GI: Palpation (GI): Soft to palpation, nontender, No hepatosplenomegaly present and no masses Auscultation: normal bowel sounds Back/Spine/Pelvis: Thoracic/Lumbar Spine: thoracic and lumbar spine normal to inspection Skin: General skin exam: no rashes or lesions noted Neuro: General: patient oriented x3 and no focal motor deficits Cranial nerves: Yes CN's II-XII intact bilaterally Extrem: General: Yes normal to inspection and Yes no calf tenderness Psych: Speech and movement: Normal speech and movement present Results Laboratory Findings CBC and BMP: 10/28/21 09:23 10/28/21 06:10 ABG, PT/INR, D-dimer: PT/INR, D-dimer PT 14.2 SEC (9.9-13.0) H 10/28/21 09:23 INR 1.2 (0.9-1.1) H 10/28/21 09:23 Abnormal lab findings: Abnormal Labs 10/23/21 10/23/21 10/23/21 18:15 18:16 18:16 WBC 14.1 H RBC 4.28 L Hgb 12.8 L Hct 38.1 L RDW Plt Count Neutrophils % (Manual) 13 L Band Neutrophils % 60 H Lymphocytes % (Manual) 3 L Abs Neuts (Manual) 10.3 H Lymphocytes # (Manual) 0.4 L Monocytes # (Manual) 1.4 H PT 14.2 H INR 1.2 H aPTT Heparin Protocol ABG pO2 at Pt Temp Sodium Potassium Chloride 95 L Carbon Dioxide 30 H Anion Gap BUN 64 H D Creatinine 1.52 H Random Glucose 151 H D Lactic Acid Calcium Magnesium Total Bilirubin 4.6 H Direct Bilirubin 2.1 H Troponin I High Sens B-Natriuretic Peptide Urine Color Ur Specific Notrees Urine Protein Urine Blood 10/23/21 10/23/21 10/23/21 18:16 18:16 19:56 WBC RBC Hgb Hct RDW Plt Count Neutrophils % (Manual) Band Neutrophils % Lymphocytes % (Manual) Abs Neuts (Manual) Lymphocytes # (Manual) Monocytes # (Manual) PT INR aPTT Heparin Protocol ABG pO2 at Pt Temp Sodium Potassium Chloride Carbon Dioxide Anion Gap BUN Creatinine Random Glucose Lactic Acid 2.4 H* Calcium Magnesium Total Bilirubin Direct Bilirubin Troponin I High Sens 56.6 H B-Natriuretic Peptide 115 H Urine Color ORANGE A Ur Specific Notrees >= 1.030 H Urine Protein 1+ H Urine Blood 2+ H 10/23/21 10/24/21 10/24/21 21:21 04:09 04:09 WBC RBC 4.15 L Hgb 12.4 L Hct 37.1 L RDW Plt Count Neutrophils % (Manual) 36 L Band Neutrophils % 41 H Lymphocytes % (Manual) 12 L Abs Neuts (Manual) Lymphocytes # (Manual) Monocytes # (Manual) PT 14.1 H INR 1.2 H aPTT Heparin Protocol 27.9 L ABG pO2 at Pt Temp Sodium Potassium Chloride Carbon Dioxide Anion Gap BUN Creatinine Random Glucose Lactic Acid Calcium Magnesium Total Bilirubin Direct Bilirubin Troponin I High Sens 57.9 H B-Natriuretic Peptide Urine Color Ur Specific Notrees Urine Protein Urine Blood 10/24/21 10/24/21 10/25/21 07:22 10:54 08:05 WBC RBC Hgb Hct RDW Plt Count Neutrophils % (Manual) Band Neutrophils % Lymphocytes % (Manual) Abs Neuts (Manual) Lymphocytes # (Manual) Monocytes # (Manual) PT INR aPTT Heparin Protocol 45.0 L D 46.1 L ABG pO2 at Pt Temp Sodium Potassium Chloride Carbon Dioxide Anion Gap 23 H BUN 74 H Creatinine 1.74 H Random Glucose Lactic Acid Calcium Magnesium Total Bilirubin Direct Bilirubin Troponin I High Sens B-Natriuretic Peptide Urine Color Ur Specific Notrees Urine Protein Urine Blood 10/25/21 10/25/21 10/25/21 08:05 08:05 20:52 WBC 32.5 H* RBC 3.86 L Hgb 11.7 L Hct 35.2 L RDW Plt Count Neutrophils % (Manual) 77 H Band Neutrophils % 13 H Lymphocytes % (Manual) 2 L Abs Neuts (Manual) 29.3 H Lymphocytes # (Manual) 0.7 L Monocytes # (Manual) 2.0 H PT INR aPTT Heparin Protocol 36.6 L D ABG pO2 at Pt Temp Sodium 147 H Potassium 3.0 L D Chloride Carbon Dioxide Anion Gap BUN 75 H Creatinine 1.77 H Random Glucose Lactic Acid Calcium 8.2 L D Magnesium Total Bilirubin Direct Bilirubin Troponin I High Sens B-Natriuretic Peptide Urine Color Ur Specific Notrees Urine Protein Urine Blood 10/25/21 10/26/21 10/26/21 23:05 04:12 04:12 WBC 36.4 H* RBC 3.49 L Hgb 10.4 L Hct 31.5 L RDW Plt Count Neutrophils % (Manual) Band Neutrophils % Lymphocytes % (Manual) Abs Neuts (Manual) Lymphocytes # (Manual) Monocytes # (Manual) PT INR aPTT Heparin Protocol ABG pO2 at Pt Temp Sodium 147 H 148 H Potassium Chloride 111 H 113 H Carbon Dioxide Anion Gap BUN 70 H 68 H Creatinine 1.42 H Random Glucose Lactic Acid Calcium 8.1 L 8.1 L Magnesium 2.8 H Total Bilirubin Direct Bilirubin Troponin I High Sens B-Natriuretic Peptide Urine Color Ur Specific Notrees Urine Protein Urine Blood 10/26/21 10/26/21 10/27/21 10:05 17:24 05:41 WBC 25.9 H RBC 3.29 L Hgb 9.7 L Hct 29.8 L RDW Plt Count 153 L D Neutrophils % (Manual) Band Neutrophils % Lymphocytes % (Manual) Abs Neuts (Manual) Lymphocytes # (Manual) Monocytes # (Manual) PT INR aPTT Heparin Protocol 48.2 L 24.7 L D ABG pO2 at Pt Temp Sodium Potassium Chloride Carbon Dioxide Anion Gap BUN Creatinine Random Glucose Lactic Acid Calcium Magnesium Total Bilirubin Direct Bilirubin Troponin I High Sens B-Natriuretic Peptide Urine Color Ur Specific Notrees Urine Protein Urine Blood 10/27/21 10/28/21 10/28/21 05:41 06:10 06:10 WBC 26.7 H RBC 3.58 L Hgb 10.8 L Hct 32.7 L RDW Plt Count 157 L Neutrophils % (Manual) Band Neutrophils % Lymphocytes % (Manual) Abs Neuts (Manual) Lymphocytes # (Manual) Monocytes # (Manual) PT INR aPTT Heparin Protocol ABG pO2 at Pt Temp Sodium 147 H Potassium 3.2 L Chloride 114 H 111 H Carbon Dioxide Anion Gap 10 L 10 L BUN 41 H 27 H Creatinine Random Glucose 136 H D 130 H Lactic Acid Calcium 7.8 L 7.8 L Magnesium Total Bilirubin Direct Bilirubin Troponin I High Sens B-Natriuretic Peptide Urine Color Ur Specific Notrees Urine Protein Urine Blood 10/28/21 10/28/21 10/28/21 09:19 09:23 09:23 WBC 28.3 H RBC 3.66 L Hgb 11.2 L Hct 33.6 L RDW 16.3 H Plt Count Neutrophils % (Manual) Band Neutrophils % Lymphocytes % (Manual) Abs Neuts (Manual) Lymphocytes # (Manual) Monocytes # (Manual) PT 14.2 H INR 1.2 H aPTT Heparin Protocol ABG pO2 at Pt Temp 76 L Sodium Potassium Chloride Carbon Dioxide Anion Gap BUN Creatinine Random Glucose Lactic Acid Calcium Magnesium Total Bilirubin Direct Bilirubin Troponin I High Sens B-Natriuretic Peptide Urine Color Ur Specific Notrees Urine Protein Urine Blood Microbiology: Microbiology 10/23/21 18:16 Blood - Venous Blood Culture - Final Enterobacter aerogenes 10/23/21 18:47 Blood - Venous Blood Culture - Preliminary No growth after 48 hours. Diagnostic Findings Chest x-ray: report reviewed and image reviewed CT scan - chest: report reviewed and image reviewed Assessment and Plan (1) Aspiration pneumonia: Status: Acute (2) Acute respiratory failure with hypoxia: Status: Acute (3) Bacteremia: Status: Acute (4) Mucus plugging of bronchi: Status: Acute Plan This 76 years old gentleman, with recent history as noted above, As relatively acute respiratory distress, requiring high concentration of O2. He has aspiration pneumonia, Gram-negative bacteremia and possible mucus plugging, causing patchy densities.. Recc . Continue antibiotic coverage as per Oxygen supplementation with OxyMask , to keep O2 sat above 90%. DuoNeb updrafts Q 6 hours while awake . Add Mucomyst why nebulizer q.i.d.. I do not think bronchoscopy is urgently needed at this time. If he develops increasing respiratory distress he may need noninvasive ventilatory support. Thank you very much for asthma to see this patient. Procedures Date of Service Date of Service: 10/28/21
--- NOTE | 2021-10-28 18:06 | PC.NURSE ---
0900- Patient HR converted from sinus rhythm to afib. HR went as high as 160-170s. Currently 120s. Dr. Colón made aware. Cardizem drip initially ordered, but per cardiology order chagned to amiodarone drip. Amiodarone drip hung per order. Patient BP and HR maintaining. Will continue to monitor.
[2021-10-28] MEDS: Acetylcysteine 10 % 400 MG/4 ML VIAL INHALE (19:31)
[2021-10-29] VITALS (11 sets, daily range): BP systolic 128–173; BP diastolic 68–87; PULSE 64–83; RESP 17–20; TEMP 36.8–37.3; O2SAT 96–100; BMI 18.1
[2021-10-29] MEDS: metroNIDAZOLE/NS 500 MG/100 ML PIGGYBACK 100 MG IV ×3 (05:06→20:05)
[2021-10-29] MEDS: KCl 20 mEq in 5% Dex/0.45% Sod 20 MEQ/1,000 ML IV.SOLN 95 MEQ IVCONT ×2 (05:36→09:23)
[2021-10-29 07:12] LABS: Hematocrit 30.8 % (42.0-52.0); Hemoglobin 10.1 g/dl (14.0-18.0); Mean Corpuscular HGB Conc 32.8 g/dl (31.0-36.0); Mean Corpuscular Hemoglobin 29.4 pg (27.0-33.0); Mean Corpuscular Volume 89.8 fL (80.0-98.0); Mean Platelet Volume 10.4 fL (9.4-12.4); Red Blood Count 3.43 X10*6/uL (4.60-5.80); Red Cell Distribution Width 16.1 % (11.0-16.0); White Blood Count 25.2 X10*3/uL (4.8-10.8)
[2021-10-29 07:17] LABS: INTERNATIONAL NORM RATIO 1.5 (0.9-1.1); Prothrombin Time 17.5 SEC (9.9-13.0)
[2021-10-29 07:22] LABS: Anion Gap 11 (12-20); Blood Urea Nitrogen 23 mg/dL (9-16); Calcium 7.4 mg/dL (8.4-10.2); Carbon Dioxide 24 mmol/L (22-29); Chloride 111 mmol/L (96-108); Creatinine Clr Calc Pharmacy 65.2; Estimated Glomerular Filt Rate > 60; Glucose Random 94 mg/dL (60-115); Potassium 3.3 mmol/L (3.3-5.1); Sodium 143 mmol/L (135-145)
[2021-10-29 07:27] LABS: Platelet Count 70 X10*3/uL (160-400)
--- NOTE | 2021-10-29 07:34 | PM.PNGS ---
Subjective Subjective Date of Service: 10/29/21 Interval history: as per nursing staff - no events overnight patient had not complained of pain last night currently says he is comfortable denies abdominal pain no vomiting reported Physical Exam Vital Signs: Vital Signs: Last Vital Signs Temp 98.4 F 10/29/21 03:59 Pulse 72 10/29/21 03:59 Resp 20 10/29/21 03:59 BP 128/73 10/29/21 03:59 Pulse Ox 99 10/29/21 03:59 BMI result Body Mass Index 18.1 Const: Other: appears more alert and more comfortable this morning, minimal shortness of breath Resp: Other: minimal shortness of breath Cardio: Other: irregular rhythm GI: Other: soft, nondistended, nontender, no guarding rebound Objective Data Active Medications Acetaminophen (Acetaminophen 325 Mg Tablet) 650 mg PO Q6H PRN PRN Reason: Pain, Mild (Pain Scale 1-3) Acetylcysteine (Acetylcysteine 10 % 400 Mg/4 Ml Vial) 400 mg INHALE RQID [facility] Last Admin: 10/28/21 19:31 Dose: 400 mg Documented by: MELQUIADES Albuterol/Ipratropium (Albuterol/Iprat 2.5/0.5mg 3 Ml Ampul.Neb) 3 ml INHALE RQ4H WHILE AWAKE [facility] Last Admin: 10/28/21 19:31 Dose: 3 ml Documented by: MELQUIADES Enoxaparin Sodium (Enoxaparin Sodium 60 Mg/0.6 Ml Syringe) 60 mg 1 mg/kg (60 mg) SUBCUT Q12H [facility] Last Admin: 10/28/21 20:01 Dose: 60 mg Documented by: BOB Levofloxacin (Levaquin) 750 mg in 150 mls @ 100 mls/hr IV Q48H [facility] Last Infusion: 10/28/21 16:00 Dose: 0 mls/hr Documented by: ADIEL Metronidazole (Flagyl) 500 mg in 100 mls @ 100 mls/hr IV Q8H [facility] Last Infusion: 10/29/21 06:06 Dose: 0 mls/hr Documented by: BOB Potassium Chloride/Dextrose/Sod Cl () 20 meq in 1,000 mls @ 95 mls/hr IVCONT .[id number] [facility] Last Admin: 10/29/21 05:36 Dose: 95 mls/hr Documented by: BOB Amiodarone HCl 900 mg/ Sodium (Chloride) 518 mls @ 34.533 mls/hr IVCONT .Q15H1M [facility]; Protocol Last Infusion: 10/28/21 16:52 Dose: 0.5 mg/min, 17.27 mls/hr Documented by: ADIEL Morphine Sulfate (Morphine Sulfate 4 Mg/Ml Cartridge) 4 mg IVPUSH Q4H PRN; Protocol PRN Reason: Pain, SOB Last Admin: 10/28/21 05:47 Dose: 4 mg Documented by: ERA Pharmacy Consult (Consult Rx Perform Med Rec) 1 each MISCELLANE ONCE PRN PRN Reason: Consult order Pharmacy Consult (Consult Rx Vancomycin Dosing) 1 each MISCELLANE DAILY PRN PRN Reason: Consult order Senna (Sennosides 8.6 Mg Tablet) 17.2 mg PO BEDTIME PRN PRN Reason: Constipation Sodium Chloride (0.9 % Sodium Chloride Flush 3 Ml Syringe) 3 ml IVFLUSH QSHIFT [facility] Last Admin: 10/29/21 00:18 Dose: Not Given Documented by: BOB Non-Admin Reason: IV Running Labs CBC & Chem 7: 10/29/21 06:50 10/29/21 06:50 Labs: Laboratory Results - last 24 hr 10/28/21 10/28/21 10/28/21 06:10 06:10 09:19 MCV MCH MCHC RDW Plt Count MPV Absolute Nucleated RBC Nucleated RBC % (auto) PT INR APTT O2 Saturation 95.0 ABG pH at Pt Temp 7.45 ABG pCO2 at Pt Temp 34 ABG pO2 at Pt Temp 76 L ABG HCO3 24 ABG Base Excess (Actual) 0.9 Anion Gap Estim Creat Clear Calc Estimated GFR Random Glucose Calcium Magnesium 2.0 Procalcitonin 1.22 10/28/21 10/28/21 10/29/21 09:23 09:23 06:50 MCV 91.8 89.8 MCH 30.6 29.4 MCHC 33.3 32.8 RDW 16.3 H 16.1 H Plt Count 162 70 L D MPV 10.3 10.4 Absolute Nucleated RBC 0.000 0.000 Nucleated RBC % (auto) 0.0 0.0 PT 14.2 H INR 1.2 H APTT 25.5 O2 Saturation ABG pH at Pt Temp ABG pCO2 at Pt Temp ABG pO2 at Pt Temp ABG HCO3 ABG Base Excess (Actual) Anion Gap Estim Creat Clear Calc Estimated GFR Random Glucose Calcium Magnesium Procalcitonin 10/29/21 10/29/21 06:50 06:50 MCV MCH MCHC RDW Plt Count MPV Absolute Nucleated RBC Nucleated RBC % (auto) PT 17.5 H INR 1.5 H APTT O2 Saturation ABG pH at Pt Temp ABG pCO2 at Pt Temp ABG pO2 at Pt Temp ABG HCO3 ABG Base Excess (Actual) Anion Gap 11 L Estim Creat Clear Calc 65.2 Estimated GFR > 60 Random Glucose 94 Calcium 7.4 L Magnesium Procalcitonin Microbiology Microbiology Results: Microbiology 10/23/21 18:47 Blood Culture - Final Blood - Venous No growth after 5 days. Procedures Date of Service Date of Service: 10/29/21 Progress Note: A&P Assessment and plan (1) Partial small bowel obstruction: Status: Acute Assessment and Plan: denies abdominal pain no reported vomiting exam remains very benign - no apparent tenderness, no guarding rebound continue current care may need to be on TPN okay to have sips of clear liquids today eventually, may need to have a look with laparoscopy or laparotomy to check intraperitoneal graft WBC steady Time Spent With Patient Time: Total time spent is greater than 50% in coordination of care (as documented) at patient's floor/unit and/or counseling patient: Quality Stroke Does the patient have a stroke diagnosis?: No VTE Prior VTE?: No VTE Risk Level:: Medical - moderate - high VTE Device Contraindication: Treatment Not Indicated VTE Drug Contraindication: N/A - Med Ordered
[2021-10-29] MEDS: Albuterol/Iprat 2.5/0.5MG 3 ML AMPUL.NEB INHALE ×4 (08:07→20:15)
[2021-10-29] MEDS: Acetylcysteine 10 % 400 MG/4 ML VIAL INHALE ×3 (08:07→15:28)
--- NOTE | 2021-10-29 08:29 | HO.VASCPN ---
Subjective Subjective Date of Service: 10/29/21 Patient reports: no new complaints and feels better Interval history: Patient seen and examined. No significant events overnight. Appears to be doing much better than yesterday. He is much more coherent and is breathing much better. At the time of my visit he was receiving a respiratory treatment. Was seen by Pulmonary yesterday. He currently denies any flatus or bowel movement. Physical Exam Vital Signs: Vital Signs: Last Vital Signs Temp 98.5 F 10/29/21 07:48 Pulse 65 10/29/21 08:12 Resp 20 10/29/21 08:12 BP 140/73 H 10/29/21 07:48 Pulse Ox 96 10/29/21 07:48 BMI result Body Mass Index 18.1 Const: General: cooperative, healthy appearing and no acute distress Orientation/consciousness: oriented to person, oriented to place and oriented to time HEENT: Head: Yes normal to inspection Neck: Carotids: no bruits Chest: Chest palpation & inspection: normal inspection of the chest Resp: Effort & Inspection: normal respiratory effort and able to speak in complete sentences Auscultation: clear to auscultation bilaterally Cardio: Rate: regular rate Heart sounds: S1 normal heart sound present and S2 normal heart sound present GI: Other: Abdomen soft with no rebound or guarding Inspection: Yes normal to inspection Skin: General skin exam: no rashes or lesions noted Wounds: no wounds Neuro: General: oriented to person, oriented to place, oriented to time and CN's II-XI intact bilaterally Extrem: General: Yes normal to inspection, Yes full ROM and Yes no clubbing, cyanosis or edema Psych: Appearance: grossly normal and well kempt Speech and movement: Normal speech and movement present Affect: normal affect Progress Note: A&P Assessment and plan (1) Status post femorofemoral bypass surgery: Status: Acute Assessment and Plan: Bypass is functioning well. It left leg appears well perfused. Motor and sensation intact. (2) Partial small bowel obstruction: Status: Acute Assessment and Plan: X-ray films from yesterday reviewed. Does demonstrate increased bowel gas pattern. In general patient is feeling better. He currently still has ileus versus bowel obstruction. Once respiratory status improves may require exploration. (3) Acute respiratory failure with hypoxia: Status: Acute Plan Doing significantly better with respiratory treatments. Concern is still elevated white count which is coming down and is at 25 today. Continue close monitoring and observation. Should it not improve may require bronch to clear this. Time Spent With Patient Time: Total time spent is greater than 50% in coordination of care (as documented) at patient's floor/unit and/or counseling patient: Procedures Date of Service Date of Service: 10/29/21 Quality Stroke Does the patient have a stroke diagnosis?: No VTE Prior VTE?: No VTE Risk Level:: Medical - moderate - high VTE Device Contraindication: Treatment Not Indicated VTE Drug Contraindication: N/A - Med Ordered
[2021-10-29] MEDS: Enoxaparin Sodium 60 MG/0.6 ML SYRINGE SUBCUT ×2 (09:24→20:04)
--- NOTE | 2021-10-29 09:58 | MHC.SLORD ---
Speech Language Pathology Order Status: Continue NPO due to bowel obstruction
--- NOTE | 2021-10-29 10:19 | PM.PNPUL ---
Subjective Subjective Date of Service: 10/29/21 Principal diagnosis: Tachycardia/Pneumonia Interval history: 76 years old gentleman does feel better, and he conversed very well this morning. He is afebrile and does not have much respiratory distress. Objective Data Labs CBC & Chem 7: 10/29/21 06:50 10/29/21 06:50 Labs: Laboratory Results - last 24 hr 10/29/21 10/29/21 10/29/21 06:50 06:50 06:50 WBC 25.2 H RBC 3.43 L Hgb 10.1 L Hct 30.8 L MCV 89.8 MCH 29.4 MCHC 32.8 RDW 16.1 H Plt Count 70 L D MPV 10.4 Absolute Nucleated RBC 0.000 Nucleated RBC % (auto) 0.0 PT 17.5 H INR 1.5 H Sodium 143 Potassium 3.3 Chloride 111 H Carbon Dioxide 24 Anion Gap 11 L BUN 23 H Creatinine 0.76 Estim Creat Clear Calc 65.2 Estimated GFR > 60 Random Glucose 94 Calcium 7.4 L Microbiology Microbiology Results: Microbiology 10/23/21 18:47 Blood - Venous Blood Culture - Final No growth after 5 days. 10/23/21 18:16 Blood - Venous Blood Culture - Final Enterobacter aerogenes Physical Exam Vital Signs: Vital Signs: Last Vital Signs Temp 98.5 F 10/29/21 07:48 Pulse 65 10/29/21 08:12 Resp 20 10/29/21 08:12 BP 140/73 H 10/29/21 07:48 Pulse Ox 96 10/29/21 07:48 BMI result Body Mass Index 18.1 Const: General: comfortable, no acute distress, alert and awake Orientation/consciousness: patient oriented x3 HEENT: Head: Yes normal to inspection General nose exam: No nasal polyps present and No nasal discharge present Face and sinus: Yes sinuses nontender Mouth: oropharynx normal Throat: Yes posterior oropharynx normal Eyes: General: appearance normal, both eyes and all related structures Neck: Neck: Yes normal visual inspection, Yes no lymphadenopathy, Yes trachea midline and Yes no JVD Thyroid: Thyroid normal Chest: Chest palpation & inspection: normal inspection of the chest, normal palpation of entire chest wall and no tenderness Resp: Other: Percussion note is resonant, he does have good breath sounds on both sides, somewhat distant. A few inspiratory crepitations over the basilar areas. Cardio: Palpation: normal PMI Rate: regular rate Rhythm: regular rhythm Heart sounds: Gallop heart sound present and Murmur heart sound present Peripheral pulses: Peripheral pulses 2+ throughout GI: Palpation (GI): Soft to palpation, Tenderness to palpation present (GI), No hepatosplenomegaly present and Palpable mass present Auscultation: normal bowel sounds Back/Spine/Pelvis: Thoracic/Lumbar Spine: thoracic and lumbar spine normal to inspection Skin: General skin exam: no rashes or lesions noted Neuro: General: patient oriented x3 and no focal motor deficits Cranial nerves: Yes CN's II-XII intact bilaterally Extrem: General: Yes normal to inspection, Yes no clubbing, cyanosis or edema and Yes no calf tenderness Psych: Speech and movement: Normal speech and movement present Procedures Date of Service Date of Service: 10/29/21 Assessment and Plan Assessment and plan (1) Aspiration pneumonia: Status: Acute (2) Acute respiratory failure with hypoxia: Status: Acute (3) Bacteremia: Status: Acute (4) Mucus plugging of bronchi: Status: Acute Plan The page patient with Kirill all the above noted issues is definitely improved since yesterday. Recc . Continue present the treatment, Weaned down Fio2 slowly, as tolerated Encourage the patient to do deep breathing exercises, Aspiration precaution. Time Spent With Patient Time: Total time spent is greater than 50% in coordination of care (as documented) at patient's floor/unit and/or counseling patient: Progress Note: Quality Stroke Does the patient have a stroke diagnosis?: No
--- NOTE | 2021-10-29 10:52 | PM.PNCARD ---
Subjective Subjective Date of Service: 10/29/21 Principal diagnosis: Paroxysmal atrial fibrillation Interval history: Patient converted overnight to sinus rhythm on amiodarone drip. Doing well. He said he is feeling better. Shortness of breath is improved. Still NPO status at this point in time. Converted to sinus rhythm in less than 24 hours. Review of Systems Review of Systems Yes all other systems are reviewed and are negative Physical Exam Vital Signs: Last Vital Signs Temp 98.5 F 10/29/21 07:48 Pulse 65 10/29/21 08:12 Resp 20 10/29/21 08:12 BP 140/73 H 10/29/21 07:48 Pulse Ox 96 10/29/21 07:48 BMI result Body Mass Index 18.1 Const General: cooperative, comfortable, no acute distress and ill appearing Nutritional Appearance: underweight Orientation/consciousness: patient oriented x3 Neck Neck: Yes trachea midline and Yes no JVD Resp Effort & Inspection: normal respiratory effort Auscultation: diminished lung sounds Cardio Jugular venous distension: no JVD Palpation: normal PMI Rate: regular rate Rhythm: regular rhythm Heart sounds: S1 normal heart sound present, S2 normal heart sound present, no click, no gallops and no murmurs Skin General skin exam: no rashes or lesions noted and ecchymosis Neuro General: patient oriented x3 and no focal motor deficits Extrem General: Yes no clubbing, cyanosis or edema Objective Labs and Meds Result diagrams: 10/29/21 06:50 10/29/21 06:50 Lab results: Laboratory Results - last 24 hr 10/29/21 10/29/21 10/29/21 06:50 06:50 06:50 WBC 25.2 H RBC 3.43 L Hgb 10.1 L Hct 30.8 L MCV 89.8 MCH 29.4 MCHC 32.8 RDW 16.1 H Plt Count 70 L D MPV 10.4 Absolute Nucleated RBC 0.000 Nucleated RBC % (auto) 0.0 PT 17.5 H INR 1.5 H Sodium 143 Potassium 3.3 Chloride 111 H Carbon Dioxide 24 Anion Gap 11 L BUN 23 H Creatinine 0.76 Estim Creat Clear Calc 65.2 Estimated GFR > 60 Random Glucose 94 Calcium 7.4 L Imaging Radiologist's impression: Impressions Chest X-Ray 10/28/21 11:41 IMPRESSION: 1. Diffuse gas-filled small bowel, increased from prior and concerning for obstruction. 2. Persistent opacities are seen at the lungs bilaterally, could be infectious or inflammatory. KUB X-Ray 10/28/21 11:41 IMPRESSION: 1. Diffuse gas-filled small bowel, increased from prior and concerning for obstruction. 2. Persistent opacities are seen at the lungs bilaterally, could be infectious or inflammatory. Progress Note: A&P Assessment and plan (1) Paroxysmal atrial fibrillation: Status: Acute Assessment and Plan: Patient with atrial fibrillation new onset yesterday due to acute medical surgical illness. Converted to sinus rhythm with an less than 24 hours with IV amiodarone. Can switch IV amiodarone to p.o. amiodarone 200 mg b.i.d. for a month. Given that this atrial fibrillation triggered by acute medical illness unlikely to recur. In 1 month's time if he has no clinical recurrence will discontinue amiodarone as outpatient. No need for anticoagulation as atrial fibrillation converted to normal rhythm within less than 24 hours. Continue supportive care and management of his acute medical and surgical illness. For now will sign of the case. Will follow-up as outpatient after Holter monitor. Time Spent With Patient Time: Total time spent is greater than 50% in coordination of care (as documented) at patient's floor/unit and/or counseling patient: Progress Note: Quality Stroke Does the patient have a stroke diagnosis?: No Procedures Date of Service Date of Service: 10/29/21
--- NOTE | 2021-10-29 11:43 | MHC.CM.PN ---
Per ROUNDS discussion, Patient is on an Amiordarone Drip and not yet medically cleared for dc; PT is recommending STR and CM will continue to follow.
--- NOTE | 2021-10-29 12:35 | HO.PM.IMPN ---
Subjective Subjective Date of Service: 10/29/21 Interval History: f/u on psbo, pna, afib, chf interval history: no abd pain, no sob, O2 requirement much improved. Now in sinus rythm Review of Systems no fever no sob no abd pain Physical Exam Vital Signs: Vital Signs: Last Vital Signs Temp 99.2 F 10/29/21 11:02 Pulse 71 10/29/21 11:30 Resp 20 10/29/21 11:30 BP 138/71 10/29/21 11:02 Pulse Ox 96 10/29/21 11:02 BMI result Body Mass Index 18.1 Const: Other: Gen: NAD, thin/malnourished HEENT: sclera anicteric, moist mucus membranes Neck: supple Lungs: bilateral inspiratory crackles Heart: Regualar rate, S1S2 Abd :mild tenderness RLQ without rebound; no bowel sounds elicited Ext: no edema Skin: warm/well-perfused Neuro: alert and oriented x3, no focal findings Psych: appropriate affect Objective Data Active Medications Acetaminophen (Acetaminophen 325 Mg Tablet) 650 mg PO Q6H PRN PRN Reason: Pain, Mild (Pain Scale 1-3) Acetylcysteine (Acetylcysteine 10 % 400 Mg/4 Ml Vial) 400 mg INHALE RQID [facility] Last Admin: 10/29/21 11:27 Dose: 400 mg Documented by: LAKEISHA Albuterol/Ipratropium (Albuterol/Iprat 2.5/0.5mg 3 Ml Ampul.Neb) 3 ml INHALE RQ4H WHILE AWAKE [facility] Last Admin: 10/29/21 11:27 Dose: 3 ml Documented by: LAKEISHA Enoxaparin Sodium (Enoxaparin Sodium 60 Mg/0.6 Ml Syringe) 60 mg 1 mg/kg (60 mg) SUBCUT Q12H [facility] Last Admin: 10/29/21 09:24 Dose: 60 mg Documented by: ALEXSANDRA Levofloxacin (Levaquin) 750 mg in 150 mls @ 100 mls/hr IV Q48H [facility] Last Infusion: 10/28/21 16:00 Dose: 0 mls/hr Documented by: ADIEL Metronidazole (Flagyl) 500 mg in 100 mls @ 100 mls/hr IV Q8H [facility] Last Infusion: 10/29/21 06:06 Dose: 0 mls/hr Documented by: BOB Potassium Chloride/Dextrose/Sod Cl () 20 meq in 1,000 mls @ 95 mls/hr IVCONT .[id number] [facility] Last Admin: 10/29/21 09:23 Dose: 95 mls/hr Documented by: ALEXSANDRA Amiodarone HCl 900 mg/ Sodium (Chloride) 518 mls @ 34.533 mls/hr IVCONT .[id number] [facility]; Protocol Last Infusion: 10/29/21 09:24 Dose: 0 mg/min, 0 mls/hr Documented by: ALEXSANDRA Pharmacy Consult (Consult Rx Perform Med Rec) 1 each MISCELLANE ONCE PRN PRN Reason: Consult order Pharmacy Consult (Consult Rx Vancomycin Dosing) 1 each MISCELLANE DAILY PRN PRN Reason: Consult order Senna (Sennosides 8.6 Mg Tablet) 17.2 mg PO BEDTIME PRN PRN Reason: Constipation Sodium Chloride (0.9 % Sodium Chloride Flush 3 Ml Syringe) 3 ml IVFLUSH QSHIFT [facility] Last Admin: 10/29/21 09:24 Dose: Not Given Documented by: ALEXSANDRA Non-Admin Reason: IV Running Labs CBC & Chem 7: 10/29/21 06:50 10/29/21 06:50 Labs: Laboratory Results - last 24 hr 10/29/21 10/29/21 10/29/21 06:50 06:50 06:50 MCV 89.8 MCH 29.4 MCHC 32.8 RDW 16.1 H Plt Count 70 L D MPV 10.4 Absolute Nucleated RBC 0.000 Nucleated RBC % (auto) 0.0 PT 17.5 H INR 1.5 H Anion Gap 11 L Estim Creat Clear Calc 65.2 Estimated GFR > 60 Random Glucose 94 Calcium 7.4 L Microbiology Microbiology Results: Microbiology 10/23/21 18:47 Blood Culture - Final Blood - Venous No growth after 5 days. 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 noted [no PPM recommended] presented with dyspnea, admitted for hypoxia/aspiration, pSBO developed AF/RVR # acute hypoxic resp failure # pneumonia, suspected aspiration # Enterobacter aerogenes bacteremia # leukocytosis - Pulmonary consulted given extensive mucus plugging/atelectasis, recommend NAC 10% nebulized qid, Acapella device, may need bronchoscopy if worsens - levofloxacin + metronidazole d#09/09 per ID - WBCs peaked, PCT trending downwards - MRSA swab negative - no evidence of PE on CT angio [had intermediate-prob V/Q]; heparin gtt d/c'ed # AF/RVR, new-onset and now Sinus -cardiology recommend amio 200 bid x 1 months and no anticoagulation given that AFIB trigered by pumonary process and unlikely to recur # pSBO - NGT out, continue NPO, Gen + Vasc Surg following daily, CT A/P reviewed: graft patent, concern of transition point with bowel near graft- given benign abd exam, observe conservatively at this point but may require re-intervention if obstruction does not resolve. Surgery to advise on when diet can resart # SHERI - resolved p IV fluid hydration # hypernatremia - resolved # hypokalemia - add KCl to maintenance fluids # PVD - POD #11 fem/fem bypass - Vasc Surg following # moderate protein/calorie malnutrition - supplements once taking POs # VTE ppx - LMWH # dispo - eventual STR Need for inpaitent: hypoxia, IV ABX, NPO I updated pt's brother at bedside Quality Stroke Does the patient have a stroke diagnosis?: No VTE Prior VTE?: No VTE Risk Level:: Medical - moderate - high VTE Device Contraindication: Treatment Not Indicated VTE Drug Contraindication: N/A - Med Ordered
[2021-10-29 13:07] LABS: Albumin Level 2.1 g/dL (3.5-5.0); Magnesium 1.8 mg/dL (1.6-2.6); Phosphorus 2.5 mg/dL (2.7-4.5)
--- NOTE | 2021-10-29 13:30 | MHC.CLN ---
F/U PT IS NOW DAY 6 NPO WITH INCREASED NUTRITION RISK RECOMMEND PPN D10AA4.25 DAY 1 (10/29/21) AT 45ML/HR TO PROVIDE 551KCALS, 46G PROTEIN DISCUSSED WITH PHARMACY DAY 2 (10/30) INCREASE PPN D10AA4.25 AT 65ML/HR TO PROVIDE 796KCALS, 66G PROTEIN REPLETE LYTES NEEDED; CHECK TRIGS DAY 3 (10/31) INCREASE PPN D10AA4.25 AT 83.33ML/HR TO PROVIDE 1020KCALS, 85G PROTEIN (1.5G/KG) IF TRIGS WNL; START 14ML OF 20% LIPIDS TO PROVIDE AN ADDITIONAL 672KCALS (1692KCALS TOTAL; 30KCALS/KG) REPLETE LYTES NEEDED SEE ALSO FULL CLINICAL NUTRITION ASSESSMENT RD CAN BE REACHED VIA [employer] DURING OFF HOURS
--- NOTE | 2021-10-29 13:58 | PM.EVENT ---
Event Note Date of Service: 10/29/21 Event Note: Continues to feel well Denies abdominal pain No vomiting Abdomen remained soft, nontender Heart rate seems better control Continue treatment for pneumonia Okay to have sips of clear liquids for now Okay to advance diet slowly he continues do well over the weekend Parental nutrition
--- NOTE | 2021-10-29 15:35 | PC.RT ---
provided pt. with mucomyst edouard, per order. treatment stopped due to patient dry heaving, c/o N/V
[2021-10-29] MEDS: 0.9 % Sodium Chloride Flush 3 ML SYRINGE IVFLUSH ×2 (16:29→20:05)
[2021-10-29] MEDS: Amiodarone HCL 200 MG TABLET PO (20:04)
[2021-10-30] VITALS (7 sets, daily range): BP systolic 124–155; BP diastolic 71–97; PULSE 73–97; RESP 18–24; TEMP 36.4–37.2; O2SAT 94–97
[2021-10-30] MEDS: metroNIDAZOLE/NS 500 MG/100 ML PIGGYBACK 100 MG IV ×3 (05:20→20:44)
[2021-10-30] MEDS: Amiodarone HCL 200 MG TABLET PO ×2 (09:29→20:45)
[2021-10-30] MEDS: Enoxaparin Sodium 60 MG/0.6 ML SYRINGE SUBCUT ×2 (09:29→20:44)
[2021-10-30] MEDS: KCl 20 mEq in 5% Dex/0.45% Sod 20 MEQ/1,000 ML IV.SOLN 95 MEQ IVCONT (09:29)
[2021-10-30] MEDS: 0.9 % Sodium Chloride Flush 3 ML SYRINGE IVFLUSH ×2 (09:30→20:44)
--- NOTE | 2021-10-30 10:14 | HO.PM.IMPN ---
Subjective Subjective Date of Service: 10/30/21 Interval History: f/u on psbo, pna, afib, chf interval history: no abd pain, no sob, O2 requirement reduced remains in sinus rythm Physical Exam Vital Signs: Vital Signs: Last Vital Signs Temp 98.2 F 10/30/21 07:39 Pulse 73 10/30/21 07:39 Resp 24 H 10/30/21 07:39 BP 132/74 10/30/21 07:39 Pulse Ox 97 10/30/21 07:39 BMI result Body Mass Index 18.1 Const: Other: Gen: NAD, thin/malnourished HEENT: sclera anicteric, moist mucus membranes Neck: supple Lungs: bilateral inspiratory crackles Heart: Regualar rate, S1S2 Abd :mild tenderness RLQ without rebound; no bowel sounds elicited Ext: no edema Skin: warm/well-perfused Neuro: alert and oriented x3, no focal findings Psych: appropriate affect Objective Data Active Medications Acetaminophen (Acetaminophen 325 Mg Tablet) 650 mg PO Q6H PRN PRN Reason: Pain, Mild (Pain Scale 1-3) Albuterol/Ipratropium (Albuterol/Iprat 2.5/0.5mg 3 Ml Ampul.Neb) 3 ml INHALE RQ4H WHILE AWAKE [facility] Last Admin: 10/30/21 07:44 Dose: Not Given Documented by: PAO Non-Admin Reason: Patient Refused Amiodarone HCl (Amiodarone Hcl 200 Mg Tablet) 200 mg PO BID [facility] Last Admin: 10/30/21 09:29 Dose: 200 mg Documented by: TAMMY Enoxaparin Sodium (Enoxaparin Sodium 60 Mg/0.6 Ml Syringe) 60 mg 1 mg/kg (60 mg) SUBCUT Q12H [facility] Last Admin: 10/30/21 09:29 Dose: 60 mg Documented by: TAMMY Levofloxacin (Levaquin) 750 mg in 150 mls @ 100 mls/hr IV Q48H [facility] Last Infusion: 10/28/21 16:00 Dose: 0 mls/hr Documented by: ADIEL Metronidazole (Flagyl) 500 mg in 100 mls @ 100 mls/hr IV Q8H [facility] Last Infusion: 10/30/21 06:28 Dose: 0 mls/hr Documented by: MOOK Potassium Chloride/Dextrose/Sod Cl () 20 meq in 1,000 mls @ 95 mls/hr IVCONT .[id number] [facility] Last Admin: 10/30/21 09:29 Dose: 95 mls/hr Documented by: TAMMY Multivitamins 18.5 ml/ Trace Metals 1.9 ml/ Amino Acids/Electrolytes/Dextrose 1,080 mls @ 45 mls/hr IV DAILY@1800 [facility] Stop: 10/30/21 17:59 Last Admin: 10/29/21 18:17 Dose: 45 mls/hr Documented by: ALEXSANDRA Pharmacy Consult (Consult Rx Perform Med Rec) 1 each MISCELLANE ONCE PRN PRN Reason: Consult order Pharmacy Consult (Consult Rx Vancomycin Dosing) 1 each MISCELLANE DAILY PRN PRN Reason: Consult order Senna (Sennosides 8.6 Mg Tablet) 17.2 mg PO BEDTIME PRN PRN Reason: Constipation Sodium Chloride (0.9 % Sodium Chloride Flush 3 Ml Syringe) 3 ml IVFLUSH QSHIFT [facility] Last Admin: 10/30/21 09:30 Dose: 3 ml Documented by: TAMMY Labs CBC & Chem 7: 10/29/21 06:50 10/29/21 06:50 Labs: Laboratory Results - last 24 hr 10/29/21 06:50 Phosphorus 2.5 L Magnesium 1.8 Albumin 2.1 L D Assessment and Plan (1) Acute respiratory failure with hypoxia: Status: Acute (2) Aspiration pneumonia: Status: Acute (3) Pulmonary emboli: Status: Acute (4) Bradycardia: Status: Acute (5) Partial small bowel obstruction: Status: Acute (6) Status post femorofemoral bypass surgery: Status: Acute Plan hospital d# 76yo M with hx prostate CA, PVD s/p fem-fem bypass 10/18/21 with 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 noted [no PPM recommended] presented with dyspnea, admitted for hypoxia/aspiration, pSBO developed AF/RVR # acute hypoxic resp failure # pneumonia, suspected aspiration # Enterobacter aerogenes bacteremia/sepsis # leukocytosis - Pulmonary consulted given extensive mucus plugging/atelectasis, recommend NAC 10% nebulized treatment, Acapella device, may need bronchoscopy if worsens - levofloxacin + metronidazole d#10/09 per ID - WBCs peaked, PCT trending downwards - MRSA swab negative - no evidence of PE on CT angio [had intermediate-prob V/Q]; heparin gtt d/c'ed # AF/RVR, new-onset and now Sinus -cardiology recommend amio 200 bid x 1 months and no anticoagulation given that AFIB trigered by pumonary process and unlikely to recur # pSBO - NGT out, continue NPO, Gen + Vasc Surg following daily, CT A/P reviewed: graft patent, concern of transition point with bowel near graft- given benign abd exam, observe conservatively at this point but may require re-intervention if obstruction does not resolve. Surgery to advise on when diet can resart. Started on TPN 10/29. Follow BMP, Mag, Phos, calcium # SHERI - resolved p IV fluid hydration # hypernatremia - resolved # hypokalemia - add KCl to maintenance fluids # PVD - POD #11 fem/fem bypass - Vasc Surg following # moderate protein/calorie malnutrition - supplements once taking POs # VTE ppx - LMWH # dispo - eventual STR Need for inpaitent: hypoxia, IV ABX, NPO, requiring TPN and might need exploratory surgery Quality Stroke Does the patient have a stroke diagnosis?: No VTE Prior VTE?: No VTE Risk Level:: Medical - moderate - high VTE Device Contraindication: Treatment Not Indicated VTE Drug Contraindication: N/A - Med Ordered
--- NOTE | 2021-10-30 10:20 | PM.PNGS ---
Subjective Subjective Date of Service: 10/30/21 Interval history: pt doing ok, feels tired, breathing ok, no abdo pain or nausea Physical Exam Vital Signs: Vital Signs: Last Vital Signs Temp 98.2 F 10/30/21 07:39 Pulse 73 10/30/21 07:39 Resp 24 H 10/30/21 07:39 BP 132/74 10/30/21 07:39 Pulse Ox 97 10/30/21 07:39 BMI result Body Mass Index 18.1 GI: Other: soft nontender mild distension quiet bowel sounds Objective Data Active Medications Acetaminophen (Acetaminophen 325 Mg Tablet) 650 mg PO Q6H PRN PRN Reason: Pain, Mild (Pain Scale 1-3) Albuterol/Ipratropium (Albuterol/Iprat 2.5/0.5mg 3 Ml Ampul.Neb) 3 ml INHALE RQ4H WHILE AWAKE [facility] Last Admin: 10/30/21 07:44 Dose: Not Given Documented by: PAO Non-Admin Reason: Patient Refused Amiodarone HCl (Amiodarone Hcl 200 Mg Tablet) 200 mg PO BID [facility] Last Admin: 10/30/21 09:29 Dose: 200 mg Documented by: TAMMY Enoxaparin Sodium (Enoxaparin Sodium 60 Mg/0.6 Ml Syringe) 60 mg 1 mg/kg (60 mg) SUBCUT Q12H [facility] Last Admin: 10/30/21 09:29 Dose: 60 mg Documented by: TAMMY Levofloxacin (Levaquin) 750 mg in 150 mls @ 100 mls/hr IV Q48H [facility] Last Infusion: 10/28/21 16:00 Dose: 0 mls/hr Documented by: ADIEL Metronidazole (Flagyl) 500 mg in 100 mls @ 100 mls/hr IV Q8H [facility] Last Infusion: 10/30/21 06:28 Dose: 0 mls/hr Documented by: MOOK Potassium Chloride/Dextrose/Sod Cl () 20 meq in 1,000 mls @ 95 mls/hr IVCONT .[id number] [facility] Last Admin: 10/30/21 09:29 Dose: 95 mls/hr Documented by: TAMMY Multivitamins 18.5 ml/ Trace Metals 1.9 ml/ Amino Acids/Electrolytes/Dextrose 1,080 mls @ 45 mls/hr IV DAILY@1800 [facility] Stop: 10/30/21 17:59 Last Admin: 10/29/21 18:17 Dose: 45 mls/hr Documented by: ALEXSANDRA Pharmacy Consult (Consult Rx Perform Med Rec) 1 each MISCELLANE ONCE PRN PRN Reason: Consult order Pharmacy Consult (Consult Rx Vancomycin Dosing) 1 each MISCELLANE DAILY PRN PRN Reason: Consult order Senna (Sennosides 8.6 Mg Tablet) 17.2 mg PO BEDTIME PRN PRN Reason: Constipation Sodium Chloride (0.9 % Sodium Chloride Flush 3 Ml Syringe) 3 ml IVFLUSH QSHIFT [facility] Last Admin: 10/30/21 09:30 Dose: 3 ml Documented by: TAMMY Labs CBC & Chem 7: 10/29/21 06:50 10/29/21 06:50 Labs: Laboratory Results - last 24 hr 10/29/21 06:50 Phosphorus 2.5 L Magnesium 1.8 Albumin 2.1 L D Procedures Date of Service Date of Service: 10/30/21 Progress Note: A&P Assessment and plan (1) Partial small bowel obstruction: Status: Acute Assessment and Plan: 76 yo male s/p fem bypass and unfortunately with psbo with loop of sb adjacent to graft - prob secondary to some adhesions - pt also with resp issues looks better today - gi bowel function exam doing better. would recommend npo with ice chips as long as resp status ok cont to follow clinically with treatment of pulmonary issues important. Time Spent With Patient Time: Total time spent is greater than 50% in coordination of care (as documented) at patient's floor/unit and/or counseling patient: Quality Stroke Does the patient have a stroke diagnosis?: No VTE Prior VTE?: No VTE Risk Level:: Medical - moderate - high VTE Device Contraindication: Treatment Not Indicated VTE Drug Contraindication: N/A - Med Ordered
[2021-10-30 10:58] LABS: Anion Gap 10 (12-20); Blood Urea Nitrogen 24 mg/dL (9-16); Calcium 7.5 mg/dL (8.4-10.2); Carbon Dioxide 24 mmol/L (22-29); Chloride 109 mmol/L (96-108); Creatinine Clr Calc Pharmacy 75.1; Estimated Glomerular Filt Rate > 60; Glucose Random 138 mg/dL (60-115); Magnesium 1.7 mg/dL (1.6-2.6); Phosphorus 2.7 mg/dL (2.7-4.5); Potassium 3.3 mmol/L (3.3-5.1); Sodium 140 mmol/L (135-145); Triglycerides 99 mg/dL
[2021-10-30] MEDS: levoFLOXacin/D5W 750 MG/150 ML PIGGYBACK 100 MG IV (13:31)
[2021-10-30] MEDS: Albuterol/Iprat 2.5/0.5MG 3 ML AMPUL.NEB INHALE (15:38)
--- NOTE | 2021-10-30 16:26 | ECG_ITS ---
Test Reason : converted from sr to afib Blood Pressure : / mmHG Vent. Rate : 100 BPM Atrial Rate : 000 BPM P-R Int : 000 ms QRS Dur : 086 ms QT Int : 356 ms P-R-T Axes : 000 -44 064 degrees QTc Int : 459 ms Atrial fibrillation with premature ventricular or aberrantly conducted complexes Left axis deviation Nonspecific T wave abnormality Abnormal ECG When compared with ECG of 28-OCT-2021 09:47, Previous ECG has undetermined rhythm, needs review Referred By: Joce Gonzalez Electronically Signed By:DENISE PAYNE MD
[2021-10-31] VITALS (9 sets, daily range): BP systolic 134–158; BP diastolic 63–79; PULSE 80–94; RESP 16–20; TEMP 36.4–37.4; O2SAT 93–98
[2021-10-31] MEDS: KCl 20 mEq in 5% Dex/0.45% Sod 20 MEQ/1,000 ML IV.SOLN 95 MEQ IVCONT (00:52)
--- NOTE | 2021-10-31 05:11 | PM.EVENT ---
Event Note Date of Service: 10/31/21 Event Note: Experienced multiple bilious episodes vomiting, KUB done showed persistent small bowel obstruction. NG tube placed given the continue his vomiting
[2021-10-31] MEDS: metroNIDAZOLE/NS 500 MG/100 ML PIGGYBACK 100 MG IV ×3 (06:15→21:45)
[2021-10-31] MEDS: 0.9 % Sodium Chloride Flush 3 ML SYRINGE IVFLUSH ×2 (07:26→21:45)
[2021-10-31 07:42] LABS: Anion Gap 13 (12-20); Blood Urea Nitrogen 25 mg/dL (9-16); Calcium 7.4 mg/dL (8.4-10.2); Carbon Dioxide 21 mmol/L (22-29); Chloride 108 mmol/L (96-108); Creatinine Clr Calc Pharmacy 72.9; Estimated Glomerular Filt Rate > 60; Glucose Random 132 mg/dL (60-115); Magnesium 1.7 mg/dL (1.6-2.6); Phosphorus 2.8 mg/dL (2.7-4.5); Potassium 3.6 mmol/L (3.3-5.1); Sodium 138 mmol/L (135-145)
[2021-10-31] MEDS: Amiodarone HCL 200 MG TABLET PO ×2 (08:48→21:45)
[2021-10-31] MEDS: Enoxaparin Sodium 60 MG/0.6 ML SYRINGE SUBCUT (08:49)
[2021-10-31] MEDS: Albuterol/Iprat 2.5/0.5MG 3 ML AMPUL.NEB INHALE ×3 (11:10→20:39)
--- NOTE | 2021-10-31 13:01 | HO.PM.IMPN ---
Subjective Subjective Date of Service: 10/31/21 Interval History: events from last night reviewed, patient had multiple episodes of bilious vomiting, therefore NG tube placed, this morning noted to have 900 mL of bilious drainage , patient is resting comfortably denies abdominal pain, no shortness of breath , no other acute issues overnight. Review of Systems VP RESPIRATORY no headache, no dizziness CVS no chest pain, no palpitation respiratory no cough, no shortness of breath GI no abdominal tenderness , no urinary frequency, no urgency Review of Systems: Yes all other systems are reviewed and are negative Physical Exam Vital Signs: Vital Signs: Last Vital Signs Temp 98.0 F 10/31/21 11: Pulse 82 10/31/21 11:22 Resp 19 10/31/21 11:22 BP 157/76 H 10/31/21 11: Pulse Ox 96 10/31/21 11:22 BMI result Body Mass Index 18.1 Const: Other: General awake alert, thin build, no acute distress. Neck no JVD. CVS regular rate rhythm, Respiratory lungs clear to auscultation, no respiratory distress, no wheeze, no rhonchi. Gastrointestinal abdomen soft, nontender, no guarding , no rigidity, positive bowel sounds. lower Extremities no edema, bilateral upper extremities swollen left greater than right,at site of IV. Neuro nonfocal Skin no rash psych appropriate affect Objective Data Active Medications Acetaminophen (Acetaminophen 325 Mg Tablet) 650 mg PO Q6H PRN PRN Reason: Pain, Mild (Pain Scale 1-3) Albuterol/Ipratropium (Albuterol/Iprat 2.5/0.5mg 3 Ml Ampul.Neb) 3 ml INHALE RQ4H WHILE AWAKE [facility] Last Admin: 10/31/21 11:10 Dose: 3 ml Documented by: PAO Amiodarone HCl (Amiodarone Hcl 200 Mg Tablet) 200 mg PO BID [facility] Last Admin: 10/31/21 08:48 Dose: 200 mg Documented by: HUSSEIN Enoxaparin Sodium (Enoxaparin Sodium 60 Mg/0.6 Ml Syringe) 60 mg 1 mg/kg (60 mg) SUBCUT Q12H [facility] Last Admin: 10/31/21 08:49 Dose: 60 mg Documented by: HUSSEIN Levofloxacin (Levaquin) 750 mg in 150 mls @ 100 mls/hr IV Q48H [facility] Last Infusion: 10/30/21 15:31 Dose: 0 mls/hr Documented by: TAMMY Metronidazole (Flagyl) 500 mg in 100 mls @ 100 mls/hr IV Q8H [facility] Last Infusion: 10/31/21 07:25 Dose: 0 mls/hr Documented by: HUSSEIN Multivitamins 12.8 ml/ Trace Metals 1.3 ml/ Amino Acids/Electrolytes/Dextrose 1,560 mls @ 65 mls/hr IV DAILY@1800 [facility] Stop: 10/31/21 17:59 Last Admin: 10/30/21 18:29 Dose: 65 mls/hr Documented by: TAMMY Multivitamins 10 ml/ Trace Metals 1 ml/ Amino Acids/Electrolytes/Dextrose 1,999.92 mls @ 83.33 mls/hr IV DAILY@1800 [facility] Stop: 11/01/21 17:59 Fat Emulsion Intravenous (Intralipid) 168 mls @ 14 mls/hr IVCONT BID@0600,1800 [facility] Stop: 11/01/21 17:59 Pharmacy Consult (Consult Rx Perform Med Rec) 1 each MISCELLANE ONCE PRN PRN Reason: Consult order Senna (Sennosides 8.6 Mg Tablet) 17.2 mg PO BEDTIME PRN PRN Reason: Constipation Sodium Chloride (0.9 % Sodium Chloride Flush 3 Ml Syringe) 3 ml IVFLUSH QSHIFT [facility] Last Admin: 10/31/21 07:26 Dose: 3 ml Documented by: HUSSEIN Labs CBC & Chem 7: 10/29/21 06:50 10/31/21 06:25 Labs: Laboratory Results - last 24 hr 10/31/21 06:25 Anion Gap 13 Estim Creat Clear Calc 72.9 Estimated GFR > 60 Random Glucose 132 H Calcium 7.4 L Phosphorus 2.8 Magnesium 1.7 Assessment and Plan (1) Paroxysmal atrial fibrillation: Status: Acute (2) Mucus plugging of bronchi: Status: Acute (3) Bacteremia: Status: Acute (4) New onset atrial fibrillation: Status: Acute (5) Acute respiratory failure with hypoxia: Status: Acute (6) Partial small bowel obstruction: Status: Acute Plan 76yo M with hx prostate CA, PVD s/p fem-fem bypass 10/18/21 with 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 noted [no PPM recommended] presented with dyspnea, admitted for hypoxia/aspiration, pSBO developed AF/RVR # pSBO patient noted to have recurrent episode of bilious vomiting overnight therefore NG tube placed back, patient immediately put out 700 mL, this morning noted to have total 900 mL bilious output NPO, Gen + Vasc Surg following daily, CT A/P reviewed: graft patent, concern of transition point with bowel near graft being observed conservatively at this point but may require re-intervention since obstruction persist with no flatus, no bowel movement, and high NG output continue TPN, Started on TPN 10/29. Follow BMP, Mag, Phos, calcium, may need PICC line if need prolong parental nutrition informed overnight events to covering surgeon # acute hypoxic resp failure due to pneumonia, suspected aspiration # Enterobacter aerogenes bacteremia/sepsis # leukocytosis continue updraft treatment, IV Levaquin and metronidazole day 11/09 as per ID, being followed by planning manager continue a couple a device, bronchoscopy if worsens leukocytosis persists but trending down, MRSA swab negative, procalcitonin down to 1.22 from 5.65 no evidence of PE on CT angiogram head intermediate probability on V/Q scan heparin drip discontinue on 4 L of oxygen Will wean as tolerated # thrombocytopenia platelets dropped to 70,000, will recheck CBC today, if remain low order further tests, DC Lovenox, will place on compression boots received 1 dose of Lovenox this am # AF/RVR, new-onset noted on 10/28/21 and now in Sinus rhythm - continue amiodarone 200 bid x 1 months as per Cardiology and no anticoagulation given that AFIB trigered by pulmonary process will DC therapeutic Lovenox # SHERI - resolved p IV fluid hydration # hypernatremia - resolved # hypokalemia - add KCl to maintenance fluids # PVD - POD #12 fem/fem bypass - Vasc Surg following # moderate protein/calorie malnutrition - supplements once taking POs # VTE ppx - compression boots # dispo - eventual STR spoke with patient's sister and updated her about current clinical condition Need for inpaitent: due to hypoxia, IV ABX, NPO, requiring TPN and might need exploratory surgery Quality Stroke Does the patient have a stroke diagnosis?: No VTE Prior VTE?: No VTE Risk Level:: Medical - moderate - high VTE Device Contraindication: Treatment Not Indicated VTE Drug Contraindication: N/A - Med Ordered
[2021-10-31 14:58] LABS: Hematocrit 29.9 % (42.0-52.0); Hemoglobin 10.3 g/dl (14.0-18.0); Mean Corpuscular HGB Conc 34.4 g/dl (31.0-36.0); Mean Corpuscular Hemoglobin 30.1 pg (27.0-33.0); Mean Corpuscular Volume 87.4 fL (80.0-98.0); Red Blood Count 3.42 X10*6/uL (4.60-5.80); Red Cell Distribution Width 16.3 % (11.0-16.0); White Blood Count 26.1 X10*3/uL (4.8-10.8)
[2021-10-31 14:59] LABS: Platelet Count 89 X10*3/uL (160-400)
--- NOTE | 2021-10-31 16:38 | P.PNGS_ITS ---
Subjective Subjective Date of Service: 10/31/21 Interval history: pt not nauseated now. has ng in place, no abdo pain Physical Exam Vital Signs: Vital Signs: Last Vital Signs Temp 98.0 F 10/31/21 16:00 Pulse 84 10/31/21 16:00 Resp 18 10/31/21 16:00 BP 148/72 H 10/31/21 16:00 Pulse Ox 95 10/31/21 16:00 BMI result Body Mass Index 18.1 GI: Other: soft mild distension nontender hypo bowel sounds Objective Data Active Medications Acetaminophen (Acetaminophen 325 Mg Tablet) 650 mg PO Q6H PRN PRN Reason: Pain, Mild (Pain Scale 1-3) Albuterol/Ipratropium (Albuterol/Iprat 2.5/0.5mg 3 Ml Ampul.Neb) 3 ml INHALE RQ4H WHILE AWAKE [facility] Last Admin: 10/31/21 15:15 Dose: 3 ml Documented by: PAO Amiodarone HCl (Amiodarone Hcl 200 Mg Tablet) 200 mg PO BID [facility] Last Admin: 10/31/21 08:48 Dose: 200 mg Documented by: HUSSEIN Levofloxacin (Levaquin) 750 mg in 150 mls @ 100 mls/hr IV Q48H [facility] Last Infusion: 10/30/21 15:31 Dose: 0 mls/hr Documented by: TAMMY Metronidazole (Flagyl) 500 mg in 100 mls @ 100 mls/hr IV Q8H [facility] Last Infusion: 10/31/21 14:25 Dose: 0 mls/hr Documented by: HUSSEIN Multivitamins 12.8 ml/ Trace Metals 1.3 ml/ Amino Acids/Electrolytes/Dextrose 1,560 mls @ 65 mls/hr IV DAILY@1800 [facility] Stop: 10/31/21 17:59 Last Admin: 10/30/21 18:29 Dose: 65 mls/hr Documented by: TAMMY Multivitamins 10 ml/ Trace Metals 1 ml/ Amino Acids/Electrolytes/Dextrose 1,999.92 mls @ 83.33 mls/hr IV DAILY@1800 [facility] Stop: 11/01/21 17:59 Fat Emulsion Intravenous (Intralipid) 168 mls @ 14 mls/hr IVCONT BID@0600,1800 [facility] Stop: 11/01/21 17:59 Pharmacy Consult (Consult Rx Perform Med Rec) 1 each MISCELLANE ONCE PRN PRN Reason: Consult order Senna (Sennosides 8.6 Mg Tablet) 17.2 mg PO BEDTIME PRN PRN Reason: Constipation Sodium Chloride (0.9 % Sodium Chloride Flush 3 Ml Syringe) 3 ml IVFLUSH QSHIFT [facility] Last Admin: 10/31/21 14:08 Dose: Not Given Documented by: COTEMA Non-Admin Reason: IV Running Labs CBC & Chem 7: 10/31/21 14:47 10/31/21 06:25 Labs: Laboratory Results - last 24 hr 10/31/21 10/31/21 06:25 14:47 MCV 87.4 MCH 30.1 MCHC 34.4 RDW 16.3 H Plt Count 89 L D MPV 11.0 Absolute Nucleated RBC 0.000 Nucleated RBC % (auto) 0.0 Anion Gap 13 Estim Creat Clear Calc 72.9 Estimated GFR > 60 Random Glucose 132 H Calcium 7.4 L Phosphorus 2.8 Magnesium 1.7 Imaging Abdominal x-ray: Radiologist's impression: Impressions KUB X-Ray 10/30/21 23:12 IMPRESSION: Redemonstrated numerous dilated small bowel loops throughout the abdomen, with some loops demonstrating slightly less gaseous distention compared to 10/28/2021. Chest X-Ray 10/31/21 01:58 IMPRESSION: Enteric tube tip in the region of the gastric fundus. Persistent right mid and lower lung opacities with suggestion of adjacent fissural pleural fluid. Chest X-Ray 10/31/21 04:34 IMPRESSION: Enteric tube tip in the region of the gastric fundus; tube appears to have been advanced since the prior exam. Redemonstrated mid to basilar right lung opacity and slightly increasing haziness at the left base. Procedures Date of Service Date of Service: 10/31/21 Progress Note: A&P Assessment and plan (1) Partial small bowel obstruction: Status: Acute Assessment and Plan: pt still with psbo due to most likely adhesions with the graft?- ng repalced and lots of bilious output return consider suction overnight and tomorrow do small bowel challenge with 100cc of gastrograffin and kub 8 hrs later then 24 hrs later. pt most likely to get picc line has been getting ppn as per dietary recommendations hoping adhesions are not completely obstructive and will improve wbc still elevated -? etiology of such a high count - med team following and pt on antibx and being treated for pneumonia. today his resp effort is much improved - he looks more comfortable Time Spent With Patient Time: Total time spent is greater than 50% in coordination of care (as documented) at patient's floor/unit and/or counseling patient: Quality Stroke Does the patient have a stroke diagnosis?: No VTE Prior VTE?: No VTE Risk Level:: Medical - moderate - high VTE Device Contraindication: Treatment Not Indicated VTE Drug Contraindication: N/A - Med Ordered
[2021-10-31] MEDS: Fat Emulsions 20% 250 ML 14 ML IVCONT (17:53)
[2021-11-01] VITALS (14 sets, daily range): BP systolic 125–160; BP diastolic 60–82; PULSE 75–90; RESP 14–20; TEMP 33.2–37.4; O2SAT 92–100
[2021-11-01] MEDS: metroNIDAZOLE/NS 500 MG/100 ML PIGGYBACK 100 MG IV ×2 (04:09→21:15)
[2021-11-01 06:59] LABS: Anion Gap 9 (12-20); Blood Urea Nitrogen 25 mg/dL (9-16); Calcium 7.5 mg/dL (8.4-10.2); Carbon Dioxide 26 mmol/L (22-29); Chloride 106 mmol/L (96-108); Creatinine Clr Calc Pharmacy 72.9; Estimated Glomerular Filt Rate > 60; Glucose Random 119 mg/dL (60-115); Magnesium 1.6 mg/dL (1.6-2.6); Phosphorus 3.2 mg/dL (2.7-4.5); Potassium 3.8 mmol/L (3.3-5.1); Sodium 137 mmol/L (135-145)
--- NOTE | 2021-11-01 07:55 | P.PNGS_ITS ---
Subjective Subjective Date of Service: 11/01/21 Interval history: had reobstructed over the weekend NGT replaced denies abdominal pain Physical Exam Vital Signs: Vital Signs: Last Vital Signs Temp 97.9 F 11/01/21 07:39 Pulse 90 11/01/21 07:39 Resp 20 11/01/21 07:39 BP 131/72 11/01/21 07:39 Pulse Ox 93 11/01/21 07:39 BMI result Body Mass Index 18.1 Const: Other: appears short of breath still Resp: Other: short of breath, answers questions Cardio: Rhythm: abnormal rhythm GI: Other: distended but soft, nontender, Palpation (GI): not firm, no guarding, not rigid and No Rebound tenderness present Objective Data Active Medications Acetaminophen (Acetaminophen 325 Mg Tablet) 650 mg PO Q6H PRN PRN Reason: Pain, Mild (Pain Scale 1-3) Albuterol/Ipratropium (Albuterol/Iprat 2.5/0.5mg 3 Ml Ampul.Neb) 3 ml INHALE RQ4H WHILE AWAKE [facility] Last Admin: 10/31/21 20:39 Dose: 3 ml Documented by: SAHIL Amiodarone HCl (Amiodarone Hcl 200 Mg Tablet) 200 mg PO BID [facility] Last Admin: 10/31/21 21:45 Dose: 200 mg Documented by: RUSS Levofloxacin (Levaquin) 750 mg in 150 mls @ 100 mls/hr IV Q48H [facility] Last Infusion: 10/30/21 15:31 Dose: 0 mls/hr Documented by: TAMMY Metronidazole (Flagyl) 500 mg in 100 mls @ 100 mls/hr IV Q8H [facility] Last Infusion: 11/01/21 05:34 Dose: 0 mls/hr Documented by: RUSS Multivitamins 10 ml/ Trace Metals 1 ml/ Amino Acids/Electrolytes/Dextrose 1,999.92 mls @ 83.33 mls/hr IV DAILY@1800 [facility] Stop: 11/01/21 17:59 Last Admin: 10/31/21 17:53 Dose: 83.33 mls/hr Documented by: HUSSEIN Fat Emulsion Intravenous (Intralipid) 168 mls @ 14 mls/hr IVCONT BID@0600,1800 [facility] Stop: 11/01/21 17:59 Last Infusion: 11/01/21 05:53 Dose: 0 mls/hr Documented by: RUSS Pharmacy Consult (Consult Rx Perform Med Rec) 1 each MISCELLANE ONCE PRN PRN Reason: Consult order Senna (Sennosides 8.6 Mg Tablet) 17.2 mg PO BEDTIME PRN PRN Reason: Constipation Sodium Chloride (0.9 % Sodium Chloride Flush 3 Ml Syringe) 3 ml IVFLUSH QSHIFT [facility] Last Admin: 10/31/21 21:45 Dose: 3 ml Documented by: RUSS Labs CBC & Chem 7: 10/31/21 14:47 11/01/21 06:29 Labs: Laboratory Results - last 24 hr 10/31/21 11/01/21 14:47 06:29 MCV 87.4 MCH 30.1 MCHC 34.4 RDW 16.3 H Plt Count 89 L D MPV 11.0 Absolute Nucleated RBC 0.000 Nucleated RBC % (auto) 0.0 Anion Gap 9 L Estim Creat Clear Calc 72.9 Estimated GFR > 60 Random Glucose 119 H Calcium 7.5 L Phosphorus 3.2 Magnesium 1.6 Procedures Date of Service Date of Service: 11/01/21 Progress Note: A&P Assessment and plan (1) Partial small bowel obstruction: Status: Acute Assessment and Plan: NGT needed to be replaced discussed with Dr. Kenyon - will proceed with diagnostic laparoscopy, possible laparotomy, possible removal of graft explained to Jaden Vargas, pt's brother the technique of planned procedure reviewed risks extensively - bleeding, infections, overt respiratory failure requiring ventilatory support postop, blood clots, pneumonia, obstruction as well as the benefits and alternatives he understands significant perioperative risks in view of ongoing and acute medical issues including pneumonia, and atrial fibrillation I have discussed the above with the rack room worker Dr. Murrieta as well as anticipate the patient to go to the ICU postop on a ventilator. Time Spent With Patient Time: Total time spent is greater than 50% in coordination of care (as documented) at patient's floor/unit and/or counseling patient: Quality Stroke Does the patient have a stroke diagnosis?: No VTE Prior VTE?: No VTE Risk Level:: Medical - moderate - high VTE Device Contraindication: Treatment Not Indicated VTE Drug Contraindication: N/A - Med Ordered
[2021-11-01] MEDS: 0.9 % Sodium Chloride Flush 3 ML SYRINGE IVFLUSH ×2 (09:09→19:24)
[2021-11-01] MEDS: Fat Emulsions 20% 250 ML 14 ML IVCONT ×2 (09:09→21:28)
--- NOTE | 2021-11-01 09:50 | MHC.CLN ---
F/U REVIEWED LABS; DISCUSSED WITH PHARMACY PT RECEIVING PPN D10AA4.25 AT 83.33ML/HR PROVIDES 1020KCALS, 85G PROTEIN (1.5G/KG) WITH 14ML OF 20% LIPIDS TO PROVIDE AN ADDITIONAL 672KCALS (1692KCALS TOTAL; 30KCALS/KG) PT IS AT GOAL REPLETE LYTES NEEDED SEE ALSO FULL CLINICAL NUTRITION ASSESSMENT DATED 10/29/21 RD CAN BE REACHED VIA IMANIN CONNECT IF NEEDED
--- NOTE | 2021-11-01 10:54 | MHC.CM.PN ---
Per ROUNDS discussion, Patient is having abdominal surgery r/t an Obstruction and not yet ready for dc. PT recommends STR and CM will continue to follow.
--- NOTE | 2021-11-01 11:04 | MHC.SLORD ---
Speech Language Pathology Order Status: Discussed w/ RN this morning. Per RN, patient having surgery today- NPO. Reviewed chart. Dr. Meza documented patient had reobstructed over the weekend NGT replaced. Not yet appropriate for swallow eval.
[2021-11-01] MEDS: Amiodarone HCL 200 MG TABLET PO (11:17)
[2021-11-01] MEDS: Albuterol/Iprat 2.5/0.5MG 3 ML AMPUL.NEB INHALE ×2 (11:21→20:00)
--- NOTE | 2021-11-01 12:55 | HO.ANESPROP2 ---
HPI - Anesthesia Eval Consult details Narrative: 76 M for Laproscopy , possible graft removal . SBO , Aspiration pneumonia on 4-5 Liters of O2 and IV antibiotics , BActeremia Heart block , A-fib ,PAD LUE swollen , also generalized edema . Case discussed with the surgeons and the Clamshell Engineer . FOR[facility] Active Problems Active Problems: All Active Problems (Updated 10/29/21 @ 10:54 by Rashad Stoddard MD) Paroxysmal atrial fibrillation (Acute) Mucus plugging of bronchi (Acute) Bacteremia (Acute) New onset atrial fibrillation (Acute) Acute respiratory failure with hypoxia (Acute) Pulmonary emboli (Acute) Elevated troponin (Acute) Partial small bowel obstruction (Acute) Aspiration pneumonia (Acute) Bradycardia (Acute) Status post femorofemoral bypass surgery (Acute) PAD (peripheral artery disease) (Acute) Preoperative cardiovascular examination (Acute) Past Medical History Medical History (Updated 10/29/21 @ 10:54 by Rashad Stoddard MD) Bacteremia History of radiation therapy Illiterate Mentally challenged Mucus plugging of bronchi Partial small bowel obstruction Prostate cancer PVD (peripheral vascular disease) Family History Family History Father No problems noted. Mother No problems noted. Family history of problems with anesthesia: No Surgical History Surgical History Hx of surgical procedure No pertinent past surgical history History of Problems with Anesthesia: No Social History Social History Household Members: Family Household Members Other:: Lives with his sister Housing: Unknown / Unable to assess Are you a primary child care development specialist to a significant other at home: No Do you presently have visiting nurse or other home services: No Alcohol intake: never Patient Tobacco Use Status: Current everyday Tobacco user Tobacco use type: Cigarette Cigarettes Per Day: 1 Advance Directives Date on File: 10/18/21 service: No Current occupational status: disabled Meds Allergies Allergy/AdvReac Type Severity Reaction Status Date / Time No Known Allergies Allergy Verified 10/14/21 10:36 [No Known Allergies*] Active Medications: Current Medications Acetaminophen (Acetaminophen 325 Mg Tablet) 650 mg PO Q6H PRN PRN Reason: Pain, Mild (Pain Scale 1-3) Albuterol/Ipratropium (Albuterol/Iprat 2.5/0.5mg 3 Ml Ampul.Neb) 3 ml INHALE RQ4H WHILE AWAKE [facility] Last Admin: 11/01/21 11:21 Dose: 3 ml Documented by: Amiodarone HCl (Amiodarone Hcl 200 Mg Tablet) 200 mg PO BID [facility] Last Admin: 11/01/21 11:17 Dose: 200 mg Documented by: Levofloxacin (Levaquin) 750 mg in 150 mls @ 100 mls/hr IV Q48H [facility] Last Infusion: 10/30/21 15:31 Dose: Infused Documented by: Metronidazole (Flagyl) 500 mg in 100 mls @ 100 mls/hr IV Q8H [facility] Last Infusion: 11/01/21 05:34 Dose: Infused Documented by: Multivitamins 10 ml/ Trace Metals 1 ml/ Amino Acids/Electrolytes/Dextrose 1,999.92 mls @ 83.33 mls/hr IV DAILY@1800 [facility] Stop: 11/01/21 17:59 Last Admin: 10/31/21 17:53 Dose: 83.33 mls/hr Documented by: Fat Emulsion Intravenous (Intralipid) 168 mls @ 14 mls/hr IVCONT BID@0600,1800 [facility] Stop: 11/01/21 17:59 Last Admin: 11/01/21 09:09 Dose: 14 mls/hr Documented by: Multivitamins 10 ml/ Trace Metals 1 ml/ Amino Acids/Electrolytes/Dextrose 1,999 mls @ 83.33 mls/hr IV DAILY@1800 [facility] Stop: 11/02/21 17:59 Fat Emulsion Intravenous (Intralipid) 168 mls @ 14 mls/hr IVCONT BID@0600,1800 [facility] Stop: 11/02/21 17:59 Pharmacy Consult (Consult Rx Perform Med Rec) 1 each MISCELLANE ONCE PRN PRN Reason: Consult order Senna (Sennosides 8.6 Mg Tablet) 17.2 mg PO BEDTIME PRN PRN Reason: Constipation Sodium Chloride (0.9 % Sodium Chloride Flush 3 Ml Syringe) 3 ml IVFLUSH QSHIFT [facility] Last Admin: 11/01/21 09:09 Dose: 3 ml Documented by: Home Medications Medication Instructions Recorded Confirmed Last Taken Type aspirin 81 mg tablet,delayed 81 mg PO DAILY 09/21/21 10/23/2122 History release (Adult Aspirin Regimen) ibuprofen 200 mg tablet (Advil) 200 mg PO Q6H PRN 09/21/21 10/23/21 Unknown History multivitamin 1 tab PO DAILY 09/21/21 10/23/21 10/22/21 History Exam Exam Date and Time: November 01, 2021 1255 Height,Weight and Vital Signs: Height 5 ft 9 in Weight 55.8 kg Last Vital Signs Temp 97.5 F 11/01/21 11:12 Pulse 84 11/01/21 11:21 Resp 17 11/01/21 11:21 BP 125/73 11/01/21 11:12 Pulse Ox 92 11/01/21 11:12 Pertinent Lab Results Pertinent Lab Results: Laboratory Tests 10/23/21 10/23/21 10/23/21 18:15 18:15 18:15 WBC RBC Hgb Hct MCV MCH MCHC RDW Plt Count MPV Immature Gran % (Auto) Neut % (Auto) Lymph % (Auto) Craig % (Auto) Eos % (Auto) Baso % (Auto) Lymph # (Auto) Craig # (Auto) Eos # (Auto) Baso # (Auto) Abs Immat Gran (auto) Absolute Neuts (auto) Absolute Nucleated RBC Nucleated RBC % (auto) Neutrophils % (Manual) Band Neutrophils % Lymphocytes % (Manual) Monocytes % (Manual) Metamyelocytes % Myelocytes % Abs Neuts (Manual) Lymphocytes # (Manual) Monocytes # (Manual) Metamyelocytes # Myelocytes # Toxic Vacuolation Platelet Estimate Plt Morphology Comment RBC Morphology Polychromasia Ovalocytes [place] Cells Smear Path Review PT INR APTT aPTT Heparin Protocol D-Dimer High Sensitivty O2 Saturation ABG pH at Pt Temp ABG pCO2 at Pt Temp ABG pO2 at Pt Temp ABG HCO3 ABG Base Excess (Actual) Sodium 141 Potassium 3.9 Chloride 95 L Carbon Dioxide 30 H Anion Gap 20 BUN 64 H D Creatinine 1.52 H Estim Creat Clear Calc 32.6 Estimated GFR 45 Random Glucose 151 H D Fasting Glucose Lactic Acid Lactic Acid F/U @ 2Hr Calcium 9.5 Phosphorus Magnesium 2.2 Total Bilirubin 4.6 H Direct Bilirubin 2.1 H AST 25 ALT 21 Alkaline Phosphatase 111 Troponin I High Sens B-Natriuretic Peptide Total Protein 6.5 Albumin 3.8 Triglycerides Procalcitonin Urine Color Urine Appearance Urine pH Ur Specific [place] Urine Protein Urine Glucose (UA) Urine Ketones Urine Blood Urine Nitrite Ur Leukocyte Esterase Urine RBC Urine WBC Ur Squamous Epith Cells Urine Bacteria Hyaline Casts Urine Mucus Nasal Screen MRSA (PCR) Nasal S. aureus Screen Nasal MRSA/S.aureus Interp Vancomycin Trough COVID-19 ([facility]AN) Negative COVID-19 Clin Com See Note Influenza Type A (TONIO) Negative Influenza Type B (TONIO) Negative Influenza A & B Note See Note 10/23/21 10/23/21 10/23/21 18:16 18:16 18:16 WBC 14.1 H RBC 4.28 L Hgb 12.8 L Hct 38.1 L MCV 89.0 MCH 29.9 MCHC 33.6 RDW 14.7 Plt Count 387 MPV 10.1 Immature Gran % (Auto) Cancelled Neut % (Auto) Cancelled Lymph % (Auto) Cancelled Craig % (Auto) Cancelled Eos % (Auto) Cancelled Baso % (Auto) Cancelled Lymph # (Auto) Cancelled Craig # (Auto) Cancelled Eos # (Auto) Cancelled Baso # (Auto) Cancelled Abs Immat Gran (auto) Cancelled Absolute Neuts (auto) Cancelled Absolute Nucleated RBC 0.000 Nucleated RBC % (auto) 0.0 Neutrophils % (Manual) 13 L Band Neutrophils % 60 H Lymphocytes % (Manual) 3 L Monocytes % (Manual) 10 Metamyelocytes % 10 Myelocytes % 4 Abs Neuts (Manual) 10.3 H Lymphocytes # (Manual) 0.4 L Monocytes # (Manual) 1.4 H Metamyelocytes # 1.4 Myelocytes # 0.6 Toxic Vacuolation Platelet Estimate NORMAL Plt Morphology Comment NORMAL RBC Morphology NORMAL Polychromasia Ovalocytes [place] Cells Smear Path Review PT 14.2 H INR 1.2 H APTT 27.2 D aPTT Heparin Protocol D-Dimer High Sensitivty 2498 O2 Saturation ABG pH at Pt Temp ABG pCO2 at Pt Temp ABG pO2 at Pt Temp ABG HCO3 ABG Base Excess (Actual) Sodium Potassium Chloride Carbon Dioxide Anion Gap BUN Creatinine Estim Creat Clear Calc Estimated GFR Random Glucose Fasting Glucose Lactic Acid 2.4 H* Lactic Acid F/U @ 2Hr Calcium Phosphorus Magnesium Total Bilirubin Direct Bilirubin AST ALT Alkaline Phosphatase Troponin I High Sens B-Natriuretic Peptide Total Protein Albumin Triglycerides Procalcitonin Urine Color Urine Appearance Urine pH Ur Specific [place] Urine Protein Urine Glucose (UA) Urine Ketones Urine Blood Urine Nitrite Ur Leukocyte Esterase Urine RBC Urine WBC Ur Squamous Epith Cells Urine Bacteria Hyaline Casts Urine Mucus Nasal Screen MRSA (PCR) Nasal S. aureus Screen Nasal MRSA/S.aureus Interp Vancomycin Trough COVID-19 ([facility]AN) COVID-19 Clin Com Influenza Type A (TONIO) Influenza Type B (TONIO) Influenza A & B Note 10/23/21 10/23/21 10/23/21 18:16 19:56 21:02 WBC RBC Hgb Hct MCV MCH MCHC RDW Plt Count MPV Immature Gran % (Auto) Neut % (Auto) Lymph % (Auto) Craig % (Auto) Eos % (Auto) Baso % (Auto) Lymph # (Auto) Craig # (Auto) Eos # (Auto) Baso # (Auto) Abs Immat Gran (auto) Absolute Neuts (auto) Absolute Nucleated RBC Nucleated RBC % (auto) Neutrophils % (Manual) Band Neutrophils % Lymphocytes % (Manual) Monocytes % (Manual) Metamyelocytes % Myelocytes % Abs Neuts (Manual) Lymphocytes # (Manual) Monocytes # (Manual) Metamyelocytes # Myelocytes # Toxic Vacuolation Platelet Estimate Plt Morphology Comment RBC Morphology Polychromasia Ovalocytes [place] Cells Smear Path Review PT INR APTT aPTT Heparin Protocol D-Dimer High Sensitivty O2 Saturation ABG pH at Pt Temp ABG pCO2 at Pt Temp ABG pO2 at Pt Temp ABG HCO3 ABG Base Excess (Actual) Sodium Potassium Chloride Carbon Dioxide Anion Gap BUN Creatinine Estim Creat Clear Calc Estimated GFR Random Glucose Fasting Glucose Lactic Acid Lactic Acid F/U @ 2Hr 1.6 Calcium Phosphorus Magnesium Total Bilirubin Direct Bilirubin AST ALT Alkaline Phosphatase Troponin I High Sens 56.6 H B-Natriuretic Peptide 115 H Total Protein Albumin Triglycerides Procalcitonin Urine Color ORANGE A Urine Appearance CLEAR Urine pH 5.0 Ur Specific [place] >= 1.030 H Urine Protein 1+ H Urine Glucose (UA) NEG Urine Ketones 5 Urine Blood 2+ H Urine Nitrite NEG Ur Leukocyte Esterase NEG Urine RBC 1-4 Urine WBC 0-2 Ur Squamous Epith Cells TRACE Urine Bacteria TRACE Hyaline Casts 0-2 Urine Mucus TRACE Nasal Screen MRSA (PCR) Nasal S. aureus Screen Nasal MRSA/S.aureus Interp Vancomycin Trough COVID-19 ([facility]ORDAN) COVID-19 Clin Com Influenza Type A (TONIO) Influenza Type B (TONIO) Influenza A & B Note 10/23/21 10/24/21 10/24/21 21:21 04:09 04:09 WBC RBC Hgb Hct MCV MCH MCHC RDW Plt Count MPV Immature Gran % (Auto) Neut % (Auto) Lymph % (Auto) Craig % (Auto) Eos % (Auto) Baso % (Auto) Lymph # (Auto) Craig # (Auto) Eos # (Auto) Baso # (Auto) Abs Immat Gran (auto) Absolute Neuts (auto) Absolute Nucleated RBC Nucleated RBC % (auto) Neutrophils % (Manual) Band Neutrophils % Lymphocytes % (Manual) Monocytes % (Manual) Metamyelocytes % Myelocytes % Abs Neuts (Manual) Lymphocytes # (Manual) Monocytes # (Manual) Metamyelocytes # Myelocytes # Toxic Vacuolation Platelet Estimate Plt Morphology Comment RBC Morphology Polychromasia Ovalocytes [place] Cells Smear Path Review PT 14.1 H Cancelled INR 1.2 H Cancelled APTT aPTT Heparin Protocol 27.9 L D-Dimer High Sensitivty O2 Saturation ABG pH at Pt Temp ABG pCO2 at Pt Temp ABG pO2 at Pt Temp ABG HCO3 ABG Base Excess (Actual) Sodium Potassium Chloride Carbon Dioxide Anion Gap BUN Creatinine Estim Creat Clear Calc Estimated GFR Random Glucose Fasting Glucose Lactic Acid Lactic Acid F/U @ 2Hr Calcium Phosphorus Magnesium Total Bilirubin Direct Bilirubin AST ALT Alkaline Phosphatase Troponin I High Sens 57.9 H B-Natriuretic Peptide Total Protein Albumin Triglycerides Procalcitonin Urine Color Urine Appearance Urine pH Ur Specific [place] Urine Protein Urine Glucose (UA) Urine Ketones Urine Blood Urine Nitrite Ur Leukocyte Esterase Urine RBC Urine WBC Ur Squamous Epith Cells Urine Bacteria Hyaline Casts Urine Mucus Nasal Screen MRSA (PCR) Nasal S. aureus Screen Nasal MRSA/S.aureus Interp Vancomycin Trough COVID-19 ([facility]AN) COVID-19 Clin Com Influenza Type A (TONIO) Influenza Type B (TONIO) Influenza A & B Note 10/24/21 10/24/21 10/24/21 04:09 07:22 10:54 WBC 9.9 RBC 4.15 L Hgb 12.4 L Hct 37.1 L MCV 89.4 MCH 29.9 MCHC 33.4 RDW 15.0 Plt Count 365 MPV 10.8 Immature Gran % (Auto) Cancelled Neut % (Auto) Cancelled Lymph % (Auto) Cancelled Craig % (Auto) Cancelled Eos % (Auto) Cancelled Baso % (Auto) Cancelled Lymph # (Auto) Cancelled Craig # (Auto) Cancelled Eos # (Auto) Cancelled Baso # (Auto) Cancelled Abs Immat Gran (auto) Cancelled Absolute Neuts (auto) Cancelled Absolute Nucleated RBC 0.000 Nucleated RBC % (auto) 0.0 Neutrophils % (Manual) 36 L Band Neutrophils % 41 H Lymphocytes % (Manual) 12 L Monocytes % (Manual) 9 Metamyelocytes % 2 Myelocytes % Abs Neuts (Manual) 7.6 Lymphocytes # (Manual) 1.2 Monocytes # (Manual) 0.9 Metamyelocytes # 0.2 Myelocytes # Toxic Vacuolation PRESENT Platelet Estimate NORMAL Plt Morphology Comment NORMAL RBC Morphology NORMAL Polychromasia Ovalocytes [place] Cells Smear Path Review PT INR APTT aPTT Heparin Protocol 45.0 L D D-Dimer High Sensitivty O2 Saturation ABG pH at Pt Temp ABG pCO2 at Pt Temp ABG pO2 at Pt Temp ABG HCO3 ABG Base Excess (Actual) Sodium 144 Potassium 4.2 Chloride 99 Carbon Dioxide 26 Anion Gap 23 H BUN 74 H Creatinine 1.74 H Estim Creat Clear Calc 28.5 Estimated GFR 38 Random Glucose 108 Fasting Glucose Lactic Acid Lactic Acid F/U @ 2Hr Calcium 8.8 D Phosphorus Magnesium Total Bilirubin Direct Bilirubin AST ALT Alkaline Phosphatase Troponin I High Sens B-Natriuretic Peptide Total Protein Albumin Triglycerides Procalcitonin Urine Color Urine Appearance Urine pH Ur Specific [place] Urine Protein Urine Glucose (UA) Urine Ketones Urine Blood Urine Nitrite Ur Leukocyte Esterase Urine RBC Urine WBC Ur Squamous Epith Cells Urine Bacteria Hyaline Casts Urine Mucus Nasal Screen MRSA (PCR) Nasal S. aureus Screen Nasal MRSA/S.aureus Interp Vancomycin Trough COVID-19 ([facility]ORDAN) COVID-19 Clin Com Influenza Type A (TONIO) Influenza Type B (TONIO) Influenza A & B Note 10/24/21 10/25/21 10/25/21 16:54 00:03 08:05 WBC RBC Hgb Hct MCV MCH MCHC RDW Plt Count MPV Immature Gran % (Auto) Neut % (Auto) Lymph % (Auto) Craig % (Auto) Eos % (Auto) Baso % (Auto) Lymph # (Auto) Craig # (Auto) Eos # (Auto) Baso # (Auto) Abs Immat Gran (auto) Absolute Neuts (auto) Absolute Nucleated RBC Nucleated RBC % (auto) Neutrophils % (Manual) Band Neutrophils % Lymphocytes % (Manual) Monocytes % (Manual) Metamyelocytes % Myelocytes % Abs Neuts (Manual) Lymphocytes # (Manual) Monocytes # (Manual) Metamyelocytes # Myelocytes # Toxic Vacuolation Platelet Estimate Plt Morphology Comment RBC Morphology Polychromasia Ovalocytes [place] Cells Smear Path Review PT INR APTT aPTT Heparin Protocol 76.0 D 56.0 D 46.1 L D-Dimer High Sensitivty O2 Saturation ABG pH at Pt Temp ABG pCO2 at Pt Temp ABG pO2 at Pt Temp ABG HCO3 ABG Base Excess (Actual) Sodium Potassium Chloride Carbon Dioxide Anion Gap BUN Creatinine Estim Creat Clear Calc Estimated GFR Random Glucose Fasting Glucose Lactic Acid Lactic Acid F/U @ 2Hr Calcium Phosphorus Magnesium Total Bilirubin Direct Bilirubin AST ALT Alkaline Phosphatase Troponin I High Sens B-Natriuretic Peptide Total Protein Albumin Triglycerides Procalcitonin Urine Color Urine Appearance Urine pH Ur Specific [place] Urine Protein Urine Glucose (UA) Urine Ketones Urine Blood Urine Nitrite Ur Leukocyte Esterase Urine RBC Urine WBC Ur Squamous Epith Cells Urine Bacteria Hyaline Casts Urine Mucus Nasal Screen MRSA (PCR) Nasal S. aureus Screen Nasal MRSA/S.aureus Interp Vancomycin Trough COVID-19 ([facility]AN) COVID-19 Clin Com Influenza Type A (TONIO) Influenza Type B (TONIO) Influenza A & B Note 10/25/21 10/25/21 10/25/21 08:05 08:05 11:14 WBC 32.5 H* RBC 3.86 L Hgb 11.7 L Hct 35.2 L MCV 91.2 MCH 30.3 MCHC 33.2 RDW 15.4 Plt Count 320 MPV 10.7 Immature Gran % (Auto) Cancelled Neut % (Auto) Cancelled Lymph % (Auto) Cancelled Craig % (Auto) Cancelled Eos % (Auto) Cancelled Baso % (Auto) Cancelled Lymph # (Auto) Cancelled Craig # (Auto) Cancelled Eos # (Auto) Cancelled Baso # (Auto) Cancelled Abs Immat Gran (auto) Cancelled Absolute Neuts (auto) Cancelled Absolute Nucleated RBC 0.000 Nucleated RBC % (auto) 0.0 Neutrophils % (Manual) 77 H Band Neutrophils % 13 H Lymphocytes % (Manual) 2 L Monocytes % (Manual) 6 Metamyelocytes % 2 Myelocytes % Abs Neuts (Manual) 29.3 H Lymphocytes # (Manual) 0.7 L Monocytes # (Manual) 2.0 H Metamyelocytes # 0.7 Myelocytes # Toxic Vacuolation PRESENT Platelet Estimate NORMAL Plt Morphology Comment NORMAL RBC Morphology NOTED Polychromasia 1+ (0-2) Ovalocytes 1+ (5-14) [place] Cells 3+ (>5) Smear Path Review PT INR APTT aPTT Heparin Protocol D-Dimer High Sensitivty O2 Saturation ABG pH at Pt Temp ABG pCO2 at Pt Temp ABG pO2 at Pt Temp ABG HCO3 ABG Base Excess (Actual) Sodium 147 H Potassium 3.0 L D Chloride 108 Carbon Dioxide 22 Anion Gap 20 BUN 75 H Creatinine 1.77 H Estim Creat Clear Calc 28.0 Estimated GFR 38 Random Glucose 84 Fasting Glucose Lactic Acid Lactic Acid F/U @ 2Hr Calcium 8.2 L D Phosphorus Magnesium Total Bilirubin Direct Bilirubin AST ALT Alkaline Phosphatase Troponin I High Sens B-Natriuretic Peptide Total Protein Albumin Triglycerides Procalcitonin Urine Color Urine Appearance Urine pH Ur Specific [place] Urine Protein Urine Glucose (UA) Urine Ketones Urine Blood Urine Nitrite Ur Leukocyte Esterase Urine RBC Urine WBC Ur Squamous Epith Cells Urine Bacteria Hyaline Casts Urine Mucus Nasal Screen MRSA (PCR) Nasal S. aureus Screen Nasal MRSA/S.aureus Interp Vancomycin Trough 13.5 COVID-19 ([facility]) COVID-19 Clin Com Influenza Type A (TONIO) Influenza Type B (TONIO) Influenza A & B Note 10/25/21 10/25/21 10/25/21 14:58 20:52 23:05 WBC RBC Hgb Hct MCV MCH MCHC RDW Plt Count MPV Immature Gran % (Auto) Neut % (Auto) Lymph % (Auto) Craig % (Auto) Eos % (Auto) Baso % (Auto) Lymph # (Auto) Craig # (Auto) Eos # (Auto) Baso # (Auto) Abs Immat Gran (auto) Absolute Neuts (auto) Absolute Nucleated RBC Nucleated RBC % (auto) Neutrophils % (Manual) Band Neutrophils % Lymphocytes % (Manual) Monocytes % (Manual) Metamyelocytes % Myelocytes % Abs Neuts (Manual) Lymphocytes # (Manual) Monocytes # (Manual) Metamyelocytes # Myelocytes # Toxic Vacuolation Platelet Estimate Plt Morphology Comment RBC Morphology Polychromasia Ovalocytes [place] Cells Smear Path Review PT INR APTT aPTT Heparin Protocol 53.2 36.6 L D D-Dimer High Sensitivty O2 Saturation ABG pH at Pt Temp ABG pCO2 at Pt Temp ABG pO2 at Pt Temp ABG HCO3 ABG Base Excess (Actual) Sodium 147 H Potassium 3.4 Chloride 111 H Carbon Dioxide 22 Anion Gap 17 BUN 70 H Creatinine 1.42 H Estim Creat Clear Calc 34.9 Estimated GFR 48 Random Glucose 87 Fasting Glucose Lactic Acid Lactic Acid F/U @ 2Hr Calcium 8.1 L Phosphorus Magnesium 2.8 H Total Bilirubin Direct Bilirubin AST ALT Alkaline Phosphatase Troponin I High Sens B-Natriuretic Peptide Total Protein Albumin Triglycerides Procalcitonin Urine Color Urine Appearance Urine pH Ur Specific [place] Urine Protein Urine Glucose (UA) Urine Ketones Urine Blood Urine Nitrite Ur Leukocyte Esterase Urine RBC Urine WBC Ur Squamous Epith Cells Urine Bacteria Hyaline Casts Urine Mucus Nasal Screen MRSA (PCR) Nasal S. aureus Screen Nasal MRSA/S.aureus Interp Vancomycin Trough COVID-19 ([facility]AN) COVID-19 Clin Com Influenza Type A (TONIO) Influenza Type B (TONIO) Influenza A & B Note 10/26/21 10/26/21 10/26/21 04:12 04:12 04:12 WBC 36.4 H* RBC 3.49 L Hgb 10.4 L Hct 31.5 L MCV 90.3 MCH 29.8 MCHC 33.0 RDW 15.7 Plt Count 222 D MPV 9.9 Immature Gran % (Auto) Neut % (Auto) Lymph % (Auto) Craig % (Auto) Eos % (Auto) Baso % (Auto) Lymph # (Auto) Craig # (Auto) Eos # (Auto) Baso # (Auto) Abs Immat Gran (auto) Absolute Neuts (auto) Absolute Nucleated RBC 0.000 Nucleated RBC % (auto) 0.0 Neutrophils % (Manual) Band Neutrophils % Lymphocytes % (Manual) Monocytes % (Manual) Metamyelocytes % Myelocytes % Abs Neuts (Manual) Lymphocytes # (Manual) Monocytes # (Manual) Metamyelocytes # Myelocytes # Toxic Vacuolation Platelet Estimate Plt Morphology Comment RBC Morphology Polychromasia Ovalocytes [place] Cells Smear Path Review SEE NOTE PT INR APTT aPTT Heparin Protocol 58.2 D D-Dimer High Sensitivty O2 Saturation ABG pH at Pt Temp ABG pCO2 at Pt Temp ABG pO2 at Pt Temp ABG HCO3 ABG Base Excess (Actual) Sodium 148 H Potassium 3.5 Chloride 113 H Carbon Dioxide 22 Anion Gap 17 BUN 68 H Creatinine 1.28 Estim Creat Clear Calc 38.7 Estimated GFR 55 Random Glucose Fasting Glucose 87 Lactic Acid Lactic Acid F/U @ 2Hr Calcium 8.1 L Phosphorus Magnesium Total Bilirubin Direct Bilirubin AST ALT Alkaline Phosphatase Troponin I High Sens B-Natriuretic Peptide Total Protein Albumin Triglycerides Procalcitonin Urine Color Urine Appearance Urine pH Ur Specific [place] Urine Protein Urine Glucose (UA) Urine Ketones Urine Blood Urine Nitrite Ur Leukocyte Esterase Urine RBC Urine WBC Ur Squamous Epith Cells Urine Bacteria Hyaline Casts Urine Mucus Nasal Screen MRSA (PCR) Nasal S. aureus Screen Nasal MRSA/S.aureus Interp Vancomycin Trough COVID-19 ([facility]AN) COVID-19 Clin Com Influenza Type A (TONIO) Influenza Type B (TONIO) Influenza A & B Note 10/26/21 10/26/21 10/26/21 04:12 10:05 17:24 WBC RBC Hgb Hct MCV MCH MCHC RDW Plt Count MPV Immature Gran % (Auto) Neut % (Auto) Lymph % (Auto) Craig % (Auto) Eos % (Auto) Baso % (Auto) Lymph # (Auto) Craig # (Auto) Eos # (Auto) Baso # (Auto) Abs Immat Gran (auto) Absolute Neuts (auto) Absolute Nucleated RBC Nucleated RBC % (auto) Neutrophils % (Manual) Band Neutrophils % Lymphocytes % (Manual) Monocytes % (Manual) Metamyelocytes % Myelocytes % Abs Neuts (Manual) Lymphocytes # (Manual) Monocytes # (Manual) Metamyelocytes # Myelocytes # Toxic Vacuolation Platelet Estimate Plt Morphology Comment RBC Morphology Polychromasia Ovalocytes [place] Cells Smear Path Review PT INR APTT aPTT Heparin Protocol 48.2 L 24.7 L D D-Dimer High Sensitivty O2 Saturation ABG pH at Pt Temp ABG pCO2 at Pt Temp ABG pO2 at Pt Temp ABG HCO3 ABG Base Excess (Actual) Sodium Potassium Chloride Carbon Dioxide Anion Gap BUN Creatinine Estim Creat Clear Calc Estimated GFR Random Glucose Fasting Glucose Lactic Acid Lactic Acid F/U @ 2Hr Calcium Phosphorus Magnesium Total Bilirubin Direct Bilirubin AST ALT Alkaline Phosphatase Troponin I High Sens B-Natriuretic Peptide Total Protein Albumin Triglycerides Procalcitonin 5.65 Urine Color Urine Appearance Urine pH Ur Specific [place] Urine Protein Urine Glucose (UA) Urine Ketones Urine Blood Urine Nitrite Ur Leukocyte Esterase Urine RBC Urine WBC Ur Squamous Epith Cells Urine Bacteria Hyaline Casts Urine Mucus Nasal Screen MRSA (PCR) Nasal S. aureus Screen Nasal MRSA/S.aureus Interp Vancomycin Trough COVID-19 ([facility]ORDAN) COVID-19 Clin Com Influenza Type A (TONIO) Influenza Type B (TONIO) Influenza A & B Note 10/27/21 10/27/21 10/27/21 05:41 05:41 10:27 WBC 25.9 H RBC 3.29 L Hgb 9.7 L Hct 29.8 L MCV 90.6 MCH 29.5 MCHC 32.6 RDW 15.8 Plt Count 153 L D MPV 10.0 Immature Gran % (Auto) Neut % (Auto) Lymph % (Auto) [place] % (Auto) Eos % (Auto) Baso % (Auto) Lymph # (Auto) Craig # (Auto) Eos # (Auto) Baso # (Auto) Abs Immat Gran (auto) Absolute Neuts (auto) Absolute Nucleated RBC 0.000 Nucleated RBC % (auto) 0.0 Neutrophils % (Manual) Band Neutrophils % Lymphocytes % (Manual) Monocytes % (Manual) Metamyelocytes % Myelocytes % Abs Neuts (Manual) Lymphocytes # (Manual) Monocytes # (Manual) Metamyelocytes # Myelocytes # Toxic Vacuolation Platelet Estimate Plt Morphology Comment RBC Morphology Polychromasia Ovalocytes [place] Cells Smear Path Review PT INR APTT aPTT Heparin Protocol D-Dimer High Sensitivty O2 Saturation ABG pH at Pt Temp ABG pCO2 at Pt Temp ABG pO2 at Pt Temp ABG HCO3 ABG Base Excess (Actual) Sodium 147 H Potassium 3.4 Chloride 114 H Carbon Dioxide 26 Anion Gap 10 L BUN 41 H Creatinine 0.89 Estim Creat Clear Calc 55.7 Estimated GFR > 60 Random Glucose 136 H D Fasting Glucose Lactic Acid Lactic Acid F/U @ 2Hr Calcium 7.8 L Phosphorus Magnesium Total Bilirubin Direct Bilirubin AST ALT Alkaline Phosphatase Troponin I High Sens B-Natriuretic Peptide Total Protein Albumin Triglycerides Procalcitonin Urine Color Urine Appearance Urine pH Ur Specific [place] Urine Protein Urine Glucose (UA) Urine Ketones Urine Blood Urine Nitrite Ur Leukocyte Esterase Urine RBC Urine WBC Ur Squamous Epith Cells Urine Bacteria Hyaline Casts Urine Mucus Nasal Screen MRSA (PCR) NEGATIVE Nasal S. aureus Screen NEGATIVE Nasal MRSA/S.aureus Interp SEE NOTE Vancomycin Trough COVID-19 (YORDAN) COVID-19 Clin Com Influenza Type A (TONIO) Influenza Type B (TONIO) Influenza A & B Note 10/28/21 10/28/21 10/28/21 06:10 06:10 06:10 WBC 26.7 H RBC 3.58 L Hgb 10.8 L Hct 32.7 L MCV 91.3 MCH 30.2 MCHC 33.0 RDW 15.9 Plt Count 157 L MPV 10.6 Immature Gran % (Auto) Neut % (Auto) Lymph % (Auto) Craig % (Auto) Eos % (Auto) Baso % (Auto) Lymph # (Auto) Craig # (Auto) Eos # (Auto) Baso # (Auto) Abs Immat Gran (auto) Absolute Neuts (auto) Absolute Nucleated RBC 0.000 Nucleated RBC % (auto) 0.0 Neutrophils % (Manual) Band Neutrophils % Lymphocytes % (Manual) Monocytes % (Manual) Metamyelocytes % Myelocytes % Abs Neuts (Manual) Lymphocytes # (Manual) Monocytes # (Manual) Metamyelocytes # Myelocytes # Toxic Vacuolation Platelet Estimate Plt Morphology Comment RBC Morphology Polychromasia Ovalocytes [place] Cells Smear Path Review PT INR APTT aPTT Heparin Protocol D-Dimer High Sensitivty O2 Saturation ABG pH at Pt Temp ABG pCO2 at Pt Temp ABG pO2 at Pt Temp ABG HCO3 ABG Base Excess (Actual) Sodium 143 Potassium 3.2 L Chloride 111 H Carbon Dioxide 25 Anion Gap 10 L BUN 27 H Creatinine 0.73 Estim Creat Clear Calc 67.9 Estimated GFR > 60 Random Glucose 130 H Fasting Glucose Lactic Acid Lactic Acid F/U @ 2Hr Calcium 7.8 L Phosphorus Magnesium 2.0 Total Bilirubin Direct Bilirubin AST ALT Alkaline Phosphatase Troponin I High Sens B-Natriuretic Peptide Total Protein Albumin Triglycerides Procalcitonin 1.22 Urine Color Urine Appearance Urine pH Ur Specific [place] Urine Protein Urine Glucose (UA) Urine Ketones Urine Blood Urine Nitrite Ur Leukocyte Esterase Urine RBC Urine WBC Ur Squamous Epith Cells Urine Bacteria Hyaline Casts Urine Mucus Nasal Screen MRSA (PCR) Nasal S. aureus Screen Nasal MRSA/S.aureus Interp Vancomycin Trough COVID-19 (YORDAN) COVID-19 Clin Com Influenza Type A (TONIO) Influenza Type B (TONIO) Influenza A & B Note 10/28/21 10/28/21 10/28/21 09:19 09:23 09:23 WBC 28.3 H RBC 3.66 L Hgb 11.2 L Hct 33.6 L MCV 91.8 MCH 30.6 MCHC 33.3 RDW 16.3 H Plt Count 162 MPV 10.3 Immature Gran % (Auto) Neut % (Auto) Lymph % (Auto) Craig % (Auto) Eos % (Auto) Baso % (Auto) Lymph # (Auto) Craig # (Auto) Eos # (Auto) Baso # (Auto) Abs Immat Gran (auto) Absolute Neuts (auto) Absolute Nucleated RBC 0.000 Nucleated RBC % (auto) 0.0 Neutrophils % (Manual) Band Neutrophils % Lymphocytes % (Manual) Monocytes % (Manual) Metamyelocytes % Myelocytes % Abs Neuts (Manual) Lymphocytes # (Manual) Monocytes # (Manual) Metamyelocytes # Myelocytes # Toxic Vacuolation Platelet Estimate Plt Morphology Comment RBC Morphology Polychromasia Ovalocytes [place] Cells Smear Path Review PT 14.2 H INR 1.2 H APTT 25.5 aPTT Heparin Protocol D-Dimer High Sensitivty O2 Saturation 95.0 ABG pH at Pt Temp 7.45 ABG pCO2 at Pt Temp 34 ABG pO2 at Pt Temp 76 L ABG HCO3 24 ABG Base Excess (Actual) 0.9 Sodium Potassium Chloride Carbon Dioxide Anion Gap BUN Creatinine Estim Creat Clear Calc Estimated GFR Random Glucose Fasting Glucose Lactic Acid Lactic Acid F/U @ 2Hr Calcium Phosphorus Magnesium Total Bilirubin Direct Bilirubin AST ALT Alkaline Phosphatase Troponin I High Sens B-Natriuretic Peptide Total Protein Albumin Triglycerides Procalcitonin Urine Color Urine Appearance Urine pH Ur Specific [place] Urine Protein Urine Glucose (UA) Urine Ketones Urine Blood Urine Nitrite Ur Leukocyte Esterase Urine RBC Urine WBC Ur Squamous Epith Cells Urine Bacteria Hyaline Casts Urine Mucus Nasal Screen MRSA (PCR) Nasal S. aureus Screen Nasal MRSA/S.aureus Interp Vancomycin Trough COVID-19 (YORDAN) COVID-19 Clin Com Influenza Type A (TONIO) Influenza Type B (TONIO) Influenza A & B Note 10/29/21 10/29/21 10/29/21 06:50 06:50 06:50 WBC 25.2 H RBC 3.43 L Hgb 10.1 L Hct 30.8 L MCV 89.8 MCH 29.4 MCHC 32.8 RDW 16.1 H Plt Count 70 L D MPV 10.4 Immature Gran % (Auto) Neut % (Auto) Lymph % (Auto) Craig % (Auto) Eos % (Auto) Baso % (Auto) Lymph # (Auto) Craig # (Auto) Eos # (Auto) Baso # (Auto) Abs Immat Gran (auto) Absolute Neuts (auto) Absolute Nucleated RBC 0.000 Nucleated RBC % (auto) 0.0 Neutrophils % (Manual) Band Neutrophils % Lymphocytes % (Manual) Monocytes % (Manual) Metamyelocytes % Myelocytes % Abs Neuts (Manual) Lymphocytes # (Manual) Monocytes # (Manual) Metamyelocytes # Myelocytes # Toxic Vacuolation Platelet Estimate Plt Morphology Comment RBC Morphology Polychromasia Ovalocytes [place] Cells Smear Path Review PT 17.5 H INR 1.5 H APTT aPTT Heparin Protocol D-Dimer High Sensitivty O2 Saturation ABG pH at Pt Temp ABG pCO2 at Pt Temp ABG pO2 at Pt Temp ABG HCO3 ABG Base Excess (Actual) Sodium 143 Potassium 3.3 Chloride 111 H Carbon Dioxide 24 Anion Gap 11 L BUN 23 H Creatinine 0.76 Estim Creat Clear Calc 65.2 Estimated GFR > 60 Random Glucose 94 Fasting Glucose Lactic Acid Lactic Acid F/U @ 2Hr Calcium 7.4 L Phosphorus 2.5 L Magnesium 1.8 Total Bilirubin Direct Bilirubin AST ALT Alkaline Phosphatase Troponin I High Sens B-Natriuretic Peptide Total Protein Albumin 2.1 L D Triglycerides Procalcitonin Urine Color Urine Appearance Urine pH Ur Specific [place] Urine Protein Urine Glucose (UA) Urine Ketones Urine Blood Urine Nitrite Ur Leukocyte Esterase Urine RBC Urine WBC Ur Squamous Epith Cells Urine Bacteria Hyaline Casts Urine Mucus Nasal Screen MRSA (PCR) Nasal S. aureus Screen Nasal MRSA/S.aureus Interp Vancomycin Trough COVID-19 (YORDAN) COVID-19 Clin Com Influenza Type A (TONIO) Influenza Type B (TONIO) Influenza A & B Note 10/30/21 10/31/21 10/31/21 10:16 06:25 14:47 WBC 26.1 H RBC 3.42 L Hgb 10.3 L Hct 29.9 L MCV 87.4 MCH 30.1 MCHC 34.4 RDW 16.3 H Plt Count 89 L D MPV 11.0 Immature Gran % (Auto) Neut % (Auto) Lymph % (Auto) Craig % (Auto) Eos % (Auto) Baso % (Auto) Lymph # (Auto) Craig # (Auto) Eos # (Auto) Baso # (Auto) Abs Immat Gran (auto) Absolute Neuts (auto) Absolute Nucleated RBC 0.000 Nucleated RBC % (auto) 0.0 Neutrophils % (Manual) Band Neutrophils % Lymphocytes % (Manual) Monocytes % (Manual) Metamyelocytes % Myelocytes % Abs Neuts (Manual) Lymphocytes # (Manual) Monocytes # (Manual) Metamyelocytes # Myelocytes # Toxic Vacuolation Platelet Estimate Plt Morphology Comment RBC Morphology Polychromasia Ovalocytes [place] Cells Smear Path Review PT INR APTT aPTT Heparin Protocol D-Dimer High Sensitivty O2 Saturation ABG pH at Pt Temp ABG pCO2 at Pt Temp ABG pO2 at Pt Temp ABG HCO3 ABG Base Excess (Actual) Sodium 140 138 Potassium 3.3 3.6 Chloride 109 H 108 Carbon Dioxide 24 21 L Anion Gap 10 L 13 BUN 24 H 25 H Creatinine 0.66 0.68 Estim Creat Clear Calc 75.1 72.9 Estimated GFR > 60 > 60 Random Glucose 138 H D 132 H Fasting Glucose Lactic Acid Lactic Acid F/U @ 2Hr Calcium 7.5 L 7.4 L Phosphorus 2.7 2.8 Magnesium 1.7 1.7 Total Bilirubin Direct Bilirubin AST ALT Alkaline Phosphatase Troponin I High Sens B-Natriuretic Peptide Total Protein Albumin Triglycerides 99 Procalcitonin Urine Color Urine Appearance Urine pH Ur Specific [place] Urine Protein Urine Glucose (UA) Urine Ketones Urine Blood Urine Nitrite Ur Leukocyte Esterase Urine RBC Urine WBC Ur Squamous Epith Cells Urine Bacteria Hyaline Casts Urine Mucus Nasal Screen MRSA (PCR) Nasal S. aureus Screen Nasal MRSA/S.aureus Interp Vancomycin Trough COVID-19 (YORDAN) COVID-19 Clin Com Influenza Type A (TONIO) Influenza Type B (TONIO) Influenza A & B Note 11/01/21 06:29 WBC RBC Hgb Hct MCV MCH MCHC RDW Plt Count MPV Immature Gran % (Auto) Neut % (Auto) Lymph % (Auto) Craig % (Auto) Eos % (Auto) Baso % (Auto) Lymph # (Auto) Craig # (Auto) Eos # (Auto) Baso # (Auto) Abs Immat Gran (auto) Absolute Neuts (auto) Absolute Nucleated RBC Nucleated RBC % (auto) Neutrophils % (Manual) Band Neutrophils % Lymphocytes % (Manual) Monocytes % (Manual) Metamyelocytes % Myelocytes % Abs Neuts (Manual) Lymphocytes # (Manual) Monocytes # (Manual) Metamyelocytes # Myelocytes # Toxic Vacuolation Platelet Estimate Plt Morphology Comment RBC Morphology Polychromasia Ovalocytes [place] Cells Smear Path Review PT INR APTT aPTT Heparin Protocol D-Dimer High Sensitivty O2 Saturation ABG pH at Pt Temp ABG pCO2 at Pt Temp ABG pO2 at Pt Temp ABG HCO3 ABG Base Excess (Actual) Sodium 137 Potassium 3.8 Chloride 106 Carbon Dioxide 26 Anion Gap 9 L BUN 25 H Creatinine 0.68 Estim Creat Clear Calc 72.9 Estimated GFR > 60 Random Glucose 119 H Fasting Glucose Lactic Acid Lactic Acid F/U @ 2Hr Calcium 7.5 L Phosphorus 3.2 Magnesium 1.6 Total Bilirubin Direct Bilirubin AST ALT Alkaline Phosphatase Troponin I High Sens B-Natriuretic Peptide Total Protein Albumin Triglycerides Procalcitonin Urine Color Urine Appearance Urine pH Ur Specific [place] Urine Protein Urine Glucose (UA) Urine Ketones Urine Blood Urine Nitrite Ur Leukocyte Esterase Urine RBC Urine WBC Ur Squamous Epith Cells Urine Bacteria Hyaline Casts Urine Mucus Nasal Screen MRSA (PCR) Nasal S. aureus Screen Nasal MRSA/S.aureus Interp Vancomycin Trough COVID-19 (YORDAN) COVID-19 Clin Com Influenza Type A (TONIO) Influenza Type B (TONIO) Influenza A & B Note Airway Mallampati Class: III Neck ROM: Full Denture: Upper and Lower Heart: S1,S2 Lungs: diminished breath sounds b/l Assessment and Plan Assessment Anesthesia Assessment: Anesthesia Plan Discussed and Chart Reviewed Final Anesthetic Review Family History of Problems with Anesthesia: No History of Problems with Anesthesia: No NPO: Yes ASA Class: IV and Emergency Final Preanesthetic Review: Meds/Allgs Chart Reviewed, Consent Obtained/Reviewed and Anes Risks/Benef Reviewed Patient Risk: High Procedure Risk: High Anesthetic Plan Anesthetic Plan: GA Disposition: Inp. Admit - ICU
--- NOTE | 2021-11-01 13:39 | HO.VASCPN ---
Subjective Subjective Date of Service: 11/01/21 Patient reports: vomiting Interval history: Patient seen and examined. Events over the past weekend were reviewed. He had an episode of emesis yesterday and subsequently had an NG-tube placed. He now presents for follow-up. Physical Exam Vital Signs: Vital Signs: Last Vital Signs Temp 97.5 F 11/01/21 11:12 Pulse 84 11/01/21 11:21 Resp 17 11/01/21 11:21 BP 125/73 11/01/21 11:12 Pulse Ox 92 11/01/21 11:12 BMI result Body Mass Index 18.1 Const: General: cooperative, healthy appearing and no acute distress Orientation/consciousness: oriented to person, oriented to place and oriented to time HEENT: Head: Yes normal to inspection Neck: Carotids: no bruits Chest: Chest palpation & inspection: normal inspection of the chest Resp: Effort & Inspection: normal respiratory effort and able to speak in complete sentences Auscultation: clear to auscultation bilaterally Cardio: Rate: regular rate Heart sounds: S1 normal heart sound present and S2 normal heart sound present GI: Other: Abdomen soft no rebound no guarding Auscultation: abnormal bowel sounds Skin: Other: Bilateral groins well-healed General skin exam: no rashes or lesions noted Wounds: no wounds Neuro: General: oriented to person, oriented to place, oriented to time and CN's II-XI intact bilaterally Extrem: General: Yes normal to inspection, Yes full ROM and Yes no clubbing, cyanosis or edema Psych: Appearance: grossly normal and well kempt Speech and movement: Normal speech and movement present Affect: normal affect Progress Note: A&P Assessment and plan (1) PAD (peripheral artery disease): Status: Acute Assessment and Plan: In short patient has partial small-bowel obstruction. It does not have appear to have resolved. Respiratory status is still tenuous. Due to the events of the past weekend and his bout of emesis he has failed conservative management. I did discuss this case with the general surgery team and we will re-explore him. Will start with a laparoscopic exploration. Depending on what the graft shows we may need to excise the graft. Risks benefits complications were discussed in detail with the patient and the patient's brother. We will proceed. Postop will most likely require ICU care. Thank you for allowing us to assist in his care Time Spent With Patient Time: Total time spent is greater than 50% in coordination of care (as documented) at patient's floor/unit and/or counseling patient: Procedures Date of Service Date of Service: 11/01/21 Quality Stroke Does the patient have a stroke diagnosis?: No VTE Prior VTE?: No VTE Risk Level:: Medical - moderate - high VTE Device Contraindication: Treatment Not Indicated VTE Drug Contraindication: N/A - Med Ordered
--- NOTE | 2021-11-01 13:53 | P.PNIM_ITS ---
Subjective Subjective Date of Service: 11/01/21 Interval History: offers no acute symptoms this morning, NG in place, continue to have bilious output, brother at bedside, patient is scheduled to undergo diagnostic laparoscopy, possible laparotomy, possible removal of collapsed by General surgery and Dr. Kenyon today. Review of Systems Review of Systems: Yes all other systems are reviewed and are negative Physical Exam Vital Signs: Vital Signs: Last Vital Signs Temp 97.5 F 11/01/21 11:12 Pulse 84 11/01/21 11:21 Resp 17 11/01/21 11:21 BP 125/73 11/01/21 11:12 Pulse Ox 92 11/01/21 11:12 BMI result Body Mass Index 18.1 Const: Other: General? awake alert, thin build, no acute distress.? Neck no JVD. CVS? regular rate rhythm, Respiratory lungs clear to auscultation, no respiratory distress, no wheeze, no rhonchi. Gastrointestinal abdomen soft, nontender, no guarding , no rigidity, positive bowel sounds. lower Extremities no edema, bilateral upper extremities swollen left greater than right,at site of IV. Neuro nonfocal Skin no rash psych appropriate affect Objective Data Active Medications Acetaminophen (Acetaminophen 325 Mg Tablet) 650 mg PO Q6H PRN PRN Reason: Pain, Mild (Pain Scale 1-3) Albuterol/Ipratropium (Albuterol/Iprat 2.5/0.5mg 3 Ml Ampul.Neb) 3 ml INHALE RQ4H WHILE AWAKE [facility] Last Admin: 11/01/21 11:21 Dose: 3 ml Documented by: ROSE Amiodarone HCl (Amiodarone Hcl 200 Mg Tablet) 200 mg PO BID [facility] Last Admin: 11/01/21 11:17 Dose: 200 mg Documented by: LUCAS Levofloxacin (Levaquin) 750 mg in 150 mls @ 100 mls/hr IV Q48H [facility] Last Infusion: 10/30/21 15:31 Dose: 0 mls/hr Documented by: TAMMY Metronidazole (Flagyl) 500 mg in 100 mls @ 100 mls/hr IV Q8H [facility] Last Infusion: 11/01/21 05:34 Dose: 0 mls/hr Documented by: RUSS Multivitamins 10 ml/ Trace Metals 1 ml/ Amino Acids/Electrolytes/Dextrose 1,999.92 mls @ 83.33 mls/hr IV DAILY@1800 KENYA Stop: 11/01/21 17:59 Last Infusion: 11/01/21 13:20 Dose: 0 mls/hr Documented by: LUCAS Fat Emulsion Intravenous (Intralipid) 168 mls @ 14 mls/hr IVCONT BID@0600,1800 [facility] Stop: 11/01/21 17:59 Last Infusion: 11/01/21 13:20 Dose: 0 mls/hr Documented by: LUCAS Multivitamins 10 ml/ Trace Metals 1 ml/ Amino Acids/Electrolytes/Dextrose 1,999 mls @ 83.33 mls/hr IV DAILY@1800 [facility] Stop: 11/02/21 17:59 Fat Emulsion Intravenous (Intralipid) 168 mls @ 14 mls/hr IVCONT BID@0600,1800 KENYA Stop: 11/02/21 17:59 Pharmacy Consult (Consult Rx Perform Med Rec) 1 each MISCELLANE ONCE PRN PRN Reason: Consult order Senna (Sennosides 8.6 Mg Tablet) 17.2 mg PO BEDTIME PRN PRN Reason: Constipation Sodium Chloride (0.9 % Sodium Chloride Flush 3 Ml Syringe) 3 ml IVFLUSH QSHIFT [facility] Last Admin: 11/01/21 09:09 Dose: 3 ml Documented by: LUCAS Labs CBC & Chem 7: 10/31/21 14:47 11/01/21 06:29 Labs: Laboratory Results - last 24 hr 10/31/21 11/01/21 14:47 06:29 MCV 87.4 MCH 30.1 MCHC 34.4 RDW 16.3 H Plt Count 89 L D MPV 11.0 Absolute Nucleated RBC 0.000 Nucleated RBC % (auto) 0.0 Anion Gap 9 L Estim Creat Clear Calc 72.9 Estimated GFR > 60 Random Glucose 119 H Calcium 7.5 L Phosphorus 3.2 Magnesium 1.6 Assessment and Plan (1) Paroxysmal atrial fibrillation: Status: Acute (2) Mucus plugging of bronchi: Status: Acute (3) Bacteremia: Status: Acute (4) New onset atrial fibrillation: Status: Acute (5) Acute respiratory failure with hypoxia: Status: Acute (6) Partial small bowel obstruction: Status: Acute Plan 76yo M with hx prostate CA, PVD s/p fem-fem bypass 10/18/21 with 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 noted [no PPM recommended] presented with dyspnea, admitted for hypoxia/aspiration, pSBO developed AF/RVR # pSBO patient noted to have recurrent episode of bilious vomiting therefore NG tube replaced on 10/31 with significant bilious drainage patient evaluated by general surgeon Dr. Meza and Dr. Kenyon and plan is to proceed with diagnostic laparoscopy, possible laparotomy, possible removal of graft, since obstruction persist with no flatus, no bowel movement, and high NG output continue PPN, Started on TPN 10/29. Follow BMP, Mag, Phos, calcium, may need PICC line # acute hypoxic resp failure due to pneumonia, suspected aspiration # Enterobacter aerogenes bacteremia/sepsis # leukocytosis continue updraft treatment, IV Levaquin and metronidazole day 12/09 as per ID, being followed by minute clerk for basic traffic continue accupella device, bronchoscopy if worsens leukocytosis persists but trending down, MRSA swab negative, procalcitonin down to 1.22 from 5.65 no evidence of PE on CT angiogram head intermediate probability on V/Q scan heparin drip discontinued on 4 L of oxygen wean as tolerated # thrombocytopenia platelets improved to 89,000 nine thousand, on compression boots , further anticoagulation as per General surgery # AF/RVR, new-onset noted on 10/28/21 and now in Sinus rhythm - continue amiodarone 200 bid x 1 months as per Cardiology and no anticoagulation given that AFIB trigered by pulmonary process . # SHERI - resolved p IV fluid hydration # hypernatremia - resolved # hypokalemia - add KCl to maintenance fluids # PVD - POD #13 fem/fem bypass - Vasc Surg following with general surgery # moderate protein/calorie malnutrition - continue PPN # VTE ppx - compression boots # dispo - eventual STR spoke with patient's brother and updated him about current clinical condition Need for inpaitent: schedule for exploratory laparotomy today Quality Stroke Does the patient have a stroke diagnosis?: No VTE Prior VTE?: No VTE Risk Level:: Medical - moderate - high VTE Device Contraindication: Treatment Not Indicated VTE Drug Contraindication: N/A - Med Ordered
--- NOTE | 2021-11-01 15:53 | P.CONCC_ITS ---
History of Present Illness Data of Consult Service Date: 11/01/21 Requesting physician: Fran Kenyon Primary Care Provider: Unknown Physician HPI Reason for consult: Postoperative hypoxemic respiratory failure fever. Status post small bowel 76-year-old male who comes from the OR with persistent hypoxemic respiratory failure looking at the CT scan he has got bibasilar infiltrates and the bronchi feeding it in 0 have considerable wall thickening and what looked like inspissated secretions throughout so it appears to be hypo static/possible aspiration pneumonitis and apparently has Enterobacter aerogenes knees bacteremia as a result and has been on Levaquin which it it is known to be sensitive to and he had a fair amount of intraoperative fluid that was given to him so I have placed a central line and measuring CVP we will covering his IV fluids accordingly and bedside echo demonstrated globally normal systolic wall motion of the left ventricle preserved ejection fraction normal right ventricle and no primary valve or pericardial disease He apparently had a graft that was a femoral to femoral bypass and there it went inadvertently intra-abdominally and in fell apart of a a piece of small bowel which then created a kink and obstruction so the graft is now removed and the o bstruction is removed and there was a primary reanastomosis and so far he is stable with adequate urine output Review of Systems Review of Systems: Yes Unobtainable due to mental status PMFSH Past Medical History Medical History (Updated 10/29/21 @ 10:54 by Rashad Stoddard MD) Bacteremia History of radiation therapy Illiterate Mentally challenged Mucus plugging of bronchi Partial small bowel obstruction Prostate cancer PVD (peripheral vascular disease) Family History Family History Father No problems noted. Mother No problems noted. Family history: reviewed and not pertinent Surgical History Surgical History Hx of surgical procedure No pertinent past surgical history Social History Social History Household Members: Family Household Members Other:: Lives with his sister Housing: Unknown / Unable to assess Are you a primary childcare provider to a significant other at home: No Do you presently have visiting nurse or other home services: No Alcohol intake: never Patient Tobacco Use Status: Current everyday Tobacco user Tobacco use type: Cigarette Cigarettes Per Day: 1 Advance Directives Date on File: 10/18/21 service: No Current occupational status: disabled Meds Allergies Allergy/AdvReac Type Severity Reaction Status Date / Time No Known Allergies Allergy Verified 10/14/21 10:36 [No Known Allergies*] Active Medications: Current Medications Acetaminophen (Acetaminophen 325 Mg Tablet) 650 mg PO Q6H PRN PRN Reason: Pain, Mild (Pain Scale 1-3) Albuterol/Ipratropium (Albuterol/Iprat 2.5/0.5mg 3 Ml Ampul.Neb) 3 ml INHALE RQ4H WHILE [facility]WAKE [facility] Last Admin: 11/01/21 15:01 Dose: Not Given Documented by: Amiodarone HCl (Amiodarone Hcl 200 Mg Tablet) 200 mg PO BID [facility] Last Admin: 11/01/21 11:17 Dose: 200 mg Documented by: Levofloxacin (Levaquin) 750 mg in 150 mls @ 100 mls/hr IV Q48H [facility] Last Infusion: 10/30/21 15:31 Dose: Infused Documented by: Metronidazole (Flagyl) 500 mg in 100 mls @ 100 mls/hr IV Q8H [facility] Last Infusion: 11/01/21 05:34 Dose: Infused Documented by: Multivitamins 10 ml/ Trace Metals 1 ml/ Amino Acids/Electrolytes/Dextrose 1,999.92 mls @ 83.33 mls/hr IV DAILY@1800 [facility] Stop: 11/01/21 17:59 Last Infusion: 11/01/21 13:20 Dose: 0 mls/hr Documented by: Fat Emulsion Intravenous (Intralipid) 168 mls @ 14 mls/hr IVCONT BID@0600,1800 [facility] Stop: 11/01/21 17:59 Last Infusion: 11/01/21 13:20 Dose: 0 mls/hr Documented by: Multivitamins 10 ml/ Trace Metals 1 ml/ Amino Acids/Electrolytes/Dextrose 1,999 mls @ 83.33 mls/hr IV DAILY@1800 [facility] Stop: 11/02/21 17:59 Fat Emulsion Intravenous (Intralipid) 168 mls @ 14 mls/hr IVCONT BID@0600,1800 [facility] Stop: 11/02/21 17:59 Pharmacy Consult (Consult Rx Perform Med Rec) 1 each MISCELLANE ONCE PRN PRN Reason: Consult order Senna (Sennosides 8.6 Mg Tablet) 17.2 mg PO BEDTIME PRN PRN Reason: Constipation Sodium Chloride (0.9 % Sodium Chloride Flush 3 Ml [facility]) [facility] Last Admin: 11/01/21 09:09 Dose: 3 ml Documented by: Home Medications Medication Instructions Recorded Confirmed Last Taken Type aspirin 81 mg tablet,delayed 81 mg PO DAILY 09/21/21 10/23/21 10/22/21 History release (Adult Aspirin Regimen) ibuprofen 200 mg tablet (Advil) 200 mg PO Q6H PRN 09/21/21 10/23/21 Unknown History multivitamin 1 tab PO DAILY 09/21/21 10/23/21 10/22/21 History Physical Exam Vital Signs: Vital Signs: Last Vital Signs Temp 97.7 F 11/01/21 14:02 Pulse 84 11/01/21 14:02 Resp 18 11/01/21 14:02 BP 134/77 11/01/21 14:02 Pulse Ox 95 11/01/21 14:02 BMI result Body Mass Index 18.1 Patient did respond and required more sedation therefore The left foot is cooler than the right foot and there are 2 demarcated toes of 4th and 5th digits otherwise there is no evidence of cyanosis no rubor Abdomen is silent but not distended and is no organomegaly Chest with with coarse bilateral rales no other adventitious sounds but high FiO2 at this point Results Labs CBC & Chem 7: 11/02/21 14:30 11/02/21 05:09 Labs: BMP 11/01/21 06:29 Sodium 137 Potassium 3.8 Chloride 106 Carbon Dioxide 26 BUN 25 H Creatinine 0.68 Calcium 7.5 L Microbiology Microbiology Results: Microbiology 10/23/21 18:47 Blood - Venous Blood Culture - Final No growth after 5 days. 10/23/21 18:16 Blood - Venous Blood Culture - Final Enterobacter aerogenes Assessment and Plan (1) Paroxysmal atrial fibrillation: Status: Acute (2) Mucus plugging of bronchi: Status: Acute (3) Bacteremia: Status: Acute (4) New onset atrial fibrillation: Status: Acute (5) Acute respiratory failure with hypoxia: Status: Acute (6) Pulmonary emboli: Status: Acute (7) Elevated troponin: Status: Acute (8) Partial small bowel obstruction: Status: Acute (9) Aspiration pneumonia: Status: Acute (10) Bradycardia: Status: Acute (11) Status post femorofemoral bypass surgery: Status: Acute (12) PAD (peripheral artery disease): Status: Acute (13) Preoperative cardiovascular examination: Status: Acute Plan Right now the patient has Enterobacter bacteremia on to a treatment even predating the operation status post small bowel resection with reanastomosis relieving the obstruction on antibiotic therapy for nosocomial aspiration with 2 which I added vancomycin and he will have a ventilator assistance and with every attempt to wean FiO2 and and of course with the daily sedation holidays and then when ready and respiratory reserve is improved adeno attempted pressure support weaning and will continue to watch to foot for signs of compromised viability
--- NOTE | 2021-11-01 17:03 | W.PM.OPN ---
Operative Note Operative Note Date of Service: 11/01/21 Narrative: Preop diagnosis: Small-bowel obstruction, with intraperitoneal fem-fem bypass graft Postop diagnosis: Small bowel obstruction, with intraperitoneal fem-fem bypass graft, with small bowel loops herniated with the graft tunnel in the left lower quadrant Procedure: Diagnosis laparoscopy, laparotomy, small-bowel resection with primary anastomosis, excision of fem-fem bypass graft The patient is a 76-year-old male with peripheral vascular disease, who had undergone fem -fem intra anatomic bypass graft for diseased left iliiac with Dr. Kenyon last October 18, 2021. He was admitted last October 23, 2020 because of aspiration pneumonia and was noted to have partial small-bowel obstruction. His symptoms had resolved with G-tube placement. The NG tube was removed last October 27, 2021. His abdominal exam had remained benign. However, he had symptoms of small-bowel resection again and the NG tube was reinserted 2 days ago. I therefore explained to the brother Jaden that it would be best to proceed with diagnostic laparoscopy and possible laparotomy as it appeared on the CT scan that the small bowel loop was with the intraperitoneal of the graft and may be adherent. The brother was the healthcare proxy understood the planned procedure. The patient was brought to the operating room placed supine the table under general anesthesia via endotracheal tube. The abdomen all the way to both thighs were prepped and draped in the usual sterile fashion. a surgical time-out was done. A Guy catheter been inserted the patient received cefazolin earlier. I made a short infraumbilical incision using blade 15 and this carried down through the full-thickness of the skin down to the fascia. The fascia was incised. The peritoneum was entered. Through this incision a Juan port was introduced. Pneumoperitoneum was introduced to a pressure of 15 mm hg. A 5 mm port introduced a small stab incision right lower quadrant. The patient placed in head-down position. Bowel loops were reflected away from the pelvis. The intraperitoneal fem-fem bypass graft was seen. By following this to the left lower quadrant, I was able to visualize the the fascia. There was note of a loop of bowel that was stuck into this and appeared to be herniated into the. I initially attempted to reduce this laparoscopically but it appeared that this was markedly adherent already within the tunnel. We we therefore decided to proceed with a laparotomy I made a low midline laparotomy incision using blade 10 and this was carried down through the full-thickness of the skin subcutaneous fat. The fascia was exposed. The fascia was incised in open. I peritoneum was therefore entered. The bowel loops reflected away from the pelvis. I could visualize directly the graft tunneling into the left lower quadrant. There was note of a the small bowel that had herniated with a graft into this tunnel. We initially attempted to pull this done by gently pulling this without success. Dr. Kenyon therefore opened the incision on left groin. He exposed the graft and we proceeded to do traction and counter traction of the graft to attempt to release the small bowel loop without any success. It did appear that the small bowel loop was markedly adherent to the tunnel itself. This however viable and nonischemic. In the process of doing traction and counter traction, we noticed a tear in the involved small bowel loops with note of leakage of enteric contents. At this point therefore Dr. Kenyon that the graft would be removed. This part of the procedure will be dictated by him After removal of the graft, I put we proceeded to then do the small-bowel resection. I chose a point of transection distal and proximal to the involved small bowel loops. There was note of obvious dilatation edema of the small bowel loops proximal to the point of obstruction which was the a bowel loop that was stuck within the tunnel of the graft. I created a mesenteric defect proximal to this the involved small bowel loops. This was transected with the GA 60 mm stapler. I chose a point distal to this obstruction which was collapsed and the PAMELA 60 mm stapler was used to transect this. We divided the mesentery using the LigaSure and submitted this as a specimen. This was about a 10 cm segment of small bowel loop with some of the location and distal collapse. We proceeded to do our [id number] anastomosis. The apex of each staple line divided and opened. We aligned the anti mesenteric side of the small bowel loops. The [id number] anastomosis was created with a PAMELA 60 mm stapler. I completed the anastomosis by closing the enterotomy with a TA 60 mm stapler. The mesenteric defect was closed with a running Dexon 3-[address] Kenyon then completed the closure of the of the excised graft on each side. This part of the procedure will be dictated by him We then proceeded to re-examine the laparotomy site. The bowel loops were examined. I had noticed that there was some duskiness of 1 area of the staple line. I therefore decided to revise this. I excised the stapled anastomosis with PAMELA 60 mm stapler. I created a new anastomosis the same fashion as earlier. Again the mesenteric defect was closed with the Dexon 3-0 running stitch We examined all staple lines at this time it appeared viable without any duskiness. The staple lines appeared intact without any leak . I applied a Dexon 3-0 stitch at the crotch in a seromuscular fashion. I replaced the small bowel loops back into the peritoneal cavity. There was no bleeding or and or any other pathology. We copiously irrigated. We suctioned out the irrigant fluid. Once hemostasis was ensured, I closed the fascia with a running PDS 0 stitch. Skin closure was achieved with skin perla. we had also closed the groin incisions with skin perla The 5 mm port site was closed with the Dexon 3-0 stitch. All incisions were infiltrated with Marcaine 0.5% for postop analgesia. dressings were applied. The procedure was then completed The patient tolerated procedure well. There were no complication noted. Initial and final counts of sponges and instruments were correct. Estimated blood loss was about 100 cc. The patient was referred to the intensive care unit on the ventilator. This was discussed as well again with the clerical support specialist. I infiltrated all
--- NOTE | 2021-11-01 17:46 | PM.EVENT ---
Event Note Date of Service: 11/01/21 Event Note: patient seen in the ICU postop he had undergone laparotomy, small-bowel resection, removal of fem-fem bypass graft this afternoon currently intubated stable vital signs keep NG tube in Guy in place ICU care vent management discussed with insurance processor family updated
--- NOTE | 2021-11-01 17:52 | PC.NURSE ---
DURING OR TRANSFER HOTN NOTED. ADDITIONAL PHENYLEPHRINE PULLED. 20MG MIXED INTO 250ML NS FOR PRESSRUE SUPPORT AT THIS TIME.
[2021-11-01] MEDS: Phenylephrine HCL 20 MG in 0.9 % Sodium Chloride 250 ML 21.09 MG IVCONT (18:00)
[2021-11-01] MEDS: KCl 20 mEq in 5% Dex/0.45% Sod 20 MEQ/1,000 ML IV.SOLN 25 MEQ IVCONT (19:12)
[2021-11-01] MEDS: vancomycin HCL 1,000 MG in 0.9 % Sodium Chloride 250 ML 270 MG IV (19:29)
--- NOTE | 2021-11-01 21:05 | PC.NURSE ---
Multiple calls to pharmacy regarding TPN. still not hung at this time.
[2021-11-02] VITALS (39 sets, daily range): BP systolic 80–143; BP diastolic 43–100; PULSE 78–102; RESP 17–32; TEMP 33.2–37.4; O2SAT 88–99
[2021-11-02] MEDS: 0.9 % Sodium Chloride Flush 3 ML SYRINGE IVFLUSH (00:08)
[2021-11-02] MEDS: propofoL 1,000 MG/100 ML VIAL 10.04 MG IVCONT ×2 (00:09→04:23)
[2021-11-02] MEDS: Phenylephrine HCL 20 MG in 0.9 % Sodium Chloride 250 ML 21.09 MG IVCONT ×2 (00:20→20:19)
[2021-11-02] MEDS: metroNIDAZOLE/NS 500 MG/100 ML PIGGYBACK 100 MG IV ×2 (04:49→13:42)
[2021-11-02 05:20] LABS: VBG Base Excess 1.3 mmol/L; VBG HCO3 24 mmol/L (22-26); VBG pCO2 33 mmHg; VBG pH 7.47 (7.32-7.43); VBG pO2 52 mmHg
[2021-11-02 05:36] LABS: Venous Blood Gas Refer to POC result
[2021-11-02 05:37] LABS: Hematocrit 26.8 % (42.0-52.0); Imm Gran Abs Auto 2.11 X10*3/uL (0.00-0.03); Lymphocytes Absolute Auto 0.7 X10*3/uL (1.2-4.9); Lymphocytes Percent Auto 1.8 % (20-40); Mean Corpuscular HGB Conc 33.6 g/dl (31.0-36.0); Mean Corpuscular Hemoglobin 30.4 pg (27.0-33.0); Mean Corpuscular Volume 90.5 fL (80.0-98.0); Mean Platelet Volume 11.3 fL (9.4-12.4); Monocytes Absolute Auto 0.9 X10*3/uL (0.1-1.2); Monocytes Percent Auto 2.2 % (2-11); Neutrophils Absolute Auto 38.2 x10*3/uL (2.0-8.3); Platelet Count 237 X10*3/uL (160-400); Red Blood Count 2.96 X10*6/uL (4.60-5.80); Red Cell Distribution Width 17.2 % (11.0-16.0); SCAN SMEAR FLAG 1; WBC ABN SCTR 1
[2021-11-02] MEDS: Fat Emulsions 20% 250 ML 14 ML IVCONT (05:46)
[2021-11-02 05:52] LABS: Anion Gap 13 (12-20); Blood Urea Nitrogen 26 mg/dL (9-16); Calcium 6.8 mg/dL (8.4-10.2); Carbon Dioxide 22 mmol/L (22-29); Chloride 106 mmol/L (96-108); Creatinine Clr Calc Pharmacy 64.4; Estimated Glomerular Filt Rate > 60; Glucose Random 155 mg/dL (60-115); Magnesium 1.5 mg/dL (1.6-2.6); Phosphorus 2.9 mg/dL (2.7-4.5); Potassium 4.7 mmol/L (3.3-5.1); Sodium 136 mmol/L (135-145)
[2021-11-02 06:01] LABS: WBC ABN SCTR FOR CBC 1
[2021-11-02 06:02] LABS: MANUAL DIFF FLAG SCAN
[2021-11-02 06:05] LABS: SLIDE REVIEW VERIFIED
--- NOTE | 2021-11-02 07:13 | P.OP_ITS ---
Operative Note Operative Note Date of Service: 11/01/21 Narrative: Operative note by [facility] Preoperative diagnosis: 1. Small-bowel obstruction 2. Intraperitoneal fem-fem bypass graft. Postoperative diagnosis: Same Procedure:1. Diagnostic laparoscopy 2. Exploratory laparotomy 3. Small-bowel resection with primary anastomosis 4. Excision of femoral to femoral bypass graft Surgeon:Fran Kenyon M.D. Blower Room Attendant: Dr. Meza Anesthesia: General Specimens: 1 Drains: None Estimated blood loss: 100 mL Indications: 76-year-old gentleman with a prior history of smoking and critical limb ischemia had undergone femoral to femoral bypass on 10/19/2019. He was subsequently discharged and readmitted on October 23 due to aspiration pneumonia. Upon CT scan it was discovered that he had a small bowel obstruction. He was unclear the source as he did have aspiration pneumonia. He was observed for conservative. With no resolution. He now presents for exploratory laparoscopy possible laparotomy. This was discussed with the patient and the patient's brother Silvestre who is the healthcare proxy. has signed the informed consent after reviewing risks, complications, benefits, and alternatives previously discussed with the patient. The patient was given the opportunity to ask any additional questions or voice any concerns. All questions were answered to the patient's satisfaction. Procedure in detail: Patient was brought to the operating room prior to which a time-out was called for patient identification and site verification. Chest and abdomen were prepped in the standard surgical fashion from nipples to knees. Dr. Meza began the initial portion of the operation with his diagnostic laparoscopy and subsequent laparotomy which exposed in here and loop of bowel to the graft. We were unable to released the bowel from the intra-abdominal portion and through opening the left groin incision. It was recognized that the bowel small bowel had open and there was spillage of succus. It was at that point the decision was made to remove the graft. I subsequently opened up both groins exposed the graft at the origin. He was clamped off with vascular clamps. Using 11 blade it was cut and the fem-fem graft was subsequently removed. We packed the groins. Dr. Meza then recover the bowel. The bowel resection was performed by him which will be dictated under separate note. Once this was accomplished I oversewed the remaining small residual cups on both groins with a CV6 [place] suture. Both incisions were thoroughly irrigated out. We closed these with 2 0 poly Sorb superficially with 3-0 poly Sorb and finally skin with skin clips. We returned our attention to the abdomen. The herniation site was closed over. We re-explored no other findings were noted. And the abdomen was subsequently closed. All of the bowel resection and closure of the abdominal portion is dictated by Dr. Meza. I was the primary vascular surgeon. At the end of the case sponge instrument counts were correct. Sterile dressings were applied. Patient tolerated the procedure well and was returned to the intensive care unit intubated and sedated. This note is constructed using voice recognition software. While every effort has been made to ensure accuracy, fire eater errors may have been included. Thank you for allowing me to participate in the care of your patient. Yours sincerely, Fran Kenyon MD, FACS, R.P.V.I.
[2021-11-02] MEDS: Magnesium Sulfate/H2O 2 GM/50 ML PIGGYBACK IV (08:19)
[2021-11-02] MEDS: Chlorhexidine Gluc Oral Rinse 15 ML MOUTHWASH BUCCAL ×3 (08:20→20:20)
[2021-11-02] MEDS: vancomycin HCL 1,000 MG in 0.9 % Sodium Chloride 250 ML 270 MG IV (08:20)
[2021-11-02] MEDS: Albuterol/Iprat 2.5/0.5MG 3 ML AMPUL.NEB INHALE ×4 (08:47→20:26)
[2021-11-02] MEDS: levoFLOXacin/D5W 750 MG/150 ML PIGGYBACK 100 MG IV (09:23)
[2021-11-02] MEDS: HYDROmorphone HCl 1 MG/ML SYRINGE 0.5 MG IVPUSH ×2 (10:13→17:11)
--- NOTE | 2021-11-02 10:30 | PM.PNGS ---
Subjective Subjective Date of Service: 11/02/21 Interval history: patient remains on the ventilator no events reported overnight Physical Exam Vital Signs: Vital Signs: Last Vital Signs Temp 99.0 F 11/02/21 10:00 Pulse 92 11/02/21 10:00 Resp 29 H 11/02/21 10:00 BP 109/53 L 11/02/21 10:00 Pulse Ox 95 11/02/21 10:00 BMI result Body Mass Index 18.1 Const: Other: on vent, therefore not communicative,sedated Resp: Other: on ventilator Cardio: Rate: regular rate GI: Other: soft, dressings dry, NG tube in place Objective Data Active Medications Acetaminophen (Acetaminophen 325 Mg Tablet) 650 mg PO Q6H PRN PRN Reason: Pain, Mild (Pain Scale 1-3) Albuterol/Ipratropium (Albuterol/Iprat 2.5/0.5mg 3 Ml Ampul.Neb) 3 ml INHALE RQ4H WHILE AWAKE ON LICENSE OF [facility] Last Admin: 11/02/21 08:47 Dose: 3 ml Documented by: WENDY Amiodarone HCl (Amiodarone Hcl 200 Mg Tablet) 200 mg PO BID ON [facility] OF [facility] Last Admin: 11/01/21 11:17 Dose: 200 mg Documented by: LUCAS Chlorhexidine Gluconate (Chlorhexidine Gluc Oral Rinse 15 Ml Mouthwash) 15 ml BUCCAL TID ON LICENSE OF [facility] Last Admin: 11/02/21 08:20 Dose: 15 ml Documented by: VELVET Hydromorphone HCl (Hydromorphone Hcl 1 Mg/Ml Syringe) 0.5 mg IVPUSH Q2H PRN; Protocol PRN Reason: Pain, Severe (Pain Scale 7-10) Last Admin: 11/02/21 10:13 Dose: 0.5 mg Documented by: VELVET Metronidazole (Flagyl) 500 mg in 100 mls @ 100 mls/hr IV Q8H ON [facility] OF [facility] Last Infusion: 11/02/21 05:53 Dose: 0 mls/hr Documented by: YEMI Multivitamins 10 ml/ Trace Metals 1 ml/ Amino Acids/Electrolytes/Dextrose 1,999 mls @ 83.33 mls/hr IV DAILY@1800 [facility] Stop: 11/02/21 17:59 Last Admin: 11/01/21 21:19 Dose: 83.33 mls/hr Documented by: HERLINDA Fat Emulsion Intravenous (Intralipid) 168 mls @ 14 mls/hr IVCONT BID@0600,1800 [facility] Stop: 11/02/21 17:59 Last Admin: 11/02/21 05:46 Dose: 14 mls/hr Documented by: YEMI Phenylephrine HCl 20 mg/ (Sodium Chloride) 252 mls @ 0 mls/hr IVCONT .Q0M ON LICENSE OF [facility]; Protocol Last Titration: 11/02/21 09:23 Dose: 0.5 mcg/kg/min, 21.09 mls/hr Documented by: JANET-DEVYN Potassium Chloride/Dextrose/Sod Cl () 20 meq in 1,000 mls @ 25 mls/hr IVCONT .Q24H ON LICENSE OF [facility] Last Admin: 11/01/21 19:12 Dose: 25 mls/hr Documented by: HERLINDA Propofol (Diprivan) 1,000 mg in 100 mls @ 0 mls/hr IVCONT .Q0M ON LICENSE OF [facility]; Protocol Last Titration: 11/02/21 09:55 Dose: 40 mcg/kg/min, 13.39 mls/hr Documented by: JANET-DEVYN Levofloxacin (Levaquin) 750 mg in 150 mls @ 100 mls/hr IV Q24H ON [facility] OF [facility] Last Admin: 11/02/21 09:23 Dose: 100 mls/hr Documented by: JANET-DEVYN Senna (Sennosides 8.6 Mg Tablet) 17.2 mg PO BEDTIME PRN PRN Reason: Constipation Sodium Chloride (0.9 % Sodium Chloride Flush 3 Ml Syringe) 3 ml IVFLUSH QSHIFT ON LICENSE OF [facility] Last Admin: 11/02/21 07:16 Dose: Not Given Documented by: VELVET Non-Admin Reason: assessed Labs CBC & Chem 7: 11/02/21 05:09 11/02/21 05:09 Labs: Laboratory Results - last 24 hr 11/01/21 11/02/21 11/02/21 13:41 05:09 05:09 MCV Cancelled MCH Cancelled MCHC Cancelled RDW Cancelled Plt Count Cancelled MPV Cancelled Immature Gran % (Auto) Neut % (Auto) Lymph % (Auto) Dougherty % (Auto) Eos % (Auto) Baso % (Auto) Lymph # (Auto) Dougherty # (Auto) Eos # (Auto) Baso # (Auto) Abs Immat Gran (auto) Absolute Neuts (auto) Absolute Nucleated RBC Cancelled Nucleated RBC % (auto) Cancelled Smear Tech's Comments VBG pH VBG pCO2 VBG pO2 VBG HCO3 VBG O2 Saturation VBG Base Excess Anion Gap Estim Creat Clear Calc Estimated GFR Random Glucose Calcium Phosphorus Magnesium Albumin 2.0 L Blood Type O Positive Antibody Screen NEGATIVE 11/02/21 11/02/21 11/02/21 05:09 05:09 05:12 MCV 90.5 MCH 30.4 MCHC 33.6 RDW 17.2 H Plt Count 237 D MPV 11.3 Immature Gran % (Auto) 5.0 H Neut % (Auto) 91.0 H Lymph % (Auto) 1.8 L Dougherty % (Auto) 2.2 Eos % (Auto) 0.0 Baso % (Auto) 0.0 Lymph # (Auto) 0.7 L Dougherty # (Auto) 0.9 Eos # (Auto) 0.0 Baso # (Auto) 0.0 Abs Immat Gran (auto) 2.11 H Absolute Neuts (auto) 38.2 H Absolute Nucleated RBC 0.000 Nucleated RBC % (auto) 0.0 Smear Tech's Comments VERIFIED VBG pH 7.47 H VBG pCO2 33 VBG pO2 52 VBG HCO3 24 VBG O2 Saturation 76.0 VBG Base Excess 1.3 Anion Gap 13 Estim Creat Clear Calc 64.4 Estimated GFR > 60 Random Glucose 155 H Calcium 6.8 L D Phosphorus 2.9 Magnesium 1.5 L Albumin Blood Type Antibody Screen Procedures Date of Service Date of Service: 11/02/21 Progress Note: A&P Assessment and plan (1) Partial small bowel obstruction: Status: Acute Assessment and Plan: status post laparotomy, small-bowel resection, oval of fem-fem graft remains on the ventilator hemodynamically stable abdomen soft duskiness on toes keep NG tube in place WBC elevated - likely reactive intraop findings do not reveal any ischemia of involved small bowel loop above discussed with patient's family, Tiana at bedside Time Spent With Patient Time: Total time spent is greater than 50% in coordination of care (as documented) at patient's floor/unit and/or counseling patient: Quality Stroke Does the patient have a stroke diagnosis?: No VTE Prior VTE?: No VTE Risk Level:: Medical - moderate - high VTE Device Contraindication: Treatment Not Indicated VTE Drug Contraindication: N/A - Med Ordered
--- NOTE | 2021-11-02 10:58 | MHC.CLN ---
F/U REVIEWED LABS; DISCUSSED WITH PHARMACY PT NOW RECEIVING PROPOFOL FOR SEDATION PT RECEIVING PPN D10AA4.25 AT 83.33ML/HR PROVIDES 1020KCALS, 85G PROTEIN (1.5G/KG) WITH 14ML OF 20% LIPIDS TO PROVIDE AN ADDITIONAL 672KCALS (1692KCALS TOTAL; 30KCALS/KG) RECOMMEND D/C LIPID WHILE USING SEDATION (PROPOFOL PROVIDING 275KCALS) CONTINUE PPN D10AA4.25 AT 83.3ML/HR PROVIDING 1020KCALS (1295KCALS WITH SEDATION; 23KCALS/KG), 85G PROTEIN (1.5G/KG) REPLETE LYTES NEEDED
[2021-11-02] MEDS: Phenylephrine HCL 20 MG in 0.9 % Sodium Chloride 250 ML 42.19 MG IVCONT (11:02)
[2021-11-02] MEDS: propofoL 1,000 MG/100 ML VIAL 13.39 MG IVCONT (11:03)
--- NOTE | 2021-11-02 12:01 | HO.POSTANES ---
Post Anesthesia Evaluation Post Anesthesia Evaluation Vital Signs: Vital Signs Temp Pulse Resp BP Pulse Ox 11/02/21 11:53 89 18 11/02/21 11:02 90/43 L 11/02/21 11:00 98.4 F 90 18 108/49 L 97 11/02/21 10:00 99.0 F 92 29 H 109/53 L 95 11/02/21 09:23 109/67 11/02/21 09:08 83/50 L 11/02/21 09:00 99.0 F 97 32 H 80/49 L 88 L 11/02/21 08:47 87 20 11/02/21 08:34 116/71 11/02/21 08:00 99.3 F 88 24 H 117/100 H 95 11/02/21 07:00 99.3 F 84 19 122/91 H 95 11/02/21 05:57 99 F 85 21 H 142/74 H 96 11/02/21 05:00 99.3 F 87 23 H 143/79 H 94 11/02/21 04:00 99 F 84 20 126/64 94 11/02/21 03:00 99 F 83 19 129/65 94 11/02/21 01:54 99.0 F 90 20 111/62 94 11/02/21 01:08 99.0 F 87 18 102/59 L 93 Anesthesia: General Endotracheal-GETA Mental Status: Sedated Pain Control: Satisfactory Nausea/Vomiting: None Hydration: Adequate Anesthesia-Related Issues: No Anes. Related Issues Comments: intubated and sedated.
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
--- NOTE | 2021-11-02 14:14 | PC.NURSE ---
Addendum entered by Oswald Serrano RN 11/02/21 15:54: pt bathed this shift Original Note: Drips titrated per protocol. Pt noted to have facial grimacing, diaphoretic and increased RR w/ increased HR. informed MD, prn IVP pain med administered w/ + effect and prop drip increased for sedation. pt appeared to be more comfortable upon reassessment. Surgeon at bedside this AM speaking w/ pt's brother, updated family. Post rounds lipids were d/c'ed per md verbal order d/t pt being on prop. MD informed of pt's drainage from b/l inguinal wounds. dressings applied. Surgery stated to start low dose heparin drip protocol with no boluses. safety and fall precautions maintained.
[2021-11-02 14:43] LABS: Hematocrit 24.8 % (42.0-52.0); Hemoglobin 8.2 g/dl (14.0-18.0); Mean Corpuscular HGB Conc 33.1 g/dl (31.0-36.0); Mean Corpuscular Volume 90.8 fL (80.0-98.0); Mean Platelet Volume 10.9 fL (9.4-12.4); Platelet Count 255 X10*3/uL (160-400); Red Blood Count 2.73 X10*6/uL (4.60-5.80); Red Cell Distribution Width 17.2 % (11.0-16.0)
[2021-11-02 14:47] LABS: White Blood Count 34.2 X10*3/uL (4.8-10.8)
[2021-11-02 14:49] LABS: INTERNATIONAL NORM RATIO 1.2 (0.9-1.1); Prothrombin Time 13.5 SEC (9.9-13.0)
[2021-11-02 14:52] LABS: PTT Heparin Drip 27.9 SEC (53-77.9)
[2021-11-02] MEDS: Heparin Sodium,Porcine/1/2NS 25,000 UNIT/250 ML IV.SOLN 6.7 UNIT IVCONT (15:00)
--- NOTE | 2021-11-02 16:57 | W.PM.CCHP ---
Procedures Date of Service Date of Service: 11/01/21 Central Line Placement Left IJ: Central Line Comments: Patient received from the OR having received several L of IV fluid for resuscitation and already has hypoxemic respiratory failure and in adequate peripheral IV access even for support medicine to include Levophed so emergent central venous triple-lumen line 20 cm length was placed without complication using ultrasound guidance via the left internal jugular vein where I gained easy entrance passing retrograde with Seldinger technique a J tipped guidewire over which the triple-lumen catheter was then placed by chest x-ray no complication in perfect position and superior vena cava with measured central venous pressures allowing us to cover his IV fluid intake and support Consent for Procedure: Emergent-no informed consent obtained Time out performed: Yes Sterile Technique Used: Yes Patient placed on monitor/pulse ox: Yes prep: mask, gown and gloves Central line prep: Chlorhexidine scrub Local anesthesia used: lidocaine 1% Ultrasound used for placement: Yes Central line lumen inserted: triple Post procedure: sutured in place, good blood return, all ports aspirated, flushed, capped and sterile dressing applied Post procedure x-ray: tip of catheter in good position and no pneumothorax seen Patient tolerated procedure: well and no complications Complications: none
--- NOTE | 2021-11-02 17:00 | P.PNCC_ITS ---
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 who had a fem-fem bypass performed a few weeks ago to react to did deliver head of pressure to the left lower extremity which was very ischemic and the leg pink Doppler was successful but the graft somehow became intraop abdominal and created a small bowel obstruction so there had to be removal of the graft and and resection of a small portion of viable small bowel and primary reanastomosis and the patient apparently had been sitting for 2 weeks on the floor and it looked like he was developing progressive aspiration pneumonitis as bibasilar infiltrates fever hypoxia remained vent dependent and we are just today in the process in the process of starting to what in O2 wean is mental status is good he is doing comfortably well on on propofol small dose of Levophed support because of the propofol stable a CVP of approximately 5 cardiovascular exam is class 1 by bedside echo and and right now it is just the lateral 2 toes on the left leg that clearly are demarcating Critical Care Time (minutes): 60 Physical Exam Vital Signs: Vital Signs: Last Vital Signs Temp 98.6 F 11/02/21 16:00 Pulse 98 11/02/21 16:00 Resp 24 H 11/02/21 16:00 BP 90/79 11/02/21 16:00 Pulse Ox 93 11/02/21 16:00 BMI result Body Mass Index 18.1 He has the ability to nod yes or no even through the propofol comfortable doing well on the ventilator Lungs with diminishing FiO2 and minute ventilatory requirement and he remains in normal sinus rhythm with low-grade temperature and remains because of Enterobacter sepsis on on Levaquin and because 1 dose was missed I added a supplementary dose of meropenem for today Abdomen no bowel sounds but the but soft And clearly than ischemic 2 toes on the and left foot but the foot is cool a but no evidence of any the no further livedo or or cyanosis Objective Data Labs CBC & Chem 7: 11/03/21 03:50 11/03/21 03:50 Labs: Laboratory Results - last 24 hr 11/02/21 11/02/21 11/02/21 05:09 05:09 05:09 WBC Cancelled 42.0 H* RBC Cancelled 2.96 L Hgb Cancelled 9.0 L Hct Cancelled 26.8 L MCV Cancelled 90.5 MCH Cancelled 30.4 MCHC Cancelled 33.6 RDW Cancelled 17.2 H Plt Count Cancelled 237 D MPV Cancelled 11.3 Immature Gran % (Auto) 5.0 H Neut % (Auto) 91.0 H Lymph % (Auto) 1.8 L [place] % (Auto) 2.2 Eos % (Auto) 0.0 Baso % (Auto) 0.0 Lymph # (Auto) 0.7 L [place] # (Auto) 0.9 Eos # (Auto) 0.0 Baso # (Auto) 0.0 Abs Immat Gran (auto) 2.11 H Absolute Neuts (auto) 38.2 H Absolute Nucleated RBC Cancelled 0.000 Nucleated RBC % (auto) Cancelled 0.0 Smear Tech's Comments VERIFIED PT INR aPTT Heparin Protocol VBG pH VBG pCO2 VBG pO2 VBG HCO3 VBG O2 Saturation VBG Base Excess Sodium Potassium Chloride Carbon Dioxide Anion Gap BUN Creatinine Estim Creat Clear Calc Estimated GFR Random Glucose Calcium Phosphorus Magnesium Albumin 2.0 L 11/02/21 11/02/21 11/02/21 05:09 05:12 14:30 WBC 34.2 H* RBC 2.73 L Hgb 8.2 L Hct 24.8 L MCV 90.8 MCH 30.0 MCHC 33.1 RDW 17.2 H Plt Count 255 MPV 10.9 Immature Gran % (Auto) Neut % (Auto) Lymph % (Auto) [place] % (Auto) Eos % (Auto) Baso % (Auto) Lymph # (Auto) [place] # (Auto) Eos # (Auto) Baso # (Auto) Abs Immat Gran (auto) Absolute Neuts (auto) Absolute Nucleated RBC 0.000 Nucleated RBC % (auto) 0.0 Smear Tech's Comments PT INR aPTT Heparin Protocol VBG pH 7.47 H VBG pCO2 33 VBG pO2 52 VBG HCO3 24 VBG O2 Saturation 76.0 VBG Base Excess 1.3 Sodium 136 Potassium 4.7 D Chloride 106 Carbon Dioxide 22 Anion Gap 13 BUN 26 H Creatinine 0.77 Estim Creat Clear Calc 64.4 Estimated GFR > 60 Random Glucose 155 H Calcium 6.8 L D Phosphorus 2.9 Magnesium 1.5 L Albumin 11/02/21 14:30 WBC RBC Hgb Hct MCV MCH MCHC RDW Plt Count MPV Immature Gran % (Auto) Neut % (Auto) Lymph % (Auto) [place] % (Auto) Eos % (Auto) Baso % (Auto) Lymph # (Auto) [place] # (Auto) Eos # (Auto) Baso # (Auto) Abs Immat Gran (auto) Absolute Neuts (auto) Absolute Nucleated RBC Nucleated RBC % (auto) Smear Tech's Comments PT 13.5 H INR 1.2 H aPTT Heparin Protocol 27.9 L VBG pH VBG pCO2 VBG pO2 VBG HCO3 VBG O2 Saturation VBG Base Excess Sodium Potassium Chloride Carbon Dioxide Anion Gap BUN Creatinine Estim Creat Clear Calc Estimated GFR Random Glucose Calcium Phosphorus Magnesium Albumin Microbiology Microbiology Results: Microbiology 10/23/21 18:47 Blood - Venous Blood Culture - Final No growth after 5 days. 10/23/21 18:16 Blood - Venous Blood Culture - Final Enterobacter aerogenes Progress Note: A&P Assessment and plan (1) Paroxysmal atrial fibrillation: Status: Acute (2) Mucus plugging of bronchi: Status: Acute (3) Bacteremia: Status: Acute (4) New onset atrial fibrillation: Status: Acute (5) Acute respiratory failure with hypoxia: Status: Acute (6) Pulmonary emboli: Status: Acute (7) Elevated troponin: Status: Acute (8) Partial small bowel obstruction: Status: Acute (9) Aspiration pneumonia: Status: Acute (10) Bradycardia: Status: Acute (11) Status post femorofemoral bypass surgery: Status: Acute (12) PAD (peripheral artery disease): Status: Acute (13) Preoperative cardiovascular examination: Status: Acute (14) Gram-negative sepsis: Status: Acute Plan This 76-year-old now has an ischemic left lower extremity and just simply living on collaterals still is on pressors which is a counter productive with his peripheral circulation and the plan would be in the morning it to stop his propofol and then hopefully wean and discontinue his pressor support and if he remains on a low FiO2 when he awakens will do a pressure support weaning trial on the ventilator and chidi is fevers and my count etc. to figure out timing for any potential secondary revascularization procedure Quality Stroke Does the patient have a stroke diagnosis?: No VTE Prior VTE?: No VTE Risk Level:: Medical - moderate - high VTE Device Contraindication: Treatment Not Indicated VTE Drug Contraindication: N/A - Med Ordered
[2021-11-02] MEDS: propofoL 1,000 MG/100 ML VIAL 11.72 MG IVCONT ×2 (18:46→19:35)
[2021-11-02 21:11] LABS: PTT Heparin Drip 29.6 SEC (53-77.9)
[2021-11-02] MEDS: Heparin Sodium,Porcine 5,000 UNIT/ML VIAL 4500 UNIT IVPUSH (21:49)
[2021-11-03] VITALS (27 sets, daily range): BP systolic 105–131; BP diastolic 49–80; PULSE 90–112; RESP 22–29; TEMP 34.8–37.5; O2SAT 88–98
[2021-11-03] MEDS: propofoL 1,000 MG/100 ML VIAL 13.39 MG IVCONT (02:16)
[2021-11-03] MEDS: Phenylephrine HCL 20 MG in 0.9 % Sodium Chloride 250 ML 42.19 MG IVCONT (04:13)
[2021-11-03 06:08] LABS: VBG Base Excess 1.6 mmol/L; VBG HCO3 25 mmol/L (22-26); VBG pCO2 36 mmHg; VBG pH 7.45 (7.32-7.43); VBG pO2 61 mmHg
[2021-11-03 06:28] LABS: INTERNATIONAL NORM RATIO 1.2 (0.9-1.1); PTT Heparin Drip 27.1 SEC (53-77.9); Prothrombin Time 13.7 SEC (9.9-13.0)
[2021-11-03 06:34] LABS: Hematocrit 24.8 % (42.0-52.0); Hemoglobin 8.3 g/dl (14.0-18.0); Mean Corpuscular HGB Conc 33.5 g/dl (31.0-36.0); Mean Corpuscular Hemoglobin 30.3 pg (27.0-33.0); Mean Corpuscular Volume 90.5 fL (80.0-98.0); Platelet Count 242 X10*3/uL (160-400); Red Blood Count 2.74 X10*6/uL (4.60-5.80); Red Cell Distribution Width 17.5 % (11.0-16.0)
[2021-11-03 06:36] LABS: White Blood Count 31.6 X10*3/uL (4.8-10.8)
[2021-11-03 06:38] LABS: Band Neutrophils Percent 8 % (3-5); Lymphocytes Absolute Manual 1.6 X10*3/uL (1.2-4.9); Lymphocytes Percent Manual 5 % (20-40); Macrocytosis 1+ (5-14) /OIF; Metamyelocytes Absolute 0.6 X10*3/uL; Metamyelocytes Percent 2 %; Monocytes Absolute Manual 0.9 X10*3/uL (0.1-1.2); Monocytes Percent Manual 3 % (2-11); Myelocytes Absolute 0.9 X10*/uL; Myelocytes Percent 3 %; Neutrophils Absolute Manual 27.5 X10*3/uL (2.0-8.3); Neutrophils Percent Manual 79 % (45-73); Platelet Estimate NORMAL (NORMAL); Platelet Morphology Comment NORMAL; RBC Morphology NOTED
[2021-11-03 06:39] LABS: Large Platelet PRESENT; Polychromasia 1+ (0-2) /OIF; Target Cells 1+ (5-14) /OIF
[2021-11-03 06:57] LABS: Creatinine Clr Calc Pharmacy 63.5; Estimated Glomerular Filt Rate > 60
[2021-11-03 07:05] LABS: Venous Blood Gas Refer to POC result
[2021-11-03] MEDS: Heparin Sodium,Porcine 5,000 UNIT/ML VIAL 4500 UNIT IVPUSH (07:21)
[2021-11-03 07:34] LABS: Anion Gap 13 (12-20); Blood Urea Nitrogen 28 mg/dL (9-16); Calcium 6.8 mg/dL (8.4-10.2); Carbon Dioxide 22 mmol/L (22-29); Chloride 105 mmol/L (96-108); Glucose Random 94 mg/dL (60-115); Phosphorus 3.1 mg/dL (2.7-4.5); Potassium 4.6 mmol/L (3.3-5.1); Sodium 135 mmol/L (135-145)
[2021-11-03 07:45] LABS: Albumin Level 1.9 g/dL (3.5-5.0)
[2021-11-03] MEDS: Albuterol/Iprat 2.5/0.5MG 3 ML AMPUL.NEB INHALE ×3 (08:09→15:18)
--- NOTE | 2021-11-03 08:22 | PM.PNGS ---
Subjective Subjective Date of Service: 11/03/21 Interval history: remains on the ventilator no other events reported overnight Physical Exam Vital Signs: Vital Signs: Last Vital Signs Temp 99.3 F 11/03/21 08:00 Pulse 97 11/03/21 08:10 Resp 23 H 11/03/21 08:10 BP 118/62 11/03/21 08:00 Pulse Ox 92 11/03/21 08:00 O2 Del Method 11/03/21 08:00 O2 Flow Rate 5 11/01/21 14:02 FiO2 30 11/03/21 08:00 BMI result Body Mass Index 18.1 Const: Other: sedated, no acute distress Resp: Other: on ventilator Cardio: Rate: regular rate GI: Other: soft , dressings dry, no guarding rebound : Other: Guy in, good urine output Extrem: Other: 4th and 5th toes dusky, he will also appearing dusky Objective Data Active Medications Acetaminophen (Acetaminophen 325 Mg Tablet) 650 mg PO Q6H PRN PRN Reason: Pain, Mild (Pain Scale 1-3) Albuterol/Ipratropium (Albuterol/Iprat 2.5/0.5mg 3 Ml Ampul.Neb) 3 ml INHALE RQ4H WHILE AWAKE [facility] Last Admin: 11/03/21 08:09 Dose: 3 ml Documented By: PAO Amiodarone HCl (Amiodarone Hcl 200 Mg Tablet) 200 mg PO BID [facility] Last Admin: 11/01/21 11:17 Dose: 200 mg Documented By: LUCAS Chlorhexidine Gluconate (Chlorhexidine Gluc Oral Rinse 15 Ml Mouthwash) 15 ml BUCCAL TID [facility] Last Admin: 11/02/21 20:20 Dose: 15 ml Documented By: GONZÁLEZ Heparin Sodium (Porcine) (Heparin Sodium,Porcine 5,000 Unit/Ml Vial) 2,200 unit 40 unit/kg (2200 unit) IVPUSH PROTOCOL BOLUS PRN; Protocol PRN Reason: 40 unit/kg - Heparin Protocol Heparin Sodium (Porcine) (Heparin Sodium,Porcine 5,000 Unit/Ml Vial) 4,500 unit 80 unit/kg (4500 unit) IVPUSH PROTOCOL BOLUS PRN; Protocol PRN Reason: 80 unit/kg - Heparin Protocol Last Admin: 11/03/21 07:21 Dose: 4,500 unit Documented By: GONZÁLEZ Hydromorphone HCl (Hydromorphone Hcl 1 Mg/Ml Syringe) 0.5 mg IVPUSH Q2H PRN; Protocol PRN Reason: Pain, Severe (Pain Scale 7-10) Last Admin: 11/02/21 17:11 Dose: 0.5 mg Documented By: VELVET Phenylephrine HCl 20 mg/ (Sodium Chloride) 252 mls @ 0 mls/hr IVCONT .Q0M KENYA; Protocol Last Admin: 11/03/21 04:13 Dose: 1 mcg/kg/min, 42.19 mls/hr Documented By: GONZÁLEZ Potassium Chloride/Dextrose/Sod Cl () 20 meq in 1,000 mls @ 25 mls/hr IVCONT .Q24H KENYA Last Admin: 11/02/21 17:59 Dose: Not Given Documented By: VELVET Non-Admin Reason: IV Running Propofol (Diprivan) 1,000 mg in 100 mls @ 0 mls/hr IVCONT .Q0M KENYA; Protocol Last Titration: 11/03/21 08:06 Dose: 0 mcg/kg/min, 0 mls/hr Documented By: HARJINDER Levofloxacin (Levaquin) 750 mg in 150 mls @ 100 mls/hr IV Q24H KENYA Last Infusion: 11/02/21 10:57 Dose: 0 mls/hr Documented By: VELVET Multivitamins 10 ml/ Chromium/Copper/Manganese/Zinc 1 ml/Amino Acids/Electrolytes/Dextrose 2,000 mls @ 83.333 mls/hr IV DAILY@1800 KENYA Stop: 11/03/21 17:59 Last Admin: 11/02/21 17:12 Dose: 83.33 mls/hr Documented By: VELVET Heparin Sodium/Sodium Chloride () 25,000 unit in 250 mls @ 0 mls/hr IVCONT .Q0M KENYA; Protocol Last Titration: 11/03/21 07:09 Dose: 20 units/kg/hr, 11.16 mls/hr Documented By: GONZÁLEZ Co-signed By: LINDSAY Senna (Sennosides 8.6 Mg Tablet) 17.2 mg PO BEDTIME PRN PRN Reason: Constipation Sodium Chloride (0.9 % Sodium Chloride Flush 3 Ml Syringe) 3 ml IVFLUSH QSHIFT [facility] Last Admin: 11/03/21 01:04 Dose: Not Given Documented By: GONZÁLEZ Non-Admin Reason: IV Running Labs CBC & Chem 7: 11/03/21 03:50 11/03/21 03:50 Labs: Laboratory Results - last 24 hr 11/02/21 11/02/21 11/02/21 14:30 14:30 20:54 MCV 90.8 MCH 30.0 MCHC 33.1 RDW 17.2 H Plt Count 255 MPV 10.9 Immature Gran % (Auto) Neut % (Auto) Lymph % (Auto) [place] % (Auto) Eos % (Auto) Baso % (Auto) Lymph # (Auto) [place] # (Auto) Eos # (Auto) Baso # (Auto) Abs Immat Gran (auto) Absolute Neuts (auto) Absolute Nucleated RBC 0.000 Nucleated RBC % (auto) 0.0 Neutrophils % (Manual) Band Neutrophils % Lymphocytes % (Manual) Monocytes % (Manual) Metamyelocytes % Myelocytes % Abs Neuts (Manual) Lymphocytes # (Manual) Monocytes # (Manual) Metamyelocytes # Myelocytes # Platelet Estimate Large Platelets Plt Morphology Comment RBC Morphology Polychromasia Macrocytosis Target Cells PT 13.5 H INR 1.2 H aPTT Heparin Protocol 27.9 L 29.6 L VBG pH VBG pCO2 VBG pO2 VBG HCO3 VBG O2 Saturation VBG Base Excess Anion Gap Estim Creat Clear Calc Estimated GFR Random Glucose Calcium Phosphorus Magnesium Albumin 11/03/21 11/03/21 11/03/21 03:50 03:50 03:50 MCV 90.5 MCH 30.3 MCHC 33.5 RDW 17.5 H Plt Count 242 MPV 11.0 Immature Gran % (Auto) Cancelled Neut % (Auto) Cancelled Lymph % (Auto) Cancelled [place] % (Auto) Cancelled Eos % (Auto) Cancelled Baso % (Auto) Cancelled Lymph # (Auto) Cancelled [place] # (Auto) Cancelled Eos # (Auto) Cancelled Baso # (Auto) Cancelled Abs Immat Gran (auto) Cancelled Absolute Neuts (auto) Cancelled Absolute Nucleated RBC 0.000 Nucleated RBC % (auto) 0.0 Neutrophils % (Manual) 79 H Band Neutrophils % 8 H Lymphocytes % (Manual) 5 L Monocytes % (Manual) 3 Metamyelocytes % 2 Myelocytes % 3 Abs Neuts (Manual) 27.5 H Lymphocytes # (Manual) 1.6 Monocytes # (Manual) 0.9 Metamyelocytes # 0.6 Myelocytes # 0.9 Platelet Estimate NORMAL Large Platelets PRESENT Plt Morphology Comment NORMAL RBC Morphology NOTED Polychromasia 1+ (0-2) Macrocytosis 1+ (5-14) Target Cells 1+ (5-14) PT 13.7 H INR 1.2 H aPTT Heparin Protocol VBG pH VBG pCO2 VBG pO2 VBG HCO3 VBG O2 Saturation VBG Base Excess Anion Gap 13 Estim Creat Clear Calc 63.5 Estimated GFR > 60 Random Glucose 94 D Calcium 6.8 L Phosphorus 3.1 Magnesium 2.0 Albumin 11/03/21 11/03/21 11/03/21 03:50 04:20 Unknown MCV MCH MCHC RDW Plt Count MPV Immature Gran % (Auto) Neut % (Auto) Lymph % (Auto) [place] % (Auto) Eos % (Auto) Baso % (Auto) Lymph # (Auto) [place] # (Auto) Eos # (Auto) Baso # (Auto) Abs Immat Gran (auto) Absolute Neuts (auto) Absolute Nucleated RBC Nucleated RBC % (auto) Neutrophils % (Manual) Band Neutrophils % Lymphocytes % (Manual) Monocytes % (Manual) Metamyelocytes % Myelocytes % Abs Neuts (Manual) Lymphocytes # (Manual) Monocytes # (Manual) Metamyelocytes # Myelocytes # Platelet Estimate Large Platelets Plt Morphology Comment RBC Morphology Polychromasia Macrocytosis Target Cells PT INR aPTT Heparin Protocol 27.1 L VBG pH 7.45 H VBG pCO2 36 VBG pO2 61 VBG HCO3 25 VBG O2 Saturation 89.0 VBG Base Excess 1.6 Anion Gap Estim Creat Clear Calc Estimated GFR Random Glucose Calcium Phosphorus Magnesium Albumin 1.9 L Procedures Date of Service Date of Service: 11/03/21 Progress Note: A&P Assessment and plan (1) Partial small bowel obstruction: Status: Acute Assessment and Plan: remains on ventilator attempt to wean off from vent today as per quarantine officer abdominal exam benign continue NG tube await for return of GI function will follow closely vascular also following Time Spent With Patient Time: Total time spent is greater than 50% in coordination of care (as documented) at patient's floor/unit and/or counseling patient: Quality Stroke Does the patient have a stroke diagnosis?: No VTE Prior VTE?: No VTE Risk Level:: Medical - moderate - high VTE Device Contraindication: Treatment Not Indicated VTE Drug Contraindication: N/A - Med Ordered
[2021-11-03] MEDS: 0.9 % Sodium Chloride Flush 3 ML SYRINGE IVFLUSH ×2 (09:22→16:35)
[2021-11-03] MEDS: Chlorhexidine Gluc Oral Rinse 15 ML MOUTHWASH BUCCAL ×2 (09:22→16:35)
[2021-11-03] MEDS: levoFLOXacin/D5W 750 MG/150 ML PIGGYBACK 100 MG IV (09:23)
--- NOTE | 2021-11-03 09:32 | MHC.CLN ---
F/U REVIEWED LABS; DISCUSSED WITH PHARMACY PT NOW WITH PROPOFOL OFF FOR POSSIBLE EXTUBATION TODAY PT RECEIVING PPN D10AA4.25 AT 83.33ML/HR PROVIDES 1020KCALS, 85G PROTEIN (1.5G/KG) RECOMMEND RE-STARTING LIPIDS 14ML OF 20% LIPIDS TO PROVIDE AN ADDITIONAL 672KCALS (1692KCALS TOTAL; 30KCALS/KG) REPLETE LYTES NEEDED
--- NOTE | 2021-11-03 09:50 | P.CDIC_ITS ---
CDI Concurrent Query Documentation Clarification: PHYSICIAN'S DOCUMENTATION REQUEST Date of Query: 11/03/21 0950 Patient Name: Jake Vargas Admit Date: 10/23/21 Dear Doctor, A review of the medical record indicates additional documentation may be needed. Please review below and update the documentation accordingly. Clinical Indicators Risk Factors/Clinical Indicators/Treatments Vascular note 10/26 - He does have concerns for pneumonia/sepsis w high wbc's 36 - Zosyn. HR 108 LA 2.4 WBC 14/42 RR 26 Progress notes 10/30, 10/31, & 11/01 - Assessment/plan - Enterobacter aerogenes bacteremia/Sepsis, suspect aspiration. Vancomycin and Zosyn, oxygen. Recognized standard criteria for this condition and other infectious definitions includes: Bacteremia Abnormal laboratory test - does not indicate a clinically ill patient Sepsis Systemic manifestations of infection, with 2 or more SIRS criteria which include: * Fever > 100.4?F or hypothermia < 96.8?F * Leukocytosis ? WBC > 12,000 or leukopenia, WBC < 4,000, or > 10% bands * Tachycardia- > 90 beats/minute * Tachypnea- RR > 20 breaths/minute or PaCO2 < 32mmHg Source: [employer] Manual 2013 Documentation should include the known or suspected organism, and the unde rlying infection, such as UTI or pneumonia Based on the above information and the recognized standard for sepsis, could you please clarify in the Progress Notes if this diagnoses is still accurate and reflective of the patient's condition to ensure quality of the medical record. Consistency and clarity of documentation within the medical record: * Sepsis due to aspiration pneumonia (Enterobacter aerogenes) with organ failure (respiratory, renal) Sepsis due to other infectious etiology (Enterobacter aerogenes bacteremia) with organ failure * Other (please specify) * Unable to determine Use of terms such as suspected, likely, concern for, or probable (associated with a specific diagnosis that is being evaluated, monitored, or treated as if it exists) are acceptable and can be coded in the inpatient setting, when documented at the time of discharge. Thank you, Jennyfer [place] [facility], CDIS Extension: [phone] Please use your independent medical judgment in providing your response. THIS QUERY IS PART OF THE PERMANENT MEDICAL RECORD
--- NOTE | 2021-11-03 10:53 | HO.VASCPN ---
Subjective Subjective Date of Service: 11/03/21 Patient reports: no new complaints Interval history: Patient seen and examined. No significant changes overnight. Still intubated and sedated. Although we are progressing on the vent and he is now on pressure control. He is resting comfortably. No significant changes throughout the night. Physical Exam Vital Signs: Vital Signs: Last Vital Signs Temp 98.6 F 11/03/21 10:00 Pulse 112 H 11/03/21 10:00 Resp 26 H 11/03/21 10:00 BP 106/58 L 11/03/21 10:00 Pulse Ox 92 11/03/21 10:00 O2 Del Method 11/03/21 10:00 O2 Flow Rate 5 11/01/21 14:02 FiO2 30 11/03/21 10:00 BMI result Body Mass Index 18.1 Const: General: cooperative, healthy appearing and comfortable Orientation/consciousness: oriented to person, oriented to place and oriented to time HEENT: Head: Yes normal to inspection Neck: Neck: Yes normal visual inspection Carotids: no bruits Chest: Chest palpation & inspection: normal inspection of the chest Resp: Effort & Inspection: normal respiratory effort and able to speak in complete sentences Auscultation: clear to auscultation bilaterally, no crackles, no rales, no rhonchi and no wheezes Cardio: Rate: regular rate Rhythm: regular rhythm Heart sounds: S1 normal heart sound present and S2 normal heart sound present Bruits: no carotid bruits Peripheral pulses: dorsalis pedis present (Right side DP signal, left side difficult to appreciate any signals) GI: Inspection: Yes normal to inspection Skin: Other: Left foot dusky/cool left 4th and 5th toe dusky as well Hair: normal Neuro: General: oriented to person, oriented to place and oriented to time Cranial nerves: Yes CN's II-XII intact bilaterally and Yes Normal hearing present Cognition (Neuro): normal cognition Motor exam (neuro): 5/5 motor strength present throughout Extrem: Other: venous exam: No significant superficial varicosities or spider telangiectasias, minimal edema General: No clubbing, No cyanosis and No edema Psych: Appearance: grossly normal Mental Status: mental status grossly normal Speech and movement: Normal speech and movement present Progress Note: A&P Assessment and plan (1) PAD (peripheral artery disease): Status: Acute Assessment and Plan: In short patient has undergone removal of fem-fem bypass graft and small-bowel resection. Still currently intubated and sedated but progressing on the vent. Due to the dusky leg and his overall status the decision was made to get him out to a tertiary care center where he may be better served. We reached out to [facility] and was accepted by Dr. Olmstead. She is making arrangements to expedite transfer soon as possible and most likely will end up in the MICU over there to help control the vent and initial aspiration pneumonia. Situation was explained to the transfer center. I also had a multidisciplinary meeting with Dr. Murrieta and Dr. Meza this morning. It was agreed that this would be the most appropriate course of action. I also did have a discussion with the brother earlier this morning. I have left a message for him to call me back to update his status regarding his transfer. Will continue to follow him closely and will require continued ICU level of care as he is intubated and sedated. Please note 75 minutes of time was required to coordinate care and arrange for transfer along with direct patient contact and discussion with brother. Time Spent With Patient Time: Total time spent is greater than 50% in coordination of care (as documented) at patient's floor/unit and/or counseling patient: Procedures Date of Service Date of Service: 11/03/21 Quality Stroke Does the patient have a stroke diagnosis?: No VTE Prior VTE?: No VTE Risk Level:: Medical - moderate - high VTE Device Contraindication: Treatment Not Indicated VTE Drug Contraindication: N/A - Med Ordered
[2021-11-03 13:53] LABS: PTT Heparin Drip 44.8 SEC (53-77.9)
--- NOTE | 2021-11-03 15:34 | MHC.CM.PN ---
IMM 11/03/21 MALE 76 FAILED FEMPOP BIPASS. THE BYPASS GRAFT HAS BEEN REMOVED. THE PATIENT WILL BE TRANSFERED TO [facility] VIA [facility] PENDING BED AVAILABILITY.
[2021-11-03] MEDS: Heparin Sodium,Porcine/1/2NS 25,000 UNIT/250 ML IV.SOLN 12.28 UNIT IVCONT (15:53)
[2021-11-03] MEDS: Heparin Sodium,Porcine 5,000 UNIT/ML VIAL 2200 UNIT IVPUSH (15:56)
--- NOTE | 2021-11-03 16:04 | PM.EVENT ---
Event Note Date of Service: 11/03/21 Event Note: Patient has been doing relatively well on the vent and is in the process of possibly being extubated. In the interim throughout the day his left lower extremity has deteriorated. There has been a local bed shortage. we reached out to several of the local hospitals including [facility], [facility], [facility] and [facility]. All had bed shortage is at the current time. We were fortunate to get a bed at [facility] and the patient will be transferred to the care of Dr. Ricardo Joseph. I had a telephone conversation regarding his overall status and situation. I also relayed the urgency of the limb ischemia as well. Patient is currently being maintained on a heparin drip. Hopefully he will be transferred as soon as possible.
--- NOTE | 2021-11-03 16:41 | PM.DS ---
DS: Providers Provider Date of Service: 11/03/21 Date of admission: 10/23/21 21:56 Date of discharge: 11/03/21 Primary care physician: Clay Samuels MD Consults: 10/24/21 06:41 Consult to General Surgery Routine Consulting Provider: Thuan Meza Reason for consultation: SBO with transition point 10/26/21 08:43 Consult to Vascular Surgery Routine Consulting Provider: Fran Kenyon Reason for consultation: post op Has provider been notified: Yes 10/26/21 09:10 Consult to Infectious Diseases Routine Consulting Provider: Taniya Mcpherson Reason for consultation: wbc 36 Has provider been notified: No 10/28/21 08:54 Consult to Pulmonology Routine Consulting Provider: [facility] Reason for consultation: aspiration pneumonia, atelectasis/mucus plugging Attending physician on discharge: Jessica Murrieta Discharging clinician: Jessica Murrieta DS: Transfer Hospital Acceptance Reason for Transfer: And needs tertiary level of care for vascular surgery Name of Facility: [facility] Accepting Provider: Dr. Joseph DS: Diagnosis Discharge Diagnosis (1) Paroxysmal atrial fibrillation: Status: Acute (2) Mucus plugging of bronchi: Status: Acute (3) Bacteremia: Status: Acute (4) New onset atrial fibrillation: Status: Acute (5) Acute respiratory failure with hypoxia: Status: Acute (6) Pulmonary emboli: Status: Acute (7) Elevated troponin: Status: Acute (8) Partial small bowel obstruction: Status: Acute (9) Aspiration pneumonia: Status: Acute (10) Bradycardia: Status: Acute (11) Status post femorofemoral bypass surgery: Status: Acute (12) PAD (peripheral artery disease): Status: Acute (13) Preoperative cardiovascular examination: Status: Acute (14) Gram-negative sepsis: Status: Acute DS: Summary Hospital Course Hospital Course: 76-year-old male vasculopath several weeks status post fem-fem bypass to deliver head of pressure to the left lower extremity which was threatened with dependent rubor in constant pain and the graft apparently was partially intra-abdominal and a small piece of small bowel was caught and kinked but perfectly viable but had small-bowel obstruction and while upstairs on the floor did it had Enterobacter sepsis and Levaquin had been started for that but apparently was becoming increasingly febrile hypotensive and hypoxic was then taken to the OR on the 01 of November and the graft had to be taken down and a small piece of viable small bowel resected with primary anastomosis came back on the ventilator FiO2 has since been weaned from 100-30% peep is weaned to 5 patient is on a pressure support weaning trial awake off of the propofol all day with good mental status good cognitive cognitive function no encephalopathy tidal volumes are close to 500 cc with about 20 cm of total pressure sinus rhythm at a rate of about 100 but he has been afebrile for at least 18 hours with res but white count persisting at 31,000 at this point but there has been increasing ischemic demarcation of his left foot which remains cold and we were just concerned with trying to preserve the viability of his much of that leg as we can so today need for transfer to tertiary level vascular surgery the became a an urgency Now that he is off propofol he is off of pressors he has got a left central venous pressure line with a CVP of approximately 5 unstable he has been receiving TPN and has got preserved renal function but has still a postoperative ileus but abdomen is soft seems to be no the no postoperative complication Status at Discharge Cognitive/behavioral status at discharge: Good cognitive function upon transfer Time Spent with Patient Time attestation: Total time spent providing and/or coordinating discharge services: Discharge coordination time: Greater than 30 minutes Quality: Safe Use of Opioids Does Pt have an Active Cancer Diagnosis on the Problem List?: No Quality: Stroke Does the patient have a stroke diagnosis?: No Physical Exam Vital Signs: Vital Signs: Last Vital Signs Temp 98.6 F 11/03/21 15:00 Pulse 97 11/03/21 15:18 Resp 22 H 11/03/21 15:18 BP 107/56 L 11/03/21 15:00 Pulse Ox 94 11/03/21 15:00 O2 Del Method 11/03/21 15:00 O2 Flow Rate 5 11/01/21 14:02 FiO2 40 11/03/21 15:20 BMI result Body Mass Index 18.1 76-year-old who has good cognitive function off propofol on a pressure support weaning trial from the ventilator History paroxysmal atrial fibrillation on amiodarone maintenance which I withheld because of his NPO status only for 2 days and is normal sinus rhythm with no ST-T changes and bedside echo with class 1 LV function Abdomen soft but no bowel sounds with postoperative ileus It chest in no adventitious sounds and no accessory muscle use DS: Data Data Completed and Pending Completed studies during hospitalization [Text1]: Procedures Bypass Right Femoral Artery to Left Femoral Artery with Synthetic Substitute, Open Approach (10/18/21) Extirpation of Matter from Left Femoral Artery, Open Approach (10/18/21) Pending studies at discharge: Pending at discharge 11/01/21 16:45 Surgical [PTH] Routine Labs on day of discharge: Laboratory Results - last 24 hr 11/02/21 11/03/21 11/03/21 20:54 03:50 03:50 WBC 31.6 H* RBC 2.74 L Hgb 8.3 L Hct 24.8 L MCV 90.5 MCH 30.3 MCHC 33.5 RDW 17.5 H Plt Count 242 MPV 11.0 Immature Gran % (Auto) Cancelled Neut % (Auto) Cancelled Lymph % (Auto) Cancelled [place] % (Auto) Cancelled Eos % (Auto) Cancelled Baso % (Auto) Cancelled Lymph # (Auto) Cancelled [place] # (Auto) Cancelled Eos # (Auto) Cancelled Baso # (Auto) Cancelled Abs Immat Gran (auto) Cancelled Absolute Neuts (auto) Cancelled Absolute Nucleated RBC 0.000 Nucleated RBC % (auto) 0.0 Neutrophils % (Manual) 79 H Band Neutrophils % 8 H Lymphocytes % (Manual) 5 L Monocytes % (Manual) 3 Metamyelocytes % 2 Myelocytes % 3 Abs Neuts (Manual) 27.5 H Lymphocytes # (Manual) 1.6 Monocytes # (Manual) 0.9 Metamyelocytes # 0.6 Myelocytes # 0.9 Platelet Estimate NORMAL Large Platelets PRESENT Plt Morphology Comment NORMAL RBC Morphology NOTED Polychromasia 1+ (0-2) Macrocytosis 1+ (5-14) Target Cells 1+ (5-14) PT 13.7 H INR 1.2 H aPTT Heparin Protocol 29.6 L VBG pH VBG pCO2 VBG pO2 VBG HCO3 VBG O2 Saturation VBG Base Excess Sodium Potassium Chloride Carbon Dioxide Anion Gap BUN Creatinine Estim Creat Clear Calc Estimated GFR Random Glucose Calcium Phosphorus Magnesium Albumin 11/03/21 11/03/21 11/03/21 03:50 03:50 04:20 WBC RBC Hgb Hct MCV MCH MCHC RDW Plt Count MPV Immature Gran % (Auto) Neut % (Auto) Lymph % (Auto) [place] % (Auto) Eos % (Auto) Baso % (Auto) Lymph # (Auto) [place] # (Auto) Eos # (Auto) Baso # (Auto) Abs Immat Gran (auto) Absolute Neuts (auto) Absolute Nucleated RBC Nucleated RBC % (auto) Neutrophils % (Manual) Band Neutrophils % Lymphocytes % (Manual) Monocytes % (Manual) Metamyelocytes % Myelocytes % Abs Neuts (Manual) Lymphocytes # (Manual) Monocytes # (Manual) Metamyelocytes # Myelocytes # Platelet Estimate Large Platelets Plt Morphology Comment RBC Morphology Polychromasia Macrocytosis Target Cells PT INR aPTT Heparin Protocol 27.1 L VBG pH 7.45 H VBG pCO2 36 VBG pO2 61 VBG HCO3 25 VBG O2 Saturation 89.0 VBG Base Excess 1.6 Sodium 135 Potassium 4.6 Chloride 105 Carbon Dioxide 22 Anion Gap 13 BUN 28 H Creatinine 0.78 Estim Creat Clear Calc 63.5 Estimated GFR > 60 Random Glucose 94 D Calcium 6.8 L Phosphorus 3.1 Magnesium 2.0 Albumin 11/03/21 11/03/21 13:14 Unknown WBC RBC Hgb Hct MCV MCH MCHC RDW Plt Count MPV Immature Gran % (Auto) Neut % (Auto) Lymph % (Auto) [place] % (Auto) Eos % (Auto) Baso % (Auto) Lymph # (Auto) [place] # (Auto) Eos # (Auto) Baso # (Auto) Abs Immat Gran (auto) Absolute Neuts (auto) Absolute Nucleated RBC Nucleated RBC % (auto) Neutrophils % (Manual) Band Neutrophils % Lymphocytes % (Manual) Monocytes % (Manual) Metamyelocytes % Myelocytes % Abs Neuts (Manual) Lymphocytes # (Manual) Monocytes # (Manual) Metamyelocytes # Myelocytes # Platelet Estimate Large Platelets Plt Morphology Comment RBC Morphology Polychromasia Macrocytosis Target Cells PT INR aPTT Heparin Protocol 44.8 L D VBG pH VBG pCO2 VBG pO2 VBG HCO3 VBG O2 Saturation VBG Base Excess Sodium Potassium Chloride Carbon Dioxide Anion Gap BUN Creatinine Estim Creat Clear Calc Estimated GFR Random Glucose Calcium Phosphorus Magnesium Albumin 1.9 L Discharge Plan Discharge Anticipated Discharge Date/Time: 11/03/21 16:36 Patient Disposition: Xfer Acute Care Hospital Discharge Diagnosis: Ischemia with threatened left lower extremity Aspiration pneumonitis with ventilator dependence but very close to complete weaning Enterobacter sepsis Status post small-bowel resection for SBO Stable anemia Referrals: Clay Samuels MD [Primary Care Provider] - 1 Week Discharge Medications: No Action cephalexin 500 mg capsule 500 mg PO BID Qty: 14 0RF aspirin [Adult Aspirin Regimen] 81 mg tablet,delayed release (DR/EC) 81 mg PO DAILY ibuprofen [Advil] 200 mg tablet 200 mg PO Q6H PRN (Reason: Pain) Label Comments: Advised to hold pre-op multivitamin Tablet 1 tab PO DAILY Discharge Orders: Discharge Order (Routine); Ordered 11/03/21 Ordered By: Jessica Murrieta Activity on Discharge: Rest with bed elevated Stand Alone Forms: Patient Portal Discharge page Care Plan Goals: Transfer to tertiary care facility for revascularization Health Concerns: Continued ventilator dependence continued need for antibiotics Plan of Treatment: Complete antibiotics for Enterobacter sepsis and possible angiographic evaluation of left lower extremity for potential revascularization Assessment: Definitely medically stable for discharge and transportation
[2021-11-03] MEDS: Amiodarone/Dextrose 150 MG/100 ML PLAST..BAG 600 MG IV (17:16)
[2021-11-03] MEDS: propofoL 1,000 MG/100 ML VIAL 6.7 MG IVCONT (18:20)
[2021-11-03] MEDS: Fat Emulsions 20% 250 ML 20 ML IV (18:39)
[2021-11-03] MEDS: 0.9 % Sodium Chloride 500 ML 999 ML IV (18:40)
[2021-11-03 19:46] LABS: Glucose, Whole Blood 105 mg/dL (60-115)
--- NOTE | 2021-11-03 21:05 | PC.NURSE ---
Assumed care at 15:00. Patient was alert and calm and responsive to questions and commands, TIFFANI. ETT #7.5 at 21 cm. PC settings with rate 18; PC 15; PEEP 5; FiO2 30%; EtCO2 15. Patient with ST on monitor, BPs were WNL via Right radial A-line, appropriate waveform. Patient with diminshed LS and inline secretins small amount to suction. NGT clamped. Patient with abdominal incision intact to dressing and has perla to bilateral groin cutdown sites with ABD pads intact. Patient with no pulse to left DP nor left PT. Right DP doppler only. Patient urine outputs 65 cc /hour dark paula. Patient with transfer to [facility] after bedsearch, report given to Kallie at D8 at hospital, room will be 74. Life flight transport arranged by [email or web address]. Report given to life flight nurses. Was initially to go with TPN and lipids, held by flight crewMD aware. Heparin gtt was increased to 22 doserate at 16:00, repeat PTT-HD for 22:00, and this was reported to moisture meter operatorKallie, at [facility]
== END 2021-11-03 19:55 | disposition short-term general hospital (02) | DRG 853 ==
LOC: HO.ED 20:41 → HO.EDOVER 22:17 → HO.ICU 10-26 08:44 → HO.IMC 10-27 09:35 → HO.ICU 11-01 17:26
PROVIDERS: Family Medicine; Hospitalist; Internal Medicine; Internal Medicine Cardiovascular Disease; Physician Assistant; Surgery; Surgery Vascular Surgery; Admitting Provider Hospitalist; Emergency Provider Emergency Medicine; PCP Internal Medicine; Visit Provider Internal Medicine Cardiovascular Disease
PROC: 0DB80ZZ Excision of Small Intestine, Open Approach (ICD-10-PCS; CPT 49320; principal; 2021-11-01 13:40)
DX: A41.9 Sepsis, unspecified organism (principal); J69.0 Pneumonitis due to inhalation of food and vomit; I26.99 Other pulmonary embolism without acute cor pulmonale; T82.392A Other mechanical complication of femoral arterial graft (bypass), initial encounter; K56.600 Partial intestinal obstruction, unspecified as to cause; I24.8 Other forms of acute ischemic heart disease; I47.1 Supraventricular tachycardia; E44.0 Moderate protein-calorie malnutrition; Z68.1 Body mass index [BMI] 19.9 or less, adult; E87.0 Hyperosmolality and hypernatremia; N17.9 Acute kidney failure, unspecified; Z99.11 Dependence on respirator [ventilator] status; I48.0 Paroxysmal atrial fibrillation; F17.210 Nicotine dependence, cigarettes, uncomplicated; J98.09 Other diseases of bronchus, not elsewhere classified; I73.9 Peripheral vascular disease, unspecified; E87.6 Hypokalemia; Z71.6 Tobacco abuse counseling; Z20.822 Contact with and (suspected) exposure to COVID-19; Z85.46 Personal history of malignant neoplasm of prostate; Z92.3 Personal history of irradiation; Z86.711 Personal history of pulmonary embolism; Z79.82 Long term (current) use of aspirin; Z79.899 Other long term (current) drug therapy
CPT/HCPCS: 36415; 36600; 71045; 71250; 71275; 74018; 74174; 74176; 78580; 80048; 80076; 80202; 81001; 82040; 82803; 82947; 83605; 83735; 83880; 84100; 84145; 84478; 84484; 85007; 85025; 85027; 85379; 85610; 85730; 86850; 86900; 86901; 87040; 87077; 87186; 87205; 87502; 87635; 87640; 87641; 88307; 92610; 93005; 93308; 94002; 94003; 94640; 94799; 97110; 97162; 99024; 99232; 99284; A9540; C1757; J0282; J0690; J0696; J1100; J1170; J1650; J1956; J2185; J2270; J2370; J2405; J2543; J3010; J3370; J3475; Q9967